=== PATIENT | female | born 1990 | race Caucasian/White ===

== ENCOUNTER → 2016-05-17 | Outpatient (CLI) | payer BC ==
[~2016-05-17] MED LIST: BCPILLS PO; HYDR-5688 PO; LINA1CAP PO; MULT-513 PO; ONDA4TAB9 PO; PRLSR20 PO; SERT50TA PO; TRAZ1TAB9 PO; ZONI100C39 PO
--- NOTE | 2016-05-17 14:03 | DIAGNOSTIC IMAGING REPORT ---
CT SCAN OF THE ABDOMEN AND PELVIS WITHOUT IV CONTRAST CLINICAL HISTORY: Nausea and vomiting. COMPARISON STUDY: Abdominal CT dated 02/14/2016. TECHNIQUE: CT scan of the abdomen and pelvis is performed from the lung bases to the proximal femora. Images are reviewed in the axial, sagittal, and coronal planes. IV contrast was not administered for this examination as per the referring clinician. Note that the examination was performed in significantly suboptimal fashion without oral and IV contrast. Automated dose control exposure was utilized. CT DOSE: 1033.69 mGycm FINDINGS: Lung bases: The heart is normal in size and without pericardial effusion. There are trace pleural effusions. The lung bases are otherwise clear. Liver: The unenhanced liver is normal in size, contour, and attenuation. There is no intrahepatic biliary ductal dilatation. Gallbladder: Surgically absent noting clips in the gallbladder fossa. Spleen: Normal in size and attenuation. Pancreas: Unremarkable. Adrenal glands: Unremarkable. Kidneys: The unenhanced kidneys are normal in size and without hydronephrosis. There are no renal calculi identified. There is no evidence of contour deforming renal mass lesion. Abdominal vasculature: The abdominal aorta is normal in course and caliber. Bowel: The small bowel and colon are normal in course and caliber. The appendix is not identified and reported surgically absent. Peritoneum: There is no intraperitoneal free air or abdominal ascites. There is a small fat-containing umbilical hernia. Lymphadenopathy: None. Pelvic viscera: The bladder, uterus, and adnexa are normal as visualized. There are bilateral ovarian follicles. Trace free fluid is noted in the cul-de-sac. Skeletal structures: No lytic or blastic lesions are seen. IMPRESSION: 1. Significantly suboptimal examination without oral and IV contrast 2. There are no acute infectious or inflammatory findings in the abdomen or pelvis. 3. Trace free fluid in the cul-de-sac is likely within physiologic limits. 4. Trace pleural effusions. Electronically signed by: Cesar Perez M.D. 05/17/2016 2:02 PM Dictated Date/Time: 05/17/2016 1:59 PM
== END | disposition home or self-care (01) ==
LOC: C.CTS 12:57
PROVIDERS: ATTEND Nurse Practitioner Family
DX: R10.9 Unspecified abdominal pain (principal); R31.9 Hematuria, unspecified; R11.2 Nausea with vomiting, unspecified; Z87.442 Personal history of urinary calculi

== ENCOUNTER → 2016-05-29 | Outpatient (CLI) | payer BC ==
[2016-05-29 19:44] LABS: BASO % 0.2 %; BASO ABS # 0.03 K/uL (0-0.2); COMPLETE YES; EOS % 1.2 %; HEMATOCRIT 42.6 % (37-47); IG% 0.2 %; LYMPH % 34.2 %; LYMPH ABS # 4.41 K/uL (1.2-3.4); MEAN CELL VOLUME 83.2 fL (80-100); MEAN CORPUSCULAR HEMOGLOBIN 30.9 pg (25-34); MEAN CORPUSCULAR HGB CONC 37.1 g/dl (32-36); MEAN PLATELET VOLUME 10.7 fL (7.4-10.4); MONO % 5.8 %; NEUT % 58.4 %; PLATELET COUNT 284 K/uL (130-400); RED BLOOD COUNT 5.12 M/uL (4.2-5.4)
[2016-05-29 20:28] LABS: ALB/GLOB RATIO 1.1 (0.9-2); ALKALINE PHOSPHATASE 60 U/L (45-117); ALT/SGPT 33 U/L (12-78); AMYLASE 88 U/L (25-115); AST/SGOT 21 U/L (15-37); BLOOD UREA NITROGEN 12 mg/dl (7-18); BUN/CREATININE RATIO 14.8 (10-20); CALCIUM 8.7 mg/dl (8.5-10.1); CARBON DIOXIDE 22 mmol/L (21-32); CHLORIDE 110 mmol/L (98-107); CREATININE 0.79 mg/dl (0.60-1.20); GLUCOSE 83 mg/dl (70-99); POTASSIUM 3.7 mmol/L (3.5-5.1); SODIUM 142 mmol/L (136-145)
== END | disposition home or self-care (01) ==
LOC: C.LAB 19:12
PROVIDERS: ATTEND Nurse Practitioner
DX: R11.2 Nausea with vomiting, unspecified (principal); R10.84 Generalized abdominal pain

== ENCOUNTER 2017-02-15 12:04 | Emergency (ER) | payer BC ==
[~2017-02-15] VITALS: Ht 162.6 cm; Wt 100.4 kg
[~2017-02-15 12:04] MED LIST changes: -HYDR-5688 PO; +TRAZ-162 PO; -TRAZ1TAB9 PO
[2017-02-15 12:06] VITALS: TEMP 36.6
--- NOTE | 2017-02-15 12:29 | EMERGENCY ROOM VISIT NOTE ---
History Report prepared by Nancy: Avis Esqueda Under the Supervision of: Milton McgovernO. First contact with patient: 12:18 Chief Complaint: SHORTNESS OF BREATH Stated Complaint: SOB Nursing Triage Summary: pt to the ED with severe SOB and chest pain pt is 32 wks preg and is here with her sick daughter. History of Present Illness The patient is a 26 year old female who presents to the Emergency Room with complaints of persistent shortness of breath that began 3 days ago. She notes she took her daughter to see her PCP, noting the PCP told her to come to the Emergency Department for further evaluation. The patient states that she has been coughing, vomiting, and has diarrhea. The patient notes that she has some chest pain when she coughs. She notes that she is . She states she was recently diagnosed with a UTI, noting she is taking microbid. The patient denies any fever or swelling of the legs. She notes a history of seizures, noting she has not had an episode in years. The patient denies being a smoker or having a history of blood clots. Source of History: patient Onset: 3 days Position: other (global) Quality: other (SOB) Timing: other (persistent) Associated Symptoms: + cough, + chest pain, + vomiting, + diarrhea Review of Systems See HPI for pertinent positives & negatives. A total of 10 systems reviewed and were otherwise negative. 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: employed, student Current/Historical Medications Scheduled Albuterol Hfa (Ventolin Hfa), 1 PUFF INH Q4 Aspirin (Aspirin 81), 81 MG PO HS Cefdinir (Omnicef), 300 MG PO Q12H Folic Acid (Folvite), Unknown Dose PO DAILY Multivit/Min/Iron/Fol Ac/Pren ( Vitamin), 1 TAB PO HS Nitrofurantoin (Nitrofurantoin Monohydrat), Unknown Dose PO BID Trazodone Hcl (Desyrel), 150 MG PO HS Allergies Coded Allergies: Amoxicillin (Verified Allergy, Unknown, "anxiety", 02/15/17) Clavulanic Acid (Verified Allergy, Unknown, "anxiety", 02/15/17) Iodinated Contrast Media (Verified Allergy, Unknown, RASH,SWELLING, ) Iodine (Verified Allergy, Unknown, SWELLING, 02/15/17) Mushroom (Verified Allergy, Unknown, hives, 02/15/17) Shellfish (Verified Allergy, Unknown, hives, 02/15/17) Physical Exam Vital Signs Date Time Temp Pulse Resp B/P (MAP) Pulse Ox O2 Delivery O2 Flow Rate FiO2 02/15/17 16:25 79 20 125/73 96 Room Air 02/15/17 14:31 92 16 134/80 99 Room Air 02/15/17 13:17 85 02/15/17 13:12 87 20 114/74 99 Nasal Cannula 2.0 02/15/17 13:10 99 Nasal Cannula 2.0 02/15/17 13:10 99 Nasal Cannula 2.0 02/15/17 12:20 168/104 02/15/17 12:06 36.6 104 36 98 Room Air Physical Exam GENERAL: Patient is awake, alert, and in no acute distress. Patient is resting comfortably and somewhat no signs of anxiety EYES: The conjunctivae are clear. The pupils are round and reactive. EARS, NOSE, MOUTH AND THROAT: The nose is without any evidence of any deformity. Mucous membranes are moist tongue is midline NECK: The neck is nontender and supple. RESPIRATORY: Tachypnea noted on observations. Lung sounds clear throughout. Normal respiratory effort is noted there is no evidence of wheezing rhonchi or rales CARDIOVASCULAR: Regular rate and rhythm noted there no murmurs rubs or gallops normal S1 normal S2 GASTROINTESTINAL: Grabbed in appearance, fundal height well above umbilicus. The abdomen is soft. Bowel sounds are present in all quadrants. No tenderness noted. MUSCULOSKELETAL/EXTREMITIES: There is no evidence of gross deformity full range of motion is noted in the hips and shoulders SKIN: There is no obvious evidence of any rash. There are no petechiae, pallor or cyanosis noted. NEUROLOGIC: Patient is awake alert and oriented x3 strength is symmetric patellar reflexes are 2+ bilaterally Medical Decision & Procedures ER Provider Diagnostic Interpretation: Radiology results as stated below per my review and radiologist interpretation: SINGLE VIEW CHEST CLINICAL HISTORY: Dyspnea. FINDINGS: An AP, portable, upright chest radiograph is compared to study dated 02/14/2016. The examination is degraded by portable technique and patient rotation. The cardiomediastinal silhouette is unremarkable. The lungs and pleural spaces are clear. No pneumothorax is seen. The bony thorax is grossly intact. IMPRESSION: No active disease in the chest. Electronically signed by: Cesar Perez M.D. 02/15/2017 12:46 PM Dictated Date/Time: 02/15/2017 12:45 PM Laboratory Results 02/15/17 12:40 Red Blood Count 4.70, Mean Corpuscular Volume 85.3, Mean Corpuscular Hemoglobin 30.6, Mean Corpuscular Hemoglobin Concent 35.9, Mean Platelet Volume 12.0, Neutrophils (%) (Auto) 67.1, Lymphocytes (%) (Auto) 21.3, Monocytes (%) (Auto) 8.7, Eosinophils (%) (Auto) 2.2, Basophils (%) (Auto) 0.2, Neutrophils # (Auto) 7.21, Lymphocytes # (Auto) 2.29, Monocytes # (Auto) 0.94, Eosinophils # (Auto) 0.24, Basophils # (Auto) 0.02 02/15/17 12:40 Test 02/15/17 12:40 02/15/17 12:55 02/15/17 13:49 02/15/17 14:40 White Blood Count 10.75 K/uL (4.8-10.8) Red Blood Count 4.70 M/uL (4.2-5.4) Hemoglobin 14.4 g/dL (12.0-16.0) Hematocrit 40.1 % (37-47) Mean Corpuscular Volume 85.3 fL (80-100) Mean Corpuscular Hemoglobin 30.6 pg (25-34) Mean Corpuscular Hemoglobin Concent 35.9 g/dl (32-36) Platelet Count 182 K/uL (130-400) Mean Platelet Volume 12.0 fL (7.4-10.4) Neutrophils (%) (Auto) 67.1 % Lymphocytes (%) (Auto) 21.3 % Monocytes (%) (Auto) 8.7 % Eosinophils (%) (Auto) 2.2 % Basophils (%) (Auto) 0.2 % Neutrophils # (Auto) 7.21 K/uL (1.4-6.5) Lymphocytes # (Auto) 2.29 K/uL (1.2-3.4) Monocytes # (Auto) 0.94 K/uL (0.11-0.59) Eosinophils # (Auto) 0.24 K/uL (0-0.5) Basophils # (Auto) 0.02 K/uL (0-0.2) RDW Standard Deviation 40.1 fL (36.4-46.3) RDW Coefficient of Variation 12.7 % (11.5-14.5) Immature Granulocyte % (Auto) 0.5 % Immature Granulocyte # (Auto) 0.05 K/uL (0.00-0.02) Prothrombin Time 9.9 SECONDS (9.0-12.0) Prothromb Time International Ratio 0.9 (0.9-1.1) Activated Partial Thromboplast Time 26.4 SECONDS (21.0-31.0) Partial Thromboplastin Ratio 1.0 D-Dimer 540 ug/L FEU (0-500) Anion Gap 12.0 mmol/L (3-11) Est Creatinine Clear Calc Drug Dose 167.9 ml/min Estimated GFR () 146.4 Estimated GFR (Non- 126.3 BUN/Creatinine Ratio 9.2 (10-20) Calcium Level 8.3 mg/dl (8.5-10.1) Magnesium Level 1.7 mg/dl (1.8-2.4) Total Bilirubin 0.4 mg/dl (0.2-1) Aspartate Amino Transf (AST/SGOT) 27 U/L (15-37) Alanine Aminotransferase (ALT/SGPT) 27 U/L (12-78) Alkaline Phosphatase 83 U/L (45-117) Total Creatine Kinase 69 U/L (26-192) Creatine Kinase MB 0.9 ng/ml (0.5-3.6) Creatine Kinase MB Ratio 1.3 (0-3.0) Troponin I < 0.015 ng/ml (0-0.045) Pro-B-Type Natriuretic Peptide 67 pg/ml (0-450) Total Protein 6.2 gm/dl (6.4-8.2) Albumin 2.7 gm/dl (3.4-5.0) Globulin 3.5 gm/dl (2.5-4.0) Albumin/Globulin Ratio 0.8 (0.9-2) Chemistry Specimen Hemolysis Influenza Type A (RT-PCR) Neg for Influ A (NEG) Influenza Type A Antigen Neg for Influ A (NEG) Influenza Type B Antigen Neg for Influ B (NEG) Influenza Type B (RT-PCR) Neg for Influ B (NEG) Venous Blood pH 7.44 (7.36-7.41) Venous Blood Partial Pressure CO2 31 mmHg (38.0-50.0) Venous Blood Partial Pressure O2 48 mmHg Venous Blood HCO3 21 mmol/L Venous Blood Oxygen Saturation 83.0 % Venous Blood Base Excess -2.1 mEq/L Urine Color DK YELLOW Urine Appearance CLOUDY (CLEAR) Urine pH 6.0 (4.5-7.5) Urine Specific [place] 1.033 (1.000-1.030) Urine Protein 1+ (NEG) Urine Glucose (UA) NEG (NEG) Urine Ketones TRACE (NEG) Urine Occult Blood TRACE (NEG) Urine Nitrite POS (NEG) Urine Bilirubin NEG (NEG) Urine Urobilinogen NEG (NEG) Urine Leukocyte Esterase TRACE (NEG) Urine WBC (Auto) 1-5 /hpf (0-5) Urine RBC (Auto) 10-30 /hpf (0-4) Urine Hyaline Casts (Auto) 5-10 /lpf (0-5) Urine Epithelial Cells (Auto) >30 /lpf (0-5) Urine Bacteria (Auto) NEG (NEG) Laboratory results per my review. Medications Administered Medications (Trade) Dose Ordered Sig/Jose Route Start Time Stop Time Status Last Admin Dose Admin Albuterol/ Ipratropium (Duoneb) 3 ml NOW STAT INH 02/15/17 13:19 02/15/17 13:20 DC 02/15/17 13:53 3 ML Sodium Chloride 1,000 ml @ 999 mls/hr Q1H1M STAT IV 02/15/17 13:50 02/15/17 14:50 DC 02/15/17 13:45 999 MLS/HR Magnesium Sulfate (Magnesium Sulfate) 1 gm NOW STAT IV 02/15/17 14:22 02/15/17 14:23 DC 02/15/17 15:04 1 GM Procedure Bedside ultrasound was done. Using the curved probe good movement was noted. There was good cardiac activity with a heart rate in the 150-160 beats per minute range noted. ECG Indication: SOB/dyspnea Rate (beats per minute): 83 Rhythm: normal sinus Findings: no ectopy, other (Diffused ST and T wave abnormalities noted) Comparison ECG Date: findings are new compared to 10/20/15 ED Course 1221: The patient was evaluated in room A9B. A complete history and physical examination were performed. 1319: Ordered Duoneb 3ml INH. 1350: Ordered Sodium Chloride 1000ml @999mls/hr IV. 1422: Ordered Magnesium Sulfate 1gm IV. 1443: I reevaluated the patient, who was resting comfortably. I discussed the test findings and she verbalized complete understanding. 1500: I discussed the patient's case with SURENDRA Downey. Dr. Pagan recommends a medical examination, with consultation. 1514: Discussed the patient's case with SURENDRA Finley. He recommended I order an echocardiogram. 1519: I discussed the patient's case with SURENDRA Hernández. The patient will be evaluated for further management. Medical Decision Prior records/ancillary studies reviewed. Triage Nursing notes reviewed. The patient's history was concerning for respiratory difficulties. Differential diagnosis: Etiologies such as infections, reactive airway disease, pneumonia, pneumothorax , COPD, CHF, cardiac ischemia, pulmonary embolism, musculoskeletal, gastrointestinal, as well as others were entertained. The patient is a 26-year-old female who presented to the emergency apartment for an evaluation of cough. The patient is currently 32 weeks . The patient also presented with her infant daughter with similar symptoms. The patient did not report a fever however her daughter did have a fever with upper respirator symptoms of runny nose and cough. The patient however being had further workup which included EKG as well as further studies to evaluate for venous thromboembolic disease. The patient's Dopplers were negative. Her d- dimer was mildly elevated but with correction for I feel this is in a normal range. The patient's chest x-ray did not show any acute disease. She was treated with bronchodilator therapy as well as IV fluids and IV magnesium in the emergency department. On subsequent reevaluation she was feeling much better. I was very concerned because the patient initially had an EKG which showed some abnormalities which I thought could be consistent with a strain pattern. The patient had an echocardiogram in the emergency department after I [facility] This was felt to represent a normal echocardiogram. I do not feel at this time her findings represent peripartum cardiac myopathy or venous thromboembolic disease or pulmonary embolism. I also discussed his case with the on-call [facility] [place] hospitalist as well as the on-call [facility] ASSISTANT THERAPY AIDE physician. After reviewing all the patient's laboratory and radiographic studies I feel she may be safely followed up by her primary care physician as well as her primary OB/ [employer] physician. She was instructed to discuss further follow-up with cardiology after she's delivered and is no longer . She was also encouraged to rest and avoid any straining Saturday. At this time I'll treat her for bronchitis. She was also encouraged to return to the emergency department immediately if symptoms change worsen or the need arises. Medication Reconcilliation Current Medication List: was personally reviewed by me Consults Time Called: 1500 Consulting Physician: SURENDRA Downey Returned Call: 1500 I discussed the patient's case with SURENDRA Downey. Dr. Pagan recommends a medical examination, with consultation. Additional Consults: Time Called: 151 Consulted Physician: SURENDRA Finley Returned Call: 151 Additional Comments: Discussed the patient's case with SURENDRA Finley. He recommended I order an echocardiogram. Time Called: 151 Consulted Physician: SURENDRA Hernández. Returned Call: 151 Additional Comments: I discussed the patient's case with SURENDRA Hernández. The patient will be evaluated for further management. Impression Primary Impression: Bronchitis Additional Impressions: Chest pain Abnormal EKG Scribe Attestation The scribe's documentation has been prepared under my direction and personally reviewed by me in its entirety. I confirm that the note above accurately reflects all work, treatment, procedures, and medical decision making performed by me. Departure Information Dispostion Being Evaluated By Hospitalist Prescriptions Albuterol Hfa (VENTOLIN HFA) 200 Puffs/[id number] Mcg Aers 1 PUFF INH Q4, #1 INHALER Prov: Brent Birmingham, DO 02/15/17 Cefdinir (Omnicef) 300 Mg Cap 300 MG PO Q12H, #14 CAP Prov: Brent Birmingham, DO 02/15/17 Referrals Tyrone, Malia C.R.N.P. (PCP) Forms HOME CARE DOCUMENTATION FORM, IMPORTANT VISIT INFORMATION Patient Instructions [facility] Problem Qualifiers Additional Impressions: Chest pain Chest pain type: unspecified Qualified Codes: R07.9 - Chest pain, unspecified
[2017-02-15] MEDS ORDERED: ASPI-435 PO (12:31)
[2017-02-15] MEDS ORDERED: PRENTAB26 PO (12:31)
[2017-02-15] MEDS ORDERED: FOLI1TAB8 PO (12:31)
[2017-02-15] MEDS ORDERED: MCRB100HP PO (12:35)
--- NOTE | 2017-02-15 12:47 | DIAGNOSTIC IMAGING REPORT ---
SINGLE VIEW CHEST CLINICAL HISTORY: Dyspnea. FINDINGS: An AP, portable, upright chest radiograph is compared to study dated 02/14/2016. The examination is degraded by portable technique and patient rotation. The cardiomediastinal silhouette is unremarkable. The lungs and pleural spaces are clear. No pneumothorax is seen. The bony thorax is grossly intact. IMPRESSION: No active disease in the chest. Electronically signed by: Cesar Perez M.D. 02/15/2017 12:46 PM Dictated Date/Time: 02/15/2017 12:45 PM
[2017-02-15 13:10] VITALS: O2SAT 99
[2017-02-15 13:12] VITALS: Ht 162.6 cm; Wt 100.4 kg
[2017-02-15 13:15] LABS: BASO % 0.2 %; BASO ABS # 0.02 K/uL (0-0.2); EOS % 2.2 %; EOS ABS # 0.24 K/uL (0-0.5); HEMATOCRIT 40.1 % (37-47); HEMOGLOBIN 14.4 g/dL (12.0-16.0); IG# 0.05 K/uL (0.00-0.02); LYMPH % 21.3 %; LYMPH ABS # 2.29 K/uL (1.2-3.4); MEAN CELL VOLUME 85.3 fL (80-100); MEAN CORPUSCULAR HEMOGLOBIN 30.6 pg (25-34); MEAN CORPUSCULAR HGB CONC 35.9 g/dl (32-36); MONO % 8.7 %; MONO ABS # 0.94 K/uL (0.11-0.59); NEUT % 67.1 %; NEUT ABS # 7.21 K/uL (1.4-6.5); PLATELET COUNT 182 K/uL (130-400); RED CELL DISTRIBUTION WIDTH CV 12.7 % (11.5-14.5); RED CELL DISTRIBUTION WIDTH SD 40.1 fL (36.4-46.3); WHITE BLOOD COUNT 10.75 K/uL (4.8-10.8)
[2017-02-15] MEDS ORDERED: ALBUT/IPRATROP 3MG/0.5MG NEB 3 ML VIAL INH STA (13:19)
[2017-02-15 13:29] LABS: INR 0.9 (0.9-1.1); PTT PATIENT 26.4 SECONDS (21.0-31.0)
[2017-02-15 13:44] LABS: ALBUMIN 2.7 gm/dl (3.4-5.0); ALKALINE PHOSPHATASE 83 U/L (45-117); ALT/SGPT 27 U/L (12-78); AST/SGOT 27 U/L (15-37); BLOOD UREA NITROGEN 5 mg/dl (7-18); CALCIUM 8.3 mg/dl (8.5-10.1); CARBON DIOXIDE 17 mmol/L (21-32); CKMB 0.9 ng/ml (0.5-3.6); CREATININE 0.58 mg/dl (0.60-1.20); GLUCOSE 107 mg/dl (70-99); POTASSIUM 3.3 mmol/L (3.5-5.1); SODIUM 138 mmol/L (136-145); TOTAL PROTEIN 6.2 gm/dl (6.4-8.2)
[2017-02-15] MEDS ORDERED: SODIUM CHLORIDE 0.9% 1000ML 1,000 ML IV STA (13:50)
[2017-02-15 14:14] LABS: INFLUENZA A PCR Neg for Influ A (NEG); INFLUENZA B ANTIGEN Neg for Influ B (NEG); INFLUENZA B PCR Neg for Influ B (NEG)
[2017-02-15] MEDS ORDERED: MAGNESIUM SULFATE 1GM / D5W 1 GM BAG IV STA (14:22)
--- NOTE | 2017-02-15 14:31 | DIAGNOSTIC IMAGING REPORT ---
BILATERAL LOWER EXTREMITY VENOUS DOPPLER HISTORY: , short of breath. COMPARISON STUDY: None. FINDINGS: There is normal compressibility and augmentation within the bilateral lower extremity deep venous systems. Slow venous flow seen throughout the lower extremities. IMPRESSION: No DVT within the right or left lower extremity. Electronically signed by: Teo Holman M.D. 02/15/2017 2:30 PM Dictated Date/Time: 02/15/2017 2:29 PM
[2017-02-15] MEDS ORDERED: DEXAMETHASONE INJ 10 MG in SYRINGE 0 ML IV STA (16:22)
[2017-02-15] MEDS ORDERED: CEFD1CAP14 PO (16:27)
[2017-02-15] MEDS ORDERED: VNTHFA/IN INH (16:28)
[2017-02-15] MEDS ORDERED: DEXAMETHASONE **PF** INJ 10 MG/ML VIAL ONE (16:50)
[2017-02-15 17:02] VITALS: BP 117/68; PULSE 73; O2SAT 96
--- NOTE | 2017-02-15 17:05 | ECHOCARDIOGRAM REPORT ---
*NOTICE TO RECEIVING [employer] This information is strictly Confidential and protected under [place] law. [place] law prohibits you from making any further disclosure of this information unless further disclosure is expressly permitted by the written consent of the person to whom it pertains or is authorized by law. A general authorization for the release of medical or other information is not sufficient for this purpose. Hospital accepts no responsibility if the information is made available to any other person, INCLUDING THE PATIENT. Interpretation Summary * : MADELYN HOPE Study Date: 02/15/2017 03:29 PM BP: 134/80 mmHg * Patient Location: [facility] HR: 81 * : 1990 (M/d/yyyy) Gender: Female Height: 64 in * Age: 26 yrs Ethnicity: CA Weight: 221 lb * Ordering Physician: Brent Birmingham * Referring Physician: Self, Referred * Performed By: Radha Villanueva RCS * * Reason For Study: SOB / / ABNORMAL EKG * BSA: 2.0 m2 * -- Conclusions -- * 1. Normal left ventricular size and systolic function. EF 60-65%. No regional wall motion abnormalities. No left ventricular hypertrophy. No significant diastolic dysfunction. * 2. No significant valvular abnormalities. * 3. Normal estimated right ventricular systolic pressure. * 4. No prior study available for comparison. Procedure Details * A complete two-dimensional transthoracic echocardiogram was performed (2D, M-mode, Doppler and color flow Doppler). Left Ventricle * Normal left ventricular size and systolic function. EF 60-65%. No regional wall motion abnormalities. No left ventricular hypertrophy. No significant diastolic dysfunction. Right Ventricle * The right ventricle is normal in size and function. * The right ventricular systolic function is normal as assessed by tricuspid annular plane systolic excursion (TAPSE) (normal >1.5 cm). Atria * The left atrial size is normal. * Right atrial size is normal. * There is no evidence of atrial septal defect, but resolution does not allow assessment for a patent foramen ovale. Mitral Valve * The mitral valve leaflets appear normal. There is no evidence of stenosis, fluttering, or prolapse. * There is trace mitral regurgitation. Tricuspid Valve * The tricuspid valve is not well visualized, but is grossly normal. * There is no tricuspid stenosis. * There is trace tricuspid regurgitation. Aortic Valve * The aortic valve is trileaflet. * No hemodynamically significant valvular aortic stenosis. * No aortic regurgitation is present. Pulmonic Valve * The pulmonic valve is not well seen, but is grossly normal. * There is no pulmonic valvular stenosis. * Trace pulmonic valvular regurgitation. Great Vessels * The aortic root is normal size. Pericardium/Pleural * There is no pericardial effusion. Great Vessels * Normal inferior vena cava size and collapsability with sniff indicates a normal right atrial pressure of 3 mmHg MMode 2D Measurements and Calculations IVSd 0.96 cm IVSs 1.3 cm LVIDd 4.4 cm LVIDs 2.9 cm LVPWd 0.88 cm LVPWs 1.3 cm IVS/LVPW 1.1 FS 34.2 % EDV(Teich) 89.9 ml ESV(Teich) 32.9 ml EF(Teich) 63.3 % EDV(cubed) 87.9 ml ESV(cubed) 25.1 ml EF(cubed) 71.5 % % IVS thick 30.3 % % LVPW thick 49.9 % LV mass(C)d 133.9 grams LV mass(C)dI 65.6 grams/m\S\2 LV mass(C)s 117.6 grams LV mass(C)sI 57.6 grams/m\S\2 SV(Teich) 56.9 ml SI(Teich) 27.9 ml/m\S\2 SV(cubed) 62.8 ml SI(cubed) 30.8 ml/m\S\2 Ao root diam 3.1 cm Ao root area 7.5 cm\S\2 ACS 2.3 cm LA dimension 2.3 cm LA/Ao 0.73 LVOT diam 2.0 cm LVOT area 3.2 cm\S\2 LVAd ap4 30.4 cm\S\2 LVLd ap4 8.3 cm EDV(MOD-sp4) 94.8 ml EDV(sp4-el) 94.5 ml LVAs ap4 16.1 cm\S\2 LVLs ap4 6.8 cm ESV(MOD-sp4) 33.8 ml ESV(sp4-el) 32.6 ml EF(MOD-sp4) 64.3 % EF(sp4-el) 65.5 % SV(MOD-sp4) 61.0 ml SI(MOD-sp4) 29.9 ml/m\S\2 SV(sp4-el) 61.9 ml SI(sp4-el) 30.3 ml/m\S\2 Doppler Measurements and Calculations MV E max fanny 94.9 cm/sec MV A max fanny 71.7 cm/sec MV E/A 1.3 MV P1/2t max fanny 110.2 cm/sec MV P1/2t 42.4 msec MVA(P1/2t) 5.2 cm\S\2 MV dec slope 760.5 cm/sec\S\2 MV dec time 0.17 sec Ao V2 max 127.3 cm/sec Ao max PG 6.5 mmHg Ao max PG (full) 1.5 mmHg TACO(V,A) 2.8 cm\S\2 TACO(V,D) 2.8 cm\S\2 LV V1 max PG 5.0 mmHg LV V1 max 112.1 cm/sec PA V2 max 108.1 cm/sec PA max PG 4.7 mmHg TR max fanny 220.4 cm/sec RVSP(TR) 22.4 mmHg RAP systole 3.0 mmHg
== END 2017-02-15 17:10 | disposition home or self-care (01) ==
LOC: C.ED 12:05 → C.EDA 17:10
DX: O99.513 Diseases of the respiratory system complicating pregnancy, third trimester (principal); J40 Bronchitis, not specified as acute or chronic; Z3A.32 32 weeks gestation of pregnancy; R07.9 Chest pain, unspecified; R94.31 Abnormal electrocardiogram [ECG] [EKG]; Z83.3 Family history of diabetes mellitus; Z80.9 Family history of malignant neoplasm, unspecified; Z83.79 Family history of other diseases of the digestive system; Z82.49 Family history of ischemic heart disease and other diseases of the circulatory system; Z79.82 Long term (current) use of aspirin; Z79.899 Other long term (current) drug therapy

== ENCOUNTER 2018-11-03 10:36 | Inpatient (IN) ==
[2018-11-03] MEDS ORDERED: LORazepam 0.5 MG TAB PO PRN (13:55)
[2018-11-03] MEDS ORDERED: ACETAMINOPHEN 325 MG TAB PO PRN (13:55)
[2018-11-03] MEDS ORDERED: ONDANSETRON 8MG OD TAB SL PRN (13:55)
[2018-11-03] MEDS ORDERED: methylPREDNISolone 125 MG in SYRINGE 0 ML IV ONE (14:15)
[2018-11-03 14:33] LABS: Basophils # (auto) 0.05 K/uL (0-0.2); Basophils % (auto) 0.5 %; Eosinophils # (auto) 0.27 K/uL (0-0.5); Hematocrit (blood only) 43.2 % (37-47); Hemoglobin 15.7 g/dL (12.0-16.0); Immature Granulocytes # (auto) 0.02 K/uL (0.00-0.02); Immature Granulocytes % (auto) 0.2 %; Lymphocytes # (auto) 3.56 K/uL (1.2-3.4); Mean Corpuscular Hemoglobin 30.8 pg (25-34); Mean Corpuscular Hgb Conc 36.3 g/dL (32-36); Mean Corpuscular Volume 84.9 fL (80-100); Mean Platelet Volume 10.5 fL (7.4-10.4); Monocytes # (auto) 0.67 K/uL (0.11-0.59); Monocytes % (auto) 7.3 %; Neutrophils # (auto) 4.56 K/uL (1.4-6.5); Platelet Count 322 K/uL (130-400); RDW Coefficient of Variation 12.2 % (11.5-14.5); RDW Standard Deviation 37.6 fL (36.4-46.3); Red Blood Count 5.09 M/uL (4.2-5.4); White Blood Count 9.13 K/uL (4.8-10.8)
--- NOTE | 2018-11-03 14:55 | History & Physical Report ---
Date of Service November 03, 2018 Assessment & Plan (1) Abdominal pain: 27 yo F with PMH PCOS, Endometriosis, hysterectomy, cholecystectomy, appendectomy who has had intractable abdominal pain at rest since the end of last year acutely worsening in the past 5 days. 1) Abdominal Pain - Patient's description of pain doesn't follow any obvious etiology. Has had an extensive outpatient workup since February. Continuing to develop differential and workup - possible functional constipation secondary to adhesions - possible anatomic abnormality - CT Abd with oral and IV contrast ordered, along with CMP and CBC - will consider Lipase, CRP and ESR if CT Scan comes back unequivocal - GI consult, appreciate recommendations regarding utility of EGD/C-scope to rule out severe IBS/IBD picture 2) Depression/Anxiety - continue home Trazodone and Sertraline at nighttime - patient has good insight into condition and is knowledgeable about condition; continue home 0.5 lorazepam Q12 PRN 3) Pain Management - Acetaminophen for mild pain - Home 10 mg percocet Q4 PO and Toradol Q6 for moderate pain - 4 mg morphine IV for intractable/Severe breakthrough pain DVT Prophylaxis: lovenox FEN/GI: ice chips/sips with meds, 20 mg PO omeprazole as per home meds Dispo: Med/Surg Present on Admission?: Yes History of Present Illness 27 yo F with PMH endometriosis and PCOS here for intractable abdominal pain that has been going on since February 2018/the end of 2017. Has had multiple outpatient workups for the pain that have not found anything yet. Pain is a dull 6/10 ache on the left side of abdomen at rest with sporadic increases to 10/10 sharp pain that doesn't follow a pattern. Pain does not improve or change with Primary Care Provider: KEENA Robert Allergies Allergy/AdvReac Type Severity Reaction Status Date / Time amoxicillin Allergy Unknown "anxiety" Verified 02/15/17 12:36 clavulanic acid Allergy Unknown "anxiety" Verified 02/15/17 12:36 Iodinated Contrast Media Allergy Unknown RASH,SWELLI Verified 02/15/17 12:36 NG iodine Allergy Unknown SWELLING Verified 02/15/17 12:36 mushroom Allergy Unknown hives Verified 02/15/17 12:36 shellfish derived Allergy Unknown hives Verified 02/15/17 12:36 Home Medications Home Medications Medication Instructions Recorded Confirmed Type sertraline 25 mg tablet 100 mg PO DAILY tab 10/07/18 11/03/18 History trazodone 100 mg tablet 150 mg PO HS tab 10/14/18 11/03/18 History lorazepam [Ativan] 0.5 mg PO BID PRN 11/03/18 11/03/18 History ondansetron 8 mg TRANSLINGUAL Q8H PRN 11/03/18 11/03/18 History oxycodone-acetaminophen [Percocet] 10 - 325 tab PO Q4H PRN 11/03/18 11/03/18 History Past Med/Surg History Medical History Anxiety Depression Endometriosis 2 para 2 PCOS (polycystic ovarian syndrome) Surgical History H/O hysterectomy with unilateral oophorectomy History of appendectomy History of cholecystectomy Social History Preferred Language: Ethiopian Communication Ability: Effective Beliefs That Will Affect Care: None Current Living Situation: Spouse Current Living Situation Comment: 2 children at home, ages 3 and 18 months Other Information That Helps Us Care for You: No Feels Safe at Home: Yes Safety Concerns: Feels Safe At This Time Smoking Status: Never smoker Do You Dip or Chew Tobacco: No ; Second Hand Exposure: No ; Hx Alcohol Use: Yes (occassionally) Alcohol type: beer and wine Hx Substance Use: No Review of Systems Constitutional: + body aches; no fever, no chills and no increased appetite Respiratory: no cough and no pain on inspiration Cardiovascular: no chest pain and no calf pain Gastrointestinal: + abdominal pain, + nausea and + vomiting; no heartburn, no cramping, no change in bowel habits, no constipation, no diarrhea/loose stools, no fecal incontinence and no blood in stools Genitourinary: + absent periods (s/p hysterectomy); no dysuria, no urinary frequency and no hematuria Neurologic: no gait abnormality, no unsteadiness, no localized weakness, no tingling, no paresthesia and no radiating pain Physical Exam Constitutional: + obese, cooperative and + in distress; + uncomfortable Lying in pain in bed, limiting bodily motion so as to not aggravate abdominal pain Eyes: PERRL and EOM intact bilaterally; no conjunctival abnormality Respiratory: normal respiratory effort; no respiratory distress Auscultation: lungs clear to auscultation bilaterally (transmitted bowel sounds); no crackles, no rales, no rhonchi and no wheezes Cardiovascular: Rate/Rhythm: regular rate and regular rhythm Heart Sounds: no click, no gallop and no murmur Vessels: posterior tibial pulses present Extremities: normal capillary refill; no edema Gastrointestinal (Abdomen): Inspection/Auscultation: + abdomen distended; no abdominal edema Percussion/Palpation: + abdomen tender (tender to palpation mostly in LLQ near L inguinal canal) and abdomen soft; no guarding and abdomen not rigid Results & Data Vital Signs (Past 12 Hours) Vital Signs Temp Resp BP Pulse Ox 11/03/18 11:25 36.7 C 20 127/85 98 Laboratory Results WBC 9.13 K/uL (4.8-10.8) 11/03/18 14:07 RBC 5.09 M/uL (4.2-5.4) 11/03/18 14:07 Hgb 15.7 g/dL (12.0-16.0) 11/03/18 14:07 Hct 43.2 % (37-47) 11/03/18 14:07 MCV 84.9 fL (80-100) 11/03/18 14:07 MCH 30.8 pg (25-34) 11/03/18 14:07 MCHC 36.3 g/dL (32-36) H 11/03/18 14:07 RDW Std Deviation 37.6 fL (36.4-46.3) 11/03/18 14:07 RDW Coeff of Bowen 12.2 % (11.5-14.5) 11/03/18 14:07 Plt Count 322 K/uL (130-400) 11/03/18 14:07 MPV 10.5 fL (7.4-10.4) H 11/03/18 14:07 Immature Gran % (Auto) 0.2 % 11/03/18 14:07 Neut % (Auto) 50.0 % 11/03/18 14:07 Lymph % (Auto) 39.0 % 11/03/18 14:07 [place] % (Auto) 7.3 % 11/03/18 14:07 Eos % (Auto) 3.0 % 11/03/18 14:07 Baso % (Auto) 0.5 % 11/03/18 14:07 Immature Gran # (Auto) 0.02 K/uL (0.00-0.02) 11/03/18 14:07 Neut # (Auto) 4.56 K/uL (1.4-6.5) 11/03/18 14:07 Lymph # (Auto) 3.56 K/uL (1.2-3.4) H 11/03/18 14:07 [place] # (Auto) 0.67 K/uL (0.11-0.59) H 11/03/18 14:07 Eos # (Auto) 0.27 K/uL (0-0.5) 11/03/18 14:07 Baso # (Auto) 0.05 K/uL (0-0.2) 11/03/18 14:07 Code Status & VTE Plan VTE Prophylaxis Plan VTE Prophylaxis will be ordered: Yes Supervising Physician Co-Signing Physician Notes I personally examined the patient and verified all grubbs points of history and exam, discussed case, and agree with decision making with Dr Asencio. Abdominal pain, ongoing fairly severely for the last 3 months. Notes that she has struggled with it some off and on for the last year. Extensive prior work- up, negative CTs, and colonoscopy. It seems though that the pain has worsened recently, last CT was about 6 weeks ago. She notes that at one point during a [employer] surgery her surgeon informed her of the part of her colon did not appear to be moving appropriately. She notes that she has probably 3 bowel movements of small caliber of stools daily, and if there is anything that makes the pain get extremely intense it is while she is having a bowel movement. Vitals noted, in general she is awake and alert pleasant but actually at times shaking some with pain. HEENT normocephalic atraumatic mucous membranes moist. Breathing unlabored no accessory muscle use good effort. Abdomen mildly distended exquisite left lower quadrant tenderness with voluntary guarding and a mild degree of rebound. No other rigidity. No notable abdominal wall trigger points. Left lower quadrant abdominal paingiven her pain being worse with bowel movements, her stool symptoms, and the location of the pain, as well as her absence of most other organs in that location, her descending colon seems to be the culprit. Given that her symptoms seems to be worse, and she almost examines surgical, will obtain CT abdomen pelvis now both for information in the current, as well as for comparison to previous. Serial exams, supportive care. Labs as above noted, ask GI for evaluation. Patient did request a second opinion from a different GI service, so while she has seen Dr. Louie in the past, we will ask for an opinion from Dr. Jones. Consider repeat colonoscopy. Obviously this will be contingent on CT findings as well as other findings, as well as serial exams, as well as progression of her symptoms. Otherwise as above PG Care Time/CCT Total # of Minutes Spent Total Time Spent with Patient: Total time spent is greater than 50% in coordination of care (as documented) at patient's floor/unit and/or counseling patient: Resident Activity Tracking Resident Involvement: Resident Care Provided Care Provided: Adult Hospital Medicine (1) Abdominal pain Abdominal location: left lower quadrant Qualified Code(s): R10.32 - Left lower quadrant pain
[2018-11-03 15:16] LABS: Albumin Level 4.1 gm/dl (3.4-5.0); BUN Creatinine Ratio 8.1 (10-20); Calcium 9.2 mg/dl (8.5-10.1); Creatinine Clr Calc Pharmacy 128.6 ml/min; Est GFR (African American) 123.7; Est GFR (Non-African American) 106.8; Potassium 3.8 mmol/L (3.5-5.1)
[2018-11-03 15:18] LABS: Albumin Globulin Ratio 1.1 (0.9-2); Bilirubin,Total 0.7 mg/dl (0.2-1); Globulin 3.6 gm/dl (2.5-4.0); Total Protein 7.7 gm/dl (6.4-8.2)
[2018-11-03] MEDS: MoRPHine SULFATE 4 MG/ML 1 ML CARP\\VIAL IV PRN ×2 (15:21→20:35)
[2018-11-03] MEDS: SODIUM CHLOR 0.45% + 20MEQ KCL 20 MEQ/1,000 ML BAG IV SCH ×2 (15:45→22:39)
[2018-11-03] MEDS: KETOROLAC 30 MG/ML VIAL IV PRN ×2 (15:46→22:01)
[2018-11-03] MEDS ORDERED: Nursing to Pharmacy Communication ONE (16:51)
[2018-11-03] MEDS: ENOXAPARIN INJ 40 MG/0.4 ML SYR SQ SCH (20:36)
[2018-11-03] MEDS: TRAZODONE HCL 100 MG TAB PO SCH (20:36)
[2018-11-03] MEDS ORDERED: SERTRALINE HCL 100 MG TABLET PO SCH (21:00)
[2018-11-04] MEDS: ONDANSETRON INJ 2 MG/ML 2 ML VIAL IV PRN (03:17)
[2018-11-04] MEDS: MoRPHine SULFATE 4 MG/ML 1 ML CARP\\VIAL IV PRN ×3 (04:21→16:46)
[2018-11-04] MEDS ORDERED: IOVERSOL 100ml IV PRN (04:38)
[2018-11-04] MEDS: KETOROLAC 30 MG/ML VIAL IV PRN ×2 (04:52→11:58)
[2018-11-04] MEDS: SODIUM CHLOR 0.45% + 20MEQ KCL 20 MEQ/1,000 ML BAG IV SCH ×3 (05:47→18:47)
--- NOTE | 2018-11-04 07:30 | CT Scan Report ---
CT OF THE ABDOMEN AND PELVIS WITH CONTRAST CLINICAL HISTORY: Abdominal pain. COMPARISON STUDY: CT of the abdomen and pelvis September 19, 2018. TECHNIQUE: Patient was premedicated for IV dye allergy. Following IV administration of 92 mL of Optir [id number], axial images of the abdomen and pelvis were obtained from the lung bases to the proximal femu rs. Images were reviewed in the axial, sagittal, and coronal planes. IV contrast was administered wit hout complication. Automated exposure control was utilized for the study. A dose lowering technique was utilized adhering to the principles of ALARA. Oral contrast was administered. CT DOSE: 1146.05 mGy.cm FINDINGS: There are trace bilateral pleural effusions. Fatty infiltration of the liver is noted. Ther e is no biliary ductal dilatation status post cholecystectomy. The spleen, adrenal glands, kidneys an d pancreas are normal. There is no pancreatic ductal dilatation. No hydronephrosis is present. There is no evidence for a bowel obstruction. The appendix is surgically absent. Slight asymmetric enlargem ent of the left ovary has decreased when compared to prior CT of September 19, 2018. No pneumatosis, free air or portal venous gas is present. There are no suspicious osseous lesions. Minimal pelvic infiltr ation is unchanged from earlier exams. Uterus is surgically absent. IMPRESSION: 1. No acute process within the abdomen or pelvis. 2. Suspected fatty infiltration of the liver. 3. Trace bilateral pleural effusions. Electronically signed by: Adalberto Angulo M.D. 11/04/2018 7:29 AM
[2018-11-04] MEDS ORDERED: Nursing to Pharmacy Communication ONE (07:32)
--- NOTE | 2018-11-04 10:09 | Family Medicine Progress Note ---
Date of Service November 04, 2018 Assessment & Plan (1) Abdominal pain: 27 yo F with PMH PCOS, Endometriosis, hysterectomy, cholecystectomy, appendectomy who has had intractable abdominal pain for the past 9 months without resolution, acutely worse in the past 5 days. 1) Abdominal Pain a) Most likely mixed picture of adhesions + constipation CT Abd: There are trace bilateral pleural effusions. Fatty infiltration of the liver is noted. There is no biliary ductal dilatation status post cholecystectomy. The spleen, adrenal glands, kidneys and pancreas are normal. There is no pancreatic ductal dilatation. No hydronephrosis is present. There is no evidence for a bowel obstruction. The appendix is surgically absent. Slight asymmetric enlargement of the left ovary has decreased when compared to prior CT of September 19, 2018. No pneumatosis, free air or portal venous gas is present. There are no suspicious osseous lesions. Minimal pelvic infiltration is unchanged from earlier exams. Uterus is surgically absent. - at this time considering exploratory laparoscopy given likelihood of mix of anatomic/functional constipation 2/2 adhesions and/or extrauterine endometriosis causing pain - enlargement of ovary + cysts possible cause of pain but would be abnormal to cause this extent of pain for 9 months b) Severe IBS less likely - Will re-consult or curbside GI for any recs or re-colonoscopy if it seems to be a valuable endeavour. - started a bowel regimen to elucidate if clearance of bowels aids in reducing pain c) Autoimmune/Vasculitis less likely - least likely given lack of joint pain, rash, body wide symptomology, restriction of pain to LLQ of abdomen (particularly inguinal area) - CRP returned positive at 0.60, however not impressive for body-wide vasculitis or inflammatory state. ESR WNL. 2) Depression/Anxiety - continue home Trazodone and Sertraline at nighttime - patient has good insight into condition and is knowledgeable about condition; continue home 0.5 lorazepam Q12 PRN 3) Pain Management - Acetaminophen for mild pain - Home 10 mg percocet Q4 PO and Toradol Q6 for moderate pain - 4 mg morphine IV for intractable/Severe breakthrough pain 4) Sleep control - benadryl 25 mg PRN for sleep DVT Prophylaxis: lovenox FEN/GI: ice chips/sips with meds, 20 mg PO omeprazole as per home meds Dispo: Med/Surg Supervising Physician Co-Signing Physician Notes I personally examined the patient and verified all grubbs points of history and exam, discussed case, and agree with decision making with Dr Asencio. Pain essentially unchanged. Nothing is really helped other than the pain medicines take the edge off for a while. CT reviewed with patient. Discussed differential diagnoses remaining, and further plans. She expresses good understanding and appreciation of approach. and daughters present during discussion as well. Vitals noted, in general she is awake and alert pleasant but actually at times shaking some with pain. HEENT normocephalic atraumatic mucous membranes moist. Breathing unlabored no accessory muscle use good effort. Abdomen mildly distended exquisite left lower quadrant tenderness with voluntary guarding and a mild degree of rebound. No other rigidity. No notable abdominal wall trigger points. Exam unfortunately is essentially identical to yesterday. Left lower quadrant abdominal paingiven her pain being worse with bowel movements, her stool symptoms, and the location of the pain, as well as her absence of most other organs in that location, her descending colon seems to be the culprit. The main remaining differential would be something adhesional/anatomic not showing up on CT more likely than something severe functional such as this constipation predominant IBS, more likely than something autoimmune/inflammatory. Because getting to the bottom of something adhesional or anatomic would require exploratory surgery, which of course is no small undertaking, we will do our due diligence to rule out the other possible culprits first. We will give fairly aggressive dosing of MiraLAX to try to clear stool, and while she would not necessarily feel good after this, if her symptoms change for the positive then it could bleed towards a therapeutic trial for severe IBS. We will add on CRP and ESR if they are markedly elevated, then may need to give consideration to repeat colonoscopy to look for signs of an intra-abdominal vasculitis, versus therapeutic trial of corticosteroids. Of note her steroid dosing prophylactically for the CT scan did not change her symptoms at all. Patient has been expressed good understanding of this. Otherwise as above Subjective Feeling okay this morning. Pain controlled with morphine and toradol (9 pm and 4am) overnight. Describes pain as basal cramping with spastic cramping similar to giving . Has been able to keep ice chips down without issue. Received abdominal CT last night. Review of Systems Constitutional: no fever, no chills, no body aches, no weakness and no increased appetite Respiratory: no cough, no dyspnea and no pain on inspiration Cardiovascular: no chest pain Gastrointestinal: + abdominal pain and + cramping; no nausea, no vomiting, no change in stools, no constipation and no diarrhea/loose stools Genitourinary: no dysuria Physical Exam Constitutional: + obese, cooperative and + in distress; + uncomfortable Eyes: PERRL and EOM intact bilaterally; no conjunctival abnormality Respiratory: normal respiratory effort; no respiratory distress Auscultation: lungs clear to auscultation bilaterally; no crackles, no rales, no rhonchi and no wheezes Cardiovascular: Rate/Rhythm: regular rate and regular rhythm Heart Sounds: normal S1 and normal S2; no click, no gallop, no murmur and no cardiac rub Vessels: posterior tibial pulses present Extremities: normal capillary refil l; no edema Gastrointestinal (Abdomen): Inspection/Auscultation: + abdomen distended; no abdominal edema Percussion/Palpation: + abdomen tender and abdomen soft; no guarding and abdomen not rigid Results & Data Vital Signs (Past 12 Hours) Vital Signs Laboratory Results WBC 9.13 K/uL (4.8-10.8) 11/03/18 14:07 RBC 5.09 M/uL (4.2-5.4) 11/03/18 14:07 Hgb 15.7 g/dL (12.0-16.0) 11/03/18 14:07 Hct 43.2 % (37-47) 11/03/18 14:07 MCV 84.9 fL (80-100) 11/03/18 14:07 MCH 30.8 pg (25-34) 11/03/18 14:07 MCHC 36.3 g/dL (32-36) H 11/03/18 14:07 RDW Std Deviation 37.6 fL (36.4-46.3) 11/03/18 14:07 RDW Coeff of Bowen 12.2 % (11.5-14.5) 11/03/18 14:07 Plt Count 322 K/uL (130-400) 11/03/18 14:07 MPV 10.5 fL (7.4-10.4) H 11/03/18 14:07 Immature Gran % (Auto) 0.2 % 11/03/18 14:07 Neut % (Auto) 50.0 % 11/03/18 14:07 Lymph % (Auto) 39.0 % 11/03/18 14:07 [place] % (Auto) 7.3 % 11/03/18 14:07 Eos % (Auto) 3.0 % 11/03/18 14:07 Baso % (Auto) 0.5 % 11/03/18 14:07 Immature Gran # (Auto) 0.02 K/uL (0.00-0.02) 11/03/18 14:07 Neut # (Auto) 4.56 K/uL (1.4-6.5) 11/03/18 14:07 Lymph # (Auto) 3.56 K/uL (1.2-3.4) H 11/03/18 14:07 [place] # (Auto) 0.67 K/uL (0.11-0.59) H 11/03/18 14:07 Eos # (Auto) 0.27 K/uL (0-0.5) 11/03/18 14:07 Baso # (Auto) 0.05 K/uL (0-0.2) 11/03/18 14:07 Sodium 141 mmol/L (136-145) 11/03/18 14:07 Potassium 3.8 mmol/L (3.5-5.1) 11/03/18 14:07 Chloride 107 mmol/L (98-107) 11/03/18 14:07 Carbon Dioxide 23 mmol/L (21-32) 11/03/18 14:07 Anion Gap 11.0 (3-11) 11/03/18 14:07 BUN 6 mg/dl (7-18) L 11/03/18 14:07 Creatinine 0.76 mg/dl (0.6-1.2) 11/03/18 14:07 Est Cr Clr Drug Dosing 128.6 ml/min 11/03/18 14:07 Est GFR ( Amer) 123.7 11/03/18 14:07 Est GFR (Non-Af Amer) 106.8 11/03/18 14:07 BUN/Creatinine Ratio 8.1 (10-20) L 11/03/18 14:07 Glucose 80 mg/dl (70-99) 11/03/18 14:07 Calcium 9.2 mg/dl (8.5-10.1) 11/03/18 14:07 Total Bilirubin 0.7 mg/dl (0.2-1) 11/03/18 14:07 AST 28 U/L (15-37) 11/03/18 14:07 ALT 42 U/L (12-78) 11/03/18 14:07 Alkaline Phosphatase 63 U/L (45-117) 11/03/18 14:07 Total Protein 7.7 gm/dl (6.4-8.2) 11/03/18 14:07 Albumin 4.1 gm/dl (3.4-5.0) 11/03/18 14:07 Globulin 3.6 gm/dl (2.5-4.0) 11/03/18 14:07 Albumin/Globulin Ratio 1.1 (0.9-2) 11/03/18 14:07 Temp Pulse Resp BP Pulse Ox 11/04/18 07:14 36.4 C L 61 16 100/67 95 11/03/18 22:25 37 C 65 16 93/62 L 95 PG Care Time/CCT Total # of Minutes Spent Total Time Spent with Patient: Total time spent is greater than 50% in coordination of care (as documented) at patient's floor/unit and/or counseling patient: Resident Activity Tracking Resident Involvement: Resident Care Provided Care Provided: Adult Hospital Medicine (1) Abdominal pain Abdominal location: left lower quadrant Qualified Code(s): R10.32 - Left lower quadrant pain
[2018-11-04] MEDS ORDERED: POLYETHYLENE (MIRALAX) 17 GM PACK PO ONE (14:05)
[2018-11-04] MEDS: OXYCODONE/ACETAMINOPHEN 5mg/325mg TAB PO PRN (18:46)
[2018-11-04] MEDS: SERTRALINE HCL 100 MG TABLET PO SCH (20:05)
[2018-11-04] MEDS: TRAZODONE HCL 100 MG TAB PO SCH (20:07)
[2018-11-04] MEDS: ENOXAPARIN INJ 40 MG/0.4 ML SYR SQ SCH (20:09)
[2018-11-04] MEDS: MoRPHine SULFATE 10 MG/ML CARP/VIAL IV PRN (21:25)
[2018-11-05] MEDS: SODIUM CHLOR 0.45% + 20MEQ KCL 20 MEQ/1,000 ML BAG IV SCH ×4 (01:22→22:39)
[2018-11-05] MEDS: KETOROLAC 30 MG/ML VIAL IV PRN (07:40)
[2018-11-05] MEDS: MoRPHine SULFATE 10 MG/ML CARP/VIAL IV PRN (09:11)
--- NOTE | 2018-11-05 14:19 | Surgery Consultation ---
Date of Consultation November 05, 2018 Assessment & Plan (1) LLQ abdominal pain: This is a 27y F with a PSH significant for hysterectomy and R oophorectomy, diagnostic laparoscopy, ovarian cystectomyx2, appendectomy, and cholecystectomy who was directly admitted to [facility] on 11/03/18 for ongoing workup and management of left lower quadrant abdominal pain over the past 9 months, acutely worsened since Saturday10/29/18. Per the patient she has been worked up extensively as an outpatient without a definitive diagnosis of her pain. She states she's been ruled out for cdiff, diverticulitis, autoimmune disorders, inflammatory bowel dz, in addition to some ovarian and urological causes. Gene ral surgery was consulted as there is generalized concern that her pain may be caused by an adhesion, although her past 3 CT scans have been negative for any abdominal source. I will discuss this case with Dr. Connolly and we will decide if this patient would benefit from a diagnostic laparoscopy for further evaluation of her symptoms as it seems like most conservative measures have been taken without many answers. If this is the case we will plan to make patient NPO at midnight and potentially book for OR tomorrow. as above. pt seen. very specific point tenderness in LLQ. no g/r/r. has been persistent since August. pt very frustrated. has hx of endometriosis requiring hysterectomy with right salpingoophorectomy. still has left ovary. Has had extensive workup. will obtain pelvic US...if negative we discussed dx laparoscopy. we discussed risks of bleeding/infection/dvt/pe/mi/injury to another organ such as ureter/bowel /bladder etc... we also discussed that there is noway to guarantee this will fix her issue. questions answered. will proceed tomorrow with dx laparoscopy with [facility]. pt agreeable. History of Present Illness Attending Physician: Zeeshan Stanton DO History of Present Illness This is a 27y F with a PMH of PCOS with ovarian cystectomy x2, endometriosis with diagnostic laparoscopy and eventual abdominal hysterectomy & right oophorectomy, cholecystectomy, appendectomy, and anxiety/depression who presents to [facility] on 11/03/18 as a direct admit by her PCP for severe left lower quadrant abdominal pain. The patient states that she has been dealing with this abdominal pain since January, saying that it was at first intermittent, but over the past 3 months has become constant/daily. She states that she undergone extensive workup as an outpatient with her PCP, cryptographic machine operator, developer architect, and urologist without an answer to why she is having this pain. She has been taking Percocet prn since August. Over the past 5 days or so her pain has progressively gotten worse. She describes it as intense and sharp, mostly located in the LLQ, and is worse when she has a bowel movement. In addition to her increased pain she endorsed having bouts of emesis from last Saturday to Saturday, associated nausea, and bloating. She called her PCP on Saturday who recommended she be directly admitted to the hospital for pain management in addition to ongoing workup. She states that she typically has loose stools 1+/day, and denies any constipation, fevers/chills, chest pain, or shortness of breath. Her last abdominal surgery was her hysterectomy in July 2017. She had a colonoscopy this past January she states has been normal and per patient has been ruled out for diverticulitis and multiple autoimmune diseases. Patient has had multiple CT scans this year for evaluation of this pain and on this admission CT scan showed no obvious acute process in the abdomen or pelvis. Surgery was consulted for further evaluation and consideration of a diagnostic laparoscopy to rule out adhesions as the source of her pain since most conservative workup at this point thus far has been negative. Allergies Allergy/AdvReac Type Severity Reaction Status Date / Time amoxicillin Allergy Unknown "anxiety" Verified 02/15/17 12:36 clavulanic acid Allergy Unknown "anxiety" Verified 02/15/17 12:36 Iodinated Contrast Media Allergy Unknown RASH,SWELLI Verified 02/15/17 12:36 NG iodine Allergy Unknown SWELLING Verified 02/15/17 12:36 mushroom Allergy Unknown hives Verified 02/15/17 12:36 shellfish derived Allergy Unknown hives Verified 02/15/17 12:36 Home Medications Home Medications Medication Instructions Recorded Confirmed Type sertraline 25 mg tablet 100 mg PO DAILY tab 10/07/18 11/03/18 History trazodone 100 mg tablet 150 mg PO HS tab 10/14/18 11/03/18 History lorazepam [Ativan] 0.5 mg PO BID PRN 11/03/18 11/03/18 History ondansetron 8 mg TRANSLINGUAL Q8H PRN 11/03/18 11/03/18 History oxycodone-acetaminophen [Percocet] 10 - 325 tab PO Q4H PRN 11/03/18 11/03/18 History Patient History Medical History Anxiety Depression Endometriosis 2 para 2 PCOS (polycystic ovarian syndrome) Surgical History H/O hysterectomy with unilateral oophorectomy History of appendectomy History of cholecystectomy Social History Preferred Language: Belarusian Communication Ability: Effective Beliefs That Will Affect Care: None Current Living Situation: Spouse Current Living Situation Comment: 2 children at home, ages 3 and 18 months Other Information That Helps Us Care for You: No Feels Safe at Home: Yes Safety Concerns: Feels Safe At This Time Smoking Status: Never smoker Do You Dip or Chew Tobacco: No ; Second Hand Exposure: No ; Hx Alcohol Use: Yes (occassionally) Alcohol type: beer and wine Hx Substance Use: No Review of Systems Constitutional: no fever and no chills Respiratory: no shortness of breath Cardiovascular: no chest pain Gastrointestinal: + abdominal pain (predominantly of left lower abdomen), + bloating, + nausea and + vomiting (last bout of emesis was saturday); no change in bowel habits and no constipation Physical Exam Physical Exam: awake/alert Constitutional: well developed and well nourished; no acute distress Respiratory: normal respiratory effort; no respiratory distress Cardiovascular: Rate/Rhythm: regular rate Gastrointestinal (Abdomen): Inspection/Auscultation: + abdominal surgical scar (from prior abdominal hysterectomy and multiple laparoscopy's); abdomen not distended Percussion/Palpation: + abdomen tender (to deep palpation in the LLQ) and abdomen soft Results & Data Vital Signs (Past 12 Hours) Vital Signs Temp Pulse Resp BP Pulse Ox 11/05/18 07:27 36.9 C 64 16 115/[address] OF THE ABDOMEN AND PELVIS WITH CONTRAST CLINICAL HISTORY: Abdominal pain. COMPARISON STUDY: CT of the abdomen and pelvis September 19, 2018. TECHNIQUE: Patient was premedicated for IV dye allergy. Following IV administration of 92 mL of Optir[id number], axial images of the abdomen and pelvis were obtained from the lung bases to the proximal femurs. Images were reviewed in the axial, sagittal, and coronal planes. IV contrast was administered without complication. Automated exposure control was utilized for the study. A dose lowering technique was utilized adhering to the principles of ALARA. Oral contrast was administered. CT DOSE: 1146.05 mGy.cm FINDINGS: There are trace bilateral pleural effusions. Fatty infiltration of the liver is noted. There is no biliary ductal dilatation status post cholecystectomy. The spleen, adrenal glands, kidneys and pancreas are normal. There is no pancreatic ductal dilatation. No hydronephrosis is present. There is no evidence for a bowel obstruction. The appendix is surgically absent. Slight asymmetric enlargement of the left ovary has decreased when compared to prior CT of September 19, 2018. No pneumatosis, free air or portal venous gas is present. There are no suspicious osseous lesions. Minimal pelvic infiltration is unchanged from earlier exams. Uterus is surgically absent. IMPRESSION: 1. No acute process within the abdomen or pelvis. 2. Suspected fatty infiltration of the liver. 3. Trace bilateral pleural effusions. Electronically signed by: Adalberto Angulo M.D. 11/04/2018 7:29 AM PG Care Time/CCT Total # of Minutes Spent Total Time Spent with Patient: Total time spent is greater than 50% in coordination of care (as documented) at patient's floor/unit and/or counseling patient:
[2018-11-05] MEDS: OXYCODONE/ACETAMINOPHEN 5mg/325mg TAB PO PRN ×2 (14:33→22:38)
--- NOTE | 2018-11-05 17:47 | Family Medicine Progress Note ---
Date of Service November 05, 2018 Assessment & Plan (1) Abdominal pain: 27 yo F with PMH PCOS, Endometriosis, hysterectomy, cholecystectomy, appendectomy who has had intractable abdominal pain for the past 9 months without resolution, acutely worse in the past 5 days. 1) Abdominal Pain a) Most likely mixed picture of adhesions + constipation CT Abd: There are trace bilateral pleural effusions. Fatty infiltration of the liver is noted. There is no biliary ductal dilatation status post cholecystectomy. The spleen, adrenal glands, kidneys and pancreas are normal. There is no pancreatic ductal dilatation. No hydronephrosis is present. There is no evidence for a bowel obstruction. The appendix is surgically absent. Slight asymmetric enlargement of the left ovary has decreased when compared to prior CT of September 19, 2018. No pneumatosis, free air or portal venous gas is present. There are no suspicious osseous lesions. Minimal pelvic infiltration is unchanged from earlier exams. Uterus is surgically absent. - at this time considering exploratory laparoscopy given likelihood of mix of anatomic/functional constipation 2/2 adhesions and/or extrauterine endometriosis causing pain. Dr. Connolly amenable to taking a look at patient and considering doing the procedure. - enlargement of ovary + cysts possible cause of pain but would be abnormal to cause this extent of pain for 9 months b) Severe IBS less likely - Will re-consult or curbside GI for any recs or re-colonoscopy if it seems to be a valuable endeavour. - started a bowel regimen to elucidate if clearance of bowels aids in reducing pain c) Autoimmune/Vasculitis less likely - least likely given lack of joint pain, rash, body wide symptomology, restriction of pain to LLQ of abdomen (particularly inguinal area) - CRP returned positive at 0.60, however not impressive for body-wide vasculitis or inflammatory state. ESR WNL. 2) Depression/Anxiety - continue home Trazodone and Sertraline at nighttime - patient has good insight into condition and is knowledgeable about condition; continue home 0.5 lorazepam Q12 PRN 3) Pain Management - Acetaminophen for mild pain - Home 10 mg percocet Q4 PO and Toradol Q6 for moderate pain - 6 mg morphine IV for intractable/Severe breakthrough pain 4) Sleep control - benadryl 25 mg PRN for sleep DVT Prophylaxis: lovenox FEN/GI: ice chips/sips with meds, 20 mg PO omeprazole as per home meds Dispo: Med/Surg Supervising Physician Co-Signing Physician Notes I personally examined the patient and verified all grubbs points of history and exam, discussed case, and agree with decision making with Dr Asencio. No significant change after aggressive bowel regimen. May be bloating a little better, but pain essentially the same. Pain with bowel movements still very intense. Vitals noted, in general she is awake and alert pleasant but actually at times shaking some with pain. HEENT normocephalic atraumatic mucous membranes moist. Breathing unlabored no accessory muscle use good effort. No focal neuro deficits, no pallor or icterus. Left lower quadrant abdominal painby her history, as well as by eliminating almost all of the differentials, the concern is that she has something adhered to the wall of her colon. Discussed with Dr. Connolly of surgery who will evaluate further. Input appreciated. Otherwise as above Subjective Patient feeling okay this AM. States that bowel regimen has helped decrease general feeling of distension and being bloated, but has not changed her level of overall pain. Still had excruciating pain with bowel movement this morning despite not having to strain. Talked extensively about differential for cause of pain and plan for moving forward with exploratory laparoscopy. Review of Systems Constitutional: no fever, no chills and no increased appetite Respiratory: no cough, no dyspnea and no pain on inspiration Cardiovascular: no chest pain, no edema and no calf pain Gastrointestinal: + abdominal pain, + nausea and + cramping; no vomiting, no constipation, no diarrhea/loose stools and no blood in stools Physical Exam Constitutional: + obese, cooperative and + in distress; + uncomfortable Eyes: PERRL and EOM intact bilaterally; no conjunctival abnormality Respiratory: normal respiratory effort; no respiratory distress Auscultation: lungs clear to auscultation bilaterally; no crackles, no rales, no rhonchi and no wheezes Cardiovascular: Rate/Rhythm: regular rate and regular rhythm Heart Sounds: normal S1 and normal S2; no click, no gallop, no murmur and no cardiac rub Vessels: posterior tibial pulses present Extremities: normal capillary refill; no edema Gastrointestinal (Abdomen): Inspection/Auscultation: + abdomen distended; no abdominal edema Percussion/Palpation: + abdomen tender, abdomen soft and normal to percussion; no guarding, abdomen not rigid, no ascites and no fluid wave Results & Data Vital Signs (Past 12 Hours) Vital Signs Temp Pulse Resp BP Pulse Ox 11/05/18 15:03 37.2 C 67 18 119/78 96 11/05/18 07:27 36.9 C 64 16 115/72 99 Laboratory Results WBC 9.13 K/uL (4.8-10.8) 11/03/18 14:07 RBC 5.09 M/uL (4.2-5.4) 11/03/18 14:07 Hgb 15.7 g/dL (12.0-16.0) 11/03/18 14:07 Hct 43.2 % (37-47) 11/03/18 14:07 MCV 84.9 fL (80-100) 11/03/18 14:07 MCH 30.8 pg (25-34) 11/03/18 14:07 MCHC 36.3 g/dL (32-36) H 11/03/18 14:07 RDW Std Deviation 37.6 fL (36.4-46.3) 11/03/18 14:07 RDW Coeff of Bowen 12.2 % (11.5-14.5) 11/03/18 14:07 Plt Count 322 K/uL (130-400) 11/03/18 14:07 MPV 10.5 fL (7.4-10.4) H 11/03/18 14:07 Immature Gran % (Auto) 0.2 % 11/03/18 14:07 Neut % (Auto) 50.0 % 11/03/18 14:07 Lymph % (Auto) 39.0 % 11/03/18 14:07 [place] % (Auto) 7.3 % 11/03/18 14:07 Eos % (Auto) 3.0 % 11/03/18 14:07 Baso % (Auto) 0.5 % 11/03/18 14:07 Immature Gran # (Auto) 0.02 K/uL (0.00-0.02) 11/03/18 14:07 Neut # (Auto) 4.56 K/uL (1.4-6.5) 11/03/18 14:07 Lymph # (Auto) 3.56 K/uL (1.2-3.4) H 11/03/18 14:07 [place] # (Auto) 0.67 K/uL (0.11-0.59) H 11/03/18 14:07 Eos # (Auto) 0.27 K/uL (0-0.5) 11/03/18 14:07 Baso # (Auto) 0.05 K/uL (0-0.2) 11/03/18 14:07 ESR 3 mm/hr (0-21) 11/04/18 15:25 Sodium 141 mmol/L (136-145) 11/03/18 14:07 Potassium 3.8 mmol/L (3.5-5.1) 11/03/18 14:07 Chloride 107 mmol/L (98-107) 11/03/18 14:07 Carbon Dioxide 23 mmol/L (21-32) 11/03/18 14:07 Anion Gap 11.0 (3-11) 11/03/18 14:07 BUN 6 mg/dl (7-18) L 11/03/18 14:07 Creatinine 0.76 mg/dl (0.6-1.2) 11/03/18 14:07 Est Cr Clr Drug Dosing 128.6 ml/min 11/03/18 14:07 Est GFR ( Amer) 123.7 11/03/18 14:07 Est GFR (Non-Af Amer) 106.8 11/03/18 14:07 BUN/Creatinine Ratio 8.1 (10-20) L 11/03/18 14:07 Glucose 80 mg/dl (70-99) 11/03/18 14:07 Calcium 9.2 mg/dl (8.5-10.1) 11/03/18 14:07 Total Bilirubin 0.7 mg/dl (0.2-1) 11/03/18 14:07 AST 28 U/L (15-37) 11/03/18 14:07 ALT 42 U/L (12-78) 11/03/18 14:07 Alkaline Phosphatase 63 U/L (45-117) 11/03/18 14:07 C-Reactive Protein 0.60 mg/dl (0-0.29) H 11/04/18 15:25 Total Protein 7.7 gm/dl (6.4-8.2) 11/03/18 14:07 Albumin 4.1 gm/dl (3.4-5.0) 11/03/18 14:07 Globulin 3.6 gm/dl (2.5-4.0) 11/03/18 14:07 Albumin/Globulin Ratio 1.1 (0.9-2) 11/03/18 14:07 PG Care Time/CCT Total # of Minutes Spent Total Time Spent with Patient: Total time spent is greater than 50% in coordination of care (as documented) at patient's floor/unit and/or counseling patient: Resident Activity Tracking Resident Involvement: Resident Care Provided Care Provided: Adult Hospital Medicine (1) Abdominal pain Abdominal location: left lower quadrant Qualified Code(s): R10.32 - Left lower quadrant pain
--- NOTE | 2018-11-05 20:43 | Ultrasound Report ---
PELVIC ULTRASOUND CLINICAL HISTORY: Left lower quadrant pain. COMPARISON STUDY: CT of the abdomen and pelvis December 04, 2018. Pelvic ultrasound March 14, 2014. TECHNIQUE: Transabdominal sonography of the pelvis was performed. Patient deferred transvaginal exam . FINDINGS: By report, the uterus and right ovary are surgically absent. The left ovary measures 4 x 2 x 3.2 cm. This is suboptimally assessed on this transabdominal exam. There are a few follicles within the left ovary. Color flow is identified within the left ovary. IMPRESSION: 1. Status post hysterectomy and right oophorectomy. No fluid within the pelvis. 2. A few follicles within the left ovary. Electronically signed by: Adalberto Angulo M.D. 11/05/2018 8:42 PM
[2018-11-05] MEDS: ENOXAPARIN INJ 40 MG/0.4 ML SYR SQ SCH (21:01)
[2018-11-05] MEDS: SERTRALINE HCL 100 MG TABLET PO SCH (21:01)
[2018-11-05] MEDS: TRAZODONE HCL 100 MG TAB PO SCH (21:01)
[2018-11-05] MEDS: ONDANSETRON INJ 2 MG/ML 2 ML VIAL IV PRN (22:38)
[2018-11-06] MEDS: MoRPHine SULFATE 10 MG/ML CARP/VIAL IV PRN ×2 (00:42→09:22)
[2018-11-06] MEDS: SODIUM CHLOR 0.45% + 20MEQ KCL 20 MEQ/1,000 ML BAG IV SCH ×2 (05:21→13:43)
[2018-11-06] MEDS: ONDANSETRON INJ 2 MG/ML 2 ML VIAL IV PRN (09:25)
[2018-11-06] MEDS ORDERED: BUPIVACAINE/EPINEPHRINE 0.5% MPF 1:200,000 30 ML VIAL ONE ×2 (10:44→11:04)
[2018-11-06] MEDS ORDERED: MIDAZOLAM HCL 1 MG/ML 2ML VIAL ONE (10:45)
[2018-11-06] MEDS ORDERED: fentaNYL citrate 100 MCG/2 ML VIAL ONE (10:45)
[2018-11-06] MEDS ORDERED: CEFAZOLIN 2000MG 2,000 MG/15 ML SYR IV SCH (10:49)
[2018-11-06] MEDS ORDERED: ROCURONIUM BROMIDE 10 MG/ML 5 ML VIAL ONE (10:49)
[2018-11-06] MEDS ORDERED: LIDOCAINE HCL 2% 2 ML VIAL/AMP(20MG/ML) INFIL ONE (10:49)
[2018-11-06] MEDS ORDERED: PROPOFOL IV EMULSION 10 MG/ML 20 ML VIAL IV ONE (10:49)
--- NOTE | 2018-11-06 10:55 | History & Physical Bridge Note ---
Date of Service November 06, 2018 History & Physical Bridge Note I have examined the patient, reviewed the History & Physical and in the interval since the performance of the History & Physical I have noted the following changes of clinical significance: no changes noted
--- NOTE | 2018-11-06 11:01 | Anesthesiology Consultation ---
Date of Service November 06, 2018 Assessment & Plan (1) Encounter for pre-operative examination: Chart Review Chart Review: Acceptable Risk for Surgery History Surgery Operation Date: 11/06/18 07:00 Proposed Procedures p Diagnostic Laparoscopy - Mike Connolly DO Height/Weight Height: 5 ft 4 in Weight: 102.8 kg Allergies Allergy/AdvReac Type Severity Reaction Status Date / Time amoxicillin Allergy Unknown "anxiety" Verified 02/15/17 12:36 clavulanic acid Allergy Unknown "anxiety" Verified 02/15/17 12:36 Iodinated Contrast Media Allergy Unknown RASH,SWELLI Verified 02/15/17 12:36 NG iodine Allergy Unknown SWELLING Verified 02/15/17 12:36 mushroom Allergy Unknown hives Verified 02/15/17 12:36 shellfish derived Allergy Unknown hives Verified 02/15/17 12:36 Medications Home Medications Medication Instructions Recorded Confirmed Last Taken sertraline 25 mg tablet 100 mg PO DAILY tab 10/07/18 11/03/18 1 Day Ago ~11/02/18 trazodone 100 mg tablet 150 mg PO HS tab 10/14/18 11/03/18 1 Day Ago ~11/02/18 lorazepam [Ativan] 0.5 mg PO BID PRN 11/03/18 11/03/18 Unknown ondansetron 8 mg TRANSLINGUAL Q8H PRN 11/03/18 11/03/18 1 Day Ago ~11/02/18 oxycodone-acetaminophen [Percocet] 10 - 325 tab PO Q4H PRN 11/03/18 11/03/18 11/01/18 Active Medications Generic Name Dose Route Start Last Admin Trade Name Max PRN Reason Stop Dose Admin Diphenhydramine HCl 25 mg 11/04/18 17:27 11/05/18 00:04 Benadryl Capsule PO 12/04/18 17:26 25 mg PM PRN Administration Sleep Enoxaparin Sodium 40 mg 11/03/18 21:00 11/05/18 21:01 Lovenox SQ 12/03/18 20:59 Not Given Q24H CYNDI Potassium Chloride/Sodium Chloride 20 meq in 1,000 mls @ 150 mls/hr 11/03/18 15:00 11/06/18 05:21 1/2 Nss + 20meq Kcl 1000ml IV 12/03/18 14:59 150 mls/hr .Q6H40M CYNDI Administration Ioversol 100 ml 11/04/18 04:38 11/04/18 04:39 Optiray 320 100ml IV 11/08/18 04:37 92 ml ONCE PRN Administration Interaction Checking Ketorolac Tromethamine 30 mg 11/03/18 13:55 11/05/18 07:40 Toradol IV 11/08/18 13:54 30 mg Q6H PRN Administration Moderate Pain Morphine Sulfate 6 mg 11/04/18 18:03 11/06/18 09:22 Morphine Sulfate IV 11/17/18 13:54 6 mg Q4 PRN Administration Severe Pain Ondansetron HCl 4 mg 11/03/18 13:55 11/06/18 09:25 Zofran IV 12/03/18 13:54 4 mg Q6H PRN Administration Nausea Oxycodone/Acetaminophen 1 - 2 tab 11/03/18 13:55 11/05/18 22:38 Percocet 5mg/325mg PO 11/17/18 13:54 1 tab Q4H PRN Administration Pain, Moderate Sertraline HCl 100 mg 11/04/18 21:00 11/05/18 21:01 Zoloft PO 12/04/18 20:59 100 mg HS CYNDI Administration Trazodone HCl 150 mg 11/03/18 21:00 11/05/18 21:01 Desyrel PO 12/03/18 20:59 150 mg HS CYNDI Administration NPO Date Last Intake of Fluids: 11/05/18 Time Last Intake of Fluids: 21:30 Date Last Intake of Solids: 11/05/18 Time Last Intake of Solids: 18:00 Past Medical History Medical History Anxiety Depression Endometriosis 2 para 2 PCOS (polycystic ovarian syndrome) Past Surgical History Surgical History H/O hysterectomy with unilateral oophorectomy History of appendectomy History of cholecystectomy Social History Smoking Status: Never smoker Do You Dip or Chew Tobacco: No Hx Alcohol Use: Yes (occassionally) Alcohol type: beer and wine alcohol intake frequency: a few times a month Hx Substance Use: No Physical Exam Vital Signs Last Vital Signs Temp 36.9 C 11/06/18 10:53 Pulse 70 11/06/18 10:53 Resp 18 11/06/18 10:53 BP 139/91 11/06/18 10:53 Pulse Ox 98 11/06/18 10:53 Testing Laboratory Results 11/03/18 14:07 11/03/18 14:07
[2018-11-06] MEDS ORDERED: SCOPOLAMINE 1.5 MG TDSY ONE (11:05)
[2018-11-06] MEDS ORDERED: ONDANSETRON INJ 2 MG/ML 2 ML VIAL IV PRN (11:06)
[2018-11-06] MEDS ORDERED: KETOROLAC 30 MG/ML VIAL IV PRN (11:06)
[2018-11-06] MEDS ORDERED: ATROPINE SULFATE 0.1 MG/ML 10ML SYR IV PRN (11:06)
[2018-11-06] MEDS ORDERED: PROMETHAZINE HCL 12.5 MG in SODIUM CHLORIDE 0.9% 50 ML IV PRN (11:06)
[2018-11-06] MEDS ORDERED: SCOPOLAMINE 1.5 MG TDSY TD SCH (11:15)
--- NOTE | 2018-11-06 12:19 | Post Operative Brief Note ---
PG Immediate Post Op with CF Date of Surgery November 06, 2018 Pre & Post Diagnosis Operation Date: 11/06/18 07:00 Pre-Op Diagnosis: Left Lower Quadrant Abdominal Pain Post-Op Diagnosis: Left Lower Quadrant Abdominal Pain; lower abdominal adhesions Procedure Operation Date: 11/06/18 07:00 Actual Procedures p Diagnostic Laparoscopy with Enterolysis (Not Applicable) - Mike Connolly DO Surgeon Mike Connolly DO Herbarium Worker carmen [place] Estimated Blood Loss 5 Findings Consistent with Post-Op Diagnosis Drains Goldsmith Catheter (16 Turkmen Goldsmith catheter inserted by Betty Case RN without difficulty. Clear yellow urine obtained, Anesthesia to monitor)
[2018-11-06] MEDS ORDERED: KETOROLAC 30 MG/ML VIAL ONE (12:36)
[2018-11-06] MEDS ORDERED: NEOSTIGMINE METHYLSULFATE 5 MG/5 ML SYR ONE (12:36)
[2018-11-06] MEDS ORDERED: ONDANSETRON INJ 2 MG/ML 2 ML VIAL ONE (12:36)
[2018-11-06] MEDS ORDERED: DEXAMETHASONE SOD INJ 4 MG/ML VIAL ONE (12:36)
[2018-11-06] MEDS ORDERED: GLYCOPYRROLATE 0.2 MG/ML VIAL ONE (12:36)
[2018-11-06] MEDS: HYDROmorphone INJ 1 MG/ML SYRINGE IV PRN ×4 (12:46→13:03)
--- NOTE | 2018-11-06 13:10 | Anesthesiology Progress Note ---
Date of Service November 06, 2018 Anesthesia Post Procedure Vital Signs Vital Signs: Temp Pulse Resp BP Pulse Ox 11/06/18 13:00 67 15 113/81 97 11/06/18 12:50 67 12 122/68 96 11/06/18 12:40 66 12 133/80 97 11/06/18 12:31 36.7 C 69 18 130/97 98 11/06/18 10:53 36.9 C 70 18 139/91 98 11/06/18 07:17 36.8 C 65 16 110/74 97 11/05/18 23:48 36.6 C 57 L 14 100/67 97 11/05/18 15:03 37.2 C 67 18 119/78 96 Pain Intensity Left Abdomen: Pain Intensity: 5 Transfer of Care Handoff Completed per policy Notes Mental Status: alert / awake / arousable Patient Amnestic to Procedure: Yes Nausea / Vomiting: adequately controlled Pain: adequately controlled Airway Patency, RR, SpO2: stable & adequate BP & HR: stable & adequate Hydration State: stable & adequate Anesthetic Complications: no major complications apparent
--- NOTE | 2018-11-06 13:13 | Family Medicine Progress Note ---
Date of Service November 06, 2018 Assessment & Plan (1) Abdominal pain: 27 yo F with PMH PCOS, Endometriosis, hysterectomy, cholecystectomy, appendectomy who has had intractable abdominal pain for the past 9 months without resolution, acutely worse in the past 5 days. 1) Abdominal Pain a) Most likely mix of anatomic/functional constipation 2/2 adhesions and/or extrauterine endometriosis - Pelvic ultrasound yesterday limited but WNL. Pt denied transvaginal ultrasound. Went for diagnostic laparoscopy earlier today with Dr. Connolly. CT Abd: There are trace bilateral pleural effusions. Fatty infiltration of the liver is noted. There is no biliary ductal dilatation status post cholecystectomy. The spleen, adrenal glands, kidneys and pancreas are normal. There is no pancreatic ductal dilatation. No hydronephrosis is present. There is no evidence for a bowel obstruction. The appendix is surgically absent. Slight asymmetric enlargement of the left ovary has decreased when compared to prior CT of September 19, 2018. No pneumatosis, free air or portal venous gas is present. There are no suspicious osseous lesions. Minimal pelvic infiltration is unchanged from earlier exams. Uterus is surgically absent. b) Severe IBS less likely - Will re-consult or curbside GI for any recs or re-colonoscopy if it seems to be a valuable endeavour. - started a bowel regimen to elucidate if clearance of bowels aids in reducing pain c) Autoimmune/Vasculitis less likely - least likely given lack of joint pain, rash, body wide symptomology, restriction of pain to LLQ of abdomen (particularly inguinal area) - CRP returned positive at 0.60, however not impressive for body-wide vasculitis or inflammatory state. ESR WNL. 2) Depression/Anxiety - continue home Trazodone and Sertraline at nighttime - patient has good insight into condition and is knowledgeable about condition; continue home 0.5 lorazepam Q12 PRN 3) Pain Management - Acetaminophen for mild pain - Home 10 mg percocet Q4 PO and Toradol Q6 for moderate pain - 6 mg morphine IV for intractable/Severe breakthrough pain 4) Sleep control - benadryl 25 mg PRN for sleep DVT Prophylaxis: lovenox FEN/GI: ice chips/sips with meds, 20 mg PO omeprazole as per home meds Dispo: Med/Surg Supervising Physician Co-Signing Physician Notes I personally examined the patient and verified all grubbs points of history and exam, discussed case, and agree with decision making with Dr Asencio. Still feeling about the same. For surgery this afternoon. All questions answered to the best my ability. Vitals noted, in general she is awake and alert pleasant but actually at times shaking some with pain. HEENT normocephalic atraumatic mucous membranes moist. Breathing unlabored no accessory muscle use good effort. No focal neuro deficits, no pallor or icterus. Left lower quadrant abdominal painby her history, as well as by eliminating almost all of the differentials, the concern is that she has something adhered to the wall of her colon for surgery this afternoon. Discussed that this will most likely provide the answer of what is causing her pain, but that if somehow surgically there is nothing of note, then we would work towards asking pain management to try to block the nerves to that region to at least alleviate the pain. Hopefully this will not be necessary. Otherwise as above Subjective Pt is tearful this morning. Says pain continues to be a problem and is still having painful bowel movements. Agrees that feeling of bloating got mildly better with bowel regimen but it returned after eating food last night. 6 mg of morphine per day has been keeping pain at bay but as soon as it wears off pt is in great deal of pain. Review of Systems Constitutional: no fever, no chills, no body aches, no weakness and no increased appetite Respiratory: no cough and no dyspnea Cardiovascular: no chest pain, no palpitations and no edema Gastrointestinal: + abdominal pain, + bloating and + cramping; no nausea, no vomiting, no constipation and no diarrhea/loose stools Physical Exam Constitutional: well developed, + in distress and + overweight; + uncomfortable Respiratory: normal respiratory effort; no respiratory distress Auscultation: lungs clear to auscultation bilaterally; no crackles and no wheezes Cardiovascular: Rate/Rhythm: regular rate and regular rhythm Heart Sounds: no click, no gallop and no murmur Gastrointestinal (Abdomen): Inspection/Auscultation: + abdomen distended Percussion/Palpation: + abdomen tender, abdomen soft and + tympanic to percussion; abdomen not rigid, no ascites and no fluid wave Results & Data Vital Signs (Past 12 Hours) Vital Signs Temp Pulse Resp BP Pulse Ox 11/06/18 13:10 36.8 C 66 14 113/66 96 11/06/18 13:00 67 15 113/81 97 11/06/18 12:50 67 12 122/68 96 11/06/18 12:40 66 12 133/80 97 11/06/18 12:31 36.7 C 69 18 130/97 98 11/06/18 10:53 36.9 C 70 18 139/91 98 11/06/18 07:17 36.8 C 65 16 110/74 97 Laboratory Results WBC 9.13 K/uL (4.8-10.8) 11/03/18 14:07 RBC 5.09 M/uL (4.2-5.4) 11/03/18 14:07 Hgb 15.7 g/dL (12.0-16.0) 11/03/18 14:07 Hct 43.2 % (37-47) 11/03/18 14:07 MCV 84.9 fL (80-100) 11/03/18 14:07 MCH 30.8 pg (25-34) 11/03/18 14:07 MCHC 36.3 g/dL (32-36) H 11/03/18 14:07 RDW Std Deviation 37.6 fL (36.4-46.3) 11/03/18 14:07 RDW Coeff of Bowen 12.2 % (11.5-14.5) 11/03/18 14:07 Plt Count 322 K/uL (130-400) 11/03/18 14:07 MPV 10.5 fL (7.4-10.4) H 11/03/18 14:07 Immature Gran % (Auto) 0.2 % 11/03/18 14:07 Neut % (Auto) 50.0 % 11/03/18 14:07 Lymph % (Auto) 39.0 % 11/03/18 14:07 [place] % (Auto) 7.3 % 11/03/18 14:07 Eos % (Auto) 3.0 % 11/03/18 14:07 Baso % (Auto) 0.5 % 11/03/18 14:07 Immature Gran # (Auto) 0.02 K/uL (0.00-0.02) 11/03/18 14:07 Neut # (Auto) 4.56 K/uL (1.4-6.5) 11/03/18 14:07 Lymph # (Auto) 3.56 K/uL (1.2-3.4) H 11/03/18 14:07 [place] # (Auto) 0.67 K/uL (0.11-0.59) H 11/03/18 14:07 Eos # (Auto) 0.27 K/uL (0-0.5) 11/03/18 14:07 Baso # (Auto) 0.05 K/uL (0-0.2) 11/03/18 14:07 ESR 3 mm/hr (0-21) 11/04/18 15:25 Sodium 141 mmol/L (136-145) 11/03/18 14:07 Potassium 3.8 mmol/L (3.5-5.1) 11/03/18 14:07 Chloride 107 mmol/L (98-107) 11/03/18 14:07 Carbon Dioxide 23 mmol/L (21-32) 11/03/18 14:07 Anion Gap 11.0 (3-11) 11/03/18 14:07 BUN 6 mg/dl (7-18) L 11/03/18 14:07 Creatinine 0.76 mg/dl (0.6-1.2) 11/03/18 14:07 Est Cr Clr Drug Dosing 128.6 ml/min 11/03/18 14:07 Est GFR ( Amer) 123.7 11/03/18 14:07 Est GFR (Non-Af Amer) 106.8 11/03/18 14:07 BUN/Creatinine Ratio 8.1 (10-20) L 11/03/18 14:07 Glucose 80 mg/dl (70-99) 11/03/18 14:07 Calcium 9.2 mg/dl (8.5-10.1) 11/03/18 14:07 Total Bilirubin 0.7 mg/dl (0.2-1) 11/03/18 14:07 AST 28 U/L (15-37) 11/03/18 14:07 ALT 42 U/L (12-78) 11/03/18 14:07 Alkaline Phosphatase 63 U/L (45-117) 11/03/18 14:07 C-Reactive Protein 0.60 mg/dl (0-0.29) H 11/04/18 15:25 Total Protein 7.7 gm/dl (6.4-8.2) 11/03/18 14:07 Albumin 4.1 gm/dl (3.4-5.0) 11/03/18 14:07 Globulin 3.6 gm/dl (2.5-4.0) 11/03/18 14:07 Albumin/Globulin Ratio 1.1 (0.9-2) 11/03/18 14:07 PG Care Time/CCT Total # of Minutes Spent Total Time Spent with Patient: Total time spent is greater than 50% in coordination of care (as documented) at patient's floor/unit and/or counseling patient: Resident Activity Tracking Resident Involvement: Resident Care Provided Care Provided: Adult Hospital Medicine (1) Abdominal pain Abdominal location: left lower quadrant Qualified Code(s): R10.32 - Left lower quadrant pain
[2018-11-06] MEDS ORDERED: MoRPHine SULFATE 2 MG/ML CARP IV PRN (13:40)
[2018-11-06] MEDS: CHECK SCOPOLAMINE PATCH PLACEMENT SCH ×2 (15:55→23:45)
--- NOTE | 2018-11-06 18:04 | Operative Report ---
Post Operative Report Pre & Post Diagnosis Operation Date: 11/06/18 07:00 Pre-Op Diagnosis: Left Lower Quadrant Abdominal Pain Post-Op Diagnosis: Left Lower Quadrant Abdominal Pain;adhesions Procedure Operation Date: 11/06/18 07:00 Actual Procedures p Diagnostic Laparoscopy with Enterolysis (Not Applicable) - Mike Connolly DO Surgeon Mike Connolly DO Granite Cutter Apprentice carmen [place] Estimated Blood Loss 5 Findings Consistent with Post-Op Diagnosis Specimens none Description of Procedure After informed consent was obtained the patient was taken to the operating room and placed in supine position. After successful intubation a Goldsmith catheter was placed and the abdomen was sterilely prepped and draped in usual fashion. I began with a supraumbilical incision with an 11 blade scalpel and carried this down through the soft tissue using cautery. The anterior rectus fascia was opened using cautery and two #0 Vicryl stay sutures were placed. Peritoneum was elevated and incised under direct vision using a Metzenbaum scissor. A finger sweep was performed. A 12 mm Pollard trocar was placed and the abdomen was insufflated to 20 mmHg. Laparoscope was inserted and the abdomen examined in 360 degrees. A right lower quadrant and a right mid abdominal 5 mm trocar was placed. We placed the patient in a Trendelenburg position and looked in the lower abdomen. There was no evidence of any endometriosis. There was a small cyst on the left ovary but the ovary otherwise appeared healthy. However as we examined the area of her discomfort there was obvious adhesions involving the sigmoid colon to the bladder. I was able to use traction countertraction and small amounts of sharp scissor lysis to tediously take down these adhesions. T he sigmoid colon was laying in a twisted abnormal fashion attached to the bladder flap from her prior hysterectomy. The vaginal cuff and leo on the round ligaments on both sides appeared intact and normal. Small bowel was normal. There was no evidence of any hernias. The upper abdomen looked normal as well. After quite some time again using traction countertraction sharp scissor lysis and some blunt dissection I was eventually able to remove all of the adhesions and return the colon to its normal anatomic position. We irrigated the entire lower abdomen. There was adequate hemostasis and no other abnormality seen. The trochars were all removed and the abdomen desufflated. The fascia of the camera port was closed using 0 Vicryl in a [id number] fashion. The wounds were all irrigated and closed using 4-0 Monocryl. Marcaine was injected around them for postoperative analgesia and skin glue used as a dressing. Patient was awakened extubated and transferred recovery in stable condition. My physician assistant project manager was present to the entire case. She helped with exposure for trocar placement. She helped run the camera as well as helped with wound closure and dressing placement at the end of the case. I attest to the content of the Intraoperative Record and any orders documented therein. Any exceptions are noted below.
[2018-11-06] MEDS: MoRPHine SULFATE 4 MG/ML 1 ML CARP\\VIAL IV PRN ×2 (19:00→22:25)
[2018-11-06] MEDS: SERTRALINE HCL 100 MG TABLET PO SCH (20:53)
[2018-11-06] MEDS: TRAZODONE HCL 100 MG TAB PO SCH (20:53)
[2018-11-06] MEDS: ENOXAPARIN INJ 40 MG/0.4 ML SYR SQ SCH (20:53)
[2018-11-07] MEDS: ONDANSETRON INJ 2 MG/ML 2 ML VIAL IV PRN (00:31)
[2018-11-07] MEDS: OXYCODONE/ACETAMINOPHEN 5mg/325mg TAB PO PRN ×2 (00:32→10:13)
[2018-11-07] MEDS: MoRPHine SULFATE 4 MG/ML 1 ML CARP\\VIAL IV PRN (05:35)
--- NOTE | 2018-11-07 07:51 | Surgery Progress Note ---
Date of Service November 07, 2018 Assessment & Plan (1) LLQ abdominal pain: POD#1 diagnostic laparoscopy with lysis of adhesions Patient progressing very well, her LLQ pain she came in with is essentially gone. Has some expected incisional pain that is well managed. Tolerating regular diet Surgical incisions c/d/i Will discuss with Dr. Connolly- patient seems stable for discharge from a surgical standpoint Will follow up in clinic within 1-2 weeks for a post op check Subjective Patient with no acute events overnight. Has some mild henry-incisional pain, otherwise she states her LLQ pain that she came in with is gone. She tolerated a regular diet post surgery yesterday without nausea/vomiting. She is ambulating and voiding on her own. Physical Exam Physical Exam: awake/alert Respiratory: normal respiratory effort; no respiratory distress Gastrointestinal (Abdomen): Inspection/Auscultation: + abdominal surgical incision (c/d/i with dermabond overtop); abdomen not distended Percussion/Palpation: + abdomen tender (mildly henry-incisionally) and abdomen soft Results & Data Vital Signs (Past 12 Hours) Vital Signs Temp Pulse Resp BP BP Pulse Ox 11/07/18 07:11 36.4 C L 52 L 16 106/65 95 11/07/18 03:12 36.8 C 57 L 14 99/62 L 93 11/07/18 00:13 37.1 C 52 L 14 109/70 93 PG Care Time/CCT Total # of Minutes Spent Total Time Spent with Patient: Total time spent is greater than 50% in coordination of care (as documented) at patient's floor/unit and/or counseling patient:
[2018-11-07] MEDS: CHECK SCOPOLAMINE PATCH PLACEMENT SCH (08:48)
--- NOTE | 2018-11-07 13:53 | Discharge Summary ---
Date of Service November 07, 2018 Admission HPI Per Admitting Provider 27 yo F with PMH endometriosis and PCOS here for intractable abdominal pain that has been going on since February 2018/the end of 2017. Has had multiple outpatient workups for the pain that have not found anything yet. Pain is a dull 6/10 ache on the left side of abdomen at rest with sporadic increases to 10/10 sharp pain that doesn't follow a pattern. Pain does not improve or change with position. Admission Exam Per Admitting Provider Constitutional: + obese, cooperative and + in distress; + uncomfortable Lying in pain in bed, limiting bodily motion so as to not aggravate abdominal pain Eyes: PERRL and EOM intact bilaterally; no conjunctival abnormality Respiratory: normal respiratory effort; no respiratory distress Auscu ltation: lungs clear to auscultation bilaterally (transmitted bowel sounds); no crackles, no rales, no rhonchi and no wheezes Cardiovascular: Rate/Rhythm: regular rate and regular rhythm Heart Sounds: no click, no gallop and no murmur Vessels: posterior tibial pulses present Extremities: normal capillary refill; no edema Gastrointestinal (Abdomen): Inspection/Auscultation: + abdomen distended; no abdominal edema Percussion/Palpation: + abdomen tender (tender to palpation mostly in LLQ near L inguinal canal) and abdomen soft; no guarding and abdomen not rigid Principal Diagnosis abdominal pain due to colonic adhesions Discharge Exam Constitutional well developed, well nourished, + obese, cooperative and comfortable; no acute distress and not ill appearing Respiratory normal respiratory effort; no respiratory distress and no labored breathing Auscultation: lungs clear to auscultation bilaterally; no crackles, no rales and no wheezes Cardiovascular Rate/Rhythm: regular rate and regular rhythm Heart Sounds: no abnormal opening sounds, no click, no gallop and no murmur Extremities: no calf tenderness, no pedal edema and no edema Gastrointestinal (Abdomen) Inspection/Auscultation: abdomen normal to inspection, + abdomen distended, + abdominal wall ecchymosis (bruising on RLQ from lovenox shots), + abdominal surgical incision (3 port incisions; healing well, mildly tender to palpation) and + hypoactive bowel sounds Percussion/Palpation: + abdomen tender (only tender to palpation near incision sites. LLQ tenderness 1/10) and abdomen soft; no guarding and abdomen not rigid Discharge Data Allergies Allergy/AdvReac Type Severity Reaction Status Date / Time amoxicillin Allergy Unknown "anxiety" Verified 02/15/17 12:36 clavulanic acid Allergy Unknown "anxiety" Verified 02/15/17 12:36 Iodinated Contrast Media Allergy Unknown RASH,SWELLI Verified 02/15/17 12:36 NG iodine Allergy Unknown SWELLING Verified 02/15/17 12:36 mushroom Allergy Unknown hives Verified 02/15/17 12:36 shellfish derived Allergy Unknown hives Verified 02/15/17 12:36 Consultations 11/03/18 13:55 Consult Case Management - Discharge Planning Routine 11/05/18 19:48 Consult General Surgery Routine Procedures Performed Operation Date: 11/06/18 07:00 Actual Procedures p Diagnostic Laparoscopy with Enterolysis (Not Applicable) - Mike Connolly, Ordered Studies 11/03/18 13:55 CT abd pelvis oral and IV con Urgent 11/05/18 17:48 US pelvic complete Routine Hospital Course (1) Abdominal pain: Mrs. Collins is a wonderful 27 yo F with PMH PCOS, Endometriosis, hysterectomy, cholecystectomy, appendectomy who has had intractable abdominal pain for the past 9 months without resolution, which was acutely worse in the past week and was direct admitted for the intractable pain and nausea. Given that the patient had undergone an extensive outpatient workup, we were hesitant to duplicate prior studies. Initial CT abdomen done on admission showed trace bilateral pleural effusions, however no evidence of bowel obstruction, pelvic infiltration or infection, no pancreatic abnormalities, no remnant biliary stones. Initial CBC and CMP also returned normal. GI was initially consulted for opinions on re- performing upper and lower endoscopies, however the GI group did not get consulted in the end. Given the patient's description of the pain and extensive surgical history, we were unsure as to whether adhesions were present attached to either her colon, ovary or bladder, or if there was an aspect of ectopic endometriosis that was also contributing to her pain. CRP and ESR was ordered to rule out autoimmune causes; CRP was mildly elevated at 0.6 and ESR was normal, effectively removing those from the differential. We also started a bowel regimen to reduce any aspect of constipation. This decreased the amount of bloated-ness the patient complained of, but did not affect the pain. Ultimately Dr. Connolly was amenable to seeing the patient and agreed that diagnostic laparoscopy was an option and agreed to proceed forward after the pelvic ultrasound was negative. The diagnostic lap found severe adhesions connecting the sigmoid colon to the bladder and contorting its anatomy. Takedown of the adhesions and hoahaoism of the sigmoid to its proper location proved to be therapeutic and the patient had complaints of 1/10 pain the next morning for what had previously been 6/10 and frequently 10/10 pain. Throughout her stay her pain medication was managed with a mix of PRN percocet as per her home regimen, Toradol, and IV morphine as needed for the severe breakthrough pain. She also required some PRN benadryl for sleep aid. Patient was sent home with 7 days of percocet for Q6H use, no other new medications were started. All other chronic medical conditions were managed with her home regimen of medications. Total Time Total Time Spent Total Time Spent (In Minutes): Less than 30 Discharge Plan Discharge Items Patient Disposition: Home - Self-Care Reason For Visit: NAUSEA,VOMITING,ABD PAIN Discharge Diagnosis: Abdominal adhesions Activity: Per Instructions section Lifting: No more than 10 pounds Bathing Comment: you may shower Exercise/Sports: Wait until after follow-up appointment Driving/Machine Use: do not resume driving if you are taking narcotics for pain Non-emergency contact: Primary Care Provider Call non-emergency contact if: you have any medication questions, your symptoms worsen, your pain is not controlled, you have a fever, your temperature is above 101.5, your wound has increased redness, your wound has increased drainage and your wound pain has increased Follow-up/Referrals: Mike Connolly DO [Surgeon] - (Call to make an appt in approx 2 weeks) Malia Hansen CRNP [Primary Care Provider] - Diet: Regular Addtl Attending Provider Instructions: You were admitted to the hospital for severe abdominal pain and nausea that had been getting acutely worse prior to your admission. In the hospital we ran some initial lab work to see if an autoimmune condition could be the cause, and found those labs to either be low (C-reactive protein) or normal (ESR). The CT of the abdomen with oral and IV contrast didn't show any blockage, abnormal growth or structures that would lead to the compressive pain you were feeling either. Given that you had relatively recently had both upper and lower endoscopies done we didn't feel it was in your best care to repeat those while in the hospital. Ultimately we opted to get a surgical consult to do a diagnostic laparoscopy which allows a surgeon to visualize all of the structures in your abdomen directly with a few small cameras. Doing this allowed them to see that you had adhesions compressing your colon, which is what we suspected was going on. He was able to cut the adhesions apart, separate the sigmoid colon from the portion of the bladder it was "sticking" to, and place everything back where it is "supposed" to be. You might continue to have some mild pain at the sites of incisions from the diagnostic surgery, but this should pass within a few days and heal quickly. Follow up with the surgeon in the next week to ensure proper healing of the sites and to get recommendations on when you can return to lifting heavy things and exercising. Continue the bowel regimen with the miralax at home as it will help give your colon time to adjust after the procedure and reduce the stress of it "stretching" with constipation. Follow up with your Primary Care Physician within the next week to ensure proper continuation of care outside of the hospital and let them know if you have any questions regarding your care. Pending Studies at Discharge: No Stand-Alone Forms: My [facility], Opioid Pain Management Medications and DC Order Prescriptions: New oxycodone-acetaminophen 5-325 mg tablet 1 tab PO Q6H PRN (Reason: pain) 7 Days Qty: 30 RF: 0 Continued sertraline 25 mg tablet 100 mg PO DAILY RF: 0 trazodone 100 mg tablet 150 mg PO HS RF: 0 ondansetron 8 mg tablet,disintegrating 8 mg translingual Q8H PRN (Reason: Nausea) RF: 0 lorazepam [Ativan] 0.5 mg tablet 0.5 mg PO BID PRN (Reason: Anxiety) RF: 0 Discontinued oxycodone-acetaminophen [Percocet] 5-325 mg tablet 10 - 325 tab PO Q4H PRN (Reason: Pain, Moderate) RF: 0 Discharge Orders: Discharge Order (Routine); Ordered 11/07/18 Ordered By: Angella Asencio Admission Data Admit Date/Time: 11/04/18 18:44 Attending Provider: Zeeshan Stanton Admit Provider: Zeeshan Stantno Primary Care Provider: Malia Hansen Other Providers: Cezar Peña Smriti ; Mike Connolly Other Interventions: Discharge Summary Assessment (RN) Last Done: 11/07/18 10:48 DC Date/Time DO NOT enter until pt leaves facility: 11/07/18 11:55 Supervising Physician Co-Signing Physician Notes I personally examined the patient and verified all grubbs points of history and exam, discussed case, and agree with decision making with Dr Asencio. Feeling much better. Mild postop pain but no other new complaints. Feels up to going home. Vitals noted, in general she is awake and alert pleasant but actually at times shaking some with pain. HEENT normocephalic atraumatic mucous membranes moist. Breathing unlabored no accessory muscle use good effort. No focal neuro deficits, no pallor or icterus. Abdominal pain due to colonic adhesionsnow improved postop with lysis of adhesions. Stable for discharge to home, surgical follow-up as outpatient. Primary care physician updated. Otherwise as above Resident Activity Tracking Resident Involvement: Resident Care Provided Care Provided: Adult Hospital Medicine
--- NOTE | 2018-11-13 09:49 | Coding Query ---
CODING QUERY To promote full compliance with coding requirements relating to patient care, provider participation is requested in all cases of mutual fund analyst uncertainty. Please assist us with the question(s) below: Coding Question(s): 1. Please clarify below, in your clinical opinion, regarding the Colonic Adhesions. ( ) Adhesions are likely postprocedural pelvic adhesion of colon ( ) Adhesions are likely postprocedural peritoneal adhesion of colon one or the other of the above. dr vaughan would be able to answer more specifically, likely it is elements of both ( ) Adhesions are likely pelvic adhesions of colon that are not postprocedural ( ) Adhesions are other: Please Specify 2. The Operative Report documents the Sigmoid Colon was laying in a twisted abnormal fashion and also documents returning the colon to it normal anatomic position and the Discharge Summary documents that the diagnostic lap found severe adhesions connecting the sigmoid colon to the bladder and contorting its anatomy. Takedown of the adhesions and nondenominational of the sigmoid to its proper location proved to be therapeutic. Please specify below, regarding the twisting of the colon. ( ) twisting of colon was Volvulus ( ) there was no Volvulus ( ) Other: Please Specify given a volvulus usually implying a bowel obstruction type of surgical emergency, i would be hard pressed to call her situation a true volvulus, as much as an anatomic distortion contributing to her symptoms. again if further clarification is needed, dr vaughan would be able to provide more insightful answers as he was the surgeon on her case. Physician's Response(s): Thank you Rosalee López Principal Diagnosis: "that condition established after study, to be chiefly responsible for occasioning the admission of the patient to the hospital for care." Co-Existing Principal Diagnosis: "when two or more diagnoses equally meet the criteria for principal diagnosis as determined by the circumstances of admission, diagnostic work up, and/or therapy provided, and the Alphabetic Index, Tabular List, or another coding guideline does not provide sequencing direction, any one of the diagnoses may be sequenced first." "When the physician has documented what appears to be a current diagnosis in the body of the record, but has not included the diagnosis in the final diagnostic statement, the physician should be asked whether the diagnosis should be added." ([facility] 2 QTR90. p3-4) EMMY
--- NOTE | 2018-11-14 06:41 | Coding Query ---
CODING QUERY To promote full compliance with coding requirements relating to patient care, provider participation is requested in all cases of incinerator attendant uncertainty. Please assist us with the question(s) below: Coding Question(s): These query questions were posed to Dr. Stanton (please see his query responses for his comments) and he felt that you would be able to answer more specifically and to further clarify the answers. I have also added one additional choice to both questions. 1. Please clarify below, in your clinical opinion, regarding the Colonic Adhesions. ( x) Adhesions are likely postprocedural pelvic adhesion of colon ( ) Adhesions are likely postprocedural peritoneal adhesion of colon ( ) Adhesions are likely pelvic adhesions of colon that are not postprocedural ( ) Adhesions are other: Please Specify ( ) Adhesions are with intestinal obstruction ( ) complete obstruction ( ) incomplete or partial obstruction ( ) unspecified obstruction 2. The Operative Report documents the Sigmoid Colon was laying in a twisted abnormal fashion and also documents returning the colon to it normal anatomic position and the Discharge Summary documents that the diagnostic lap found severe adhesions connecting the sigmoid colon to the bladder and contorting its anatomy. Takedown of the adhesions and roman catholic of the sigmoid to its proper location proved to be therapeutic. Please specify below, regarding the twisting of the colon. ( ) twisting of colon was Volvulus ( ) there was no Volvulus ( ) Other: Please Specify (x ) anatomical distortion Physician's Response(s): Thank you Rosalee López Principal Diagnosis: "that condition established after study, to be chiefly responsible for occasioning the admission of the patient to the hospital for care." Co-Existing Principal Diagnosis: "when two or more diagnoses equally meet the criteria for principal diagnosis as determined by the circumstances of admission, diagnostic work up, and/or therapy provided, and the Alphabetic Index, Tabular List, or another coding guideline does not provide sequencing direction, any one of the diagnoses may be sequenced first." "When the physician has documented what appears to be a current diagnosis in the body of the record, but has not included the diagnosis in the final diagnostic statement, the physician should be asked whether the diagnosis should be added." ([facility] 2 QTR90. p3-4) ZACARIASD
== END 2018-11-07 11:55 | disposition home or self-care (01) | DRG 336 ==
LOC: INTOOBSV 11:18 → 3N 11:18

== ENCOUNTER 2019-04-27 11:47 | Observation (INO) ==
[2019-04-27] MEDS ORDERED: KETOROLAC TROMETHAMINE 15 MG/ML VIAL IV STA (12:14)
[2019-04-27] MEDS ORDERED: ONDANSETRON INJ 2 MG/ML 2 ML VIAL IV STA (12:14)
[2019-04-27] MEDS ORDERED: DiphenhydrAMINE HCL 50 MG/ML VIAL IV STA (12:14)
[2019-04-27] MEDS ORDERED: SODIUM CHLORIDE 0.9% 1000ML 1,000 ML IV ONE (12:14)
[2019-04-27] MEDS ORDERED: MoRPHine SULFATE 10 MG/ML CARP/VIAL IV STA (12:14)
[2019-04-27] MEDS ORDERED: methylPREDNISolone 125 MG/2 ML VIAL IV STA (12:14)
[2019-04-27 12:39] LABS: Basophils # (auto) 0.05 K/uL (0-0.2); Basophils % (auto) 0.5 %; Eosinophils # (auto) 0.32 K/uL (0-0.5); Eosinophils % (auto) 3.1 %; Hematocrit (blood only) 40.7 % (37-47); Hemoglobin 14.6 g/dL (12.0-16.0); Immature Granulocytes # (auto) 0.02 K/uL (0.00-0.02); Immature Granulocytes % (auto) 0.2 %; Lymphocytes # (auto) 4.19 K/uL (1.2-3.4); Mean Corpuscular Hemoglobin 30.2 pg (25-34); Mean Corpuscular Hgb Conc 35.9 g/dL (32-36); Mean Corpuscular Volume 84.1 fL (80-100); Mean Platelet Volume 10.5 fL (7.4-10.4); Monocytes # (auto) 0.62 K/uL (0.11-0.59); Monocytes % (auto) 6.1 %; Neutrophils # (auto) 5.02 K/uL (1.4-6.5); Neutrophils % (auto) 49.1 %; Platelet Count 295 K/uL (130-400); RDW Coefficient of Variation 12.1 % (11.5-14.5); RDW Standard Deviation 37.1 fL (36.4-46.3); Red Blood Count 4.84 M/uL (4.2-5.4); White Blood Count 10.22 K/uL (4.8-10.8)
[2019-04-27 13:02] LABS: Albumin Level 3.6 gm/dl (3.4-5.0); BUN Creatinine Ratio 7.7 (10-20); Bilirubin,Total 0.3 mg/dl (0.2-1); Creatinine Clr Calc Pharmacy 118.2 ml/min; Est GFR (African American) 112.1; Est GFR (Non-African American) 96.7; Globulin 3.5 gm/dl (2.5-4.0); Total Protein 7.1 gm/dl (6.4-8.2)
--- NOTE | 2019-04-27 13:14 | XRay Report ---
XR chest 1V portable CLINICAL HISTORY: Possible free air ABDOMINAL PAIN AND NAUSEA COMPARISON STUDY: 02/15/2017 FINDINGS: The cardiac and mediastinal contours are normal. There is no evidence of focal pulmonary co nsolidation. There is no evidence of failure. No pleural effusions are visualized.[No free intraperit lemus air is visualized. IMPRESSION: No active disease in the chest. ACT 112: Negative or not required by law. Electronically signed by: Tom Galvan M.D. 04/27/2019 1:13 PM
[2019-04-27 13:37] LABS: Potassium 3.3 mmol/L (3.5-5.1)
[2019-04-27 13:41] LABS: Magnesium 1.7 mg/dl (1.8-2.4)
[2019-04-27] MEDS ORDERED: MAGNESIUM SULFATE / D5W 1 GM/100 ML BAG IV ONE (14:01)
[2019-04-27] MEDS: MoRPHine SULFATE 4 MG/ML 1 ML CARP\\VIAL IV PRN (14:42)
[2019-04-27] MEDS ORDERED: DiphenhydrAMINE HCL 50 MG/ML VIAL ONE (14:44)
[2019-04-27] MEDS ORDERED: methylPREDNISolone 125 MG/2 ML VIAL ONE (14:44)
[2019-04-27] MEDS ORDERED: IOVERSOL 100ml IV PRN (15:03)
--- NOTE | 2019-04-27 15:20 | CT Scan Report ---
CT abd pelvis oral and IV con CLINICAL HISTORY: 28 years-old Female presenting with llq abdominal pain. TECHNIQUE: Multidetector CT of the abdomen and pelvis was performed after the administration of oral and intravenous contrast. IV contrast: 94 mL of Optiray 320. One or more dose lowering techniques wer e used consistent with the principles of ALARA (as low as reasonably achievable), including automatic exposure control, mA or kV adjustment to individual patient size, and/or use of iterative reconstruc tion. COMPARISON: 04/20/2019. CT DOSE (mGy.cm): The estimated cumulative dose is 1055.52 mGy.cm. FINDINGS: Talent Sourcer topogram: Cholecystectomy clips. Lung bases: Normal heart size. Trace bilateral pleural effusions. Minimal dependent changes likely at electasis. Liver: Normal morphology. Density suggestive of hepatic steatosis. Vague hypodensity centrally in the liver. Patent hepatic vasculature. Biliary: No intrahepatic or extrahepatic biliary ductal dilatation. Gallbladder surgically absent. Pancreas: Normal. Spleen: Normal. Adrenal glands: Normal. Kidneys and ureters: Normal. No hydronephrosis. Bladder: Normal. Pelvic organs: Uterus surgically absent. Multiple follicles in the left ovary. Right ovary not visual ized. Bowel: The appendix is not visualized. Surgical clips in the right lower quadrant indicate a history of appendectomy. No bowel obstruction. Peritoneal cavity: No free fluid or intraperitoneal gas. Lymph nodes: No enlarged lymph nodes in the abdomen or pelvis. Vasculature: Aorta and IVC patent and normal in caliber. Abdominal wall: Small fat-containing umbilical hernia. Larger fat-containing supraumbilical hernia. T hese do not appear strangulated. Musculoskeletal: Normal. IMPRESSION: 1. No acute intra-abdominal pathology. 2. Status post cholecystectomy, appendectomy, and hysterectomy. 3. Multiple follicles within the left ovary. 4. Umbilical and supraumbilical fat-containing hernias. 5. Trace bilateral pleural effusions and bibasilar atelectasis. ACT 112: Negative or not required by law. Electronically signed by: Joon Garibay M.D. 04/27/2019 3:19 PM
--- NOTE | 2019-04-27 16:18 | History & Physical Report ---
Date of Service April 27, 2019 Assessment & Plan (1) Abdominal pain, LLQ: (2) Endometriosis: - Admit to med surg for observation - Checking US LLQ to assess left ovary for endometriosis involvement - CT abd with po contrast completed (pt was premedicated due to contrast allergy) and demonstrates multiple follicles within the left ovary which is possible cause for her intractable pain. Ovary likely secondary to forming, possibly ovulation phase at this time which would make her pain worse. It is possible that she would have monthly pain if this will the case so we will have to continue to monitor. Possible endometrial seeding within the retroperitoneal area or the cul de sac? Will defer checking FSH and progesterone to MEDIA DEVELOPER. Order TSH with next set of labs. - Air Intercept Controller consulted - Pain management consulted - Continue toradol, tylenol and morphine IV prn for pain - Bowels loose per pt report - will add on dulcolax bowel regimen prn - Start on bentyl 10 mg TID - Start famotidine 20 mg daily now - Encourage incentive spirometry with bibasilar atelectasis and trace pleural effusions bilaterally as seen on CT and ambulation - Allow diet this evening, if plans for surgical intervention then can make NPO after midnight- Zofran prn (3) Hypomagnesemia: - Mag = 1.5 on admission, replaced in the ER - Follow am labs (4) Hypokalemia: - K += 3.3 on admission, will replace in the ER (5) Anxiety: (6) Depression: - Continue trazadone 150 mg HS, lorazepam 0.5 mg BID prn, seroquel 25 HS, sertraline 100 mg HS (7) DVT prophylaxis: DVT ppx: teds, ambulatory CODE: FULL Dispo: From home, likely to remain in the hospital x 1 night for pain control History of Present Illness Primary Care Provider: Cezar Peña MD This is a 28 yo F with PMHx of endometriosis, PCOS, and ovarian cysts s/p Right ovary removal, hysterectomy, appendectomy and cholecystectomy who presents with worsening LLQ pain, x1 week. Today is her third visit to the ER in the past week. She went to see Dr. Connolly with general surgery, this morning for her worsening abdominal pain as scheduled by the ER after her most recent visit. He has recommended further work-up by pain management and INSIDE SALES ACCOUNT REPRESENTATIVE as there was no clear surgical diagnosis that would have caused her pain to be this out of proportion compared with exam and findings. A CT abd with oral contrast was obtained in the ER but was negative for any acute findings. An ultrasound of the left lower quadrant has been ordered but not completed yet. Patient denies any fevers, chills or sweats. She reports having 2 normal vaginal pregnancies prior to her hysterectomy without epidural, her children are approximately 2 and almost 4 years old at this time. Patient underwent hysterectomy in July 2017 for endometriosis. She reports that at that time the left ovary had no signs of endometriosis surrounding the area. She has not experienced any pain quite like this since prior to that surgical procedure. She has been using Percocet, alternating with Tylenol and ibuprofen at home for pain relief. She currently rates her pain as a 3/10 after receiving Toradol in the ER. Allergies Allergy/AdvReac Type Severity Reaction Status Date / Time amoxicillin Allergy Unknown "anxiety" Verified 04/27/19 12:49 clavulanic acid Allergy Unknown "anxiety" Verified 04/27/19 12:49 Iodinated Contrast Media Allergy Unknown RASH,SWELLI Verified 04/27/19 12:49 NG iodine Allergy Unknown SWELLING Verified 04/27/19 12:49 mushroom Allergy Unknown hives Verified 04/27/19 12:49 shellfish derived Allergy Unknown hives Verified 04/27/19 12:49 Home Medications Home Medications Medication Instructions Recorded Confirmed Type lorazepam [Ativan] 0.5 mg PO BID PRN 11/03/18 04/27/19 History sertraline 100 mg tablet 100 mg PO HS 03/03/19 04/27/19 History trazodone 150 mg tablet 150 mg PO HS 03/03/19 04/27/19 History clonazepam 0.5 mg PO HS 04/20/19 04/27/19 History ondansetron 4 mg PO Q6H PRN #15 tab 04/20/19 04/27/19 Rx quetiapine 25 - 50 mg PO HS 04/20/19 04/27/19 History oxycodone [Roxicodone] 5 mg PO Q8H PRN #15 tab 04/22/19 04/27/19 Rx Past Med/Surg History Social History Preferred Language: [place]an Communication Ability: Effective Beliefs That Will Affect Care: None Current Living Situation: Spouse Current Living Situation Comment: 2 children at home, ages 3 and 18 months Other Information That Helps Us Care for You: No Feels Safe at Home: Yes Safety Concerns: Feels Safe At This Time Smoking Status: Never smoker Second Hand Exposure: No ; Hx Alcohol Use: Yes (occassionally) Alcohol type: beer and wine Hx Substance Use: No Review of Systems Review of Systems: Constitutional: No fever, sweats or chills Eyes: No diplopia, no worsening or blurred vision ENT: normal hearing, no trouble swallowing Respiratory: No cough, sputum, dyspnea at rest or on exertion Cardiovascular: No chest pain, tightness or palpitations Abdomen: + LLQ pain, + dull constant nausea with pain, +tolerating fluids, poor appetite, no vomiting, diarrhea or constipation, last BM yesterday, soft/loose. Musculoskeletal: No joint pain, calf pain, swelling Neurologic: No weakness, numbness/tingling, or balance problems Psychiatric: No anxiety or depression Skin: No rash or itch Physical Exam Physical Exam: General: awake, alert, no apparent distress, + obese with BMI of 38.9 Head: Normocephalic, atraumatic ENT: PERRL, EOMI, no pharyngeal exudate, mucous membranes moist Chest: Clear to auscultation, on room air, no adventitious breath sounds Cardiac: Regular rate and rhythm, no murmur, no JVD, normal peripheral pulses, good capillary refill Abdominal: NABS x 4 quadrants, soft, nondistended, + tenderness to palpation in LLQ, no rebound, guarding Extremities: Normal inspection, no peripheral edema or erythema, calfs nontender to palpation Psych: Normal mood and affect Neuro: AAO x 3, strength intact bilaterally and rated 5/5, no motor deficits, speech is clear, no peripheral sensory deficits Results & Data Vital Signs (Past 12 Hours) Vital Signs Temp Pulse Pulse Resp BP BP Pulse Ox 04/27/19 15:20 85 18 130/73 98 04/27/19 14:45 85 18 130/73 98 04/27/19 14:15 59 L 18 122/73 98 04/27/19 13:45 65 18 121/75 98 04/27/19 13:06 82 64 18 122/80 97 04/27/19 12:30 78 20 127/78 98 04/27/19 11:50 36.8 C 82 20 129/[address] abd pelvis oral and IV con CLINICAL HISTORY: 28 years-old Female presenting with llq abdominal pain. TECHNIQUE: Multidetector CT of the abdomen and pelvis was performed after the administration of oral and intravenous contrast. IV contrast: 94 mL of Optiray 320. One or more dose lowering techniques were used consistent with the principles of ALARA (as low as reasonably achievable), including automatic exposure control, mA or kV adjustment to individual patient size, and/or use of iterative reconstruction. COMPARISON: 04/20/2019. CT DOSE (mGy.cm): The estimated cumulative dose is 1055.52 mGy.cm. 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 Lung bases: Normal heart size. Trace bilateral pleural effusions. Minimal dependent changes likely atelectasis. Liver: Normal morphology. Density suggestive of hepatic steatosis. Vague hypodensity centrally in the liver. Patent hepatic vasculature. Biliary: No intrahepatic or extrahepatic biliary ductal dilatation. Gallbladder surgically absent. Pancreas: Normal. Spleen: Normal. Adrenal glands: Normal. Kidneys and ureters: Normal. No hydronephrosis. Bladder: Normal. Pelvic organs: Uterus surgically absent. Multiple follicles in the left ovary. Right ovary not visualized. Bowel: The appendix is not visualized. Surgical clips in the right lower quadrant indicate a history of appendectomy. No bowel obstruction. Peritoneal cavity: No free fluid or intraperitoneal gas. Lymph nodes: No enlarged lymph nodes in the abdomen or pelvis. Vasculature: Aorta and IVC patent and normal in caliber. Abdominal wall: Small fat-containing umbilical hernia. Larger fat-containing supraumbilical hernia. These do not appear strangulated. Musculoskeletal: Normal. IMPRESSION: 1. No acute intra-abdominal pathology. 2. Status post cholecystectomy, appendectomy, and hysterectomy. 3. Multiple follicles within the left ovary. 4. Umbilical and supraumbilical fat-containing hernias. 5. Trace bilateral pleural effusions and bibasilar atelectasis. ACT 112: Negative or not required by law. Electronically signed by: Joon Garibay M.D. 04/27/2019 3:19 PM XR chest 1V portable CLINICAL HISTORY: Possible free air ABDOMINAL PAIN AND NAUSEA COMPARISON STUDY: 02/15/2017 FINDINGS: The cardiac and mediastinal contours are normal. There is no evidence of focal pulmonary consolidation. There is no evidence of failure. No pleural effusions are visualized.[No free intraperitoneal air is visualized. IMPRESSION: No active disease in the chest. ACT 112: Negative or not required by law. Electronically signed by: Tom Galvan M.D. 04/27/2019 1:13 PM Dictated: 04/27/19 1312 Transcribed: 04/27/19 1312 Code Status & VTE Plan Code Status Full Code - discussed with the pt at bedside Supervising Physician Co-Signing Physician Notes I have seen and examined patient with Maricruz Alvarez PA-C and agree with the assessment and plan. My Exam: General: awake, alert, no apparent distress, morbidly obese with BMI of 38.9 Head: Normocephalic, atraumatic ENT: PERRL, EOMI, no pharyngeal exudate, mucous membranes moist Chest: CTAB Cardiac:RRR, good capillary refill Abdominal: NABS x 4 quadrants, soft, nondistended, + tenderness to palpation in LLQ, no rebound, guarding Extremities: Normal inspection, no peripheral edema or erythema, calfs nontender to palpation Psych: Normal mood and affect Neuro: AAO x 3, strength intact bilaterally and rated 5/5, no motor deficits, speech is clear, no peripheral sensory deficits PG Care Time/CCT Total # of Minutes Spent Total Time Spent with Patient: Total time spent is greater than 50% in coordination of care (as documented) at patient's floor/unit and/or counseling patient: Coding Level of Care Code 22461 OBS Care - Level 3 Diagnoses Abdominal pain, LLQ R10.32 Endometriosis N80.9 Hypomagnesemia E83.42 Hypokalemia E87.6 Anxiety F41.9 Depression F32.9 DVT prophylaxis Z29.9
[2019-04-27] MEDS ORDERED: KETOROLAC 30 MG/ML VIAL IV PRN (17:31)
[2019-04-27] MEDS: MoRPHine SULFATE 2 MG/ML CARP IV PRN ×2 (17:38→21:43)
--- NOTE | 2019-04-27 17:58 | Emergency Department Note ---
Entered by Howard Khalil acting as a scribe for History of Present Illness General Chief complaint: Abdominal Pain Stated complaint: ABD PAIN Time Seen by Provider: 04/27/19 12:04 Source: patient History of Present Illness Onset (ago): week(s) 1 Location: abdomen (left-sided) Pain Consistency: + constant Maximum Pain Intensity: 6 Current Pain Intensity: 6 Relieved By: not by medication Exacerbated By: + movement Associated symptoms: + denies other symptoms (urinary symptoms, diarrhea, and f lank pain) The patient is a 28 year old F who presents to the Emergency Room with compla ints of constant abdominal pain that started 1 week ago. The patient notes that her abdominal pain is located in the left-side of her abdomen. She states that her abdominal pain worsens with movement and bowel movements. She rates her current pain as 6 out of 10. She states that she is taking Percocet, Tylenol, and Ibuprofen for her pain to no relief. She notes that she took Percocet, last, 3 hours ago. She denies that she is currently experiencing urinary symptoms, diarrhea, and flank pain. She states that she regularly follows-up with Dr. Connolly, General Surgery. She notes that she has had this pain before with adhesions. She adds that she had this pain last, in October 2018, due to adhesions. She notes that Dr. Connolly performed surgery on her which she states relived her pain. She states that she had a CT scan and US, performed on Saturday, which were normal. She adds that she saw Dr. Connolly, today, who reffered her to the ED. She states that she has had conflicting reports from her doctors as to whether or not she has diverticulitis. She notes that she has a history of polycystic ovaries. Her pain does not feel ovarian in nature. She adds that she has had a hysterectomy and right ovary resection due to a prior history of endometriosis. She notes that she has not seen her DITTO MACHINE OPERATOR recently. She denies a history of diabetes, recent falls, and recent trauma. Home Medications Home Medications Medication Instructions Recorded Confirmed Type lorazepam [Ativan] 0.5 mg PO BID PRN 11/03/18 04/27/19 History sertraline 100 mg tablet 100 mg PO HS 03/03/19 04/27/19 History trazodone 150 mg tablet 150 mg PO HS 03/03/19 04/27/19 History clonazepam 0.5 mg PO HS 04/20/19 04/27/19 History ondansetron 4 mg PO Q6H PRN #15 tab 04/20/19 04/27/19 Rx quetiapine 25 - 50 mg PO HS 04/20/19 04/27/19 History oxycodone [Roxicodone] 5 mg PO Q8H PRN #15 tab 04/22/19 04/27/19 Rx Allergies Allergy/AdvReac Type Severity Reaction Status Date / Time amoxicillin Allergy Unknown "anxiety" Verified 04/27/19 12:49 clavulanic acid Allergy Unknown "anxiety" Verified 04/27/19 12:49 Iodinated Contrast Media Allergy Unknown RASH,SWELLI Verified 04/27/19 12:49 NG iodine Allergy Unknown SWELLING Verified 04/27/19 12:49 mushroom Allergy Unknown hives Verified 04/27/19 12:49 shellfish derived Allergy Unknown hives Verified 04/27/19 12:49 Past Med/Surg History Social History Preferred Language: [place] Communication Ability: Effective Beliefs That Will Affect Care: None Current Living Situation: Spouse Current Living Situation Comment: 2 children at home, ages 3 and 18 months Other Information That Helps Us Care for You: No Feels Safe at Home: Yes Safety Concerns: Feels Safe At This Time Smoking Status: Never smoker Second Hand Exposure: No ; Hx Alcohol Use: Yes (occassionally) Alcohol type: beer and wine Hx Substance Use: No Review of Systems See HPI for pertinent positives & negatives. and A total of 10 systems reviewed and were otherwise negative Physical Exam Vital Signs Vital Signs - 24 hr 04/27/19 11:50 04/27/19 12:30 04/27/19 13:06 Temperature 36.8 C Temperature Source Oral Pulse Rate 82 82 Pulse Rate [Apical] 78 64 Pulse Rate from SpO2 Sensor Respiratory Rate 20 20 18 Respiratory Effort / Characteristics Non-Labored Spontaneous Non-Labored Spontaneous Respiratory Depth Normal Normal Respiratory Pattern Regular Regular Blood Pressure 129/82 Blood Pressure [Left Arm] 127/78 122/80 Blood Pressure Mean 97 Blood Pressure Mean [Left Arm] 94 94 Blood Pressure Position [Left Arm] Pulse Oximetry 98 98 97 Oxygen Delivery Method Room Air Room Air Room Air Sepsis Recent Fever Within 48 Hours No Sepsis New/Unexplained Change in Mental Status No Sepsis Action Taken by Nursing No Action Required 04/27/19 13:45 04/27/19 14:15 04/27/19 14:45 Temperature Temperature Source Pulse Rate Pulse Rate [Apical] 65 59 L 85 Pulse Rate from SpO2 Sensor Respiratory Rate 18 18 18 Respiratory Effort / Characteristics Non-Labored Spontaneous Non-Labored Spontaneous Non-Labored Spontaneous Respiratory Depth Normal Normal Normal Respiratory Pattern Regular Regular Regular Blood Pressure Blood Pressure [Left Arm] 121/75 122/73 130/73 Blood Pressure Mean Blood Pressure Mean [Left Arm] 90 89 92 Blood Pressure Position [Left Arm] Sitting Sitting Sitting Pulse Oximetry 98 98 98 Oxygen Delivery Method Room Air Room Air Room Air Sepsis Recent Fever Within 48 Hours Sepsis New/Unexplained Change in Mental Status Sepsis Action Taken by Nursing 04/27/19 15:20 04/27/19 16:19 Temperature Temperature Source Pulse Rate 78 Pulse Rate [Apical] 85 Pulse Rate from SpO2 Sensor 79 Respiratory Rate 18 14 Respiratory Effort / Characteristics Non-Labored Spontaneous Respiratory Depth Normal Respiratory Pattern Regular Blood Pressure 132/77 Blood Pressure [Left Arm] 130/73 Blood Pressure Mean 98 Blood Pressure Mean [Left Arm] 92 Blood Pressure Position [Left Arm] Sitting Pulse Oximetry 98 96 Oxygen Delivery Method Room Air Sepsis Recent Fever Within 48 Hours Sepsis New/Unexplained Change in Mental Status Sepsis Action Taken by Nursing GENERAL: Patient is in significant distress from pain. HEENT: No acute trauma, normocephalic atraumatic, mucous membranes moist, no nasal congestion, no scleral icterus. NECK: No stridor, no adenopathy, no meningismus, trachea is midline. LUNGS: Clear to auscultation bilaterally, no wheeze, no rhonchi, breath sounds equal. HEART: Without murmurs gallops or rubs, regular rate and rhythm. ABDOMEN: Soft, moderately tender in the LLQ, bowel sounds positive, no hernias, no peritonitis. EXTREMITIES: No cyanosis or edema, full range of motion of all the joints without pain or difficulty, no signs for acute trauma. NEUROLOGIC: Oriented x 3, no acute motor or sensory deficits, no focal weakness. SKIN: No rash, no jaundice, no diaphoresis. Course Course 1211: The patient was evaluated in room C4. A complete history and physical exam was performed. 1555: I updated the patient on her US results. I am going to discuss the patient with Dr. Connolly. 1603: I reviewed the patient's case with Dr. Connolly, General Surgery [place]. He thinks that the patient should be admitted for pain management and consults with D[employer] MACHINE OPERATOR and surgery. 1612: I reviewed the patient's case with Dr. Ga, [facility] Hospitalist. He will evaluate the patient for further management. Administered Medications Morphine Sulfate (Morphine Sulfate) 4 mg IV Q30M PRN PRN Reason: Pain Stop: 05/11/19 12:13 Last Admin: 04/27/19 14:42 Dose: 4 mg Documented by: [id number] Morphine Sulfate (Morphine Sulfate) 2 mg IV Q3H PRN PRN Reason: Pain Stop: 05/11/19 17:30 Last Admin: 04/27/19 17:38 Dose: 2 mg Documented by: [id number] Discontinued Medications Diphenhydramine HCl (Benadryl) 25 mg IV NOW STA Stop: 04/27/19 12:15 Last Admin: 04/27/19 14:46 Dose: 25 mg Documented by: [id number] Diphenhydramine HCl (Benadryl) Confirm Administered Dose 50 mg .ROUTE .STK-MED ONE Stop: 04/27/19 14:45 Last Admin: 04/27/19 14:46 Dose: Not Given Documented by: [id number] Sodium Chloride (Nss 1000ml) 1,000 mls @ 999 mls/hr IV .Q1H1M ONE Stop: 04/27/19 13:14 Last Infusion: 04/27/19 13:41 Dose: 0 mls/hr Documented by: [id number] Admin: 04/27/19 12:40 Dose: 999 mls/hr Documented by: [id number] Magnesium Sulfate/Dextrose (Magnesium Sulfate / D5w) 1 gm in 100 mls @ 100 mls/hr IV ONE ONE Stop: 04/27/19 15:00 Last Infusion: 04/27/19 15:36 Dose: 0 mls/hr Documented by: [id number] Admin: 04/27/19 14:42 Dose: 100 mls/hr Documented by: [id number] Ioversol (Optiray 320 100ml) 94 ml IV ONCE PRN PRN Reason: Interaction Checking Stop: 05/01/19 15:02 Last Admin: 04/27/19 15:04 Dose: 94 ml Documented by: [id number] Ketorolac Tromethamine (Toradol) 15 mg IV NOW STA Stop: 04/27/19 12:15 Last Admin: 04/27/19 12:41 Dose: 15 mg Documented by: [id number] Methylprednisolone (Solumedrol) 125 mg IV NOW STA Stop: 04/27/19 12:15 Last Admin: 04/27/19 14:45 Dose: 125 mg Documented by: [id number] Methylprednisolone (Solumedrol) Confirm Administered Dose 125 mg .ROUTE .STK-MED ONE Stop: 04/27/19 14:45 Last Admin: 04/27/19 14:46 Dose: Not Given Documented by: [id number] Morphine Sulfate (Morphine Sulfate) 6 mg IV NOW STA Stop: 04/27/19 12:15 Last Admin: 04/27/19 12:41 Dose: 6 mg Documented by: [id number] Ondansetron HCl (Zofran) 4 mg IV NOW STA Stop: 04/27/19 12:15 Last Admin: 04/27/19 12:41 Dose: 4 mg Documented by: [id number] Medical Decision Making Differential Diagnosis Differential diagnosis includes: diverticulitis, adhesions, bowel ischemia, bowel perforation, pancreatitis, UTI, renal colic, hernia, ovarian cyst, ovarian torsion Medical Records Attestation: I reviewed the patient's medical records. Home Medications Current Medication List: was personally reviewed by me Laboratory Data Attestation: I reviewed the patient's lab results. Result diagrams: 04/27/19 12:30 04/27/19 13:12 Lab Results 04/27/19 04/27/19 04/27/19 Range/Units 12:30 12:30 12:30 WBC 10.22 (4.8-10.8) K/uL RBC 4.84 (4.2-5.4) M/uL Hgb 14.6 (12.0-16.0) g/dL Hct 40.7 (37-47) % MCV 84.1 (80-100) fL MCH 30.2 (25-34) pg MCHC 35.9 (32-36) g/dL RDW Std Deviation 37.1 (36.4-46.3) fL RDW Coeff of Bowen 12.1 (11.5-14.5) % Plt Count 295 (130-400) K/uL MPV 10.5 H (7.4-10.4) fL Immature Gran % (Auto) 0.2 % Neut % (Auto) 49.1 % Lymph % (Auto) 41.0 % Ray % (Auto) 6.1 % Eos % (Auto) 3.1 % Baso % (Auto) 0.5 % Immature Gran # (Auto) 0.02 (0.00-0.02) K/uL Neut # (Auto) 5.02 (1.4-6.5) K/uL Lymph # (Auto) 4.19 H (1.2-3.4) K/uL Ray # (Auto) 0.62 H (0.11-0.59) K/uL Eos # (Auto) 0.32 (0-0.5) K/uL Baso # (Auto) 0.05 (0-0.2) K/uL Sodium 140 (136-145) mmol/L Potassium (3.5-5.1) mmol/L Chloride 110 H (98-107) mmol/L Carbon Dioxide 24 (21-32) mmol/L Anion Gap 7.0 (3-11) BUN 6 L (7-18) mg/dl Creatinine 0.82 (0.6-1.2) mg/dl Est Cr Clr Drug Dosing 118.2 ml/min Est GFR ( Amer) 112.1 Est GFR (Non-Af Amer) 96.7 BUN/Creatinine Ratio 7.7 L (10-20) Glucose 83 (70-99) mg/dl Lactate 1.8 (0.4-2.0) mmol/L Calcium 9.0 (8.5-10.1) mg/dl Magnesium (1.8-2.4) mg/dl Total Bilirubin 0.3 (0.2-1) mg/dl AST (15-37) U/L ALT 27 (12-78) U/L Alkaline Phosphatase 66 (45-117) U/L Total Protein 7.1 (6.4-8.2) gm/dl Albumin 3.6 (3.4-5.0) gm/dl Globulin 3.5 (2.5-4.0) gm/dl Albumin/Globulin Ratio 1.0 (0.9-2) Lipase 82 (73-393) U/L 04/27/19 Range/Units 13:12 WBC (4.8-10.8) K/uL RBC (4.2-5.4) M/uL Hgb (12.0-16.0) g/dL Hct (37-47) % MCV (80-100) fL MCH (25-34) pg MCHC (32-36) g/dL RDW Std Deviation (36.4-46.3) fL RDW Coeff of Bowen (11.5-14.5) % Plt Count (130-400) K/uL MPV (7.4-10.4) fL Immature Gran % (Auto) % Neut % (Auto) % Lymph % (Auto) % Ray % (Auto) % Eos % (Auto) % Baso % (Auto) % Immature Gran # (Auto) (0.00-0.02) K/uL Neut # (Auto) (1.4-6.5) K/uL Lymph # (Auto) (1.2-3.4) K/uL Ray # (Auto) (0.11-0.59) K/uL Eos # (Auto) (0-0.5) K/uL Baso # (Auto) (0-0.2) K/uL Sodium (136-145) mmol/L Potassium 3.3 L (3.5-5.1) mmol/L Chloride (98-107) mmol/L Carbon Dioxide (21-32) mmol/L Anion Gap (3-11) BUN (7-18) mg/dl Creatinine (0.6-1.2) mg/dl Est Cr Clr Drug Dosing ml/min Est GFR ( Amer) Est GFR (Non-Af Amer) BUN/Creatinine Ratio (10-20) Glucose (70-99) mg/dl Lactate (0.4-2.0) mmol/L Calcium (8.5-10.1) mg/dl Magnesium 1.7 L (1.8-2.4) mg/dl Total Bilirubin (0.2-1) mg/dl AST 18 (15-37) U/L ALT (12-78) U/L Alkaline Phosphatase (45-117) U/L Total Protein (6.4-8.2) gm/dl Albumin (3.4-5.0) gm/dl Globulin (2.5-4.0) gm/dl Albumin/Globulin Ratio (0.9-2) Lipase (73-393) U/L Imaging Data Radiologist's Impression: Radiology results as stated below per my review and the radiologist's interpretation: CT abd pelvis oral and IV con CLINICAL HISTORY: 28 years-old Female presenting with llq abdominal pain. TECHNIQUE: Multidetector CT of the abdomen and pelvis was performed after the administration of oral and intravenous contrast. IV contrast: 94 mL of Optiray 320. One or more dose lowering techniques were used consistent with the principles of ALARA (as low as reasonably achievable), including automatic exposure control, mA or kV adjustment to individual patient size, and/or use of iterative reconstruction. COMPARISON: 04/20/2019. CT DOSE (mGy.cm): The estimated cumulative dose is 1055.52 mGy.cm. FINDINGS: Sequins Stringer topogram: Cholecystectomy clips. Lung bases: Normal heart size. Trace bilateral pleural effusions. Minimal dependent changes likely atelectasis. Liver: Normal morphology. Density suggestive of hepatic steatosis. Vague hypodensity centrally in the liver. Patent hepatic vasculature. Biliary: No intrahepatic or extrahepatic biliary ductal dilatation. Gallbladder surgically absent. Pancreas: Normal. Spleen: Normal. Adrenal glands: Normal. Kidneys and ureters: Normal. No hydronephrosis. Bladder: Normal. Pelvic organs: Uterus surgically absent. Multiple follicles in the left ovary. Right ovary not visualized. Bowel: The appendix is not visualized. Surgical clips in the right lower quadrant indicate a history of appendectomy. No bowel obstruction. Peritoneal cavity: No free fluid or intraperitoneal gas. Lymph nodes: No enlarged lymph nodes in the abdomen or pelvis. Vasculature: Aorta and IVC patent and normal in caliber. Abdominal wall: Small fat-containing umbilical hernia. Larger fat-containing supraumbilical hernia. These do not appear strangulated. Musculoskeletal: Normal. IMPRESSION: 1. No acute intra-abdominal pathology. 2. Status post cholecystectomy, appendectomy, and hysterectomy. 3. Multiple follicles within the left ovary. 4. Umbilical and supraumbilical fat-containing hernias. 5. Trace bilateral pleural effusions and bibasilar atelectasis. ACT 112: Negative or not required by law. Electronically signed by: Joon Garibay M.D. 04/27/2019 3:19 PM XR chest 1V portable CLINICAL HISTORY: Possible free air ABDOMINAL PAIN AND NAUSEA COMPARISON STUDY: 02/15/2017 FINDINGS: The cardiac and mediastinal contours are normal. There is no evidence of focal pulmonary consolidation. There is no evidence of failure. No pleural effusions are visualized.[No free intraperitoneal air is visualized. IMPRESSION: No active disease in the chest. ACT 112: Negative or not required by law. Electronically signed by: Tom Galvan M.D. 04/27/2019 1:13 PM Blood Pressure Blood Pressure Findings: Elevated blood pressure Blood Pressure Disposition: further management by hospitalist [facility] Narrative There is no leukocytosis or concerning anemia. No kidney failure. Magnesium was somewhat low at 1.7. No worrisome liver enzyme elevation. No evidence for pancreatitis. Chest did not show free air. On exam, the patient was quite t shauna in the left lower quadrant. I was able to review the work-up done previously. No surgical or concerning findings found by laboratory testing, ultrasound or CT imaging. I did do a repeat CT of the abdomen and pelvis with oral and IV contrast. No acute surgical findings were noted. No findings in the left lower quadrant that would explain her pain. An ultrasound of the pelvis was ordered but this result is still pending. Patient was given IV morphine for pain control, she received IV Zofran for nausea. She received IV saline. The patient was given IV Solu-Medrol and IV Benadryl as a premedication for her CT scan. She was given IV Toradol for pain, she received IV magnesium. I did speak to the patient's surgical service, they recommended a hospital stay, a pain management and OB consult. At this point, the cause of the pain is unclear. Adhesions, endometriosis are possibilities. Certainly an ovarian cyst or ovarian torsion must be considered however, the patient has already had a negative pelvic ultrasound. Again, a repeat pelvic ultrasound has been ordered and is currently pending. I talked to the patient about her findings, I discussed things with case management. As the patient is failing outpatient treatment, as this is her third ED visit in just 3 days, as the cause of the pain is unclear, hospitalization was felt warranted. The on-call hospitalist was consulted. Impression & Plan Abdominal pain, LLQ, Endometriosis, Failure of outpatient treatment Discharge Plan Visit Data Chief Complaint: Abdominal Pain Stated Complaint: ABD PAIN ED Provider: Cesar Castillo Discharge Problem: Abdominal pain, LLQ, Endometriosis, Failure of outpatient treatment Patient Disposition: Admitted As Inpatient The scribe's documentation has been prepared under my direction and personally reviewed by me in its entirety. I confirm that the note above accurately reflects all work, treatment, procedures, and medical decision making performed by me.
--- NOTE | 2019-04-27 18:30 | Ultrasound Report ---
ULTRASOUND OF THE PELVIS CLINICAL HISTORY: Pelvic pain. COMPARISON STUDY: Pelvic CT performed the same day 04/27/2019. Pelvic ultrasound dated 04/20/2019. TECHNIQUE: Real-time, grayscale, and color flow sonography of the pelvis is performed transabdominall y. Images are reviewed in the transverse and longitudinal planes. The patient declined the endovagina l examination. FINDINGS: Uterus: The uterus is surgically absent Ovaries: The right ovary is surgically absent. The left ovary is normal in appearance, measuring 3.5 x 2.4 x 3.4 cm. Small left ovarian follicles are noted and measure up to 2.1 cm. Normal Doppler wavef orms are shown within the left ovary. Pelvis: There is no free fluid in the cul-de-sac. No concerning adnexal lesion is seen. IMPRESSION: 1. No acute sonographic abnormality is identified in the pelvis. 2. Status post hysterectomy and right oophorectomy. ACT 112: Negative or not required by law. Electronically signed by: Cesar Perez M.D. 04/27/2019 6:28 PM
[2019-04-27] MEDS ORDERED: OXYCODONE HCL IR 5 MG TAB (IMMEDIATE RELEASE) PO PRN (18:33)
[2019-04-27] MEDS ORDERED: LORazepam 0.5 MG TAB PO PRN (18:33)
[2019-04-27] MEDS ORDERED: bisacodyL 5 MG TABEC PO PRN (18:33)
[2019-04-27] MEDS ORDERED: POTASSIUM CHLORIDE 20 MEQ TABCR PO STA (18:33)
[2019-04-27] MEDS ORDERED: ACETAMINOPHEN 325 MG TAB PO PRN (18:33)
[2019-04-27] MEDS ORDERED: ONDANSETRON 4 MG OD TAB PO PRN (18:33)
[2019-04-27 18:50] LABS: Appearance Urine Clear (Clear); Bilirubin Urine Negative (Negative); Blood Urine Negative (Negative); Color Urine Yellow; Glucose Urine UA Negative (Negative); Ketones Urine Negative (Negative); Leukocyte Esterase Urine Negative (Negative); Nitrite Urine Negative (Negative); Protein Urine Negative (Negative); Specific Gravity Urine 1.018 (1.000-1.030); Urobilinogen Urine Negative (Negative)
[2019-04-27 19:33] LABS: Follicle Stimulating Hormone 5.87 IU/L; Progesterone (Pt NOT on DHEAS) 1.11 ng/ml
[2019-04-27] MEDS: QUETIAPINE FUMARATE 25 MG TABLET PO SCH (20:23)
[2019-04-27] MEDS: TRAZODONE HCL 50 MG TAB PO SCH (20:25)
[2019-04-27] MEDS: SERTRALINE HCL 100 MG TABLET PO SCH (20:25)
[2019-04-27] MEDS: DICYCLOMINE HCL 10 MG CAP PO SCH (20:26)
[2019-04-27] MEDS: FAMOTIDINE 20 MG TAB PO SCH (20:26)
[2019-04-27] MEDS: clonazePAM 0.5 MG TAB PO SCH (20:46)
[2019-04-27] MEDS: KETOROLAC TROMETHAMINE 15 MG/ML VIAL IV PRN (20:46)
[2019-04-27] MEDS: ONDANSETRON INJ 2 MG/ML 2 ML VIAL IV PRN (20:47)
--- NOTE | 2019-04-27 21:23 | OB/GYN Consultation ---
Date of Consultation April 27, 2019 Assessment & Plan (1) Abdominal pain, left lower quadrant: With the recent laparoscopy by Dr. Connolly documenting a normal ovary , I do not believe her pain is coming from endometriosis involving the left adnexa. The ovary is in the area in question but I do not believe the ovary is the source of her pain especially when the pain is worse with bowel movements. She does not want her left ovary removed if possible which would mean she would need to be on hormone replacement as a result. Without evidence of torsion or endometriosis I agree with her. There may be new adhesions involving the LLQ but Dr. Connolly may be able to address this issue. If Dr. Connolly thinks she needs another laparoscopy, then we would be happy to be present at the surgery. History of Present Illness Attending Physician: Bharti Ga MD The patient is a 28 yo white female with a history of both PCOS & endometriosis in the past. She presents with ongoing LLQ pain which has been getting progressively worse over the last week. She was diagnosed with a ureteral stone on the left with flank pain which has now resolved. She had no flank pain now, no fever or chills or urinary symptoms presently. The pain is worse with standing , twisting motions or with BM's whether she is straining or not.When she is lying still, her pain is minimal. She has had no changes in bowel habits recently although she has a history of IBS. No nausea or vomiting. the pain does not radiate. She underwent a vaginal hysterectomy & right salpingo-oophorectomy in [address] Steven in [place] for endometriosis with preservation of her left ovary that was not involved with endometriosis. She underwent n operative laparoscopy by Dr. Connolly on 11/06/18 with lysis of adhesions for similar pain symptoms.I saw his operative report & images of her pelvis. Her ovary showed no evidence of endometriosis nor did it appear to be involved in the adhesions Dr. 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 Her care did not involve heavy lifting or transfers without assistance.She did not notice any episodes of pain during this time period although she admits to not eating well or staying well hydrated either. Her grandfather 3 weeks ago. She feels safe at home. Since the gradual return of her pain, Serial ultrasounds over the past week have shown a normal size left ovary with a resolving follicle. The ovary is now slightly smaller than on 04/20/19 with no evidence of torsion. CT scan does not show any ureteral stones nor hydronephrosis. 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 She states that her ovary has always been high in her pelvis and difficult to see transvaginally. Looking back through her chart, the LLQ pain has been an ongoing issue off & on. She did have a colonos copy in 01/2018 which was normal.She states she has had an extensive workup for her GI issues in the past and everything has been normal. She has had her appendix & gall bladder removed as well. Allergies Allergy/AdvReac Type Severity Reaction Status Date / Time amoxicillin Allergy Unknown "anxiety" Verified 04/27/19 12:49 clavulanic acid Allergy Unknown "anxiety" Verified 04/27/19 12:49 Iodinated Contrast Media Allergy Unknown RASH,SWELLI Verified 04/27/19 12:49 NG iodine Allergy Unknown SWELLING Verified 04/27/19 12:49 mushroom Allergy Unknown hives Verified 04/27/19 12:49 shellfish derived Allergy Unknown hives Verified 04/27/19 12:49 Home Medications Home Medications Medication Instructions Recorded Confirmed Type lorazepam [Ativan] 0.5 mg PO BID PRN 11/03/18 04/27/19 History sertraline 100 mg tablet 100 mg PO HS 03/03/19 04/27/19 History trazodone 150 mg tablet 150 mg PO HS 03/03/19 04/27/19 History clonazepam 0.5 mg PO HS 04/20/19 04/27/19 History ondansetron 4 mg PO Q6H PRN #15 tab 04/20/19 04/27/19 Rx quetiapine 25 - 50 mg PO HS 04/20/19 04/27/19 History oxycodone [Roxicodone] 5 mg PO Q8H PRN #15 tab 04/22/19 04/27/19 Rx Patient History Social History Preferred Language: Latvian Communication Ability: Effective Beliefs That Will Affect Care: None Current Living Situation: Spouse Current Living Situation Comment: 2 children at home, ages 3 and 18 months Other Information That Helps Us Care for You: No Feels Safe at Home: Yes Safety Concerns: Feels Safe At This Time Smoking Status: Never smoker Second Hand Exposure: No ; Hx Alcohol Use: Yes (occassionally) Alcohol type: beer and wine Hx Substance Use: No Review of Systems Review of Systems: All systems reviewed & are unremarkable except as noted in HPI & below Physical Exam Constitutional: WD/WN, vitals as above Gastrointestinal (Abdomen): Inspection/Auscultation: abdomen normal to inspection Percussion/Palpation: + abdomen tender, + guarding and abdomen soft her tenderness is from the level of her umbilicus to the top of her groin then to the midline. She does have increased tenderness with elevation of her abdominal wall in the LLQ. Palpation of the RLQ illicits tenderness in the LLQ. There is no tenderness with palpation of the upper quadrants. Psychiatric: A+Ox3, euthymic affect Results & Data Vital Signs (Past 12 Hours) Vital Signs Temp Pulse Pulse Pulse Resp BP BP 04/27/19 18:34 98.4 F 73 16 124/81 04/27/19 17:30 77 14 119/89 04/27/19 17:01 79 13 116/78 04/27/19 16:30 82 19 119/83 04/27/19 16:19 78 14 132/77 04/27/19 15:20 85 18 130/73 04/27/19 14:45 85 18 130/73 04/27/19 14:15 59 L 18 122/73 04/27/19 13:45 65 18 121/75 04/27/19 13:06 82 64 18 122/80 04/27/19 12:30 78 20 127/78 04/27/19 11:50 98.2 F 82 20 129/82 Pulse Ox 04/27/19 18:34 96 04/27/19 17:30 97 04/27/19 17:01 96 04/27/19 16:30 97 04/27/19 16:19 96 04/27/19 15:20 98 04/27/19 14:45 98 04/27/19 14:15 98 04/27/19 13:45 98 04/27/19 13:06 97 04/27/19 12:30 98 04/27/19 11:50 98 PG Care Time/CCT Total # of Minutes Spent Total Time Spent with Patient: Total time spent is greater than 50% in coordination of care (as documented) at patient's floor/unit and/or counseling patient: Coding Level of Care Code 01867 Inpt Consult Level 3 Diagnoses Abdominal pain, left lower quadrant R10.32
[2019-04-28] MEDS: MoRPHine SULFATE 2 MG/ML CARP IV PRN (04:59)
[2019-04-28] MEDS: ONDANSETRON INJ 2 MG/ML 2 ML VIAL IV PRN ×3 (04:59→20:29)
[2019-04-28 05:36] LABS: Hematocrit (blood only) 45.1 % (37-47); Hemoglobin 15.9 g/dL (12.0-16.0); Mean Corpuscular Hemoglobin 30.3 pg (25-34); Mean Corpuscular Hgb Conc 35.3 g/dL (32-36); Mean Corpuscular Volume 85.9 fL (80-100); Mean Platelet Volume 10.8 fL (7.4-10.4); Platelet Count 344 K/uL (130-400); RDW Coefficient of Variation 12.2 % (11.5-14.5); RDW Standard Deviation 38.5 fL (36.4-46.3); Red Blood Count 5.25 M/uL (4.2-5.4); White Blood Count 16.93 K/uL (4.8-10.8)
[2019-04-28 06:20] LABS: Albumin Level 3.8 gm/dl (3.4-5.0); BUN Creatinine Ratio 11.1 (10-20); Bilirubin,Total 0.5 mg/dl (0.2-1); Calcium 9.2 mg/dl (8.5-10.1); Creatinine Clr Calc Pharmacy 118.2 ml/min; Est GFR (African American) 112.1; Est GFR (Non-African American) 96.7; Globulin 3.8 gm/dl (2.5-4.0); Potassium 4.3 mmol/L (3.5-5.1); Total Protein 7.6 gm/dl (6.4-8.2)
[2019-04-28] MEDS ORDERED: KETOROLAC 30 MG/ML VIAL ONE (07:50)
[2019-04-28] MEDS ORDERED: TRIAMCINOLONE ACET 40 MG/ML VIAL ONE (07:50)
[2019-04-28] MEDS: FAMOTIDINE 20 MG TAB PO SCH (08:50)
[2019-04-28] MEDS: DICYCLOMINE HCL 10 MG CAP PO SCH ×3 (08:50→20:31)
[2019-04-28] MEDS ORDERED: methylPREDNISolone 4 MG TAB, 6 DAY TAPER PO SCH (09:15)
[2019-04-28] MEDS ORDERED: ROPIVACAINE 0.5% 5 MG/ML 30 ML VIAL INFIL ONE (09:21)
[2019-04-28] MEDS: MoRPHine SULFATE 4 MG/ML 1 ML CARP\\VIAL IV PRN ×2 (09:23→13:55)
--- NOTE | 2019-04-28 09:37 | Pain Management Consultation ---
Date of Consultation April 28, 2019 Assessment & Plan (1) Abdominal pain, LLQ: 1. Potential etiologies were reviewed as well as treatment options. We discussed the possibility of myofascial etiology with oblique strain versus adhesive disease. We discussed pursuing a trial of abdominal wall trigger point injections initially blinded to be completed at today's visit visit and she was agreeable. Inherent risks versus potential benefits were discussed. Refer to procedure note below. Would consider ultrasound-guided trigger point injection with persisting complaints should she fail to respond to above. 2. Will initiate a Medrol Dosepak 3. We discussed a trial of muscle relaxer therapy but she deferred due to prior history of use of baclofen and cyclobenzaprine without relief 4. Consideration of further laparoscopy per Dr. Connolly regarding her history of adhesive disease. TRIGGER POINT INJECTION Diagnosis: Myofascial pain Side/Level injected: Left lower quadrant oblique musculature x3 Surgeon: Rafael GRACE Prior to starting, the Patients diagnosis and the procedure were reviewed with the patient in detail. Possible risks and complications including infection, bleeding, damage to surrounding structures and increased pain were discussed. Alternative therapies were also reviewed. Patients questions were answered and they agreed to proceed. Informed consent was obtained. Allergies and medication list was reviewed. The patient was placed in supine position. Immediately prior to starting the procedure, a ``time out was conducted with the staff and the patient where the patient was identified, proposed procedure was verified, consent was reviewed and the proper site for the planned procedure was identified. Patient was not given any intravenous sedation and constant verbal contact was maintained throughout the procedure. On examination, no signs of skin breakdown or infection were noted at the injection site. The site was cleansed with alcohol x4. Palpation over the site produced patients typical pain. Using an 2.5 inch 22-gauge needle, the above muscles were injected in fanlike fashion after negative aspiration for blood with 1.5-2 mL of a combination of 6 mL of 0.5% ropivacaine containing 40 mg of Kenalog and 60 mg of ketorolac without complication. Needle was withdrawn and hemostasis noted. Band-Aid was applied where needed. Patient tolerated the procedure uneventfully without complications. Patient was discharged home with standard discharge instructions after 15-20 minutes. Present on Admission?: Yes (2) Myofascial pain: History of Present Illness Reason for Consultation: Intractable left lower quadrant abdominal pain Requesting Physician: SANJAY Cornelius Attending Physician: Sonja Summers MD History of Present Illness Mrs. Collins is a 28-year-old white female admitted due to intractable left lower quadrant abdominal pain. Patient reported onset of her symptoms approximate 1 week ago without known injury. She reports prior similar complaints greater than 1 year ago which led to a laparoscopy performed by Dr. Connolly with lysis of adhesions. She has past medical history of endometriosis, PCOS and ovarian cyst with a right oophorectomy and hysterectomy as well as appendectomy and cholecystectomy. Patient reports that her pain is episodic, localized and described as sharp in characteristic. She reports that the pain does not radiate or travel to the inguinal region or flank. She denies right lower quadrant abdominal pain. She reports movement and coughing will typically exacerbate her symptoms as well as bowel movements. Ultrasound and CT scanning of the abdomen have failed to reveal any etiology of her presenting complaints at this time. 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 Patient reports multiple medications have been without benefit including without limited to baclofen, cyclobenzaprine, NSAIDs, Tylenol, and Percocet. She is finding IV morphine to be of some benefit as well as minimal relief from IV Toradol. Patient denies change in bowel habits. She denies fevers, chills or night sweats. She denies dysuria, hematuria or polyuria. Patient has no further constitutional complaints. Plan of care discussed with Dr. Khan. Pain Assessment Full Body Front + Back: 1. Left lower quadrant abdomen Pain scale - at its best (0-10): 2 Pain scale - at its worst (0-10): 9 Allergies Allergy/AdvReac Type Severity Reaction Status Date / Time amoxicillin Allergy Unknown "anxiety" Verified 04/27/19 12:49 clavulanic acid Allergy Unknown "anxiety" Verified 04/27/19 12:49 Iodinated Contrast Media Allergy Unknown RASH,SWELLI Verified 04/27/19 12:49 NG iodine Allergy Unknown SWELLING Verified 04/27/19 12:49 mushroom Allergy Unknown hives Verified 04/27/19 12:49 shellfish derived Allergy Unknown hives Verified 04/27/19 12:49 Home Medications Home Medications Medication Instructions Recorded Confirmed Type lorazepam [Ativan] 0.5 mg PO BID PRN 11/03/18 04/27/19 History sertraline 100 mg tablet 100 mg PO HS 03/03/19 04/27/19 History trazodone 150 mg tablet 150 mg PO HS 03/03/19 04/27/19 History clonazepam 0.5 mg PO HS 04/20/19 04/27/19 History ondansetron 4 mg PO Q6H PRN #15 tab 04/20/19 04/27/19 Rx quetiapine 25 - 50 mg PO HS 04/20/19 04/27/19 History oxycodone [Roxicodone] 5 mg PO Q8H PRN #15 tab 04/22/19 04/27/19 Rx Pain History Pain Intensity Pain scale - at its best (0-10): 2 Pain scale - at its worst (0-10): 9 Patient History Social History Preferred Language: Upper Sorbian Communication Ability: Effective Beliefs That Will Affect Care: None Current Living Situation: Spouse Current Living Situation Comment: 2 children at home, ages 3 and 18 months Other Information That Helps Us Care for You: No Feels Safe at Home: Yes Safety Concerns: Feels Safe At This Time Smoking Status: Never smoker Second Hand Exposure: No ; Hx Alcohol Use: Yes (occassionally) Alcohol type: beer and wine Hx Substance Use: No Physical Exam Physical Exam: General: Patient lying quietly in exam room in no acute distress. Speech and thought process appropriate. Mood and affect appropriate. Cognition intact. Patient overweight and physically deconditioned state. Head: Normocephalic and atraumatic. ENT: No evidence of nasal or oral mucosal lesions. Mucous membranes are moist. Eyes: Pupils equal round reactive to light. Neck: Supple without adenopathy and full range of motion. Chest: Nontender to palpation of the costosternal junction. Abdomen: Soft and nondistended. No organomegaly. Bowel sounds active. Patient is tender to direct palpation in the left lower quadrant without rebound or guarding. No allodynia, hyperpathia or hyperalgesic response. No evidence of rash. No palpable mass/abnormality. Patient is moderately tender over the ilioinguinal nerve to direct palpation. She is nontender over the genitofemoral nerve to direct palpation. Increased left lower quadrant pain with resisted sit up maneuvering. Back/spine: Nontender over the midline, paravertebral, quadratus lumborum or gluteal musculature. Lower extremities: Increased left lower quadrant discomfort with resisted hip flexion. Hip extension increases left lower quadrant abdominal pain. SLR negative bilaterally. Strength testing 5/5 and equal. Sensation intact without deficit. Neurologic: Cranial nerves grossly intact. Ambulatory function not witnessed. Results Diagnostic Review CT: enhanced, non enhanced and reports reviewed CT Findings: [place], [place] [phone] CT Scan Report Patient: MADELYN COLLINS Date: 04/27/19 MR#: [id number]: [address] [place] [address] Acct ID:[id number]: Date: 1990[facility] Zip: [place] [address] Age: 28Location: ED Sex: F Room/Bed: Att Phy:Diagnosis: ABD PAIN Estee Phy: Tavares Peña MDService Date: 04/27/19 Fam Phy:Interpreting Phy: Joon Garibay MD Admit Phy: Ordering Phy: Cesar Castillo M.D. cc: ~ CT abd pelvis oral and IV con CLINICAL HISTORY: 28 years-old Female presenting with llq abdominal pain. TECHNIQUE: Multidetector CT of the abdomen and pelvis was performed after the administration of oral and intravenous contrast. IV contrast: 94 mL of Optiray 320. One or more dose lowering techniques were used consistent with the principles of ALARA (as low as reasonably achievable), including automatic exposure control, mA or kV adjustment to individual patient size, and/or use of iterative reconstruction. COMPARISON: 04/20/2019. CT DOSE (mGy.cm): The estimated cumulative dose is 1055.52 mGy.cm. 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 Lung bases: Normal heart size. Trace bilateral pleural effusions. Minimal dependent changes likely atelectasis. Liver: Normal morphology. Density suggestive of hepatic steatosis. Vague hypodensity centrally in the liver. Patent hepatic vasculature. Biliary: No intrahepatic or extrahepatic biliary ductal dilatation. Gallbladder surgically absent. Pancreas: Normal. Spleen: Normal. Adrenal glands: Normal. Kidneys and ureters: Normal. No hydronephrosis. Bladder: Normal. Pelvic organs: Uterus surgically absent. Multiple follicles in the left ovary. Right ovary not visualized. Bowel: The appendix is not visualized. Surgical clips in the right lower q uadrant indicate a history of appendectomy. No bowel obstruction. Peritoneal cavity: No free fluid or intraperitoneal gas. Lymph nodes: No enlarged lymph nodes in the abdomen or pelvis. Vasculature: Aorta and IVC patent and normal in caliber. Abdominal wall: Small fat-containing umbilical hernia. Larger fat-containing supraumbilical hernia. These do not appear strangulated. Musculoskeletal: Normal. IMPRESSION: 1. No acute intra-abdominal pathology. 2. Status post cholecystectomy, appendectomy, and hysterectomy. 3. Multiple follicles within the left ovary. 4. Umbilical and supraumbilical fat-containing hernias. 5. Trace bilateral pleural effusions and bibasilar atelectasis. ACT 112: Negative or not required by law. Electronically signed by: Joon Garibay M.D. 04/27/2019 3:19 PM Dictated: 04/27/19 1510 Transcribed: 04/27/19 1510 Other Findings: [place], [place] [phone] Ultrasound Report Patient: MADELYN COLLINS Date: 04/27/19 MR#: [id number]: [address] [place] [address] Acct ID:[id number]: Date: 1990[facility] Zip: [place] [address] Age: 28Location: ED Sex: F Room/Bed: Att Phy:Diagnosis: ABD PAIN Estee Phy: Tavares Peña MDService Date: 04/27/19 Fam Phy:Interpreting Phy: Cesar Perez MD Admit Phy: Ordering Phy: Cesar Castillo M.D. cc: ~ ULTRASOUND OF THE PELVIS CLINICAL HISTORY: Pelvic pain. COMPARISON STUDY: Pelvic CT performed the same day 04/27/2019. Pelvic ultrasound dated 04/20/2019. TECHNIQUE: Real-time, grayscale, and color flow sonography of the pelvis is performed transabdominally. Images are reviewed in the transverse and longitudinal planes. The patient declined the endovaginal examination. FINDINGS: Uterus: The uterus is surgically absent Ovaries: The right ovary is surgically absent. The left ovary is normal in appearance, measuring 3.5 x 2.4 x 3.4 cm. Small left ovarian follicles are noted and measure up to 2.1 cm. Normal Doppler waveforms are shown within the left ovary. Pelvis: There is no free fluid in the cul-de-sac. No concerning adnexal lesion is seen. IMPRESSION: 1. No acute sonographic abnormality is identified in the pelvis. 2. Status post hysterectomy and right oophorectomy. ACT 112: Negative or not required by law. Electronically signed by: Cesar Perez M.D. 04/27/2019 6:28 PM Dictated: 04/27/191825 Transcribed: 04/27/191825 Previous Records Review Previous Records: personally reviewed by me
[2019-04-28] MEDS: methylPREDNISolone 4 MG TAB PO SCH ×4 (10:53→20:32)
--- NOTE | 2019-04-28 11:16 | Surgery Consultation ---
Date of Consultation April 28, 2019 Assessment & Plan (1) Abdominal pain, left lower quadrant: This is a 28y F with a past medical/surgical history of anxiety/depression, hysterectomy, R oophorectomy, appendectomy, cholecystectomy, and a diagnostic laparoscopy with lysis of adhesion on 11/06 for left lower quadrant pain, who was asked to be evaluated in the ED after being seen in general surgery clinic with complaints of left lower quadrant pain over the past wk. Workup included a CT a/p & pelvic which shows no acute abnormalities and some left ovarian follicles. Data Warehouse Manager performed an examination and not convinced her left ovary is causing this pain, and is likely not related to endometriosis. Pain team performed trigger point injections and started patient on steroids. At this point it is unclear what is causing patient's severe left lower quadrant pain. From our standpoint we are not considering another diagnostic laparoscopy. Although patient has been worked up extensively in the past, we are not convinced that adhesive disease would be causing this severe pain. Patient does have a history of diverticulitis in the past. Although she does not have clear evidence on CT scan for this, her WBC did trend upwards today to 16. Would favor empirically treating for diverticulitis at this point and will start IV cipro/flagyl. Ordered a CBC for tomorrow to follow up upon. History of Present Illness Attending Physician: Sonja Summers MD History of Present Illness This is a 28y F with a past medical/surgical history of anxiety/depression, hysterectomy, R oophorectomy, appendectomy, cholecystectomy, and a diagnostic laparoscopy with lysis of adhesion on 11/06 for left lower quadrant pain, who was asked to be evaluated in the ED after being seen in general surgery clinic with complaints of left lower quadrant pain over the past wk. Of note the patient was seen in the ED 3 times for similar symptoms, workup included CT a/p and pelvic US that showed no acute abnormalities, with some left ovarian follicles. The patient states the she was doing well after her diagnostic laparoscopy last year, but the pain has now returned. She reports the pain was at first intermittent, but has been more constant over the past three days. It is localized to the left lower quadrant and is worse with coughing and bowel movements. She has tried taking pain medication at home without any relief. She endorses nausea and had some episodes of vomiting today (2-3x mostly clear liquid). She denies any changes in bowel habits or urinary symptoms. She was seen by PRINT COLOR OPERATOR who performed an exam and on imaging was not concerned for endometriosis of her L ovary causing this pain. Pain management was consulted and performed trigger point injections this AM. Patient said she does not feel any relief from the injections, currently rating pain 7/10. Allergies Allergy/AdvReac Type Severity Reaction Status Date / Time amoxicillin Allergy Unknown "anxiety" Verified 04/27/19 12:49 clavulanic acid Allergy Unknown "anxiety" Verified 04/27/19 12:49 Iodinated Contrast Media Allergy Unknown RASH,SWELLI Verified 04/27/19 12:49 NG iodine Allergy Unknown SWELLING Verified 04/27/19 12:49 mushroom Allergy Unknown hives Verified 04/27/19 12:49 shellfish derived Allergy Unknown hives Verified 04/27/19 12:49 Home Medications Home Medications Medication Instructions Recorded Confirmed Type lorazepam [Ativan] 0.5 mg PO BID PRN 11/03/18 04/27/19 History sertraline 100 mg tablet 100 mg PO HS 03/03/19 04/27/19 History trazodone 150 mg tablet 150 mg PO HS 03/03/19 04/27/19 History clonazepam 0.5 mg PO HS 04/20/19 04/27/19 History ondansetron 4 mg PO Q6H PRN #15 tab 04/20/19 04/27/19 Rx quetiapine 25 - 50 mg PO HS 04/20/19 04/27/19 History oxycodone [Roxicodone] 5 mg PO Q8H PRN #15 tab 04/22/19 04/27/19 Rx Patient History Medical History Anxiety Depression Endometriosis 2 para 2 H/O partial seizures Myofascial pain PCOS (polycystic ovarian syndrome) Surgical History H/O exploratory laparotomy (11/06/18) Diagnostic Laparoscopy with Enterolysis Dr. Connolly 11/06/18 H/O hysterectomy with unilateral oophorectomy History of appendectomy History of cholecystectomy Family History Grandfather Parkinson's disease Lung cancer Social History Preferred Language: Danish Communication Ability: Effective Beliefs That Will Affect Care: None marital status: Current Living Situation: Spouse Current Living Situation Comment: 2 children at home, ages 3 and 18 months Other Information That Helps Us Care for You: No Feels Safe at Home: Yes Safety Concerns: Feels Safe At This Time Smoking Status: Never smoker Second Hand Exposure: No ; Hx Alcohol Use: Yes (occassionally) Alcohol type: beer and wine Hx Substance Use: No Review of Systems Constitutional: no fever and no chills Respiratory: no shortness of breath Cardiovascular: no chest pain Gastrointestinal: + abdominal pain (left lower abdomen), + nausea and + vomiting; no change in bowel habits Genitourinary: no urinary issues reported Physical Exam Physical Exam: awake/alert Respiratory: normal respiratory effort Gastrointestinal (Abdomen): Inspection/Auscultation: + abdominal surgical scar (from prior diagnostic lap, healing well); abdomen not distended Percussion/Palpation: + abdomen tender (ttp in the left lower quadrant) and abdomen soft Results & Data Vital Signs (Past 12 Hours) Vital Signs Temp Pulse Resp BP BP Pulse Ox 04/28/19 07:30 36.7 C 73 16 103/64 94 04/27/19 23:25 36.8 C 67 18 111/[address] abd pelvis oral and IV con CLINICAL HISTORY: 28 years-old Female presenting with llq abdominal pain. TECHNIQUE: Multidetector CT of the abdomen and pelvis was performed after the administration of oral and intravenous contrast. IV contrast: 94 mL of Optiray 320. One or more dose lowering techniques were used consistent with the principles of ALARA (as low as reasonably achievable), including automatic exposure control, mA or kV adjustment to individual patient size, and/or use of iterative reconstruction. COMPARISON: 04/20/2019. CT DOSE (mGy.cm): The estimated cumulative dose is 1055.52 mGy.cm. FINDINGS: Survey Associate topogram: Cholecystectomy clips. Lung bases: Normal heart size. Trace bilateral pleural effusions. Minimal dependent changes likely atelectasis. Liver: Normal morphology. Density suggestive of hepatic steatosis. Vague hypodensity centrally in the liver. Patent hepatic vasculature. Biliary: No intrahepatic or extrahepatic biliary ductal dilatation. Gallbladder surgically absent. Pancreas: Normal. Spleen: Normal. Adrenal glands: Normal. Kidneys and ureters: Normal. No hydronephrosis. Bladder: Normal. Pelvic organs: Uterus surgically absent. Multiple follicles in the left ovary. Right ovary not visualized. Bowel: The appendix is not visualized. Surgical clips in the right lower quadrant indicate a history of appendectomy. No bowel obstruction. Peritoneal cavity: No free fluid or intraperitoneal gas. Lymph nodes: No enlarged lymph nodes in the abdomen or pelvis. Vasculature: Aorta and IVC patent and normal in caliber. Abdominal wall: Small fat-containing umbilical hernia. Larger fat-containing supraumbilical hernia. These do not appear strangulated. Musculoskeletal: Normal. IMPRESSION: 1. No acute intra-abdominal pathology. 2. Status post cholecystectomy, appendectomy, and hysterectomy. 3. Multiple follicles within the left ovary. 4. Umbilical and supraumbilical fat-containing hernias. 5. Trace bilateral pleural effusions and bibasilar atelectasis. ACT 112: Negative or not required by law. Electronically signed by: Joon Garibay M.D. 04/27/2019 3:19 PM ULTRASOUND OF THE PELVIS CLINICAL HISTORY: Pelvic pain. COMPARISON STUDY: Pelvic CT performed the same day 04/27/2019. Pelvic ultrasound dated 04/20/2019. TECHNIQUE: Real-time, grayscale, and color flow sonography of the pelvis is performed transabdominally. Images are reviewed in the transverse and longitudinal planes. The patient declined the endovaginal examination. FINDINGS: Uterus: The uterus is surgically absent Ovaries: The right ovary is surgically absent. The left ovary is normal in appearance, measuring 3.5 x 2.4 x 3.4 cm. Small left ovarian follicles are noted and measure up to 2.1 cm. Normal Doppler waveforms are shown within the left ovary. Pelvis: There is no free fluid in the cul-de-sac. No concerning adnexal lesion is seen. IMPRESSION: 1. No acute sonographic abnormality is identified in the pelvis. 2. Status post hysterectomy and right oophorectomy. ACT 112: Negative or not required by law. Electronically signed by: Cesar Perez M.D. 04/27/2019 6:28 PM PG Care Time/CCT Total # of Minutes Spent Total Time Spent with Patient: Total time spent is greater than 50% in coordination of care (as documented) at patient's floor/unit and/or counseling patient: Coding Level of Care Code 46599 Inpt Consult Level 3 Diagnoses Abdominal pain, left lower quadrant R10.32
[2019-04-28] MEDS: CIPROFLOXACIN / D5W 400 MG/200 ML BAG IV SCH ×2 (12:08→20:30)
[2019-04-28 12:37] LABS: Eosinophils # (auto) 0.01 K/uL (0-0.5); Eosinophils % (auto) 0.1 %; Immature Granulocytes # (auto) 0.05 K/uL (0.00-0.02); Immature Granulocytes % (auto) 0.3 %; Lymphocytes # (auto) 1.74 K/uL (1.2-3.4); Lymphocytes % (auto) 10.3 %; Monocytes # (auto) 0.37 K/uL (0.11-0.59); Monocytes % (auto) 2.2 %; Neutrophils # (auto) 14.65 K/uL (1.4-6.5); Neutrophils % (auto) 87.1 %
--- NOTE | 2019-04-28 13:50 | Hospitalist Progress Note ---
Date of Service April 28, 2019 Assessment & Plan (1) Abdominal pain, LLQ: * US LLQ -- no acute abnormality, normal doppler without evidence of torsion. s/p hysterectomy and R oophorectomy * CT A/P demonstrates multiple follicles within the left ovary, possibly cause of pain, however per SOLDERER TORCH this is unlikely * SOLDERER TORCH consulted -- appreciate input. FSH 5.87, Progesterone 1.11 -- pt likely in follicular phase of cycle * Pain Management consulted -- appreciate input -- steroid taper and * General surgery consulted -- appreciate input -- will avoid surgery at this time. If required, SOLDERER TORCH available to be present for procedure/assistance * Bentyl 10mg TID * Famotidine 20mg daily * Toradol, morphine IV prn * Added percocet for longer effect * Made NPO for now, given persistent abdominal pain * WBC elevated today at 16.9k, although patient did receive dose of methylpred on 04/26 -- started empirically on cipro/flagyl for diverticulitis given LLQ pain * TSH wnl 0.488 * Miralax for constipation * Of note, when seen in ER on 04/19, patient told provider she was seen in [place] at the end of March for back pain and was told that she likely passed a kidney stone. Also, she had diarrhea x 3 days at that point and all of her family members were also ill at that time (2) Endometriosis: * Hx adhesions and twisted sigmoid colon * s/p lap with Dr. Connolly on 11/06 for multiple abdominal adhesions --> in the area of discomfort, obvious adhesions present involving sigmoid colon to the bladder. Sigmoid colon also laying in twisted abnormal fashion attached to the bladder flap from prior hysterectomy. (3) Hypomagnesemia: * Mag 1.5 on admission, repleated * Mag 2.0 on repeat (4) Hypokalemia: * K 3.3 on admission, repleated * K 4.3 on repeat (5) Anxiety: * Continue home sertaline 100mg, klonpin 0.5mg, seroquel 25mg Qhs, trazadone 150mg Qhs (6) Depression: * Chronic. See above. With insomnia * Continue trazadone 150 mg HS, lorazepam 0.5 mg BID prn, seroquel 25 HS, sertraline 100 mg HS (7) DVT prophylaxis: * SIGRID ocasio * Ambulation encouraged Dispo: likely to remain inpatient 1-2 days Admission and Anticipated Discharge Date Admission Date: April 27, 2019 Supervising Physician Co-Signing Physician Notes PA Supervision Note: I did not personally see or examine the patient today, but I verified all grubbs points of OWEN Dubon's assessment and plan with the following exceptions/additions: Pt with persistent LLQ pain and a h/o sigmoid/bladder adhesions. Appreciate Surgery following along. Continue pain control and observation, no evidence of obstruction at this time Subjective Patient evaluated at bedside with present. Patient rates left lower abdominal pain 6-7/10 and states she has never used 10/10, even with childbirth. She describes it as an ache, and it is made worse with bowel movements. She states she has had multiple negative colonoscopies in the past and has followed with Dr. Louie and Dr. Peña as an outpatient. She states she has been unsuccessful with multiple medications in the past. Denies any relief with injections by pain management this morning. She states the morphine has been minimally effective at treating her pain, but that it wears off quickly. She states she has had longer success in the past with percocet, which is what she was discharged with on Saturday. Patient states she felt better for approximately one week following surgery with Dr. Connolly for adhesions with her history of endometriosis but the pain has returned. She states the pain is different than her typical ovarian cyst pain and she was told by SOLDERER TORCH that it is unlikely related to endometriosis. Patient denies recent fevers or chills, but states she did have an episode of vomit this morning following nausea with what appeared to look like coffee grounds x 1. Decreased bowel movements. Patient states she has had success with miralax in the past. She states has been taking sertraline, Klonopin and trazodone for anxiety and insomnia and that she has Seroquel 50mg to take, but has not been taking this recently because she is not to take it with the trazodone. Patient also states she frequently has blood in her urine, and has had kidney stones in the past. She denies any flank pain currently. Review of Systems Review of Systems: All systems reviewed & are unremarkable except as noted in HPI & below Physical Exam Constitutional: WD/WN, vitals as above no acute distress and + uncomfortable Eyes: PERRL, conjunctivae normal, anicteric sclerae Neck: trachea midline, no thyromegaly Respiratory: normal respiratory effort, lungs clear to auscultation Cardiovascular: RRR, no murmur, no edema Gastrointestinal (Abdomen): Inspection/Auscultation: abdomen normal to inspe ction and normal bowel sounds; abdomen not distended Percussion/Palpation: + abdomen tender (LLQ tender to deep palpation) and abdomen soft; no hepatosplenomegaly Musculoskeletal: no cyanosis or clubbing, extremities motor strength 5/5 Skin: no rashes, warm and dry Neurologic: PERRL, EOMI, accommodation nl, no face palsy, no dysarthria Psychiatric: Orientation: alert and oriented x 3 Lymphatic: no cervical or axillary lymphadenopathy Results & Data ([facility]) Vital Signs (Past 12 Hours) Vital Signs Temp Pulse Resp BP Pulse Ox 04/28/19 07:30 36.7 C 73 16 103/64 94 Laboratory Results 04/28/19 04/28/19 04/27/19 Range/Units 05:08 05:08 18:48 WBC 16.93 H (4.8-10.8) K/uL RBC 5.25 (4.2-5.4) M/uL Hgb 15.9 (12.0-16.0) g/dL Hct 45.1 (37-47) % MCV 85.9 (80-100) fL MCH 30.3 (25-34) pg MCHC 35.3 (32-36) g/dL RDW Std Deviation 38.5 (36.4-46.3) fL RDW Coeff of Bowen 12.2 (11.5-14.5) % Plt Count 344 (130-400) K/uL MPV 10.8 H (7.4-10.4) fL Immature Gran % (Auto) 0.3 % Neut % (Auto) 87.1 % Lymph % (Auto) 10.3 % [place] % (Auto) 2.2 % Eos % (Auto) 0.1 % Baso % (Auto) 0.0 % Immature Gran # (Auto) 0.05 H (0.00-0.02) K/uL Neut # (Auto) 14.65 H (1.4-6.5) K/uL Lymph # (Auto) 1.74 (1.2-3.4) K/uL [place] # (Auto) 0.37 (0.11-0.59) K/uL Eos # (Auto) 0.01 (0-0.5) K/uL Baso # (Auto) 0.00 (0-0.2) K/uL Absolute Nucleated RBC 0.00 (0-0) K/uL Nucleated RBC % (auto) 0.0 % Sodium 140 (136-145) mmol/L Potassium 4.3 D (3.5-5.1) mmol/L Chloride 110 H (98-107) mmol/L Carbon Dioxide 22 (21-32) mmol/L Anion Gap 7.0 (3-11) BUN 9 (7-18) mg/dl Creatinine 0.82 (0.6-1.2) mg/dl Est Cr Clr Drug Dosing 118.2 ml/min Est GFR ( Amer) 112.1 Est GFR (Non-Af Amer) 96.7 BUN/Creatinine Ratio 11.1 (10-20) Glucose 114 H (70-99) mg/dl Calcium 9.2 (8.5-10.1) mg/dl Magnesium 2.0 (1.8-2.4) mg/dl Total Bilirubin 0.5 (0.2-1) mg/dl AST 22 (15-37) U/L ALT 29 (12-78) U/L Alkaline Phosphatase 69 (45-117) U/L Lactate Dehydrogenase (84-246) U/L Total Protein 7.6 (6.4-8.2) gm/dl Albumin 3.8 (3.4-5.0) gm/dl Globulin 3.8 (2.5-4.0) gm/dl Albumin/Globulin Ratio 1.0 (0.9-2) TSH (0.300-4.500) uIu/ml Estradiol (E2) Level Pending Free Estradiol Pending FSH IU/L Progesterone ng/ml Urine Color Urine Appearance (Clear) Urine pH (4.5-7.5) Ur Specific Blevins (1.000-1.030) Urine Protein (Negative) Urine Glucose (UA) (Negative) Urine Ketones (Negative) Urine Blood (Negative) Urine Nitrite (Negative) Urine Bilirubin (Negative) Urine Urobilinogen (Negative) Ur Leukocyte Esterase (Negative) 03/11/0704/27/19 04/27/19 Range/Units 18:48 18:48 18:48 WBC (4.8-10.8) K/uL RBC (4.2-5.4) M/uL Hgb (12.0-16.0) g/dL Hct (37-47) % MCV (80-100) fL MCH (25-34) pg MCHC (32-36) g/dL RDW Std Deviation (36.4-46.3) fL RDW Coeff of Bowen (11.5-14.5) % Plt Count (130-400) K/uL MPV (7.4-10.4) fL Immature Gran % (Auto) % Neut % (Auto) % Lymph % (Auto) % [place] % (Auto) % Eos % (Auto) % Baso % (Auto) % Immature Gran # (Auto) (0.00-0.02) K/uL Neut # (Auto) (1.4-6.5) K/uL Lymph # (Auto) (1.2-3.4) K/uL [place] # (Auto) (0.11-0.59) K/uL Eos # (Auto) (0-0.5) K/uL Baso # (Auto) (0-0.2) K/uL Absolute Nucleated RBC (0-0) K/uL Nucleated RBC % (auto) % Sodium (136-145) mmol/L Potassium (3.5-5.1) mmol/L Chloride (98-107) mmol/L Carbon Dioxide (21-32) mmol/L Anion Gap (3-11) BUN (7-18) mg/dl Creatinine (0.6-1.2) mg/dl Est Cr Clr Drug Dosing ml/min Est GFR ( Amer) Est GFR (Non-Af Amer) BUN/Creatinine Ratio (10-20) Glucose (70-99) mg/dl Calcium (8.5-10.1) mg/dl Magnesium (1.8-2.4) mg/dl Total Bilirubin (0.2-1) mg/dl AST (15-37) U/L ALT (12-78) U/L Alkaline Phosphatase (45-117) U/L Lactate Dehydrogenase 182 (84-246) U/L Total Protein (6.4-8.2) gm/dl Albumin (3.4-5.0) gm/dl Globulin (2.5-4.0) gm/dl Albumin/Globulin Ratio (0.9-2) TSH 0.488 (0.300-4.500) uIu/ml Estradiol (E2) Level Free Estradiol FSH 5.87 IU/L Progesterone 1.11 ng/ml Urine Color Urine Appearance (Clear) Urine pH (4.5-7.5) Ur Specific [place] (1.000-1.030) Urine Protein (Negative) Urine Glucose (UA) (Negative) Urine Ketones (Negative) Urine Blood (Negative) Urine Nitrite (Negative) Urine Bilirubin (Negative) Urine Urobilinogen (Negative) Ur Leukocyte Esterase (Negative) 04/27/19 Range/Units 17:00 WBC (4.8-10.8) K/uL RBC (4.2-5.4) M/uL Hgb (12.0-16.0) g/dL Hct (37-47) % MCV (80-100) fL MCH (25-34) pg MCHC (32-36) g/dL RDW Std Deviation (36.4-46.3) fL RDW Coeff of Bowen (11.5-14.5) % Plt Count (130-400) K/uL MPV (7.4-10.4) fL Immature Gran % (Auto) % Neut % (Auto) % Lymph % (Auto) % [place] % (Auto) % Eos % (Auto) % Baso % (Auto) % Immature Gran # (Auto) (0.00-0.02) K/uL Neut # (Auto) (1.4-6.5) K/uL Lymph # (Auto) (1.2-3.4) K/uL [place] # (Auto) (0.11-0.59) K/uL Eos # (Auto) (0-0.5) K/uL Baso # (Auto) (0-0.2) K/uL Absolute Nucleated RBC (0-0) K/uL Nucleated RBC % (auto) % Sodium (136-145) mmol/L Potassium (3.5-5.1) mmol/L Chloride (98-107) mmol/L Carbon Dioxide (21-32) mmol/L Anion Gap (3-11) BUN (7-18) mg/dl Creatinine (0.6-1.2) mg/dl Est Cr Clr Drug Dosing ml/min Est GFR ( Amer) Est GFR (Non-Af Amer) BUN/Creatinine Ratio (10-20) Glucose (70-99) mg/dl Calcium (8.5-10.1) mg/dl Magnesium (1.8-2.4) mg/dl Total Bilirubin (0.2-1) mg/dl AST (15-37) U/L ALT (12-78) U/L Alkaline Phosphatase (45-117) U/L Lactate Dehydrogenase (84-246) U/L Total Protein (6.4-8.2) gm/dl Albumin (3.4-5.0) gm/dl Globulin (2.5-4.0) gm/dl Albumin/Globulin Ratio (0.9-2) TSH (0.300-4.500) uIu/ml Estradiol (E2) Level Free Estradiol FSH IU/L Progesterone ng/ml Urine Color Yellow Urine Appearance Clear (Clear) Urine pH 6.0 (4.5-7.5) Ur Specific [place] 1.018 (1.000-1.030) Urine Protein Negative (Negative) Urine Glucose (UA) Negative (Negative) Urine Ketones Negative (Negative) Urine Blood Negative (Negative) Urine Nitrite Negative (Negative) Urine Bilirubin Negative (Negative) Urine Urobilinogen Negative (Negative) Ur Leukocyte Esterase Negative (Negative) PG Care Time/CCT Total # of Minutes Spent Total Time Spent with Patient: Total time spent is greater than 50% in co ordination of care (as documented) at patient's floor/unit and/or counseling patient: Coding Level of Care Code 20572 Subseq Obs Care Lvl 3 Diagnoses Abdominal pain, LLQ R10.32 Endometriosis N80.9 Hypomagnesemia E83.42 Hypokalemia E87.6 Anxiety F41.9 Depression F32.9 DVT prophylaxis Z29.9
[2019-04-28] MEDS: POLYETHYLENE (MIRALAX) 17 GM PACK PO SCH (13:53)
[2019-04-28] MEDS: metroNIDAZOLE 500 MG/100 ML BAG IV SCH ×2 (14:02→22:49)
[2019-04-28] MEDS: OXYCODONE/ACETAMINOPHEN 5mg/325mg TAB PO PRN ×2 (16:25→21:52)
[2019-04-28] MEDS: KETOROLAC TROMETHAMINE 15 MG/ML VIAL IV PRN (20:29)
[2019-04-28] MEDS: clonazePAM 0.5 MG TAB PO SCH (20:30)
[2019-04-28] MEDS: QUETIAPINE FUMARATE 25 MG TABLET PO SCH (20:30)
[2019-04-28] MEDS: TRAZODONE HCL 50 MG TAB PO SCH (20:31)
[2019-04-28] MEDS: SERTRALINE HCL 100 MG TABLET PO SCH (20:32)
[2019-04-29] MEDS: OXYCODONE/ACETAMINOPHEN 5mg/325mg TAB PO PRN ×3 (05:03→15:17)
[2019-04-29] MEDS: metroNIDAZOLE 500 MG/100 ML BAG IV SCH (05:04)
[2019-04-29 05:31] LABS: Basophils # (auto) 0.01 K/uL (0-0.2); Basophils % (auto) 0.1 %; Hematocrit (blood only) 42.2 % (37-47); Hemoglobin 14.4 g/dL (12.0-16.0); Immature Granulocytes # (auto) 0.03 K/uL (0.00-0.02); Immature Granulocytes % (auto) 0.2 %; Lymphocytes # (auto) 2.11 K/uL (1.2-3.4); Lymphocytes % (auto) 14.5 %; Mean Corpuscular Hemoglobin 29.9 pg (25-34); Mean Corpuscular Hgb Conc 34.1 g/dL (32-36); Mean Corpuscular Volume 87.7 fL (80-100); Mean Platelet Volume 10.5 fL (7.4-10.4); Monocytes # (auto) 0.61 K/uL (0.11-0.59); Monocytes % (auto) 4.2 %; Neutrophils # (auto) 11.78 K/uL (1.4-6.5); Platelet Count 314 K/uL (130-400); RDW Coefficient of Variation 12.4 % (11.5-14.5); RDW Standard Deviation 39.9 fL (36.4-46.3); Red Blood Count 4.81 M/uL (4.2-5.4); White Blood Count 14.54 K/uL (4.8-10.8)
[2019-04-29] MEDS: methylPREDNISolone 4 MG TAB PO SCH ×3 (06:06→18:24)
[2019-04-29] MEDS: MoRPHine SULFATE 2 MG/ML CARP IV PRN ×2 (06:11→18:26)
[2019-04-29 06:18] LABS: Albumin Globulin Ratio 1.1 (0.9-2); Albumin Level 3.6 gm/dl (3.4-5.0); BUN Creatinine Ratio 22.1 (10-20); Bilirubin,Total 0.5 mg/dl (0.2-1); Calcium 8.4 mg/dl (8.5-10.1); Creatinine Clr Calc Pharmacy 116.8 ml/min; Est GFR (African American) 110.4; Est GFR (Non-African American) 95.3; Globulin 3.4 gm/dl (2.5-4.0); Potassium 4.1 mmol/L (3.5-5.1)
--- NOTE | 2019-04-29 08:07 | Pain Management Progress Note ---
Date of Service April 29, 2019 Assessment & Plan (1) Abdominal pain, LLQ: Present on Admission?: Yes (2) Myofascial pain: 1. Patient reported no short-term or sustained benefit from left lower quadrant trigger point injections. We discussed expectations regarding benefit from steroid component of injection. 2. Patient will continue with Medrol Dosepak 3. Patient was encouraged utilize IV Toradol and p.o. Percocet and refrain from utilizing IV morphine moving forward for discharge planning 4. Would consider ultrasound-guided left lower quadrant trigger point injections to be completed in the outpatient setting with persisting complaints pending further evaluation with surgical team 5. Will sign off on patient at this time Thank you for allowing us to participate in the care of Mrs. Collins. Please contact pain service for reevaluation as needed. Present on Admission?: Yes Subjective Mrs. Collins has persisting complaints of left lower quadrant abdominal pain. She reported no improvement after left lower quadrant abdominal wall trigger point injections were completed at yesterday's visit. She continues report intermittent sharp stabbing pain in the left lower quadrant without a radiating pattern. She denies change in location or characteristic compared to yesterday. She reports that Percocet is effective at diminishing the severity of her pain for a longer period of time then IV morphine. She reported minimal dietary intake yesterday around lunchtime without exacerbation of pain. She is reporting loose bowel movements over the past 12 hours as a likely byproduct of IV antibiotic usage. She denies left lower quadrant abdominal pain with bowel movements. She has not noticed any blood in her stool. Patient has been n.p.o. overnight due to the possibility of undergoing laparoscopic procedure today with general surgery. Patient is rating her current pain at a 4-5/10. Her pain continues to be exacerbated with movement. Plan of care discussed with Dr. Khan. Pain Assessment Pain Assessment Full Body Front + Back: 1. Left lower quadrant abdomen Pain scale - at its best (0-10): 4 Pain scale - at its worst (0-10): 8 Physical Exam Physical Exam: General: Patient lying quietly upon in the room in no acute distress. Speech and thought process appropriate. Mood and affect appropriate. Cognition intact. Abdomen: Soft and nondistended. No evidence of edema, erythema or skin breakdown at site of trigger point injections in the left lower quadrant. Patient remains tender upon deep palpation of the left lower quadrant without rebound or guarding. No palpable mass or organomegaly appreciated. Neurologic: Cranial nerves grossly intact. Ambulatory function not witnessed.
[2019-04-29] MEDS ORDERED: LACTATED RINGER'S 1,000 ML IV SCH (08:45)
[2019-04-29] MEDS: POLYETHYLENE (MIRALAX) 17 GM PACK PO SCH (09:16)
[2019-04-29] MEDS: DICYCLOMINE HCL 10 MG CAP PO SCH ×2 (09:16→12:47)
[2019-04-29] MEDS: FAMOTIDINE 20 MG TAB PO SCH (09:17)
[2019-04-29] MEDS: CIPROFLOXACIN / D5W 400 MG/200 ML BAG IV SCH (09:17)
--- NOTE | 2019-04-29 13:01 | Hospitalist Progress Note ---
Date of Service April 29, 2019 Assessment & Plan Admission and Anticipated Discharge Date Admission Date: April 27, 2019 Results & Data ([facility]) Vital Signs (Past 12 Hours) Vital Signs Temp Pulse Resp BP Pulse Ox 04/29/19 07:40 36.7 C 59 L 16 117/75 94 PG Care Time/CCT Total # of Minutes Spent Total Time Spent with Patient: Total time spent is greater than 50% in coordination of care (as documented) at patient's floor/unit and/or counseling patient: Coding
--- NOTE | 2019-04-29 13:26 | Surgery Progress Note ---
Date of Service April 29, 2019 Assessment & Plan (1) Abdominal pain, LLQ: no surgical indications. became tearful when I told her I don't recommend surgery discussed with Dr. Summers. I would have no problem with obtaining a second opinion or transfer to tertiary center for a a second opinion HR 59 BP 117/[address] x 2, negative US, normal labs at admission ( wbc up after steroids given)... her subjective pain does not correlate to her work up. adhesions would not be the cause of the type of pain she is describing ( severe, sudden, unrelenting). I do not believe exploratory surgery is indicated. I have concerns some sort of secondary gain may be the etiology. will be available if her status changes. Subjective pt seen. continues to complain of pain on left side. non-specific. Physical Exam Physical Exam: alert. tearful. no change in exam. abd: soft. obese. no guarding. +Voluntary guarding. no evidence of henry tonitis. Results & Data Vital Signs (Past 12 Hours) Vital Signs Temp Pulse Resp BP Pulse Ox 04/29/19 07:40 36.7 C 59 L 16 117/75 94 PG Care Time/CCT Total # of Minutes Spent Total Time Spent with Patient: Total time spent is greater than 50% in coordination of care (as documented) at patient's floor/unit and/or counseling patient: Coding Level of Care Code 86120 Subseq Hosp Care Lvl 3 Diagnoses Abdominal pain, LLQ R10.32
--- NOTE | 2019-04-29 14:08 | Discharge Summary ---
Date of Service April 29, 2019 Admission HPI Per Admitting Provider This is a 28 yo F with PMHx of endometriosis, PCOS, and ovarian cysts s/p Right ovary removal, hysterectomy, appendectomy and cholecystectomy who presents with worsening LLQ pain, x1 week. Today is her third visit to the ER in the past week. She went to see Dr. Connolly with general surgery, this morning for her worsening abdominal pain as scheduled by the ER after her most recent visit. He has recommended further work-up by pain management and WANT AD RECEIVER as there was no clear surgical diagnosis that would have caused her pain to be this out of proportion compared with exam and findings. A CT abd with oral contrast was obtained in the ER but was negative for any acute findings. An ultrasound of the left lower quadrant has been ordered but not completed yet. Patient denies any fevers, chills or sweats. She reports having 2 normal vaginal pregnancies prior to her hysterectomy without epidural, her children are approximately 2 and almost 4 years old at this time. Patient underwent hysterectomy in July 2017 for endometriosis. She reports that at that time the left ovary had no signs of endometriosis surrounding the area. She has not experienced any pain quite like this since prior to that surgical procedure. She has been using Percocet, alternating with Tylenol and ibuprofen at home for pain relief. She currently rates her pain as a 3/10 after receiving Toradol in the ER. Admission Exam Per Admitting Provider General: awake, alert, no apparent distress, + obese with BMI of 38.9 Head: Normocephalic, atraumatic ENT: PERRL, EOMI, no pharyngeal exudate, mucous membranes moist Chest: Clear to auscultation, on room air, no adventitious breath sounds Cardiac: Regular rate and rhythm, no murmur, no JVD, normal peripheral pulses, good capillary refill Abdominal: NABS x 4 quadrants, soft, nondistended, + tenderness to palpation in LLQ, no rebound, guarding Extremities: Normal inspection, no peripheral edema or erythema, calfs nontender to palpation Psych: Normal mood and affect Neuro: AAO x 3, strength intact bilaterally and rated 5/5, no motor deficits, speech is clear, no peripheral sensory deficits Principal Diagnosis Abdominal Pain Discharge Exam Constitutional WD/WN, vitals as above no acute distress Eyes PERRL, conjunctivae normal, anicteric sclerae Neck trachea midline, no thyromegaly Respiratory normal respiratory effort, lungs clear to auscultation Cardiovascular RRR, no murmur, no edema Gastrointestinal (Abdomen) Inspection/Auscultation: abdomen normal to inspection and normal bowel sounds; abdomen not distended Percussion/Palpation: + abdomen tender (LLQ tender to deep palpation) and abdomen soft; no guarding, abdomen not rigid and no hepatosplenomegaly Musculoskeletal no cyanosis or clubbing, extremities motor strength 5/5 Skin no rashes, warm and dry Neurologic PERRL, EOMI, accommodation nl, no face palsy, no dysarthria Psychiatric Orientation: alert and oriented x 3 Lymphatic no cervical or axillary lymphadenopathy Discharge Data Allergies Allergy/AdvReac Type Severity Reaction Status Date / Time amoxicillin Allergy Unknown "anxiety" Verified 04/27/19 12:49 clavulanic acid Allergy Unknown "anxiety" Verified 04/27/19 12:49 Iodinated Contrast Media Allergy Unknown RASH,SWELLI Verified 04/27/19 12:49 NG iodine Allergy Unknown SWELLING Verified 04/27/19 12:49 mushroom Allergy Unknown hives Verified 04/27/19 12:49 shellfish derived Allergy Unknown hives Verified 04/27/19 12:49 Consultations 04/27/19 16:05 ED Decision to Admit Stat 04/27/19 18:33 Consult Case Management - Discharge Planning Routine Consult Gynecology Routine Consult Pain Management Routine 04/28/19 12:28 Consult General Surgery Routine Ordered Studies 04/27/19 12:14 CT abd pelvis oral and IV con Stat CXR 04/27/19 15:20 US pelvic complete Stat Hospital Course (1) Abdominal pain, LLQ: * US LLQ -- no acute abnormality, normal doppler without evidence of torsion. s/p hysterectomy and R oophorectomy * CT A/P demonstrates multiple follicles within the left ovary, possibly cause of pain, however per BLANKBOOK STITCHING MACHINE OPERATOR this is unlikely * BLANKBOOK STITCHING MACHINE OPERATOR consulted -- not likely due to multiple follicles within L ovary. FSH 5.87, Progesterone 1.11 -- pt likely in follicular phase of cycle. Pain with elevated hormone levels? * Pain Management consulted -- steroid taper and injections performed, but patient would not like to continue this as she did not note any improvement of symptoms with them * General surgery consulted -- appreciate input -- will avoid surgery at this time. Per discussion with patient, will defer to PCP (Dr. Peña) regarding second opinion at outside facility if pain persists * WBC elevated at 16.9k which was likely related to methylprednisolone on 04/26 -- was started on CIpro/Flagyl by Surgery empirically for diverticulitis for LLQ pain -- however discontinued as not needed * TSH wnl 0.488 * Of note, when seen in ER on 04/19, patient told provider she was seen in [place] at the end of March for back pain and was told that she likely passed a kidney stone. Also, she had diarrhea x 3 days at that point and all of her family members were also ill at that time * Concerns for secondary gain noted by SUrgery, as did not think adhesive disease would cause such dramatic/severe symptoms. * pt much improved by day of discharge, tolerating po, and pain controlled with po percocet only * has f/u planned with her BLANKBOOK STITCHING MACHINE OPERATOR the day after discharge and can discuss if needs ex-lap for endomatriosis (2) Endometriosis: * Hx adhesions and twisted sigmoid colon * s/p lap with Dr. Connolly on 11/06 for multiple abdominal adhesions --> in the area of discomfort, obvious adhesions present involving sigmoid colon to the bladder. Sigmoid colon also laying in twisted abnormal fashion attached to the bladder flap from prior hysterectomy. Per discussion with general surgery -- unrelated to pain. (3) Hypomagnesemia: * Mag 1.5 on admission, repleated * Mag 2.0 on repeat (4) Hypokalemia: * K 3.3 on admission, repleated * K remains stable -- 4.1 on repeat (5) Anxiety: * Continued home sertaline 100mg, klonpin 0.5mg, seroquel 25mg Qhs, trazadone 150mg Qhs (6) Depression: * Chronic. See above. With insomnia * Continued trazadone 150 mg HS, lorazepam 0.5 mg BID prn, seroquel 25 HS, sertraline 100 mg HS (7) DVT prophylaxis: * SIGRID ocasio * Ambulation encouraged Discharged home with short course of pain medication. To follow up with PCP in the next week to see about obtaining second opinion. Total Time Total Time Spent Total Time Spent (In Minutes): 60 Discharge Plan Discharge Items Patient Disposition: Home - Self-Care Reason For Visit: ABDOMINAL PAIN Discharge Diagnosis: Abdominal Pain Condition on Discharge: Fair Goals: You have been hospitalized for an acute medical problem. During your stay at [facility], we have made an effort to correct the problem that brought you to the hospital while keeping you as comfortable as possible. Medications were used to bring your condition under control and your discharge instructions will include directions for any medications you should take after leaving the hospital. Please make sure you see your Primary Care Provider as part of your follow up plan. Activity: Resume your previous activity Non-emergency contact: Primary Care Provider Call non-emergency contact if: you have any medication questions, your symptoms worsen and you have a fever Follow-up/Referrals: Cezar Peña MD [Primary Care Provider] - 05/06/19 11:10 am Diet: Regular and Low Fiber Addtl Attending Provider Instructions: You have been hospitalized for abdominal pain. General Surgery and BLANKBOOK STITCHING MACHINE OPERATOR were consulted. It is felt that your pain is unlikely related to endometriosis and general surgery does not feel that surgical exploration is warranted currently, given increased risk for further adhesions and resulting bowel obstructions following surgery. As discussed, there is an option for a second opinion. We discussed consulting a tertiary facility currently versus controlled pain with oral pain medications to see if your pain improves. --As agreed upon, you should follow up with your primary care provider, Dr. Peña, in the next week. At that time, if you continue to experience pain, you may want to persue a second opinion at that time. You have been provided a short course of pain medications, Percocet, which you have been using with the most success for pain control. You may also use Tylenol, but please make sure not to take more than 3,000mg in a twenty four hour period of time. Note, Percocet contains 325mg of Tylenol (acetaminophen) so you will need to be cautious not to exceed the maximum dose. You may want to increase your diet as tolerated and consume a low fiber diet over the next two weeks to give your bowels rest. If you run into constipation with the continued pain medication, you may want to add a daily Migralam and Colace which can be purchased over the counter to assist for this pain. Note that constipation may worsen abdominal pain, so it is important to prevent this from occurring. Please follow up with your primary care provider in the next 3-5 days. Please return to the emergency room with any worsening of your symptoms or for any symptoms that are concerning for you. It has been a pleasure being a part of the medical team providing for you during your hospitalization. Take care! Pending Studies at Discharge: No Stand-Alone Forms: My [facility], Opioid Pain Management Medications and DC Order Prescriptions: New oxycodone-acetaminophen 5-325 mg tablet 1 tab PO Q6H PRN (Reason: pain) Qty: 12 RF: 0 Continued sertraline 100 mg tablet 100 mg PO HS RF: 0 trazodone 150 mg tablet 150 mg PO HS RF: 0 lorazepam [Ativan] 0.5 mg tablet 0.5 mg PO BID PRN (Reason: Anxiety) RF: 0 clonazepam 1 mg tablet 0.5 mg PO HS RF: 0 quetiapine 25 mg tablet 25 - 50 mg PO HS RF: 0 ondansetron 4 mg tablet,disintegrating 4 mg PO Q6H PRN (Reason: nausea and vomiting) Qty: 15 RF: 0 Discontinued oxycodone [Roxicodone] 5 mg tablet 5 mg PO Q8H PRN (Reason: pain) Qty: 15 RF: 0 Discharge Orders: Discharge Order (Routine); Ordered 04/29/19 Ordered By: Sonja Grimes/Other Patient Handouts: Abdominal Pain, Anxiety Disorder Admission Data Admit Date/Time: 04/27/19 16:22 Attending Provider: Sonja Summers Admit Provider: Bharti Ga Primary Care Provider: Cezar Peña Other Providers: Rashida Wolfe ; Mike Connolly Other Interventions: Discharge Summary Assessment (RN) Last Done: 04/29/19 18:33 DC Date/Time DO NOT enter until pt leaves facility: 04/29/19 19:34 Supervising Physician Co-Signing Physician Notes PA Supervision Note: I personally saw and examined the patient. I verified all grubbs points and agree with OWEN Dubon with the following exceptions and/or additions: Pt with improved but persistent LLQ pain. Tolerating diet, labs and vitals normal, imaging normal. Seen by Gen Surgery and BLANKBOOK STITCHING MACHINE OPERATOR, no surgery indicated at this time Stable for dc to home NAD, AAOx3 Anicteric sclerae RRR no mgr CTAB no wcr Abd +BS soft minimal TTP LLQ without guarding or rebound Ext no edema Skin no rashes but with thick black hair on arms and hirsutism on face Stable for dc to home Coding Level of Care Code 61007 OBS Care - Discharge Diagnoses Abdominal pain, LLQ R10.32 Endometriosis N80.9 Hypomagnesemia E83.42 Hypokalemia E87.6 Anxiety F41.9 Depression F32.9 DVT prophylaxis Z29.9
[2019-04-29] MEDS ORDERED: methylPREDNISolone 4 MG TAB PO SCH (21:00)
[2019-04-30] MEDS ORDERED: methylPREDNISolone 4 MG TAB PO SCH (07:00)
[2019-05-01] MEDS ORDERED: methylPREDNISolone 4 MG TAB PO SCH (07:00)
[2019-05-02] MEDS ORDERED: methylPREDNISolone 4 MG TAB PO SCH (07:00)
[2019-05-03] MEDS ORDERED: methylPREDNISolone 4 MG TAB PO SCH (07:00)
[2019-05-06 22:10] LABS: Estradiol, Free 0.66 pg/mL
== END 2019-04-29 19:34 | disposition home or self-care (01) ==
LOC: ED 11:47 → 3W 11:47 → SUATTDRO 16:22 → 3W 20:03

== ENCOUNTER 2021-10-17 17:26 | Inpatient (IN) ==
[2021-10-17] MEDS ORDERED: haloperidoL 0.5 MG TAB PO PRN (18:57)
[2021-10-17] MEDS ORDERED: ALUMINUM/MAGNESIUM SUSP 30 ML UDC PO PRN (18:57)
[2021-10-17] MEDS ORDERED: ESTRADIOL 0.025 MG/24 HR TD SCH (18:57)
[2021-10-17] MEDS ORDERED: ACETAMINOPHEN 325 MG TAB PO PRN ×2 (18:57→19:42)
[2021-10-17] MEDS ORDERED: MoRPHine SULFATE 4 MG/ML 1 ML CARP\\VIAL IV PRN (18:57)
[2021-10-17] MEDS ORDERED: MAGNESIUM HYDROXIDE SUSP 30 ML UDC PO PRN (18:57)
[2021-10-17] MEDS ORDERED: hydrOXYzine HCl 10 MG TAB PO PRN (18:57)
[2021-10-17] MEDS ORDERED: POLYETHYLENE (MIRALAX) 17 GM PACK PO PRN (18:57)
[2021-10-17] MEDS ORDERED: ONDANSETRON 8MG OD TAB PO PRN (18:57)
[2021-10-17] MEDS: Patient's HEIGHT &/or WEIGHT Needed SCH ×3 (19:31→21:39)
[2021-10-17] MEDS ORDERED: HYDROmorphone INJ 0.5 MG/0.5 ML SYR IV STA (19:41)
--- NOTE | 2021-10-17 19:50 | History & Physical Report ---
Date of Service October 17, 2021 Assessment & Plan (1) Intractable vomiting with nausea: Plan: The working diagnosis is cannabis hyperemesis. This certainly seems plausible given her symptoms. Continue to follow serial exams and serial historiesfurther work-up if needed. But at this time certainly it appears that symptomatic and expectant management is reasonable. -Twice daily Pepcid, twice daily Protonix, scheduled Zofran for now -For the abdominal painserial exams, Tylenol/oxycodone/Dilaudid for mild/moderate/severe painif her creatinine allows, will also add Toradol ----> Hopefully acutely reporting out pain, creatinine dehydration, and controlling the nausea may settle her symptoms enough that a new chronic plan is not necessary, if there is, will start to build 1 from there. (2) Cannabinoid hyperemesis syndrome: Plan: See above, discussed with patient that unfortunately it can sometimes take a month for cannabis hyperemesis syndrome to resolve (3) Hypokalemia: Plan: Was low on prior ER visitelectrolyte recheck pending (4) Abdominal pain, LLQ: Plan: Chronicsee above for now for acute, if a new chronic plan needs to be constructed, will do so. (5) Dehydration: Plan: IV fluids (6) Anxiety: Plan: Home medications, reassurance, detailed explanations, supportive care (7) Depression: Plan: Home medications (8) DVT prophylaxis: Plan: Ambulation for now, if her hospital stay becomes prolonged or she is fairly immobile, then can consider pharmacologic DVT prophylaxis (9) Discharge planning issues: Plan: Medical level of care [facility] service, goal for hospitalization is largely improving symptoms and then if need be beginning the buildings of chronic plan. Admission and Anticipated Discharge Date Admission Date: October 17, 2021 History of Present Illness Chief Complaint: Intractable nausea and vomiting Primary Care Provider: Cezar Peña MD Patient is a very pleasant 30-year-old female known to me from prior hospital admissions, and I discussed the case personally with her PCP. She had actually had a degree of chronic abdominal pain really since her last hospital dischargebut notes that she was able to keep it under very good control largely with marijuana. Unfortunately over the last week or 2 she started to develop intractable nausea vomiting and epigastric paincame to the ER, was deemed likely to have cannabis hyperemesis, was instructed to stop cannabis, and was discharged home. While she has stopped cannabis entirely as of about 4 days ago, she has still had ongoing intractable nausea and vomiting, not really able to keep food or fluids down, and a lot of abdominal pain. She notes that she has 2 discrete areas abdominal painepigastric which is really what is the major problem, she relates it largely to the nausea and vomiting, as well as a lower sort of suprapubic/deep pelvic painwhich seems at least at this point to be much less noticeable (whether or not it is from distracting pain is not clear), but this is much more of her chronic pain. She has not had a bowel movement in several days. She was assessed by her PCP who felt that she needed better pain and nausea control, IV fluids, and then possibly a new/revamped plan for chronic pain if still neededgiven that cannabis is no longer an optionand felt that the acuity of her failure to thrive/dehydration, as well as the severity of her symptoms warranted inpatient managementwhich I agreed. To that end she was direct admitted to our service. Allergies Allergy/AdvReac Type Severity Reaction Status Date / Time clavulanic acid Allergy Unknown "anxiety" Verified 10/14/21 18:26 Iodinated Contrast Media Allergy Unknown RASH,SWELLI Verified 10/14/21 18:26 NG iodine Allergy Unknown SWELLING Verified 10/14/21 18:26 mushroom Allergy Unknown hives Verified 10/14/21 18:26 Home Medications Medication Instructions Recorded Confirmed Type omeprazole 40 mg capsule,delayed 40 mg PO HS 02/22/20 10/14/21 History release hydroxyzine HCl 50 mg tablet 50 - 100 mg PO HS PRN Anxiety 04/11/21 10/14/21 History topiramate 50 mg tablet 50 mg PO HS 04/11/21 10/14/21 History estradiol 0.025 mg/24 hr weekly 1 patch transdermal WK 04/25/21 10/14/21 History transdermal patch ondansetron 4 mg disintegrating 4 mg PO Q6H PRN nausea and 04/25/21 10/14/21 Rx tablet vomiting #12 tabs duloxetine 20 mg capsule,delayed 40 mg PO QAM 10/14/21 10/14/21 History release haloperidol 0.5 mg tablet 0.5 mg PO DAILY PRN Anxiety 10/14/21 10/14/21 History hydroxyzine HCl 10 mg tablet 5 - 10 mg PO BID PRN Anxiety 10/14/21 10/14/21 History ondansetron 4 mg disintegrating 4 mg PO Q6H PRN nausea and 10/14/21 Rx tablet vomiting #12 tabs ondansetron 8 mg disintegrating 8 mg PO Q8 PRN Nausea And Vomiting 10/14/21 10/14/21 History tablet oxycodone 5 mg tablet 5 mg PO Q6 PRN Pain 10/14/21 10/14/21 History quetiapine 100 mg tablet 100 mg PO HS 10/14/21 10/14/21 History sulfamethoxazole 800 1 tab PO BID 10/14/21 10/14/21 History mg-trimethoprim 160 mg tablet Past Med/Surg History Medical History (Updated 10/17/21 @ 19:47 by Zeeshan Stanton DO) Anxiety Depression Endometriosis 2 para 2 H/O partial seizures Myofascial pain PCOS (polycystic ovarian syndrome) Surgical History H/O exploratory laparotomy (11/06/18) Diagnostic Laparoscopy with Enterolysis Dr. Connolly 11/06/18 H/O hysterectomy with unilateral oophorectomy right tube/ovary removed History of appendectomy History of cholecystectomy History of ovarian cystectomy 2013 History of umbilical hernia repair 07/09/19 History of wisdom tooth extraction Family History Grandfather Parkinson's disease Lung cancer Grandfather (Maternal) Diabetes Father Heart disease Grandfather (Paternal) Heart disease Hypertension Dyslipidemia Grandmother (Paternal) Heart disease Hypertension Dyslipidemia Aunt Breast cancer 3 out of 4 paternal great aunts Uncle Colorectal cancer paternal Social History Smoking Status: Never smoker Second Hand Exposure: No; Hx Alcohol Use: Yes (occassionally) Alcohol type: beer and wine Hx Substance Use: Yes Prescribed Medications: Marijuana Preferred Language: Danish Communication Ability: Effective Visual Impairment: No Limitations Beliefs That Will Affect Care: None marital status: Current Living Situation: Spouse Current Living Situation Comment: 2 children at home, ages 3 and 18 months Feels Safe at Home: Yes Assistive Devices: None Review of Systems Review of Systems: All systems reviewed & are unremarkable except as noted in HPI & below Physical Exam Physical Exam: In general she is awake and alert oriented pleasant but does appear quite uncomfortable. HEENT normocephalic atraumatic mucous membranes slightly dry. Cardio regular without rubs murmurs or gallops. Lungs are clear to auscultation bilaterally no rales rhonchi or wheezes with good effort. No accessory muscle use. Abdomen is soft mildly distended. Mild suprapubic tenderness without guarding rebound or rigidity. Fairly severe epigastric tende rness that also appears to cause nausea to palpationI do not believe I feel any discrete trigger points in the area, fortunately she has no guarding rebound or rigidity, and outside of mild distention the rest of her abdomen is benign. Extremities without sinus clubbing or edema no calf tenderness. Skin shows no rashes no pallor or icterus. Neuro shows cranial nerves II through XII be grossly intact gross motor and sensory are intact. She has an appropriate mood and affect of the situationpleasant but somewhat anxious and upset. Good recent and remote recall. Musculoskeletal shows no gross abnormalities. Code Status & VTE Plan VTE Prophylaxis Plan VTE Prophylaxis will be ordered: Yes PG Care Time/CCT Total # of Minutes Spent Total Time Spent with Patient: Total time spent is greater than 50% in coordination of care (as documented) at patient's floor/unit and/or counseling patient: Coding Level of Care Code INT OBSERVATION CARE 70M LVL 3 Diagnoses Intractable vomiting with nausea R11.2 Cannabinoid hyperemesis syndrome R11.2; F12.90 Hypokalemia E87.6 Abdominal pain, LLQ R10.32 Dehydration E86.0 Anxiety F41.9 Depression F32.9 DVT prophylaxis Z29.9 Discharge planning issues Z02.9
[2021-10-17] MEDS: ONDANSETRON INJ 2 MG/ML 2 ML VIAL IV SCH (20:57)
[2021-10-17] MEDS ORDERED: NON-FORMULARY MEDICATION (Omeprazole 40 mg capsule,delayed release(DR/EC)) PO SCH (21:00)
[2021-10-17] MEDS: LACTATED RINGER'S 1,000 ML IV SCH (21:22)
[2021-10-17] MEDS: SULFAMETHOXAZOLE/TRIMETHOPRIM DS 800/160MG TAB PO SCH (21:23)
[2021-10-17] MEDS: PANTOprazole 40 MG in SYRINGE 0 ML IV SCH (21:24)
[2021-10-17] MEDS: FAMOTIDINE 20 MG in SYRINGE 3 ML IV SCH (21:24)
[2021-10-17] MEDS: TOPIRAMATE 50 MG TAB PO SCH (21:25)
[2021-10-17] MEDS: QUEtiapine FUMARATE 100 MG TABLET PO SCH (21:25)
[2021-10-18] MEDS: HYDROmorphone INJ 0.5 MG/0.5 ML SYR IV PRN ×4 (00:02→20:08)
[2021-10-18] MEDS: ONDANSETRON INJ 2 MG/ML 2 ML VIAL IV SCH ×3 (01:48→14:03)
[2021-10-18] MEDS: LACTATED RINGER'S 1,000 ML IV SCH ×3 (05:26→17:51)
[2021-10-18] MEDS ORDERED: CAPSAICIN CR 0.075% 60 GM TUBE EXT PRN (07:48)
[2021-10-18] MEDS: FAMOTIDINE 20 MG in SYRINGE 3 ML IV SCH ×2 (07:54→20:08)
[2021-10-18] MEDS: SULFAMETHOXAZOLE/TRIMETHOPRIM DS 800/160MG TAB PO SCH ×2 (07:55→20:08)
[2021-10-18] MEDS: PANTOprazole 40 MG in SYRINGE 0 ML IV SCH ×2 (07:55→20:08)
[2021-10-18] MEDS: DULoxetine HCL 20 MG CAP PO SCH (07:55)
[2021-10-18 08:29] LABS: Basophils # (auto) 0.08 K/uL (0-0.2); Basophils % (auto) 0.8 %; Eosinophils # (auto) 0.17 K/uL (0-0.50); Eosinophils % (auto) 1.7 %; Hematocrit (blood only) 39.4 % (34.1-44.9); Hemoglobin 14.5 g/dl (12.0-16.0); Immature Granulocytes # (auto) 0.03 K/uL (0.00-0.02); Immature Granulocytes % (auto) 0.3 %; Lymphocytes # (auto) 3.47 K/uL (1.2-3.4); Lymphocytes % (auto) 35.4 %; Mean Corpuscular Hemoglobin 28.4 pg (25.0-34.0); Mean Corpuscular Hgb Conc 36.8 g/dL (32.0-36.0); Mean Corpuscular Volume 77.1 fL (80.0-100.0); Mean Platelet Volume 11.3 fL (9.4-12.3); Monocytes # (auto) 0.87 K/uL (0.24-0.82); Monocytes % (auto) 8.9 %; Neutrophils # (auto) 5.18 K/uL (1.4-6.5); Neutrophils % (auto) 52.9 %; Platelet Count 256 K/uL (130-400); RDW Coefficient of Variation 12.6 % (11.5-14.5); RDW Standard Deviation 34.5 fL (36.4-46.3); Red Blood Count 5.11 M/uL (3.93-5.22)
[2021-10-18 08:57] LABS: Alanine Aminotransferase 59 U/L (7-52); Albumin Globulin Ratio 1.8 (0.9-2); Albumin Level 4.2 gm/dl (3.4-5.0); Alkaline Phosphatase 52 U/L (34-104); BUN Creatinine Ratio 11.2 (10-20); Bilirubin,Total 1.5 mg/dl (0.2-1.0); Blood Urea Nitrogen 11 mg/dl (6-23); Calcium 8.9 mg/dl (8.5-10.1); Carbon Dioxide 23 mmol/L (21-32); Chloride 102 mmol/L (98-107); Creatinine Clr Calc Pharmacy 95.9 ml/min; Est GFR (African American) 89.1 ml/min; Est GFR (Non-African American) 76.9 ml/min; Globulin 2.4 gm/dl (2.5-4.0); Glucose 89 mg/dl (70-99(Fasting)); Total Protein 6.6 gm/dl (6.0-8.3)
[2021-10-18 10:19] LABS: Magnesium 1.9 mg/dl (1.7-2.4); Potassium 2.4 mmol/L (3.5-5.1)
--- NOTE | 2021-10-18 10:48 | Hospitalist Progress Note ---
Date of Service October 18, 2021 Assessment & Plan (1) Intractable vomiting with nausea: Plan: Intractable vomiting with nausea - cannabis induced hyperemesis vs. ? - currently on pepcid 20 mg BID, protonix 40 mg BID, zofran 4 mg q6hr - for abdominal pain: - mild- tylenol (650 mg q4hr) - moderate- oxycodone (5 mg q4hr) - severe- dilaudid (0.5 mg q2hr) - given 5 mg dose of compazine 1x and spot 0.5 mg dilaudid dose (10/18) - ordered capsaicin cream but pt says this was given to her in the ER and did not help much - encouraged pt to take warm showers to help with symptoms - low threshold to add metoclopramide for help with nausea - once acute phase is under control, will need to develop an outpatient plan that can sustain her until the hyperemesis/nausea completely resolves Chronic abdominal pain - pt previously using marijuana to help with the symptoms - will need to consider what a new regimen may look like Hypokalemia - K 2.4 this AM - replete 80 meq IV Depression - continue home duloxetine 40 mg PO - continue home seroquel 100 mg qHS Anxiety - continue home hydroxyzine PRN - continue haloperidol 0.5 mg PRN (2) Cannabinoid hyperemesis syndrome: (3) Acute hypokalemia: (4) Abdominal pain: (5) Anxiety: (6) Failure of outpatient treatment: Plan DVT ppx: ambulation, consider pharmacologic if immobile Diet: regular as tolerated Fluids/electrolytes: LR 125 mL/hr, K 80 meq IV Dispo: med Admission and Anticipated Discharge Date Admission Date: October 17, 2021 Supervising Physician Co-Signing Physician Notes I personally examined the patient and verified all grubbs points of history and exam, discussed case, and agree with decision making with Dr Randall Very restless nauseated and in pain. Vitals noted, in general she is awake and alert pleasant but also at the same time restless pacing in the room holding a half-full emesis bag and appearing uncomfortable. Breathing unlabored no accessory muscle use good effort. No guarding rebound or rigidity. Cannabis hyperemesis, abdominal pain, nausea, restlessnesscontinue aggressive symptom management. Fortunately, while she appears terribly symptomatic, she also does appear quite stable. Continue aggressive supportive care and symptom management, and hopefully symptoms will start to chao soon, although we did discuss that unfortunately cannabis hyperemesis often does take quite a while. otherwise as above Subjective Pt is a 30 yo female with PMH of anxiety, depression, endometriosis, partial seizures, and PCOS presenting with 1-2 weeks of persistent emesis. 10/18/2021: Pt was recently in the ER (10/14) for similar symptoms and the thought that she had a kidney infection. An infection was ruled out at that time and the pt was discharged. Today, pt was directed admitted from PCP d/t poor oral intake and concern for failure to thrive d/t persistent hyperemesis. When I saw her first thing this morning, she was resting comfortably in bed. She said she did fine over night but felt slightly nausea this AM with a small amount of emesis. She felt maybe she waited too long to take the zofran. She had me remove the food tray from her room d/t nausea associated with the smell of food. When I checked on her with the rest of the team a few hours later she was pacing in her room and appeared extremely uncomfortable. She had recently vomited and felt extremely nauseous with a sharply painful abdomen. Pt has not smoked marijuana in the past few days but we did discuss how hyperemesis d/t marijuana use can take weeks to a month to resolve. Physical Exam Constitutional: Moderate distress. Vitals WNL. Eyes: no conjunctival abnormality Respiratory: CTA bilaterally. No rhonchi, wheezing, or crackles. Non labored breathing. Cardiovascular: RRR. No murmur noted. No LL edema. Gastrointestinal (Abdomen): Diffuse tenderness but soft with sharp epigastric and LLQ pain. +BS. No masses noted. Skin: no rashes, warm and dry Psychiatric: Alert. Mood and affect congruent. Results & Data Results & Data ([facility]) Vital Signs (Past 12 Hours) Vital Signs Temp Pulse Resp BP Pulse Ox O2 Del Method 10/18/21 07:32 36.7 C 49 L 16 129/86 99 Room Air Resident Activity Tracking Resident Involvement: Resident Care Provided Care Provided: Adult [facility]
[2021-10-18] MEDS ORDERED: HYDROmorphone INJ 0.5 MG/0.5 ML SYR IV STA (11:31)
[2021-10-18] MEDS: POTASSIUM CHLORIDE / WTR 10 MEQ/100 ML PLCT IV SCH ×8 (11:45→18:40)
[2021-10-18] MEDS ORDERED: PROCHLORPERAZINE 5 MG in SYRINGE 4 ML IV ONE (11:45)
[2021-10-18] MEDS: oxyCODONE HCL IR 5 MG TAB (IMMEDIATE RELEASE) PO PRN (14:07)
[2021-10-18] MEDS ORDERED: LORazepam 0.5 MG in SYRINGE 0.25 ML IV STA (15:24)
[2021-10-18] MEDS: ONDANSETRON INJ 2 MG/ML 2 ML VIAL IV PRN (17:58)
[2021-10-18] MEDS: QUEtiapine FUMARATE 100 MG TABLET PO SCH (20:08)
[2021-10-18] MEDS: TOPIRAMATE 50 MG TAB PO SCH (20:08)
[2021-10-19] MEDS: hydrOXYzine HCl 25 MG TAB PO PRN (00:06)
[2021-10-19] MEDS: ONDANSETRON INJ 2 MG/ML 2 ML VIAL IV PRN ×5 (00:08→20:39)
[2021-10-19] MEDS: LACTATED RINGER'S 1,000 ML IV SCH ×3 (01:28→15:41)
[2021-10-19] MEDS: HYDROmorphone INJ 0.5 MG/0.5 ML SYR IV PRN ×5 (03:48→20:39)
[2021-10-19] MEDS: oxyCODONE HCL IR 5 MG TAB (IMMEDIATE RELEASE) PO PRN ×2 (06:10→17:48)
--- NOTE | 2021-10-19 07:26 | Hospitalist Progress Note ---
Date of Service October 19, 2021 Assessment & Plan (1) Intractable vomiting with nausea: Plan: Pt is a 30 yo female with PMH of anxiety, depression, endometriosis, partial seizures, and PCOS presenting with 1-2 weeks of persistent emesis. Intractable vomiting with nausea - cannabis induced hyperemesis vs. ? - currently on pepcid 20 mg BID, protonix 40 mg BID, zofran 4 mg q4hr PRN - for abdominal pain: - mild- tylenol (650 mg q4hr)- no doses - moderate- oxycodone (5 mg q4hr)- 1 dose today - severe- dilaudid (0.5 mg q2hr)- 4 doses today - given 5 mg dose of compazine 1x and spot 0.5 mg dilaudid dose (10/18) - pt reports that compazine makes her feel "jittery" - switched compazine to phenergan 25 mg q6hr PRN - ordered capsaicin cream but pt says this was given to her in the ER and did not help much - pt finds that the heating pad helps with her pain/nausea - pt plans to increase oral intake of broth and clear fluids as tolerated - once acute phase is under control, will need to develop an outpatient plan that can sustain her until the hyperemesis/nausea completely resolves Chronic abdominal pain - pt previously using marijuana to help with the symptoms - will need to consider what a new regimen may look like Hypokalemia - K 2.9 this AM - replete 80 meq IV Depression - continue home duloxetine 40 mg PO - continue home seroquel 100 mg qHS Anxiety - continue home hydroxyzine PRN - continue haloperidol 0.5 mg PRN (2) Cannabinoid hyperemesis syndrome: (3) Acute hypokalemia: (4) Abdominal pain: (5) Anxiety: (6) Failure of outpatient treatment: Plan DVT ppx: ambulation, consider pharmacologic if immobile Diet: regular as tolerated Fluids/electrolytes: LR 125 mL/hr, replete 80 meq Dispo: med Admission and Anticipated Discharge Date Admission Date: October 17, 2021 Supervising Physician Co-Signing Physician Notes Patient seen and examined, chart reviewed, case discussed with Blanca Yang and I agree with the assessment and plan as above except as otherwise noted Labs and images reviewed Patient seen at bedside. She reports that she feels she is clinically improving. Does continue to have some discomfort, but is gradually improving. Remains nauseous, but no emesis today. Would like to switch from Compazine back to her home Phenergan to avoid jitteriness. We will switch, continue to follow. She denies fever, chills, sweats, chest pain today. Breathing is unlabored, lungs are clear to auscultation bilaterally, heart is with regular rate and rhythm and no murmurs, abdomen is mildly tender to deep palpation in the epigastrium but without rebound/guarding/rigidity. Intractable nausea/vomiting, suspected cannabis hyperemesis. Intake is now gradually improving, and hopefully will tolerate clears advanced today. Once diet is advanced and nausea is improved, can progress to outpatient follow-up. Continue Pepcid, PPI, Zofran. Subjective Pt is a 30 yo female with PMH of anxiety, depression, endometriosis, partial seizures, and PCOS presenting with 1-2 weeks of persistent emesis. 10/18/2021: Pt was recently in the ER (10/14) for similar symptoms and the thought that she had a kidney infection. An infection was ruled out at that time and the pt was discharged. Today, pt was directed admitted from PCP d/t poor oral intake and concern for failure to thrive d/t persistent hyperemesis. When I saw her first thing this morning, she was resting comfortably in bed. She said she did fine over night but felt slightly nausea this AM with a small amount of emesis. She felt maybe she waited too long to take the zofran. She had me remove the food tray from her room d/t nausea associated with the smell of food. When I checked on her with the rest of the team a few hours later she was pacing in her room and appeared extremely uncomfortable. She had recently vomited and felt extremely nauseous with a sharply painful abdomen. Pt has not smoked marijuana in the past few days but we did discuss how hyperemesis d/t marijuana use can take weeks to a month to resolve. 10/19/2021: Pt overall feels better today. She is still nausea but hasn't thrown up yet this morning. She is no longer in pain but more of an abdominal discomfort. She explains that the compazine makes her "jittery." She tells me that she uses phenergan at home. Physical Exam Constitutional: NAD. Vitals WNL. Eyes: no conjunctival abnormality Respiratory: CTA bilaterally. No rhonchi, wheezing, or crackles. Non labored breathing. Cardiovascular: RRR. No murmur noted. No LL edema. Gastrointestinal (Abdomen): Epigastric discomfort upon palpation otherwise nontender, +BS. No masses noted. Skin: no rashes, warm and dry Psychiatric: Alert. Mood and affect congruent. Results & Data Results & Data ([facility]) Vital Signs (Past 12 Hours) Vital Signs Temp Pulse Resp BP Pulse Ox O2 Del Method 10/19/21 06:43 36.7 C 57 L 16 130/83 97 Room Air 10/18/21 20:00 36.9 C 52 L 16 134/82 96 Room Air Resident Activity Tracking Resident Involvement: Resident Care Provided Care Provided: Adult Hospital Medicine
[2021-10-19 08:20] LABS: Hematocrit (blood only) 37.9 % (34.1-44.9); Mean Corpuscular Hemoglobin 28.8 pg (25.0-34.0); Mean Corpuscular Hgb Conc 36.9 g/dL (32.0-36.0); Platelet Count 244 K/uL (130-400); RDW Coefficient of Variation 12.8 % (11.5-14.5); RDW Standard Deviation 35.3 fL (36.4-46.3); Red Blood Count 4.86 M/uL (3.93-5.22); White Blood Count 7.74 K/ul (4.8-10.8)
[2021-10-19 08:53] LABS: Anion Gap 8 (3-11); BUN Creatinine Ratio 7.1 (10-20); Blood Urea Nitrogen 7 mg/dl (6-23); Calcium 8.5 mg/dl (8.5-10.1); Carbon Dioxide 24 mmol/L (21-32); Chloride 106 mmol/L (98-107); Creatinine Clr Calc Pharmacy 95.9 ml/min; Est GFR (African American) 89.1 ml/min; Est GFR (Non-African American) 76.9 ml/min; Glucose 84 mg/dl (70-99(Fasting)); Sodium 138 mmol/L (136-145)
[2021-10-19] MEDS: DULoxetine HCL 20 MG CAP PO SCH (09:22)
[2021-10-19] MEDS: PANTOprazole 40 MG in SYRINGE 0 ML IV SCH ×2 (09:23→20:40)
[2021-10-19] MEDS: FAMOTIDINE 20 MG in SYRINGE 3 ML IV SCH ×2 (09:24→20:40)
[2021-10-19] MEDS: POTASSIUM CHLORIDE / WTR 10 MEQ/100 ML PLCT IV SCH ×8 (10:42→17:46)
[2021-10-19] MEDS: PROMETHAZINE HCL 25 MG TAB PO PRN ×2 (11:45→17:46)
--- NOTE | 2021-10-19 18:21 | Billing Data ---
Date of Service October 19, 2021 Coding Level of Care Code 65882 Subseq Hosp Care Lvl 2
[2021-10-19] MEDS: QUEtiapine FUMARATE 100 MG TABLET PO SCH (20:40)
[2021-10-19] MEDS: TOPIRAMATE 50 MG TAB PO SCH (20:40)
[2021-10-20] MEDS: HYDROmorphone INJ 0.5 MG/0.5 ML SYR IV PRN ×3 (03:31→19:51)
[2021-10-20] MEDS: ONDANSETRON INJ 2 MG/ML 2 ML VIAL IV PRN ×4 (03:32→18:06)
[2021-10-20] MEDS: LACTATED RINGER'S 1,000 ML IV SCH ×3 (03:36→19:52)
[2021-10-20] MEDS: PROMETHAZINE HCL 25 MG TAB PO PRN (07:36)
--- NOTE | 2021-10-20 07:53 | Hospitalist Progress Note ---
Date of Service October 20, 2021 Assessment & Plan (1) Intractable vomiting with nausea: Plan: Pt is a 30 yo female with PMH of anxiety, depression, endometriosis, partial seizures, and PCOS presenting with 1-2 weeks of persistent emesis. Intractable vomiting with nausea - cannabis induced hyperemesis vs. ? - currently on pepcid 20 mg BID, protonix 40 mg BID, zofran 4 mg q4hr PRN - for abdominal pain: - mild- tylenol (650 mg q4hr)- no doses - moderate- oxycodone (5 mg q4hr)- 1 dose today - severe- dilaudid (0.5 mg q2hr)- 4 doses today - given 5 mg dose of compazine 1x and spot 0.5 mg dilaudid dose (10/18) - pt reports that compazine makes her feel "jittery" - switched compazine to phenergan 25 mg q6hr PRN (10/19), working well for her - ordered capsaicin cream but pt says this was given to her in the ER and did not help much - pt finds that the heating pad helps with her pain/nausea - pt's oral intake slightly improved, encouraged her to continue with intake - once acute phase is under control, will need to develop an outpatient plan that can sustain her until the hyperemesis/nausea completely resolves Chronic abdominal pain - pt previously using marijuana to help with the symptoms - will need to consider what a new regimen may look like - discussed her hx with this at length, as in HPI Hypokalemia - K 3.6 this AM - continue to monitor Depression - continue home duloxetine 40 mg PO - continue home seroquel 100 mg qHS Anxiety - continue home hydroxyzine PRN - continue haloperidol 0.5 mg PRN (2) Cannabinoid hyperemesis syndrome: (3) Acute hypokalemia: (4) Abdominal pain: (5) Anxiety: (6) Failure of outpatient treatment: Plan DVT ppx: ambulation, consider pharmacologic if immobile Diet: regular as tolerated Fluids/electrolytes: LR 125 mL/hr Dispo: med Admission and Anticipated Discharge Date Admission Date: October 17, 2021 Supervising Physician Co-Signing Physician Notes Patient seen and examined, chart reviewed, case discussed with Blanca Randall, and I agree with the assessment and plan as above except as otherwise noted Labs and images reviewed Seen at bedside, patient is slowly improving. Nausea is decreasing, had 1 episode of vomiting overnight. Patient is frustrated by failure of multiple modalities of pain, and now her hyperemesis with the 1 thing that is worked for her. Abdomen nontender, heart rate regular, pulse normal, breathing unlabored. Gradually improving, continue current antiemetics and diet advancement. She is able to tolerate most meals can progress towards discharge, and will start weaning pain control. Did receive 4 doses of Dilaudid for severe pain control today, would try to decrease this for its contribution to constipation. Would benefit from outpatient pain management follow-up Subjective Pt is a 30 yo female with PMH of anxiety, depression, endometriosis, partial seizures, and PCOS presenting with 1-2 weeks of persistent emesis. 10/18/2021: Pt was recently in the ER (10/14) for similar symptoms and the thought that she had a kidney infection. An infection was ruled out at that time and the pt was discharged. Today, pt was directed admitted from PCP d/t poor oral intake and concern for failure to thrive d/t persistent hyperemesis. When I saw her first thing this morning, she was resting comfortably in bed. She said she did fine over night but felt slightly nausea this AM with a small amount of emesis. She felt maybe she waited too long to take the zofran. She had me remove the food tray from her room d/t nausea associated with the smell of food. When I checked on her with the rest of the team a few hours later she was pacing in her room and appeared extremely uncomfortable. She had recently vomited and felt extremely nauseous with a sharply painful abdomen. Pt has not smoked marijuana in the past few days but we did discuss how hyperemesis d/t marijuana use can take weeks to a month to resolve. 10/19/2021: Pt overall feels better today. She is still nausea but hasn't thrown up yet this morning. She is no longer in pain but more of an abdominal discomfort. She explains that the compazine makes her "jittery." She tells me that she uses phenergan at home. 10/20/2021: Pt doing better than previous today. She still experiences episodes of nausea but they do not seem to be as frequent. Last night she was able to eat some watermelon and She vomited once overnight. The zofran and phenergan seemed to keep the nausea mostly at bay. We spent time discussing her chronic abdominal pain which began after surgical intervention for her endometriosis. She had a hysterectomy in 2018 and another surgery to resolve abdominal/pelvic adhesions in 2019. She received some relief after this procedure but the abdominal pain had returned. She has tried a multitude of different pain management options in the past. She has tried opioid therapy, bentyl for intestinal spasms, and lidocaine injections for possible trigger points. She has seen an senior support analyst for a possible food allergy but this did not reveal anything. She has had upper and lower scopes that did not show any GI reason for her abdominal pain. Up until this point, marijuana use (oils and smoking) has helped her immensely. She tells me she has only been using marijuana for less than 1 year. She does get her marijuana from a dispensary. At this point, the pt is frustrated about how to treat her pain especially if she can't use marijuana moving forward. Physical Exam Constitutional: NAD. Vitals WNL. Eyes: no conjunctival abnormality Respiratory: CTA bilaterally. No rhonchi, wheezing, or crackles. Non labored breathing. Cardiovascular: RRR. No murmur noted. No LL edema. Gastrointestinal (Abdomen): Epigastric tenderness, +BS. No masses noted. Skin: no rashes, warm and dry Psychiatric: Alert. Mood and affect congruent. Results & Data Results & Data ([facility]) Vital Signs (Past 12 Hours) Vital Signs Temp Pulse Resp BP Pulse Ox O2 Del Method 10/19/21 21:10 37 C 62 14 105/72 97 Room Air Resident Activity Tracking Resident Involvement: Resident Care Provided Care Provided: Adult Hospital Medicine
[2021-10-20] MEDS: oxyCODONE HCL IR 5 MG TAB (IMMEDIATE RELEASE) PO PRN ×3 (08:04→18:06)
[2021-10-20 08:26] LABS: BUN Creatinine Ratio 5.2 (10-20); Calcium 8.8 mg/dl (8.5-10.1); Creatinine Clr Calc Pharmacy 97.9 ml/min; Est GFR (African American) 91.3 ml/min; Est GFR (Non-African American) 78.8 ml/min; Potassium 3.6 mmol/L (3.5-5.1)
[2021-10-20 08:44] LABS: Hematocrit (blood only) 39.2 % (34.1-44.9); Hemoglobin 14.4 g/dl (12.0-16.0); Mean Corpuscular Hgb Conc 36.7 g/dL (32.0-36.0); Mean Corpuscular Volume 78.9 fL (80.0-100.0); Mean Platelet Volume 11.5 fL (9.4-12.3); Platelet Count 240 K/uL (130-400); Red Blood Count 4.97 M/uL (3.93-5.22); White Blood Count 7.99 K/ul (4.8-10.8)
[2021-10-20] MEDS: DULoxetine HCL 20 MG CAP PO SCH (09:11)
[2021-10-20] MEDS: FAMOTIDINE 20 MG in SYRINGE 3 ML IV SCH ×2 (09:11→19:51)
[2021-10-20] MEDS: PANTOprazole 40 MG in SYRINGE 0 ML IV SCH ×2 (09:12→21:00)
--- NOTE | 2021-10-20 18:33 | Billing Data ---
Date of Service October 20, 2021 Coding Level of Care Code 25073 Subseq Hosp Care Lvl 1
--- NOTE | 2021-10-20 18:39 | Billing Data ---
Date of Service 2021 Coding Level of Care Code 94612 Subseq Hosp Care Lvl 3
[2021-10-20] MEDS: TOPIRAMATE 50 MG TAB PO SCH (19:52)
[2021-10-20] MEDS: QUEtiapine FUMARATE 100 MG TABLET PO SCH (19:52)
[2021-10-21] MEDS: HYDROmorphone INJ 0.5 MG/0.5 ML SYR IV PRN ×5 (02:54→23:54)
[2021-10-21] MEDS: LACTATED RINGER'S 1,000 ML IV SCH ×3 (02:54→19:23)
[2021-10-21] MEDS: ONDANSETRON INJ 2 MG/ML 2 ML VIAL IV PRN ×4 (02:55→20:25)
[2021-10-21 07:18] LABS: Hematocrit (blood only) 36.7 % (34.1-44.9); Hemoglobin 13.1 g/dl (12.0-16.0); Mean Corpuscular Hemoglobin 29.2 pg (25.0-34.0); Mean Corpuscular Hgb Conc 35.7 g/dL (32.0-36.0); Mean Corpuscular Volume 81.7 fL (80.0-100.0); Mean Platelet Volume 10.6 fL (9.4-12.3); Platelet Count 247 K/uL (130-400); RDW Coefficient of Variation 13.2 % (11.5-14.5); RDW Standard Deviation 38.2 fL (36.4-46.3); Red Blood Count 4.49 M/uL (3.93-5.22); White Blood Count 6.61 K/ul (4.8-10.8)
[2021-10-21 07:38] LABS: Calcium 8.5 mg/dl (8.5-10.1); Creatinine Clr Calc Pharmacy 93.1 ml/min; Est GFR (African American) 85.9 ml/min; Est GFR (Non-African American) 74.1 ml/min; Potassium 3.4 mmol/L (3.5-5.1)
[2021-10-21 08:12] LABS: Basophils # (auto) 0.05 K/uL (0-0.2); Basophils % (auto) 0.8 %; Eosinophils # (auto) 0.23 K/uL (0-0.50); Eosinophils % (auto) 3.5 %; Immature Granulocytes # (auto) 0.01 K/uL (0.00-0.02); Immature Granulocytes % (auto) 0.2 %; Lymphocytes # (auto) 3.46 K/uL (1.2-3.4); Lymphocytes % (auto) 52.3 %; Monocytes # (auto) 0.55 K/uL (0.24-0.82); Monocytes % (auto) 8.3 %; Neutrophils # (auto) 2.31 K/uL (1.4-6.5); Neutrophils % (auto) 34.9 %; Polychromasia 1+
[2021-10-21] MEDS: DULoxetine HCL 20 MG CAP PO SCH (09:36)
[2021-10-21] MEDS: oxyCODONE HCL IR 5 MG TAB (IMMEDIATE RELEASE) PO PRN ×2 (09:42→18:04)
[2021-10-21] MEDS: PROMETHAZINE HCL 25 MG TAB PO PRN ×2 (09:42→18:04)
[2021-10-21] MEDS: FAMOTIDINE 20 MG in SYRINGE 3 ML IV SCH ×2 (09:44→20:25)
[2021-10-21] MEDS: PANTOprazole 40 MG in SYRINGE 0 ML IV SCH ×2 (09:44→20:25)
--- NOTE | 2021-10-21 09:45 | Hospitalist Progress Note ---
Date of Service October 21, 2021 Assessment & Plan (1) Intractable vomiting with nausea: Plan: Kelsey is a 30 yo female with history of anxiety, depression, endometriosis, partial seizures, and PCOS who presented with 1-2 weeks of severe emesis. She notes that she has a history of severe abdominal pain causing emesis, but this episode was different, her primary concern was the emesis. Prior to admission patient had been treating her chronic pain with dabs and tinctures of marijuana. She was admitted for suspected Cannabinoid Hyperemesis. Intractable Nausea and Emesis (suspected 2/2 Canabinoid Hyperemesis) - Currently on pepcid 20 mg BID, protonix 40 mg BID, zofran 4 mg q4hr PRN - For abdominal pain: - mild- tylenol (650 mg q4hr)- No doses 10/21 - moderate- oxycodone (5 mg q4hr)- 1 dose 10/21 - severe- dilaudid (0.5 mg q2hr)- 3 doses 10/21 - Continues to receive Phenergan 25 mg and Zofran 4 mg for nausea, avoid Compazine - Pt finds that the heating pad helps with her pain/nausea - Pt's PO intake diminished 10/21, encouraged continued PO intake as tolerated (foods and liquids) Abdominal Pain (chronic, acute exacerbation) - Worsening LLQ abdominal pain and rebound tenderness in AM, obtained CTAP - CTAP 10/21 indicated bladder wall thickening, no obstruction or bowel wall thickening, fluid-filled nondilated loops of large and small bowel seen throughout the abdomen which may represent a diarrheal illness/gastroenteritis - Received empiric dose of Rocephin, discontinued following UA results - UA obtained, no evidence of acute infection - Stool cultures pending - Pain management as above, previously controlled on PO marijuana Hypokalemia - K 3.4 today - Repleted w/ 20 meq PO - Will monitor Depression - Continue home duloxetine 40 mg PO - Continue home seroquel 100 mg qHS Anxiety - Continue home hydroxyzine PRN - Continue haloperidol 0.5 mg PRN (2) Cannabinoid hyperemesis syndrome: (3) Acute hypokalemia: (4) Abdominal pain: (5) Anxiety: (6) Failure of outpatient treatment: Plan DVT ppx: ambulation, consider pharmacologic if immobile Diet: regular as tolerated Fluids/electrolytes: LR 125 mL/hr, replete K 20 meq KCl PO Dispo: med Admission and Anticipated Discharge Date Admission Date: October 20, 2021 Supervising Physician Co-Signing Physician Notes Patient seen and examined, chart reviewed, case discussed with Trish Armstrong, and I agree with the assessment and plan as above except as otherwise noted Labs and images reviewed Seen bedside today. Nausea and pain has increased today after improving substantially yesterday. Also has had some increased frequency. Due to pain suddenly increasing with initial concern for guarding repeat CT scan was obtained with pretreatment for contrast. Shows evidence of potential cystitis, UA is pending. Dilated loops of bowel suspicious for gastroenteritis. Stool panel pending, given urinary symptoms and cystitis and imaging will initiate empiric treatment with Rocephin and narrow as appropriate. On exam abdomen is mildly tender periumbilically without rebound, lungs are clear, heart rate is with regular rate and rhythm, skin is warm and dry. Patient does have warm red skin on abdomen, reports that she had just removed a heating pad which seems to help quite a bit. Dawson Cole is a 30 yo female with history of anxiety, depression, endometriosis, partial seizures, and PCOS who presented with 1-2 weeks of severe emesis. She notes that she has a history of severe abdominal pain causing emesis, but this episode was different, her primary concern was the emesis. Prior to admission patient had been treating her chronic pain with dabs and tinctures of marijuana. She was admitted for suspected Cannabinoid Hyperemesis. Patient is s/p cholecystectomy, appendectomy, hysterectomy, two ovarian cyst removals, oophorectomy, umbilical hernia repair, and adhesion take-down. Patient received the adhesion lysis surgery due to chronic pain and notes that she had immediate relief following that procedure. 10/21/21: - Kelsey notes that her pain and nausea are worse than yesterday - Previously she had been nauseous with associated pain, now her pain is causing nausea - Patient continues to lack appetite - She notes LLQ pain and epigastric discomfort - Patient notes that she has 'pain flares' biannually and that she can typically manage then at home with cannabis - Previous pain flares would include severe nausea and vomitting 2/2 pain, but this episode was primarily nausea itself - She notes that now that she does not have the marijuana, she feels her nausea is secondary to worsening pain - She states that she has no dysuria, hematuria, or foul smelling urine - Patient continues to move bowels regularly and denies hematochezia or black tarry stools, no hx of bowel obstruction or IBD - Endorses headache 2/2 stress, this is not uncommon for her - Patient denies chest pain, palpitations, dyspnea, or pleuritic pain Kelsey is a patient of Dr. Peña. She has attempted multiple routes to treat her pain. She previously attempted physical therapy with minimal benefit. Patient is agreeable to osteopathic manipulation while inpatient. Review of Systems Review of Systems: See HPI Physical Exam Physical Exam: Gen: NAD, tearful Resp:Non-labored, no wheezing/rhonchi/rales, CTAB CV:RRR, normal S1/S2, no M/R/G Abd: Soft, non-distended, TTP in LLQ, no epigastric TTP, hypoactive bowels, no masses, rebound tenderness in LLQ, no dullness to percussion Extr: 2+ dp bilaterally, no edema Skin: No rashes lesions or erythema Results & Data Results & Data ([facility]) Vital Signs (Past 12 Hours) Vital Signs Temp Pulse Resp BP Pulse Ox O2 Del Method 10/21/21 07:56 36.7 C 66 16 116/84 98 Room Air 10/20/21 22:59 36.8 C 62 16 90/58 L 96 Room Air Diagnostic Findings CT Abdomen/Pelvis 10/21/21: IMPRESSION: 1. No bowel wall thickening or obstruction. 2. Mild bladder wall thickening. This could be due to underdistention. Recommend correlation with urinalysis. 3. Fluid-filled nondilated loops of large and small bowel seen throughout the abdomen. This may represent a diarrheal illness/gastroenteritis. 4. Trace bilateral pleural effusions, trace pericardial effusion, and trace pelvic free fluid. 5. Postoperative changes as described above. Urinalysis 10/21/21: PH= 8, otherwise negative, no leukocyte esterase Resident Activity Tracking Resident Involvement: Resident Care Provided Care Provided: Adult [facility]
[2021-10-21] MEDS ORDERED: methylPREDNISolone 40 MG in SYRINGE 0 ML IV ONE (12:15)
[2021-10-21] MEDS ORDERED: diphenhydrAMINE 50 MG/ML VIAL IV ONE (12:15)
[2021-10-21] MEDS ORDERED: OPTIRAY 300 100mL IV ONE (14:22)
--- NOTE | 2021-10-21 14:51 | CT Scan Report ---
ABDOMEN AND PELVIS CT WITH IV CONTRAST CT DOSE: 896.97 mGy.cm HISTORY: Left lower quadrant abdominal pain. TECHNIQUE: Multiaxial CT images of the abdomen and pelvis were performed following the use of intrave nous contrast. A dose lowering technique was utilized adhering to the principles of ALARA. COMPARISON STUDY: Abdomen and pelvis CT 04/27/2019. FINDINGS: Trace bilateral pleural effusions with mild dependent changes at the lung bases. There is a lso a trace pericardial effusion. The heart is normal in size. No fractures within the visualized oss eous structures. Prior mesh repair of an umbilical/supra umbilical hernia. Mild bladder wall thickeni ng. This is likely due to underdistention. Prior hysterectomy. Trace pelvic free fluid. Fluid-filled nondilated loops of large or small bowel seen throughout the abdomen. No evidence for bowel obstructi on. Prior appendectomy. Prior cholecystectomy. Small area of focal fat within the left hepatic lobe n ear the falciform ligament. The main portal vein is patent. The pancreas, spleen, adrenal glands, and kidneys are unremarkable. No hydronephrosis. Normal caliber abdominal aorta. No retroperitoneal lymp hadenopathy. IMPRESSION: 1. No bowel wall thickening or obstruction. 2. Mild bladder wall thickening. This could be due to underdistention. Recommend correlation with uri nalysis. 3. Fluid-filled nondilated loops of large and small bowel seen throughout the abdomen. This may repre sent a diarrheal illness/gastroenteritis. 4. Trace bilateral pleural effusions, trace pericardial effusion, and trace pelvic free fluid. 5. Postoperative changes as described above. ACT 112: Negative or not required by law. Electronically signed by: Teo Holman M.D. 10/21/2021 2:48 PM
[2021-10-21] MEDS ORDERED: cefTRIAXone SODIUM 1,000 MG in DEXTROSE 5% 50 ML IV SCH (17:00)
[2021-10-21 17:09] LABS: Appearance Urine Clear (Clear); Bilirubin Urine Negative (Negative); Blood Urine Negative (Negative); Color Urine Yellow; Glucose Urine UA Negative (Negative); Ketones Urine Negative (Negative); Leukocyte Esterase Urine Negative (Negative); Nitrite Urine Negative (Negative); Protein Urine Negative (Negative); Specific Gravity Urine 1.012 (1.000-1.030); Urobilinogen Urine Negative (Negative)
[2021-10-21] MEDS ORDERED: POTASSIUM CHLORIDE CRTAB 20 MEQ TABCR PO ONE (17:24)
[2021-10-21] MEDS: TOPIRAMATE 50 MG TAB PO SCH (20:25)
[2021-10-21] MEDS: QUEtiapine FUMARATE 100 MG TABLET PO SCH (20:25)
[2021-10-21] MEDS: hydrOXYzine HCl 25 MG TAB PO PRN (20:35)
[2021-10-22] MEDS: ONDANSETRON INJ 2 MG/ML 2 ML VIAL IV PRN ×3 (00:11→15:43)
[2021-10-22] MEDS: oxyCODONE HCL IR 5 MG TAB (IMMEDIATE RELEASE) PO PRN ×4 (03:04→18:46)
[2021-10-22] MEDS: PROMETHAZINE HCL 25 MG TAB PO PRN ×2 (03:04→20:03)
[2021-10-22] MEDS: LACTATED RINGER'S 1,000 ML IV SCH ×3 (03:05→19:14)
[2021-10-22] MEDS: HYDROmorphone INJ 0.5 MG/0.5 ML SYR IV PRN ×5 (05:02→20:02)
[2021-10-22 08:40] LABS: Hematocrit (blood only) 40.8 % (34.1-44.9); Hemoglobin 14.6 g/dl (12.0-16.0); Mean Corpuscular Hemoglobin 29.2 pg (25.0-34.0); Mean Corpuscular Hgb Conc 35.8 g/dL (32.0-36.0); Mean Corpuscular Volume 81.6 fL (80.0-100.0); Mean Platelet Volume 10.9 fL (9.4-12.3); Platelet Count 284 K/uL (130-400); RDW Coefficient of Variation 13.2 % (11.5-14.5); RDW Standard Deviation 38.6 fL (36.4-46.3); White Blood Count 10.49 K/ul (4.8-10.8)
--- NOTE | 2021-10-22 08:43 | Hospitalist Progress Note ---
Date of Service October 22, 2021 Assessment & Plan (1) Intractable vomiting with nausea: Plan: Kelsey is a 30 yo female with history of anxiety, depression, endometriosis, partial seizures, and PCOS who presented with 1-2 weeks of severe emesis. She notes that she has a history of severe abdominal pain causing emesis, but this episode was different, her primary concern was the emesis. Prior to admission patient had been treating her chronic pain with dabs and tinctures of marijuana. She was admitted for suspected Cannabinoid Hyperemesis. Intractable Nausea and Emesis (suspected 2/2 Canabinoid Hyperemesis) - Currently on Pepcid 20 mg BID, Protonix 40 mg BID, Zofran 4 mg q4hr PRN --- Avoiding cannabinoid containing agents - For abdominal pain: - mild- tylenol (650 mg q4hr) - moderate- oxycodone (5 mg q4hr) - 4 doses in last 24 h - severe- dilaudid (0.5 mg q4hr PRN) - 6 doses last 24 h, changed to q4h from q2h - Continues to receive Phenergan 25 mg and Zofran 4 mg for nausea, avoid Co mpazine - Pt finds that the heating pad helps with her pain/nausea - Pt's PO intake diminished 10/21, encouraged continued PO intake as tolerated (foods and liquids) ---Dispo pending pain control and establishment of appropriate PO management plan Abdominal Pain (chronic, acute exacerbation) - CTAP 10/21 indicated bladder wall thickening, no obstruction or bowel wall thickening, fluid-filled nondilated loops of large and small bowel seen throughout the abdomen which may represent a diarrheal illness/gastroenteritis - Received empiric dose of Rocephin, discontinued following negative UA results - UA obtained, no evidence of acute infection --- Stool cultures ordered 10/21 - uncollected - Pain management as above, previously controlled on PO marijuana Hypokalemia (Resolved) - K 3.6 - Repleted w/ 20 meq PO 10/21 - Will monitor Depression - Continue home duloxetine 40 mg PO - Continue home seroquel 100 mg qHS Anxiety - Continue home hydroxyzine PRN - Continue haloperidol 0.5 mg PRN (2) Cannabinoid hyperemesis syndrome: (3) Acute hypokalemia: (4) Abdominal pain: (5) Anxiety: (6) Failure of outpatient treatment: Plan DVT ppx: ambulation, consider pharmacologic if immobile Diet: regular as tolerated Fluids/electrolytes: LR 125 mL/hr, repleted K 20 meq KCl PO Dispo: med Admission and Anticipated Discharge Date Admission Date: October 20, 2021 Supervising Physician Co-Signing Physician Notes Patient seen and examined, chart reviewed, case discussed with Trish Armstrong, DO and I agree with the assessment and plan as above except as otherwise noted Labs and images reviewed Nausea has mostly improved, however patient has had substantial increase in return of pain for which she has previously tried multiple modalities including antiemetics, nonnarcotic, and narcotic pain control. Did have takedown of adhesions several years ago which helped her pain for some time and allowed her to get by with NSAIDs. She expresses frustration, anxiety, and is tearful as she was almost completely pain-free on medical marijuana and is frustrated that she had this experience of hyperemesis following it. Did discuss that given her benefit it is not unreasonable to give another trial of cannabinoids, but that most are related and there is a very high chance that she would have a relapsing episode. Expresses an understanding of this, and that given the risk and cost this is not an option for her. We will continue to increase pain control now that her pain seems to be increasing as her nausea wanes, patient would like to discuss adhesion takedown with surgery again. On exam patient continues to have left lower quadrant tenderness to palpation, no epigastric pain, symmetrical chest rise with lungs clear and heart rate regular, skin is warm and dry patient is tearful on reevaluation. Dawson Cole is a 30 yo female with history of anxiety, depression, endometriosis, partial seizures, and PCOS who presented with 1-2 weeks of severe emesis. She notes that she has a history of severe abdominal pain causing emesis, but this episode was different, her primary concern was the emesis. Prior to admission patient had been treating her chronic pain with dabs and tinctures of marijuana. She was admitted for suspected Cannabinoid Hyperemesis. Patient is s/p cholecystectomy, appendectomy, hysterectomy, two ovarian cyst removals, oophorectomy, umbilical hernia repair, and adhesion take-down. Patient received the adhesion lysis surgery due to chronic pain and notes that she had immediate relief following that procedure. 10/22/21: - Nausea is much improved, improved ability to eat, poor appetite remains (eating small meals) - Notes that as distance from last marijuana use lengthens her abdominal pain is worsening - Abdominal pain (LLQ 9/10) now worse than nausea - Endorses urgency and frequency of urination without dysuria, UA negative - Continues to move bowels and pass gas regularly, last bowel movement 10/21 - Does not feel she is pain controlled enough to function well at home Patient notes that she had had near complete pain control for over a year using marijuana. There were no dosing changes or administration route changes prior to presentation. 10/21/21: - Kelsey notes that her pain and nausea are worse than yesterday - Previously she had been nauseous with associated pain, now her pain is causing nausea - Patient continues to lack appetite - She notes LLQ pain and epigastric discomfort - Patient notes that she has 'pain flares' biannually and that she can typically manage then at home with cannabis - Previous pain flares would include severe nausea and vomitting 2/2 pain, but this episode was primarily nausea itself - She notes that now that she does not have the marijuana, she feels her nausea is secondary to worsening pain - She states that she has no dysuria, hematuria, or foul smelling urine - Patient continues to move bowels regularly and denies hematochezia or black tarry stools, no hx of bowel obstruction or IBD - Endorses headache 2/2 stress, this is not uncommon for her - Patient denies chest pain, palpitations, dyspnea, or pleuritic pain Kelsey is a patient of Dr. Peña. She has attempted multiple routes to treat her pain. She previously attempted physical therapy with minimal benefit. Review of Systems Review of Systems: See HPI Physical Exam Physical Exam: Gen: NAD, tearful Resp:Non-labored, no wheezing/rhonchi/rales, CTAB CV:RRR, normal S1/S2, no M/R/G Abd: Soft, non-distended, TTP in LLQ, no epigastric TTP, hypoactive bowels, no masses, no rebound tenderness, no dullness to percussion Extr: 2+ dp bilaterally, no edema Skin: No rashes lesions or erythema Results & Data Results & Data ([facility]) Vital Signs (Past 12 Hours) Vital Signs Temp Pulse Resp BP Pulse Ox O2 Del Method 10/22/21 08:28 36.5 C 60 16 128/82 96 Room Air 10/21/21 23:01 36.7 C 58 L 16 101/65 95 Room Air, Nasal Cannula Resident Activity Tracking Resident Involvement: Resident Care Provided Care Provided: Adult Hospital Medicine
[2021-10-22] MEDS: DULoxetine HCL 20 MG CAP PO SCH (09:18)
[2021-10-22] MEDS: FAMOTIDINE 20 MG in SYRINGE 3 ML IV SCH ×2 (09:18→20:02)
[2021-10-22 09:19] LABS: BUN Creatinine Ratio 5.3 (10-20); Calcium 9.4 mg/dl (8.5-10.1); Est GFR (African American) 93.7 ml/min; Est GFR (Non-African American) 80.8 ml/min; Potassium 3.6 mmol/L (3.5-5.1)
[2021-10-22] MEDS: PANTOprazole 40 MG in SYRINGE 0 ML IV SCH ×2 (09:19→20:02)
--- NOTE | 2021-10-22 14:02 | Billing Data ---
Date of Service October 22, 2021 Coding Level of Care Code 01450 Initial Inpt Care Lvl 2
--- NOTE | 2021-10-22 15:26 | Billing Data ---
Date of Service October 22, 2021 Coding Level of Care Code 78003 Subseq Hosp Care Lvl 2
[2021-10-22] MEDS: hydrOXYzine HCl 25 MG TAB PO PRN (20:03)
[2021-10-22] MEDS: QUEtiapine FUMARATE 100 MG TABLET PO SCH (20:03)
[2021-10-22] MEDS: TOPIRAMATE 50 MG TAB PO SCH (20:03)
[2021-10-23] MEDS: LACTATED RINGER'S 1,000 ML IV SCH ×3 (03:08→17:39)
[2021-10-23] MEDS: PROMETHAZINE HCL 25 MG TAB PO PRN ×2 (04:19→17:54)
[2021-10-23] MEDS: HYDROmorphone INJ 0.5 MG/0.5 ML SYR IV PRN ×5 (04:19→23:14)
--- NOTE | 2021-10-23 07:04 | Hospitalist Progress Note ---
Date of Service October 23, 2021 Assessment & Plan (1) Intractable vomiting with nausea: Plan: Kelsey is a 30 yo female with history of anxiety, depression, endometriosis, partial seizures, and PCOS who presented with 1-2 weeks of severe emesis. She notes that she has a history of severe abdominal pain causing emesis, but this episode was different, her primary concern was the emesis. Prior to admission patient had been treating her chronic pain with dabs and tinctures of marijuana. She was admitted for suspected Cannabinoid Hyperemesis. Intractable Nausea and Emesis (suspected 2/2 Cannabinoid Hyperemesis) - Nausea has significantly improved; current regimen: Pepcid 20 mg BID, Protonix 40 mg BID, Zofran 4 mg q4hr PRN(last dose 10/22) , and Phenergan 25 mg q6 prn (1 dose over past 24 hours) - Avoid any cannabinoid containing agents going forward - Fluids: lactated ringers at 125mls/hr; could consider d/c tomorrow if she continues to tolerate PO intake Abdominal Pain (chronic, acute exacerbation) - CTAP 10/21 indicated bladder wall thickening, no obstruction or bowel wall thickening, fluid-filled nondilated loops of large and small bowel seen throughout the abdomen which may represent a diarrheal illness/gastroenteritis - Received empiric dose of Rocephin, discontinued following negative UA results -Stool cultures ordered 10/21 - uncollected as she has not had a bowel movement - Pain regimen : - mild- Tylenol (650 mg q4hr) - moderate- oxycodone (5 mg q4hr) - 3 doses in last 24 h - severe- Dilaudid (0.5 mg q4hr PRN) - 3 doses last 24 h - Surgery saw pt and does not believe that there is a surgical option that will help with her pain at this time - Will add cyproheptadine at 2mg QID and increase duloxetine to 60mg - Could consider referral to psychiatry and/or pain management Depression - Home duloxetine 40 mg PO-> increase to 60mg - Continue home Seroquel 100 mg qHS Anxiety - Continue home hydroxyzine PRN - Continue haloperidol 0.5 mg PRN (2) Cannabinoid hyperemesis syndrome: (3) Acute hypokalemia: (4) Abdominal pain: (5) Anxiety: (6) Failure of outpatient treatment: Plan DVT ppx: ambulation, consider pharmacologic if immobile Diet: regular as tolerated Fluids/electrolytes: LR 125 mL/hr, repleted K 20 meq KCl PO Dispo: med Admission and Anticipated Discharge Date Admission Date: October 20, 2021 Supervising Physician Co-Signing Physician Notes Attending attestation Pt seen and examined in concert with Dr. Leger. In agreement with the documented findings as noted in the resident documentation with any exceptions or additions as noted here. Ongoing abdominal pain focused in the LLQ which was previously controlled with medical marijuana until recent cyclic vomiting which is improving. On examination, S1/S2 nl RRR no MCG. CTAB. Abd ND, LLQ TTP BS+ve. Nursing notes and VS reveiwed. Chronic LLQ abdominal pain - continue dilaudid, oxycodone. Add ciproheptadine. Increase duloxetine to 60mg. Intractable nausea/vomiting - improving - continue antiemetics, encourage POI, education re: impact of medical marijuana Anxiety - poorly controlled. Increased duloxetine and consider transition to zyprexa vs. continue haldol w/ h/o failure of seroquel Else see resident documentation as noted. Dawson Cole is a 30 yo female with history of anxiety, depression, endometriosis, partial seizures, and PCOS who presented with 1-2 weeks of severe emesis. She notes that she has a history of severe abdominal pain causing emesis, but this episode was different, her primary concern was the emesis. Prior to admission patient had been treating her chronic pain with dabs and tinctures of marijuana. She was admitted for suspected Cannabinoid Hyperemesis. Patient is s/p cholecystectomy, appendectomy, hysterectomy, two ovarian cyst removals, oophorec katy, umbilical hernia repair, and adhesion take-down. Patient received the adhesion lysis surgery in 2019 due to chronic pain and notes that she had immediate relief following that procedure, but pain relief only lasted for a few months. She has chronic LLQ pain secondary to adhesions which was well controlled over the past year with marijuana. Nausea has significantly improved and she has been able to tolerate solids and is drinking fluids. Pain in LLQ is the same from yesterday. Rates 5-6/10, does not radiate. No bowel movement since 10/21. Denies any urinary symptoms; urgency, frequency, dysuria. Review of Systems Review of Systems: As per HPI Physical Exam Physical Exam: Constitutional: well-appearing, no acute distress HEENT: NCAT, no conjunctival injection CV: regular rhythm, no murmur appreciated, extremities well-perfused, no LE edema Resp: CTABL, no wheezes/rales/rhonchi appreciated, no increased work of breathing GI:normal bowel sounds, soft, nondistended, tender in LLQ without rebound or guarding MSK: no gross deformities appreciated Skin: warm, dry, no rash appreciated Neuro: alert, oriented, no focal neurologic deficit appreciated Results & Data Results & Data ([facility]) Vital Signs (Past 12 Hours) Vital Signs Temp Pulse Resp BP Pulse Ox O2 Del Method 10/22/21 22:10 36.8 C 66 16 125/78 95 Room Air Resident Activity Tracking Resident Involvement: Resident Care Provided Care Provided: Adult Hospital Medicine
[2021-10-23 07:42] LABS: Hematocrit (blood only) 40.7 % (34.1-44.9); Hemoglobin 14.3 g/dl (12.0-16.0); Mean Corpuscular Hemoglobin 28.9 pg (25.0-34.0); Mean Corpuscular Hgb Conc 35.1 g/dL (32.0-36.0); Mean Corpuscular Volume 82.2 fL (80.0-100.0); Mean Platelet Volume 10.7 fL (9.4-12.3); Platelet Count 269 K/uL (130-400); RDW Coefficient of Variation 13.4 % (11.5-14.5); RDW Standard Deviation 39.2 fL (36.4-46.3); Red Blood Count 4.95 M/uL (3.93-5.22); White Blood Count 9.35 K/ul (4.8-10.8)
[2021-10-23] MEDS: oxyCODONE HCL IR 5 MG TAB (IMMEDIATE RELEASE) PO PRN ×3 (07:42→20:13)
[2021-10-23] MEDS: DULoxetine HCL 20 MG CAP PO SCH (07:43)
[2021-10-23 08:01] LABS: BUN Creatinine Ratio 6.7 (10-20); Calcium 8.7 mg/dl (8.5-10.1); Creatinine Clr Calc Pharmacy 90.4 ml/min; Est GFR (African American) 82.9 ml/min; Est GFR (Non-African American) 71.5 ml/min; Potassium 3.6 mmol/L (3.5-5.1)
[2021-10-23] MEDS: PANTOprazole 40 MG in SYRINGE 0 ML IV SCH ×2 (08:30→20:10)
[2021-10-23] MEDS: FAMOTIDINE 20 MG in SYRINGE 3 ML IV SCH ×2 (08:30→20:10)
--- NOTE | 2021-10-23 15:11 | Surgery Consultation ---
Date of Consultation October 23, 2021 Assessment & Plan (1) Abdominal pain, LLQ: This is a 30yF with a past medical/surgical history of anxiety/depression, hysterectomy, R oophorectomy, appendectomy, cholecystectomy, and a diagnostic laparoscopy with lysis of adhesion on 10/2018 for left lower quadrant pain, who presents to the [facility] on 10/17/21 with complaints of nausea/vomiting over the last 2 weeks. Leading diagnosis at this time is cannabinoid hyperemesis syndrome. Her nausea/vomiting have since improved, however now her chronic LLQ pain has returned. On examination patient's abdomen is soft, non distended, and she endorses discomfort to light palpation in the LLQ. Vital signs are stable and labs today are unremarkable. There is no clear etiology of her pain. Recommend ongoing pain control, will need assistance in finding an outpt regimen given she will be off the cannabis. May need f/u with GI and possibly a 2nd opinion from another surgeon for LLQ pain. Dr. Connolly who initially performed her lysis of adhesions saw patient in follow up in 09/2020 and had no plans for further surgical intervention at that time given no clear indications. CT scan without evidence of any surgical issues this admission. No plans for surgery from our point of view. (2) Cannabinoid hyperemesis syndrome: Supervising Physician Co-Signing Physician Notes Dr. Kimpatient with hyperemesis which has improved and chronic abdominal pain. Her CT scan shows no significant abnormalities and is not obstructed. Seeing her in her room she her affect is completely normal. See above note. There is no indication for urgent surgical intervention-she may consider follow- up as an outpatient as she has seen surgeons From this hospital and also been operated on by surgeons at [facility]. I do feel GI may help with her management-she apparently has seen Dr. Kim, who is with [facility]. No plan for urgent surgical intervention-we will sign off History of Present Illness Attending Physician: Cezar Peña MD History of Present Illness This is a 30yF with a past medical/surgical history of anxiety/depression, hysterectomy, R oophorectomy, appendectomy, cholecystectomy, and a diagnostic laparoscopy with lysis of adhesion on 10/2018 for left lower quadrant pain, who presents to the [facility] on 10/17/21 with complaints of nausea/vomiting. Patient states her n/v was present over the last 2 weeks and she has had low oral intake since then. Leading diagnosis at this time is cannabinoid hyperemesis syndrome. Patient reports she has been on cannabis for pain control over the last year and that it has worked very well for her. Since she has been off of it from the start of this hospitalization her LLQ pain has returned over the last 2 days. This has been a chronic problem for her. She did have a dx lap with lysis of adhesions 2019 for this same pain and, she felt immediate relief s/p surgery and was doing well for about 1 year after until the pain returned. At that point she got her marijuana card and has seen PT and has used heat with some relief. She has been worked up extensively in the past to clarify etiology of her pain including GI, urological, gynecological work ups without any obvious diagnosis. She requested to be seen by surgery this admission to discuss the possibility of adhesive disease contributing to her pain and if there is any consideration to lysis of adhesions again. She did have a CT a/p this admission which made mention of possible bladder wall thickening as well as fluid filled loops of bowel concerning for gastroenteritis. Allergies Allergy/AdvReac Type Severity Reaction Status Date / Time clavulanic acid Allergy Unknown "anxiety" Verified 10/14/21 18:26 Iodinated Contrast Media Allergy Unknown RASH,SWELLI Verified 10/14/21 18:26 NG iodine Allergy Unknown SWELLING Verified 10/14/21 18:26 mushroom Allergy Unknown hives Verified 10/14/21 18:26 Home Medications Medication Instructions Recorded Confirmed Type omeprazole 40 mg capsule,delayed 40 mg PO HS 02/22/20 10/17/21 History release hydroxyzine HCl 50 mg tablet 50 - 100 mg PO HS PRN Anxiety 04/11/21 10/17/21 History topiramate 50 mg tablet 50 mg PO HS 04/11/21 10/17/21 History estradiol 0.025 mg/24 hr weekly 1 patch transdermal WK 04/25/21 10/17/21 History transdermal patch ondansetron 4 mg disintegrating 4 mg PO Q6H PRN nausea and 04/25/21 10/17/21 Rx tablet vomiting #12 tabs duloxetine 20 mg capsule,delayed 40 mg PO QAM 10/14/21 10/17/21 History release haloperidol 0.5 mg tablet 0.5 mg PO DAILY PRN Anxiety 10/14/21 10/17/21 History hydroxyzine HCl 10 mg tablet 5 - 10 mg PO BID PRN Anxiety 10/14/21 10/17/21 History ondansetron 4 mg disintegrating 4 mg PO Q6H PRN nausea and 10/14/21 10/17/21 Rx tablet vomiting #12 tabs ondansetron 8 mg disintegrating 8 mg PO Q8 PRN Nausea And Vomiting 10/14/21 10/17/21 History tablet oxycodone 5 mg tablet 5 mg PO Q6 PRN Pain 10/14/21 10/17/21 History quetiapine 100 mg tablet 100 mg PO HS 10/14/21 10/17/21 History sulfamethoxazole 800 1 tab PO BID 10/14/21 10/17/21 History mg-trimethoprim 160 mg tablet Patient History Medical History Anxiety Depression Endometriosis 2 para 2 H/O partial seizures Myofascial pain PCOS (polycystic ovarian syndrome) Surgical History H/O exploratory laparotomy (11/06/18) Diagnostic Laparoscopy with Enterolysis Dr. Connolly 11/06/18 H/O hysterectomy with unilateral oophorectomy right tube/ovary removed History of appendectomy History of cholecystectomy History of ovarian cystectomy 2013 History of umbilical hernia repair 07/09/19 History of wisdom tooth extraction Family History Grandfather Parkinson's disease Lung cancer Grandfather (Maternal) Diabetes Father Heart disease Grandfather (Paternal) Heart disease Hypertension Dyslipidemia Grandmother (Paternal) Heart disease Hypertension Dyslipidemia Aunt Breast cancer 3 out of 4 paternal great aunts Uncle Colorectal cancer paternal Social History Smoking Status: Never smoker Second Hand Exposure: No; Do You Dip or Chew Tobacco: No; Tobacco Cessation Education Requested by Patient: No Hx Alcohol Use: No Hx Substance Use: Yes Prescribed Medications: Marijuana Last Used Substance: Days (ago) Last Used Substance Other:: prescribed mairjuana last used 10/13/21 Preferred Language: Lithuanian Communication Ability: Effective Visual Impairment: No Limitations Modular Home Crew Member Required: No Beliefs That Will Affect Care: None marital status: Current Living Situation: Spouse and Family Current Living Situation Comment: 2 children at home, ages 3 and 18 months Feels Safe at Home: Yes Safety Concerns: Feels Safe At This Time Assistive Devices: None Review of Systems Constitutional: + anorexia; no fever and no chills Respiratory: no dyspnea Cardiovascular: no chest pain Gastrointestinal: + abdominal pain (LLQ), + nausea and + vomiting; no change in bowel habits Physical Exam Physical Exam: awake/alert, no distress Respiratory: normal respiratory effort Gastrointestinal (Abdomen): Inspection/Auscultation: + abdominal surgical scar; abdomen not distended Percussion/Palpation: + abdomen tender (endorses pain with palpation in llq) and abdomen soft Results & Data ([facility]) Vital Signs (Past 12 Hours) Vital Signs Temp Pulse Resp BP Pulse Ox O2 Del Method 10/23/21 07:35 36.6 C 60 18 123/82 98 Room Air Diagnostic Findings ABDOMEN AND PELVIS CT WITH IV CONTRAST CT DOSE: 896.97 mGy.cm HISTORY: Left lower quadrant abdominal pain. TECHNIQUE: Multiaxial CT images of the abdomen and pelvis were performed following the use of intravenous contrast. A dose lowering technique was utilized adhering to the principles of ALARA. COMPARISON STUDY: Abdomen and pelvis CT 04/27/2019. FINDINGS: Trace bilateral pleural effusions with mild dependent changes at the lung bases. There is also a trace pericardial effusion. The heart is normal in size. No fractures within the visualized osseous structures. Prior mesh repair of an umbilical/supra umbilical hernia. Mild bladder wall thickening. This is likely due to underdistention. Prior hysterectomy. Trace pelvic free fluid. Fluid-filled nondilated loops of large or small bowel seen throughout the abdomen. No evidence for bowel obstruction. Prior appendectomy. Prior cholecystectomy. Small area of focal fat within the left hepatic lobe near the falciform ligament. The main portal vein is patent. The pancreas, spleen, adrenal glands, and kidneys are unremarkable. No hydronephrosis. Normal caliber abdominal aorta. No retroperitoneal lymphadenopathy. IMPRESSION: 1. No bowel wall thickening or obstruction. 2. Mild bladder wall thickening. This could be due to underdistention. Recommend correlation with urinalysis. 3. Fluid-filled nondilated loops of large and small bowel seen throughout the abdomen. This may represent a diarrheal illness/gastroenteritis. 4. Trace bilateral pleural effusions, trace pericardial effusion, and trace pelvic free fluid. 5. Postoperative changes as described above. ACT 112: Negative or not required by law. Electronically signed by: Teo Holman M.D. 10/21/2021 2:48 PM PG Care Time/CCT Total # of Minutes Spent Total Time Spent with Patient: Total time spent is greater than 50% in coordination of care (as documented) at patient's floor/unit and/or counseling patient: Coding Level of Care Code 25715 Inpt Consult Level 2 Diagnoses Abdominal pain, LLQ R10.32 Cannabinoid hyperemesis syndrome R11.2; F12.90
[2021-10-23] MEDS: CYPROHEPTADINE HCL 4 MG TAB PO SCH ×2 (17:44→20:11)
[2021-10-23] MEDS: TOPIRAMATE 50 MG TAB PO SCH (20:11)
[2021-10-23] MEDS: hydrOXYzine HCl 25 MG TAB PO PRN (20:13)
[2021-10-23] MEDS: QUEtiapine FUMARATE 100 MG TABLET PO SCH (20:13)
[2021-10-23] MEDS: SUCRALFATE 1 GM/10 ML UDC PO SCH (20:20)
[2021-10-23 22:17] LABS: Adenovirus F 40/41 PCR Not Detected (NotDetected); Astrovirus PCR Not Detected (NotDetected); Campylobacter PCR Not Detected (NotDetected); Clostridium diff Toxin A/B PCR Not Detected (NotDetected); Cryptosporidium PCR Not Detected (NotDetected); Cyclospora cayetanensis PCR Not Detected (NotDetected); Entamoeba histolytica PCR Not Detected (NotDetected); Enteroaggregative E.coli(EAEC) Not Detected (NotDetected); Enteropathogenic E.coli (EPEC) Not Detected (NotDetected); Enterotoxigenic E.coli (ETEC) Not Detected (NotDetected); Giardia lamblia PCR Not Detected (NotDetected); Norovirus GI/GII PCR Not Detected (NotDetected); Plesiomonas shigelloides PCR Not Detected (NotDetected); Rotavirus A PCR Not Detected (NotDetected); Salmonella PCR Not Detected (NotDetected); Sapovirus PCR Not Detected (NotDetected); Shiga-like Toxin E.coli (STEC) Not Detected (NotDetected); Shigella/Enteroinvasive E.coli Not Detected (NotDetected); Vibrio cholerae PCR Not Detected (NotDetected); Vibrio species PCR Not Detected (NotDetected); Yersinia enterocolitica PCR Not Detected (NotDetected)
[2021-10-24] MEDS: LACTATED RINGER'S 1,000 ML IV SCH ×2 (01:54→10:11)
[2021-10-24] MEDS: HYDROmorphone INJ 0.5 MG/0.5 ML SYR IV PRN ×4 (06:09→20:24)
--- NOTE | 2021-10-24 06:48 | Hospitalist Progress Note ---
Date of Service October 24, 2021 Assessment & Plan (1) Intractable vomiting with nausea: Plan: Kelsey is a 30 yo female with history of anxiety, depression, endometriosis, partial seizures, and PCOS who presented with 1-2 weeks of severe emesis. She notes that she has a history of severe abdominal pain causing emesis, but this episode was different, her primary concern was the emesis. Prior to admission patient had been treating her chronic pain with dabs and tinctures of marijuana. She was admitted for suspected Cannabinoid Hyperemesis. Intractable Nausea and Emesis (suspected 2/2 Cannabinoid Hyperemesis) - Nausea has significantly improved; current regimen: Pepcid 20 mg BID, Protonix 40 mg BID, Zofran 4 mg q4hr PRN(last dose 10/22) , and Phenergan 25 mg q6 prn (1 dose over past 24 hours) - Avoid any cannabinoid containing agents going forward; Compazine - Tolerating good oral intake; will d/c fluids Abdominal Pain (chronic, acute exacerbation) - CTAP 10/21 indicated bladder wall thickening, no obstruction or bowel wall thickening, fluid-filled nondilated loops of large and small bowel seen througho ut the abdomen which may represent a diarrheal illness/gastroenteritis - Received empiric dose of Rocephin, discontinued following negative UA results -Stool cultures ordered negative - Pain regimen : - mild- Tylenol (650 mg q4hr) - moderate- oxycodone (5 mg q4hr) - 2 doses in last 24 h - severe- Dilaudid (0.5 mg q4hr PRN) - 5 doses last 24 h - Surgery saw pt and does not believe that there is a surgical option that will help with her pain at this time - Continue cyproheptadine at 2mg QID, duloxetine to 60mg, and sucralfate 1 gm ACHS - Could consider transitioning to zyprexa vs continuing the haldol (prior history of seroquel failure); will discuss with psychiatry Depression - Home duloxetine 40 mg PO-> increase to 60mg - Continue home Seroquel 100 mg qHS Anxiety - Continue home hydroxyzine PRN - Continue haloperidol 0.5 mg PRN (2) Cannabinoid hyperemesis syndrome: (3) Acute hypokalemia: (4) Abdominal pain: (5) Anxiety: (6) Failure of outpatient treatment: Plan DVT ppx: ambulation, consider pharmacologic if immobile Diet: regular as tolerated Fluids/electrolytes: LR 125 mL/hr, repleted K 20 meq KCl PO Dispo: med Admission and Anticipated Discharge Date Admission Date: October 20, 2021 Supervising Physician Co-Signing Physician Notes Attending attestation Pt seen and examined in concert with Dr. Leger. In agreement with the documented findings as noted in the resident documentation with any exceptions or additions as noted here. Waxing and waning chronic abdominal pain focused in the LLQ. Resolved nausea/ vomiting, tolerating pain medication. On examination, S1/S2 nl RRR no MCG. CTAB. Abd ND, LLQ TTP BS+ve. Nursing notes and VS reveiwed. Chronic LLQ abdominal pain - continue dilaudid, oxycodone, ciproheptadine, duloxetine. Consider addition of fentanyl patch for basal pain control tomorrow if no improvement. Surgical consult appreciated. Anxiety - poorly controlled. Continue duloxetine, Seroquel, haloperidol. Consider addition of clonidine patch. Intractable nausea/vomiting - improving - continue antiemetics PRN, encourage POI. Else see resident documentation as noted. Dawson Cole is a 30 yo female with history of anxiety, depression, endometriosis, partial seizures, and PCOS who presented with 1-2 weeks of severe emesis. She notes that she has a history of severe abdominal pain causing emesis, but this episode was different, her primary concern was the emesis. Prior to admission patient had been treating her chronic pain with dabs and tinctures of marijuana. She was admitted for suspected Cannabinoid Hyperemesis. Patient is s/p cholecystectomy, appendectomy, hysterectomy, two ovarian cyst removals, oophorectomy, umbilical hernia repair, and adhesion take-down. Patient received the adhesion lysis surgery in 2019 due to chronic pain and notes that she had immediate relief following that procedure, but pain relief only lasted for a few months. She has chronic LLQ pain secondary to adhesions which was well controlled over the past year with marijuana. Nausea has significantly improved and she has been able to tolerate solids and is drinking fluids. Pain in LLQ is the same from yesterday. Rates 5-6/10, does not radiate. Is having bowel movements.. Denies any urinary symptoms; urgency, frequency, dysuria. Review of Systems Review of Systems: As per HPI Physical Exam Physical Exam: Constitutional: well-appearing, no acute distress HEENT: NCAT, no conjunctival injection CV: regular rhythm, no murmur appreciated, extremities well-perfused, no LE edema Resp: CTABL, no wheezes/rales/rhonchi appreciated, no increased work of breathing GI:normal bowel sounds, soft, nondistended, tender in LLQ without rebound or guarding MSK: no gross deformities appreciated Skin: warm, dry, no rash appreciated Neuro: alert, oriented, no focal neurologic deficit appreciated Results & Data Results & Data ([facility]) Vital Signs (Past 12 Hours) Vital Signs Temp Pulse Resp BP Pulse Ox O2 Del Method 10/23/21 20:21 36.9 C 73 16 101/69 96 Room Air Resident Activity Tracking Resident Involvement: Resident Care Provided Care Provided: Adult Hospital Medicine
[2021-10-24] MEDS: SUCRALFATE 1 GM/10 ML UDC PO SCH ×4 (07:57→20:29)
[2021-10-24] MEDS: oxyCODONE HCL IR 5 MG TAB (IMMEDIATE RELEASE) PO PRN ×3 (07:57→23:21)
[2021-10-24] MEDS: PROMETHAZINE HCL 25 MG TAB PO PRN (08:00)
[2021-10-24 08:07] LABS: Hematocrit (blood only) 38.9 % (34.1-44.9); Hemoglobin 13.6 g/dl (12.0-16.0); Mean Corpuscular Hemoglobin 28.8 pg (25.0-34.0); Mean Corpuscular Volume 82.4 fL (80.0-100.0); Mean Platelet Volume 10.8 fL (9.4-12.3); Platelet Count 267 K/uL (130-400); RDW Coefficient of Variation 13.4 % (11.5-14.5); Red Blood Count 4.72 M/uL (3.93-5.22); White Blood Count 8.29 K/ul (4.8-10.8)
[2021-10-24] MEDS: PANTOprazole 40 MG in SYRINGE 0 ML IV SCH ×2 (08:39→20:28)
[2021-10-24] MEDS: DULoxetine HCL 60 MG CAP PO SCH (08:42)
[2021-10-24] MEDS: CYPROHEPTADINE HCL 4 MG TAB PO SCH ×4 (08:42→20:30)
[2021-10-24] MEDS: FAMOTIDINE 20 MG in SYRINGE 3 ML IV SCH ×2 (09:49→20:28)
[2021-10-24] MEDS: TOPIRAMATE 50 MG TAB PO SCH (20:29)
[2021-10-24] MEDS: QUEtiapine FUMARATE 100 MG TABLET PO SCH (20:29)
[2021-10-24] MEDS: hydrOXYzine HCl 25 MG TAB PO PRN (20:31)
[2021-10-25] MEDS: HYDROmorphone INJ 0.5 MG/0.5 ML SYR IV PRN ×3 (03:54→13:37)
[2021-10-25 08:01] LABS: Mean Corpuscular Hemoglobin 28.7 pg (25.0-34.0); Mean Corpuscular Volume 82.1 fL (80.0-100.0); Mean Platelet Volume 10.4 fL (9.4-12.3); Platelet Count 254 K/uL (130-400); RDW Coefficient of Variation 13.2 % (11.5-14.5); RDW Standard Deviation 39.5 fL (36.4-46.3); Red Blood Count 4.87 M/uL (3.93-5.22); White Blood Count 8.36 K/ul (4.8-10.8)
[2021-10-25] MEDS: SUCRALFATE 1 GM/10 ML UDC PO SCH ×2 (08:09→11:37)
[2021-10-25] MEDS: PROMETHAZINE HCL 25 MG TAB PO PRN ×2 (08:09→15:52)
[2021-10-25] MEDS: PANTOprazole 40 MG in SYRINGE 0 ML IV SCH (08:12)
[2021-10-25] MEDS: FAMOTIDINE 20 MG in SYRINGE 3 ML IV SCH (08:12)
[2021-10-25] MEDS: CYPROHEPTADINE HCL 4 MG TAB PO SCH ×2 (08:15→12:44)
[2021-10-25] MEDS: DULoxetine HCL 60 MG CAP PO SCH (08:15)
[2021-10-25 08:27] LABS: Albumin Globulin Ratio 1.9 (0.9-2); Albumin Level 3.8 gm/dl (3.4-5.0); BUN Creatinine Ratio 4.2 (10-20); Bilirubin,Total 0.8 mg/dl (0.2-1.0); Calcium 8.9 mg/dl (8.5-10.1); Est GFR (African American) 92.5 ml/min; Est GFR (Non-African American) 79.8 ml/min; Potassium 3.3 mmol/L (3.5-5.1); Total Protein 5.8 gm/dl (6.0-8.3)
[2021-10-25] MEDS ORDERED: POTASSIUM CHLORIDE CRTAB 20 MEQ TABCR PO STA (08:56)
[2021-10-25] MEDS: oxyCODONE HCL IR 5 MG TAB (IMMEDIATE RELEASE) PO PRN ×2 (10:27→15:52)
--- NOTE | 2021-10-25 11:25 | Discharge Summary ---
Date of Service October 25, 2021 Admission HPI Per Admitting Provider Patient is a very pleasant 30-year-old female known to me from prior hospital admissions, and I discussed the case personally with her PCP. She had actually had a degree of chronic abdominal pain really since her last hospital dischargebut notes that she was able to keep it under very good control largely with marijuana. Unfortunately over the last week or 2 she started to develop intractable nausea vomiting and epigastric paincame to the ER, was deemed likely to have cannabis hyperemesis, was instructed to stop cannabis, and was discharged home. While she has stopped cannabis entirely as of about 4 days ago, she has still had ongoing intractable nausea and vomiting, not really able to keep food or fluids down, and a lot of abdominal pain. She notes that she has 2 discrete areas abdominal painepigastric which is really what is the major problem, she relates it largely to the nausea and vomiting, as well as a lower sort of suprapubic/deep pelvic painwhich seems at least at this point to be much less noticeable (whether or not it is from distracting pain is not clear), but this is much more of her chronic pain. She has not had a bowel movement in several days. She was assessed by her PCP who felt that she needed better pain and nausea control, IV fluids, and then possibly a new/revamped plan for chronic pain if still neededgiven that cannabis is no longer an optionand felt that the acuity of her failure to thrive/dehydration, as well as the severity of her symptoms warranted inpatient managementwhich I agreed. To that end she was direct admitted to our service. Admission Exam Per Admitting Provider In general she is awake and alert oriented pleasant but does appear quite uncomfortable. HEENT normocephalic atraumatic mucous membranes slightly dry. Cardio regular without rubs murmurs or gallops. Lungs are clear to auscultation bilaterally no rales rhonchi or wheezes with good effort. No accessory muscle use. Abdomen is soft mildly distended. Mild suprapubic tenderness without guarding rebound or rigidity. Fairly severe epigastric tenderness that also appears to cause nausea to palpationI do not believe I feel any discrete trigger points in the area, fortunately she has no guarding rebound or rigidity, and outside of mild distention the rest of her abdomen is benign. Extremities without sinus clubbing or edema no calf tenderness. Skin shows no rashes no pallor or icterus. Neuro shows cranial nerves II through XII be grossly intact gross motor and sensory are intact. She has an appropriate mood and affect of the situationpleasant but somewhat anxious and upset. Good recent and remote recall. Musculoskeletal shows no gross abnormalities. Principal Diagnosis Cannabinoid Hyperemesis Syndrome Discharge Exam Constitutional: well-appearing, no acute distress HEENT: NCAT, no conjunctival injection CV: regular rhythm, no murmur appreciated, extremities well-perfused, no LE edema Resp: CTABL, no wheezes/rales/rhonchi appreciated, no increased work of breathing GI:normal bowel sounds, soft, nondistended, tender in LLQ without rebound or guarding MSK: no gross deformities appreciated Skin: warm, dry, no rash appreciated Neuro: alert, oriented, no focal neurologic deficit appreciated Discharge Data Allergies Allergy/AdvReac Type Severity Reaction Status Date / Time clavulanic acid Allergy Unknown "anxiety" Verified 10/14/21 18:26 Iodinated Contrast Media Allergy Unknown RASH,SWELLI Verified 10/14/21 18:26 NG iodine Allergy Unknown SWELLING Verified 10/14/21 18:26 mushroom Allergy Unknown hives Verified 10/14/21 18:26 Consultations 10/23/21 13:34 Consult General Surgery Routine Ordered Studies 10/21/21 11:53 CT Abd and Pelvis [CT abd pelvis IV con only] Routine ABDOMEN AND PELVIS CT WITH IV CONTRAST CT DOSE: 896.97 mGy.cm HISTORY: Left lower quadrant abdominal pain. TECHNIQUE: Multiaxial CT images of the abdomen and pelvis were performed following the use of intravenous contrast. A dose lowering technique was utilized adhering to the principles of ALARA. COMPARISON STUDY: Abdomen and pelvis CT 04/27/2019. FINDINGS: Trace bilateral pleural effusions with mild dependent changes at the lung bases. There is also a trace pericardial effusion. The heart is normal in size. No fractures within the visualized osseous structures. Prior mesh repair of an umbilical/supra umbilical hernia. Mild bladder wall thickening. This is likely due to underdistention. Prior hysterectomy. Trace pelvic free fluid. Fluid-filled nondilated loops of large or small bowel seen throughout the abdomen. No evidence for bowel obstruction. Prior appendectomy. Prior cholecystectomy. Small area of focal fat within the left hepatic lobe near the falciform ligament. The main portal vein is patent. The pancreas, spleen, adrenal glands, and kidneys are unremarkable. No hydronephrosis. Normal caliber abdominal aorta. No retroperitoneal lymphadenopathy. IMPRESSION: 1. No bowel wall thickening or obstruction. 2. Mild bladder wall thickening. This could be due to underdistention. Recommend correlation with urinalysis. 3. Fluid-filled nondilated loops of large and small bowel seen throughout the abdomen. This may represent a diarrheal illness/gastroenteritis. 4. Trace bilateral pleural effusions, trace pericardial effusion, and trace pelvic free fluid. 5. Postoperative changes as described above. Hospital Course (1) Intractable vomiting with nausea: Kelsey is a 30 yo female with history of anxiety, depression, endometriosis, partial seizures, and PCOS who presented with 1-2 weeks of severe emesis. She notes that she has a history of severe abdominal pain causing emesis, but this episode was different, her primary concern was the emesis. Prior to admission patient had been treating her chronic pain with dabs and tinctures of marijuana. She was admitted for suspected Cannabinoid Hyperemesis. Intractable Nausea and Emesis (suspected 2/2 Cannabinoid Hyperemesis) - Presented with nausea and vomiting related to medical marijuana use for her chronic abdominal pain.Was started on Zofran and Phenergan in addition to Pepcid and Protonix for her nausea and was given IV fluids. Ultimately her nausea improved to the point where she was able to tolerate a full diet. She was discharged with Phenergan. Avoid any cannabinoid containing agents going forward. Abdominal Pain (chronic, acute exacerbation) - She has chronic abdominal pain secondary to multiple abdominal surgeries which was well controlled with medical marijuana prior to this admission. CTAP 9/3 indicated bladder wall thickening, no obstruction or bowel wall thickening, fluid-filled nondilated loops of large and small bowel seen throughout the abdomen which may represent a diarrheal illness/gastroenteritis. - Received empiric dose of Rocephin, discontinued following negative UA results -Stool cultures were negative - Surgery saw pt and does not believe that there is a surgical option that will help with her pain at this time -Ultimately we were able to wean her pain regimen to 5mg oxycodone q6 prior to discharge. We also added cyproheptadine at 2mg, which could be titrated up in the outpatient setting. We increased her duloxetine to 60mg, and added sucr alfate 1 gm ACHS Depression - Home duloxetine 40 mg PO-> increase to 60mg - Continue home Seroquel 100 mg qHS Anxiety - Continue home hydroxyzine PRN - Continue haloperidol 0.5 mg PRN - Could consider addition of clonidine patch as an outpatient (2) Cannabinoid hyperemesis syndrome: (3) Acute hypokalemia: (4) Abdominal pain: (5) Anxiety: (6) Failure of outpatient treatment: Total Time Total Time Spent Total Time Spent (In Minutes): 40 Discharge Plan Discharge Items Patient Disposition: Home - Self-Care Reason For Visit: INTRACTABLE NAUSEA/VOMITING Discharge Diagnosis: Cannabinoid hyperemesis Chronic Abdominal Pain Anxiety Activity: Resume your previous activity Non-emergency contact: Primary Care Provider Call non-emergency contact if: you have any medication questions and your pain is not controlled Follow-up/Referrals: Cezar Peña MD [Primary Care Provider] - 11/01/21 7:50 am (APPT WITH DR REID) Diet: Regular Addtl Attending Provider Instructions: You were admitted to the hospital for nausea and vomiting that was caused by cannabinoid hyperemesis. We gave your fluids and medications to help with the nausea. Going forward avoid marijuana and products that may contain cannabinoids, as they could cause nausea to return again. For your abdominal pain imaging was done and surgery was consulted, but surgical procedures would be recommended at this time. Will will send you with oxycodone for pain control until your follow up appointment with Dr. Peña. We also started you on cyproheptadine and sucralfate, which will send a prescription for to your pharmacy. We increased your duloxetine from 40mg to 60mg. A discharge summary will be sent to your primary care physician to ensure continuity of care. Please bring this discharge summary with you to your next office appointment so that your provider can review it at that time. Follow-up appointments: We have requested a follow-up appointment with your primary care physician within one week of discharge. Please call their office if you do not hear from them. Medications: Your medication list has been reviewed and reconciled upon discharge to ensure accuracy and continuity of care. An updated list of all your medications is included with your hospital discharge paperwork. Please review this list closely, and make note of any changes. We sent a new medication called oxycodone to your pharmacy. Take oxycodone 5 mg as needed for pain up to every 6 hours. We sent a new medication called cyproheptadine to your pharmacy. Take cyproheptadine 2mg with meals and at bedtime. We sent a new medication called sucralfate to your pharmacy. Take sucralfate 1 g with meals and at bedtime. - We increased your duloxetine to 60mg. - We sent a number of medications for constipation. If you have any issues filling these prescriptions, please call [phone] and ask to leave a message for Dr. Leger. Take your medications as instructed; do not skip a dose of your medicines. Make sure all of your doctors know every medicine you are taking (including [id number] medicines, vitamins, and supplements). Call your primary care provider before taking any new medicines (including over- the-counter medicines, vitamins, and supplements), because some of these may interact with your current medications, or may make your symptoms worse. Tell your primary care provider if you cannot afford your medications. CONTACT YOUR PRIMARY CARE PROVIDER if you experience any of the following: Your nausea returns Your pain is not controlled Difficulty following your treatment plan, or difficulty taking medications CALL 911 OR GO TO THE EMERGENCY DEPARTMENT if you experience any of the following: chest pain or shortness of breath intractable nausea and vomiting Pending Studies at Discharge: No Stand-Alone Forms: My [facility] Medications and DC Order Prescriptions: New polyethylene glycol 3350 [Miralax] 17 gram Powder In Packet 17 g PO DAILY PRN (Reason: constipation) 30 Days Qty: 30 0RF sucralfate 100 mg/mL Suspension 1 g PO ACHS 30 Days Qty: 300 0RF cyproheptadine 4 mg Tablet 2 mg PO QID 30 Days Qty: 60 0RF magnesium hydroxide [Milk of Magnesia] 400 mg/5 mL Suspension 30 ml PO Q6H PRN (Reason: constipation) 30 Days Qty: 355 0RF promethazine 25 mg Tablet 25 mg PO Q6H PRN (Reason: nausea and vomiting) 30 Days Qty: 30 0RF MAG-AL 200-200 mg/5 mL Suspension 30 ml PO Q6H PRN (Reason: constipation) 30 Days Qty: 3000 0RF duloxetine 60 mg Capsule,Delayed Release(Dr/Ec) 60 mg PO QAM 30 Days Qty: 30 0RF oxycodone 5 mg tablet 5 mg PO Q6H MDD 25mg PRN (Reason: abdominal discomfort) Qty: 60 0RF oxycodone 5 mg tablet 5 mg PO Q6H MDD 25 mg PRN (Reason: pain) Qty: 60 0RF Continued hydroxyzine HCl 50 mg tablet 50 - 100 mg PO HS PRN (Reason: Anxiety) topiramate 50 mg tablet 50 mg PO HS omeprazole 40 mg capsule,delayed release(DR/EC) 40 mg PO HS estradiol 0.025 mg/24 hr patch weekly 1 patch transdermal WK Rx Instructions: Saturday quetiapine 100 mg tablet 100 mg PO HS ondansetron 8 mg tablet,disintegrating 8 mg PO Q8 PRN (Reason: Nausea And Vomiting) hydroxyzine HCl 10 mg tablet 5 - 10 mg PO BID PRN (Reason: Anxiety) haloperidol 0.5 mg tablet 0.5 mg PO DAILY PRN (Reason: Anxiety) ondansetron 4 mg tablet,disintegrating 4 mg PO Q6H PRN (Reason: nausea and vomiting) Qty: 12 0RF Discontinued ondansetron 4 mg tablet,disintegrating 4 mg PO Q6H PRN (Reason: nausea and vomiting) Qty: 12 0RF sulfamethoxazole-trimethoprim 800-160 mg tablet 1 tab PO BID Rx Instructions: ordered 10/12/21 take for 7 days oxycodone 5 mg tablet 5 mg PO Q6 PRN (Reason: Pain) duloxetine 20 mg capsule,delayed release(DR/EC) 40 mg PO QAM Discharge Orders: Discharge Order (Routine); Ordered 10/25/21 Ordered By: Fartun Grimes/Other Patient Handouts: ED Vomiting (Adult) Admission Data Admit Date/Time: 10/20/21 11:58 Attending Provider: Cezar Peña Admit Provider: Zeeshan Stanton Primary Care Provider: Cezar Peña Other Providers: Antolin Kim Other Interventions: Discharge Summary Assessment (RN) Last Done: 10/25/21 13:11 Supervising Physician Co-Signing Physician Notes Attending attestation Pt seen and examined in concert with Dr. Leger. In agreement with the documented findings as noted in the resident documentation with any exceptions or additions as noted here. Abdominal pain adequately controlled on oxycodone 5mg q6 hours with good BM and without further N/V. Nursing notes and VS reveiwed. On examination, S1/S2 nl RRR no MCG. CTAB. Abd ND, LLQ TTP BS+ve. Chronic LLQ abdominal pain - discharge on cyproheptadine, duloxetine 60mg and oxycodone 5mg q6h with max 25mg daily and close PCP f/u. Anxiety - poorly controlled. Continue duloxetine, Seroquel, haloperidol. Consider addition of clonidine patch as outpatient based on response. Intractable nausea/vomiting - improving - continue antiemetics PRN, encourage POI. Else see resident documentation as noted. Total attending physician time spent with this patient's care on the day of discharge: 40 minutes.
--- NOTE | 2021-10-25 17:43 | Electrocardiogram Report ---
Test Reason : Blood Pressure : / mmHG Vent. Rate : 069 BPM Atrial Rate : 069 BPM P-R Int : 144 ms QRS Dur : 070 ms QT Int : 380 ms P-R-T Axes : 039 024 096 degrees QTc Int : 407 ms Normal sinus rhythm Low voltage QRS T wave abnormality, consider lateral ischemia Abnormal ECG When compared with ECG of 14-OCT-2021 17:43, Non-specific change in ST segment in Inferior leads QT has shortened Confirmed by Tavares Perez ([id number]) on 10/25/2021 5:43:42 PM Referred By: Zeeshan Stanton Confirmed By:Antonio Perez
== END 2021-10-25 16:23 | disposition home or self-care (01) | DRG 392 ==
LOC: 3N → SUATTDRO 17:30

== ENCOUNTER 2024-01-09 08:52 | Inpatient (IN) ==
--- NOTE | 2024-01-09 09:26 | Emergency Department Note ---
Impression & Plan Cannabinoid hyperemesis syndrome, Acute dehydration, Intractable nausea and vomiting, Leukocytosis ED Provider Note NAME: MADELYN HOPE AGE: 33 SEX: F : 1990 ARRIVES VIA: Walk-In INFORMANT: Patient ED PROVIDER(S): Bruce Giles MD CHIEF COMPLAINT: Intractable nausea and vomiting. PLAN: Disposition: Admit MEDICAL DECISION MAKING: The patient is a 33-year-old woman with a past medical history of cannabis hyperemesis syndrome, endometriosis, PCOS who presents to the emergency department via walk-in accompanied by her for evaluation of intractable nausea and vomiting that began several days ago. Patient reports she has not used marijuana in the past 2 days but her symptoms have persisted. She denies fevers, cough or congestion. Denies any diarrhea. She is moving her bowels normally. The patient was last admitted to this facility in October 2021 for intractable nausea and vomiting related to her CHS. However the patient describes other hospitalizations elsewhere such as in [place] in 2022. On evaluation the patient is uncomfortable in no acute distress, afebrile heart in the 90s and blood pressure 140s/100s in the setting of discomfort. She exhibits generalized abdominal discomfort without discrete tenderness. There is a component of distractibility. EKG without overt acute ischemia or QTc prolongation. WBC 17.8 K with neutrophilia but no left shift likely reactive in the setting of intractable vomiting. Hemoglobin is 16.2 consistent with patient's clinically dry appearance as are platelets of 4 48K consistent with hemoconcentration. Chemistry with mild anion gap metabolic acidosis with gap of 16 and bicarbonate of 18 in the setting of poor oral intake for several days per her report. LFTs are unremarkable. Lipase is normal. hCG negative. Chest x-ray was negative for acute cardiopulmonary process. No evidence of pneumothorax, pneumomediastinum or pleural effusion. The patient was treated with IV fluid hydration, IV famotidine, diphenhydramine, Reglan. The patient denied any improvement in her symptoms however was noted to have resolution of her intractable retching. She was additionally given IV fluid hydration with D5 normal saline given her poor oral intake. Initially Haldol in normal saline ordered as an IV fluid bolus however the patient reported to her RN that she had experienced torsades to this in the past. Upon review of the patient's record we could not find any information regarding such an event. She reports this occurred when she was admitted in 2022 in [place]. Patient has received droperidol at our facility in the past. The patient reports what works for her is morphine and Phenergan. She was informed that we would not provide narcotics in the emergency department for her symptoms at this time as it is not in her best interest. We agreed to proceed with trial of dicyclomine and Phenergan. The patient remained symptomatic and so she agreed with referral to hospitalist service for admission and further management. Case was discussed with Dr. Regalado, [facility] hospitalist, who will evaluate the patient for admission. Further management per admitting team. Triage Nursing notes reviewed and agree them. Prior/external medical records reviewed Vital Signs: reviewed Differential diagnosis: Gastroenteritis, food borne illness, infections, appendicitis, diverticulitis, inflammatory bowel disease, obstruction, GI bleed, biliary pathology, volvulus, as well as other pathologies. ER treatment provided: See below. Diagnostics interpreted by me: ECG: Sinus rhythm with sinus arrhythmia, 69 bpm, nonspecific T wave abnormality, no overt ST elevation depression, QTc 447, QRS 70. Cardiac Monitoring: An order for continuous cardiac monitoring was placed and demonstrated inus rhythm with sinus arrhythmia, 69 bpm, Laboratory studies: See below Imaging studies: See below Consultation(s): Case was discussed with Dr. Regalado [facility] hospitalist, who will evaluate the patient for admission. HPI: The patient is a 33-year-old woman with a past medical history of cannabis hyperemesis syndrome, endometriosis, PCOS who presents to the emergency department via walk-in accompanied by her for evaluation of intractable nausea and vomiting that began several days ago. Patient reports she has not used marijuana in the past 2 days but her symptoms have persisted. She denies fevers, cough or congestion. Denies any diarrhea. She is moving her bowels normally. ROS: See above HPI for pertinent positives & negatives. A total of 10 systems reviewed and were otherwise negative. VITALS:See Below PHYSICAL EXAMINATION: GENERAL: Awake, alert, uncomfortable-appearing, in no distress HENT: Normocephalic, atraumatic. Oropharynx with dry mucous membranes and otherwise unremarkable. EYES: Normal conjunctiva. Sclera non-icteric. NECK: Supple. No nuchal rigidity. FROM. No JVD. No crepitus. RESPIRATORY: Clear to auscultation. CARDIAC: Regular rate, normal rhythm. Extremities warm and well perfused. Pulses equal. ABDOMEN: Soft, non-distended. Generalized abdominal discomfort without discrete tenderness. There is a component of distractibility. MUSCULOSKELETAL: Chest examination reveals no tenderness. No crepitus. The back is symmetrical on inspection without obvious abnormality. There is no CVA tenderness to palpation. No joint edema. LOWER EXTREMITIES: Calves are equal size bilaterally and non-tender. No edema. No discoloration. NEURO: Normal sensorium. No sensory or motor deficits noted. SKIN: No rash or jaundice noted. Bruce Giles MD Past Med/Surg History Problem List Leukocytosis (Acute) Intractable nausea and vomiting (Acute) Bipolar 2 disorder Proctocolitis Medical marijuana use Acute dehydration (Acute) Cannabinoid hyperemesis syndrome (Acute) Abdominal pain (Acute) Constipation (Acute) Gastroenteritis (Acute) Gastroenteritis (Acute) Intractable vomiting (Acute) LLQ abdominal pain (Acute) Left ovarian cyst (Acute) Nausea, vomiting, and diarrhea (Acute) Nausea, vomiting, and diarrhea (Acute) Pelvic pain (Acute) Pelvic pain (Acute) UTI (lower urinary tract infection) (Acute) Urinary tract infection (Acute) Urinary tract infection (Acute) Vaginal bleeding (Acute) Encounter for pre-operative examination Seizure (Acute 04/22/12) Ovarian cyst (Acute) Oral contraceptive pill surveillance (Acute) Encounter for routine gynecological examination (Acute) Encounter for initial prescription of contraceptives (Acute) Dyspareunia (Acute) Hx laparoscopic cholecystectomy (Acute 04/22/12) Tension-type headache, not intractable Migraine without aura, not intractable, without status migrainosus Abdominal pain, LLQ (Acute) Endometriosis (Acute) Failure of outpatient treatment (Acute) Hypomagnesemia Microscopic hematuria Abdominal pain, chronic, left lower quadrant Anxiety Depression PCOS (polycystic ovarian syndrome) H/O partial seizures last 2015--taken off meds over a year ago, no current issues--follows with Dr. Annita Pond Medical History Nausea and vomiting after administration of anesthetic agent Migraine History of COVID-19 11/2020--mild symptoms, no symptoms now Cannabinoid hyperemesis syndrome Intractable vomiting with nausea Hypokalemia 2 para 2 Endometriosis Surgical History History of left oophorectomy History of colonoscopy History of esophagogastroduodenoscopy (EGD) History of surgical procedure on eye proper using laser History of wisdom tooth extraction History of umbilical hernia repair 07/09/19 History of ovarian cystectomy 2013 H/O exploratory laparotomy (11/06/18) Diagnostic Laparoscopy with Enterolysis Dr. Connolly 11/06/18 H/O hysterectomy with unilateral oophorectomy right tube/ovary removed History of appendectomy History of cholecystectomy Family History Grandfather Lung cancer Parkinson's disease Grandfather (Maternal) Diabetes Father Heart disease Grandfather (Paternal) Dyslipidemia Heart disease Hypertension Grandmother (Paternal) Dyslipidemia Heart disease Hypertension Aunt Breast cancer 3 out of 4 paternal great aunts Uncle Colorectal cancer paternal Other No family history of adverse response to anesthesia Social History Smoking Status: Never smoker Second Hand Exposure: No; Do You Dip or Chew Tobacco: No; Hx Alcohol Use: Yes ("very rarely 1-2 drinks a year") Alcohol type: beer and wine Hx Substance Use: Yes (medical marijuana use (advised on policy)) Prescribed Medications: Marijuana Last Used Substance: Days (ago) Preferred Language: French Communication Ability: Effective Visual Impairment: No Limitations Supervisor [employer] Required: No Beliefs That Will Affect Care: None marital status: Current Living Situation: Spouse and Family Current Living Situation Comment: Lives with and 2 kids Feels Safe at Home: Yes Assistive Devices: None Allergies Allergies Allergy/AdvReac Type Severity Reaction Status Date / Time clavulanic acid Allergy Severe extreme Verified 05/30/23 14:52 vomiting Iodinated Contrast Media Allergy Intermediate RASH,SWELLING Verified 05/30/23 14:52 in hands iodine Allergy Intermediate SWELLING Verified 05/30/23 14:52 mushroom Allergy Intermediate hives Verified 05/30/23 14:52 shellfish derived Allergy Intermediate Hives Verified 05/30/23 14:52 cariprazine [From Vraylar] AdvReac Intermediate hallucinati Verified 05/30/23 14:52 ons Home Meds Home Medications Medication Instructions Recorded Confirmed estradiol 0.025 mg/24 hr weekly 1 patch transdermal UD 04/25/21 01/09/24 transdermal patch hydroxyzine HCl 10 mg tablet 5 - 10 mg PO UD PRN Anxiety 10/14/21 01/09/24 aprepitant 80 mg capsule (Emend) 80 mg PO UD 09/04/22 01/09/24 duloxetine 30 mg capsule,delayed 30 mg PO HS 09/04/22 01/09/24 release duloxetine 60 mg capsule,delayed 60 mg PO UD 09/04/22 01/09/24 release lumateperone 42 mg capsule 42 mg PO HS 09/04/22 01/09/24 (Caplyta) nadolol 20 mg tablet 20 mg PO UD 05/30/23 01/09/24 promethazine 25 mg tablet 25 mg PO Q6H PRN n/v 05/30/23 01/09/24 trazodone 50 mg tablet 50 mg PO UD 05/30/23 01/09/24 oxycodone 5 mg tablet 5 mg PO Q8H PRN Pain, Severe 01/09/24 01/09/24 tizanidine 2 mg tablet 2 mg PO UD PRN Other 01/09/24 01/09/24 Results & Data (ED) Vital Signs Vital Signs - 24 hr 01/09/24 08:57 01/09/24 09:41 01/09/24 10:30 Temperature 36.5 C Temperature Source Temporal Artery Scan Pulse Rate 97 H Pulse Rate [Left Finger] 75 75 Pulse Rhythm Regular Pulse Strength Normal Respiratory Rate 22 20 18 Respiratory Effort / Characteristics Non-Labored Spontaneous Non-Labored Spontaneous Non-Labored Spontaneous Respiratory Depth Normal Normal Normal Respiratory Pattern Regular Blood Pressure [Right Arm] 149/108 H 125/91 Blood Pressure Mean [Right Arm] 121 102 Blood Pressure Position Sitting Pulse Oximetry 94 98 95 Oxygen Delivery Method Room Air Room Air Room Air Sepsis Recent Fever Within 48 Hours No Sepsis New/Unexplained Change in Mental Status No Sepsis Action Taken by Nursing No Action Required 01/09/24 11:26 01/09/24 12:02 Temperature Temperature Source Pulse Rate Pulse Rate [Left Finger] 92 H Pulse Rhythm Pulse Strength Respiratory Rate 20 Respiratory Effort / Characteristics Non-Labored Respiratory Depth Normal Respiratory Pattern Blood Pressure [Right Arm] 122/88 Blood Pressure Mean [Right Arm] 99 Blood Pressure Position Pulse Oximetry 97 Oxygen Delivery Method Room Air Room Air Sepsis Recent Fever Within 48 Hours Sepsis New/Unexplained Change in Mental Status Sepsis Action Taken by Nursing Laboratory Data Attestation: I reviewed the patient's lab results. 01/09/24 09:35 01/09/24 09:35 Lab Results 01/09/24 Range/Units 09:35 WBC 17.88 H (4.8-10.8) K/ul RBC 5.53 H (4.20-5.40) M/uL Hgb 16.2 H (12.0-16.0) g/dl Hct 45.1 (37.0-47.0) % MCV 81.6 (80.0-100.0) fL MCH 29.3 (25.0-34.0) pg MCHC 35.9 (32.0-36.0) g/dL RDW Std Deviation 35.3 L (36.4-46.3) fL RDW Coeff of Bowen 11.9 (11.5-14.5) % Plt Count 440 H (130-400) K/uL MPV 10.6 (9.4-12.4) fL Immature Gran % (Auto) 0.3 % Neut % (Auto) 73.5 % Lymph % (Auto) 19.2 % [place] % (Auto) 5.5 % Eos % (Auto) 1.1 % Baso % (Auto) 0.4 % Neut # (Auto) 13.12 H (1.40-6.50) K/uL Lymph # (Auto) 3.44 H (1.20-3.40) K/uL [place] # (Auto) 0.98 H (0.11-0.59) K/uL Eos # (Auto) 0.20 (0.00-0.50) K/uL Baso # (Auto) 0.08 (0.00-0.20) K/uL Immature Gran # (Auto) 0.06 (0.01-0.20) K/uL PT 10.9 (9.0-12.0) Seconds INR 1.0 (0.9-1.1) Sodium 143 (136-145) mmol/L Potassium 3.8 (3.5-5.1) mmol/L Chloride 109 H (98-107) mmol/L Carbon Dioxide 18 L (21-32) mmol/L Anion Gap 16 H (3-11) BUN 9 (6-23) mg/dl Creatinine 1.02 (0.6-1.2) mg/dl Est Cr Clr Drug Dosing 83.5 ml/min eGFR 74.03 BUN/Creatinine Ratio 8.8 L (10-20) Glucose 136 H (70-99(Fasting)) mg/dl Calcium 10.6 H (8.6-10.3) mg/dl Magnesium 1.7 (1.7-2.4) mg/dl Total Bilirubin 0.9 (0.2-1.0) mg/dl Direct Bilirubin 0.1 (0-0.2) mg/dl AST 21 (13-39) U/L ALT 14 (7-52) U/L Alkaline Phosphatase 89 (34-104) U/L Total Protein 8.1 (6.0-8.3) gm/dl Albumin 4.9 (3.4-5.0) gm/dl Globulin 3.2 (2.5-4.0) gm/dl Albumin/Globulin Ratio 1.5 (0.9-2) Lipase 24 (11-82) U/L HCG, Qual Negative (Negative) Administered Medications Parenteral Electrolytes (Plasma-Lyte A Ph 7.4) 1,000 mls @ 999 mls/hr IV .Q1H1M CYNDI Stop: 01/09/24 22:45 Last Admin: 01/09/24 20:50 Dose: 999 mls/hr Documented By: MAC Morphine Sulfate (Morphine Sulfate 2 Mg/Ml Carp) 1 mg IV Q4H PRN PRN Reason: Mod/Severe Pain (6-10) on NRS Stop: 01/23/24 16:49 Last Admin: 01/09/24 20:51 Dose: 1 mg Documented By: MAC Oxycodone HCl (Oxycodone Hcl Ir 5 Mg Tab (Immediate Release)) 5 mg PO Q8H PRN PRN Reason: Pain, Severe Stop: 01/23/24 16:49 Last Admin: 01/09/24 18:57 Dose: 5 mg Documented By: MHN Discontinued Medications Dicyclomine HCl (Dicyclomine Hcl 10 Mg/Ml 2 Ml Amp/Vial) 20 mg IM NOW ONE Stop: 01/09/24 11:55 Last Admin: 01/09/24 12:04 Dose: 20 mg Documented By: MMG Diphenhydramine HCl (Diphenhydramine 50 Mg/Ml Vial) 25 mg IV NOW STA Stop: 01/09/24 09:14 Last Admin: 01/09/24 09:34 Dose: 25 mg Documented By: TOBY Diphenhydramine HCl (Diphenhydramine 50 Mg/Ml Vial) 25 mg IV ONE ONE Stop: 01/09/24 13:05 Last Admin: 01/09/24 13:19 Dose: 25 mg Documented By: TEJ Sodium Chloride (Nss) 1,000 mls @ 999 mls/hr IV .Q1H1M ONE Stop: 01/09/24 10:13 Last Infusion: 01/09/24 10:40 Dose: Infused Documented By: Admin: 01/09/24 09:34 Dose: 999 mls/hr Documented By: TOBY Famotidine (Pepcid 20mg Iv Push) 20 mg in 5 mls @ 2.5 mls/min IV NOW STA Stop: 01/09/24 09:14 Last Admin: 01/09/24 09:34 Dose: 2.5 mls/min Documented By: TOBY Haloperidol Lactate 5 mg/ (Sodium Chloride) 501 mls @ 1,002 mls/hr IV NOW STA Stop: 01/09/24 11:52 Last Admin: 01/09/24 11:55 Dose: Not Given Documented By: TEJ Dextrose/Sodium Chloride (D5w And Nss) 1,000 mls @ 999 mls/hr IV .Q1H1M CYNDI Stop: 01/10/24 11:29 Last Admin: 01/09/24 14:10 Dose: Not Given Documented By: Infusion: 01/09/24 13:14 Dose: Infused Documented By: Admin: 01/09/24 11:46 Dose: Not Given Documented By: Admin: 01/09/24 11:46 Dose: Not Given Documented By: Admin: 01/09/24 11:39 Dose: 999 mls/hr Documented By: TEJ Ioversol (Optiray 320 100ml) 94 ml IV ONCE ONE Stop: 01/09/24 13:37 Last Admin: 01/09/24 13:37 Dose: 94 ml Documented By: LEANA Lorazepam (Lorazepam 2 Mg/1 Ml Vial) 0.5 mg IV NOW STA Stop: 01/09/24 11:27 Last Admin: 01/09/24 11:39 Dose: 0.5 mg Documented By: TEJ Lorazepam (Lorazepam 2 Mg/1 Ml Vial) 0.5 mg IV NOW STA Stop: 01/09/24 15:49 Last Admin: 01/09/24 16:26 Dose: 0.5 mg Documented By: DEEPIKAG Methylprednisolone (Methylprednisolone 125 Mg/2 Ml Vial) 40 mg IV NOW ONE Stop: 01/09/24 13:05 Last Admin: 01/09/24 13:10 Dose: Not Given Documented By: MMG Methylprednisolone (Methylprednisolone 125 Mg/2 Ml Vial) 125 mg IV NOW ONE Stop: 01/09/24 13:05 Last Admin: 01/09/24 13:19 Dose: 125 mg Documented By: MMRishi Metoclopramide HCl (Metoclopramide Hcl Inj 5 Mg/Ml 2 Ml Vial) 10 mg IV NOW STA Stop: 01/09/24 09:14 Last Admin: 01/09/24 09:34 Dose: 10 mg Documented By: TOBY Morphine Sulfate (Morphine Sulfate 2 Mg/Ml Carp) 1 mg IV NOW STA Stop: 01/09/24 13:08 Last Admin: 01/09/24 13:19 Dose: 1 mg Documented By: TEJ Promethazine HCl (Promethazine Hcl Inj 25 Mg/Ml 1 Ml Vial) 25 mg IM NOW STA Stop: 01/09/24 11:51 Last Admin: 01/09/24 12:04 Dose: 25 mg Documented By: TEJ Imaging Data Radiologist's Impression: Chest X-Ray 01/09/24 09:13 XR chest 1V portable CLINICAL HISTORY: Abdominal pain, nausea and vomiting. COMPARISON STUDY: Chest radiograph April 23, 2023. FINDINGS: Lung volumes are normal. Lungs are clear. There is no pneumothorax or pleural effusion. Cardiac size is normal. Mediastinal contours are normal. There is no evidence for pulmonary edema. Left lateral chest wall battery pack with associated lead projecting anterior to the sternum is unchanged in position. IMPRESSION: No acute cardiopulmonary findings. ACT 112: Negative or not required by law. Electronically signed by: Adalberto Angulo M.D. 01/09/2024 10:43 AM Abdomen/Pelvis CT 01/09/24 13:04 CT OF THE ABDOMEN AND PELVIS WITH CONTRAST CLINICAL HISTORY: LLQ abd pain; intractable vomiting COMPARISON STUDY: CT of the abdomen and pelvis October 21, 2021. KUB July 04, 2023. TECHNIQUE: Following IV administration of 94 mL of Optiray, axial images of the abdomen and pelvis were obtained from the lung bases to the proximal femurs. Images were reviewed in the axial, sagittal, and coronal planes. IV contrast was administered without complication. Automated exposure control was utilized for the study. A dose lowering technique was utilized adhering to the principles of ALARA. CT DOSE: 1197.6 mGy.cm FINDINGS: There is mild circumferential wall thickening of the distal esophagus. No pneumatosis, free air or portal venous gas is present. There is no biliary ductal dilatation status post cholecystectomy. Spleen, adrenal glands, kidneys and pancreas are unremarkable. There is no pancreatic ductal dilatation or hydronephrosis. Umbilical hernia repair with mesh is incidentally noted. There is no evidence for a bowel obstruction. The appendix is likely surgically absent. No fluid collections are present. Major vasculature is patent. Wall thickening of the colon and rectum is probably due to underdistention. IMPRESSION: 1. Mild circumferential wall thickening distal esophagus suggestive of esophagitis. 2. No bowel obstruction. 3. Mild colorectal wall thickening. This is likely due to underdistention however a mild nonspecific proctocolitis could appear similar. ACT 112: Negative or not required by law. Electronically signed by: Adalberto Angulo M.D. 01/09/2024 2:05 PM Discharge Plan Visit Data Chief Complaint: Vomiting Stated Complaint: ABD PAIN, VOMITING, REF BY DOC ED Provider: Bruce Giles Discharge Problem: Cannabinoid hyperemesis syndrome, Acute dehydration, Intractable nausea and vomiting, Leukocytosis Patient Disposition: Admitted As Inpatient Discharge Instructions Interventions: ED Discharge Assessment Last Done: 01/09/24 16:51 Discharge Problem: Leukocytosis Qualifiers: Leukocytosis type: unspecified Qualified Code(s): D72.829 - Elevated white blood cell count, unspecified
[2024-01-09] MEDS: SODIUM CHLORIDE 0.9% 1,000 ML IV ONE (09:34)
[2024-01-09] MEDS: METOCLOPRAMIDE HCL INJ 5 MG/ML 2 ML VIAL IV STA (09:34)
[2024-01-09] MEDS: FAMOTIDINE 20MG IV PUSH 20 MG/5 ML SYR IV STA (09:34)
[2024-01-09] MEDS: diphenhydrAMINE 50 MG/ML VIAL IV STA (09:34)
[2024-01-09 09:59] LABS: Basophils # (auto) 0.08 K/uL (0.00-0.20); Basophils % (auto) 0.4 %; Eosinophils % (auto) 1.1 %; Hematocrit (blood only) 45.1 % (37.0-47.0); Hemoglobin 16.2 g/dl (12.0-16.0); Immature Granulocytes # (auto) 0.06 K/uL (0.01-0.20); Immature Granulocytes % (auto) 0.3 %; Lymphocytes # (auto) 3.44 K/uL (1.20-3.40); Lymphocytes % (auto) 19.2 %; Mean Corpuscular Hemoglobin 29.3 pg (25.0-34.0); Mean Corpuscular Hgb Conc 35.9 g/dL (32.0-36.0); Mean Corpuscular Volume 81.6 fL (80.0-100.0); Mean Platelet Volume 10.6 fL (9.4-12.4); Monocytes # (auto) 0.98 K/uL (0.11-0.59); Monocytes % (auto) 5.5 %; Neutrophils # (auto) 13.12 K/uL (1.40-6.50); Neutrophils % (auto) 73.5 %; Platelet Count 440 K/uL (130-400); RDW Coefficient of Variation 11.9 % (11.5-14.5); RDW Standard Deviation 35.3 fL (36.4-46.3); Red Blood Count 5.53 M/uL (4.20-5.40); White Blood Count 17.88 K/ul (4.8-10.8)
[2024-01-09 10:13] LABS: Pregnancy Test, Serum Negative (Negative)
[2024-01-09 10:15] LABS: Albumin Globulin Ratio 1.5 (0.9-2); Albumin Level 4.9 gm/dl (3.4-5.0); BUN Creatinine Ratio 8.8 (10-20); Bilirubin Direct 0.1 mg/dl (0-0.2); Bilirubin,Total 0.9 mg/dl (0.2-1.0); Calcium 10.6 mg/dl (8.6-10.3); Creatinine Clr Calc Pharmacy 83.5 ml/min; Globulin 3.2 gm/dl (2.5-4.0); Potassium 3.8 mmol/L (3.5-5.1); Total Protein 8.1 gm/dl (6.0-8.3)
[2024-01-09 10:26] LABS: Prothrombin Time 10.9 Seconds (9.0-12.0)
--- NOTE | 2024-01-09 10:45 | XRay Report ---
XR chest 1V portable CLINICAL HISTORY: Abdominal pain, nausea and vomiting. COMPARISON STUDY: Chest radiograph April 23, 2023. FINDINGS: Lung volumes are normal. Lungs are clear. There is no pneumothorax or pleural effusion. Car diac size is normal. Mediastinal contours are normal. There is no evidence for pulmonary edema. Left lateral chest wall battery pack with associated lead projecting anterior to the sternum is unchanged in position. IMPRESSION: No acute cardiopulmonary findings. ACT 112: Negative or not required by law. Electronically signed by: Adalberto Angulo M.D. 01/09/2024 10:43 AM
[2024-01-09] MEDS: LORazepam 2 MG/1 ML VIAL IV STA ×2 (11:39→16:26)
[2024-01-09] MEDS: D5W AND NSS 1,000 ML IV SCH (11:39)
[2024-01-09] MEDS: HALOPERIDOL LACTATE 5 MG in SODIUM CHLORIDE 0.9% 500 ML IV STA (11:55)
[2024-01-09] MEDS: PROMETHAZINE HCL INJ 25 MG/ML 1 ML VIAL IM STA (12:04)
[2024-01-09] MEDS: DICYCLOMINE HCL 10 MG/ML 2 ML AMP/VIAL IM ONE (12:04)
--- NOTE | 2024-01-09 12:39 | History & Physical Report ---
Date of Service January 09, 2024 Assessment & Plan (1) Intractable vomiting: Plan: Worsening LLQ abdominal pain and intractable nausea and vomiting that began on Wednesday 01/03, but became much worse on 01/06 H/o cyclic vomiting syndrome / cannabinoid hyperemesis syndrome (admission 10/2021) Patient does endorse marijuana use; last use 3 days prior to admission However, she reports the pain in her LLQ is significantly more than what she normally experiences with cyclic vomiting syndrome hCG negative Leukocytosis at 17.88 with a neutrophil predominance; afebrile, but patient is profusely sweating in the room ? Stress demargination v. Infectious etiology Patient does have history of chronic abdominal pain for which he uses medical marijuana and oxycodone A/P CT with IV contrast ordered, pending Discussed this with patient beforehand; she reports she does have a mild contrast allergy; premedicated with Solu-Medrol 125 mg IV and Benadryl 25 mg IV N.p.o. for now with IV fluid resuscitation Once tolerating fluids, encourage p.o. intake in the setting of national IVF shortage IM Phenergan 12.5 mg q6h as needed for vomiting Would avoid Compazine as it is made her "jittery" in the past Re: Zofran; QTc 447 on arrival; patient reports history of "torsades", but unable to find this in the chart (has had Zofran in the past, but would caution use) IV Pepcid and Protonix IV pain control with acetaminophen Morphine 1 mg IV q4h as needed for breakthrough pain; would not escalate Heat application as needed Aprepitant 80mg p.o. x 1 on the morning of 01/09 A.m. CBC, BMP, mag (2) Cannabinoid hyperemesis syndrome: Plan: Capsaicin TID PRN (3) Proctocolitis: Plan: Lactate ordered, pending (4) Bipolar 2 disorder: Plan: Will temporarily hold Lumateperone as it is non-formulary and interacts with aprepitant Note: while on aprepitant, it is recommended to reduce lumaterperone to 21mg p.o. daily Patient takes lumateperone 42mg p.o. BID capsules, which can not be split If continuing aprepitant over hospital course, hold for 24 hours prior to discharge prior to discharge (5) LLQ abdominal pain: (6) Medical marijuana use: (7) H/O partial seizures: (8) Anxiety: (9) Depression: (10) PCOS (polycystic ovarian syndrome): Plan Disposition: Admit to [facility] Full code N.p.o. for now, then advance diet as tolerated VTE PPx: SCDs History of Present Illness Chief Complaint: Intractable vomiting, LLQ abdominal pain Primary Care Provider: Tavares Peña MD Kelsey is a 33-year-old female with PMH of PCOS, partial seizures, anxiety, depression, endometriosis, migraines, and hyperemesis syndrome. She presented on 01/08 for intractable vomiting and left upper/lower quadrant abdominal pain. She reports that the pain began gradually on Saturday, and she was to able to tolerate solids and fluids. However over the past 2 days, the pain and vomiting have become unbearable. She is unable to tolerate solids and fluids. She has been dry heaving regularly and producing bowel meant with bile. No blood in her vomit to her knowledge. She does have a history of abdominal surgeries and reports that her gallbladder and appendix were both removed. No history of bowel obstruction, diverticulitis, IBS, Crohn's, or UC. Patient did not take her regular morning medicine, last took medications last night. She did take Phenergan this morning, but reports it did not help with her vomiting. While she does have a history of cyclic vomiting syndrome, she reports that this feels different and that she does not usually have this much pain, or if she does it usually subsides fairly quickly. She reports the pain is in her left upper and lower quadrants, mainly in the LLQ. She rates the pain 8/10 at worst, and 6/10 at present. She says it is constant, but there are waves of cramping. Patient reports that she has been taking oxycodone for the pain at home up until yesterday. She takes oxycodone regularly for chronic pain in her lower abdomen/pelvis. No sick contacts to her knowledge. Patient does endorse using marijuana 3 days ago. She denies any recent alcohol use over the course of her current illness. She denies tobacco use and any illicit drug use. Additionally, patient reports that she has an ICD in place due to history of cardiac arrest in November 2022 and May 2023 (note: was unable to find this information in her chart). Patient also reported to the ED she has a history of torsades (this was the reason Haldol was not given). Additionally, patient reports she does have a mild allergy to IV contrast; she reports that her finger started to swell last time she received IV contrast; she reports she is amenable to having a CT A/P if she is premedicated before hand. Patient's vitals are stable at time of admission. ED course: Dextrose/sodium chloride 1000 mL IV Famotidine 20 mg IV Benadryl 25 mg IV Metoclopramide 10 mg IV Lorazepam 0.5 mg IV Phenergan 25 mg IM Bentyl 20 mg IM ROS: Patient endorses sweating, abdominal pain, loose stool, Patient denies fever, chills, dizziness, lightheadedness, chest pain, chest palpitations, SOB, coughing, hematemesis, blood in the urine/stool, changes in urinary/bowel habits (besides loose stool). Allergies Allergy/AdvReac Type Severity Reaction Status Date / Time clavulanic acid Allergy Severe extreme Verified 05/30/23 14:52 vomiting Iodinated Contrast Media Allergy Intermediate RASH,SWELLING Verified 05/30/23 14:52 in hands iodine Allergy Intermediate SWELLING Verified 05/30/23 14:52 mushroom Allergy Intermediate hives Verified 05/30/23 14:52 shellfish derived Allergy Intermediate Hives Verified 05/30/23 14:52 cariprazine [From Vraylar] AdvReac Intermediate hallucinati Verified 05/30/23 14:52 ons Home Medications Medication Instructions Recorded Confirmed Type estradiol 0.025 mg/24 hr weekly 1 patch transdermal UD 04/25/21 01/09/24 History transdermal patch hydroxyzine HCl 10 mg tablet 5 - 10 mg PO UD PRN Anxiety 10/14/21 01/09/24 History aprepitant 80 mg capsule (Emend) 80 mg PO UD 09/04/22 01/09/24 History duloxetine 30 mg capsule,delayed 30 mg PO HS 09/04/22 01/09/24 History release duloxetine 60 mg capsule,delayed 60 mg PO UD 09/04/22 01/09/24 History release lumateperone 42 mg capsule 42 mg PO HS 09/04/22 01/09/24 History (Caplyta) nadolol 20 mg tablet 20 mg PO UD 05/30/23 01/09/24 History promethazine 25 mg tablet 25 mg PO Q6H PRN n/v 05/30/23 01/09/24 History trazodone 50 mg tablet 50 mg PO UD 05/30/23 01/09/24 History oxycodone 5 mg tablet 5 mg PO Q8H PRN Pain, Severe 01/09/24 01/09/24 History tizanidine 2 mg tablet 2 mg PO UD PRN Other 01/09/24 01/09/24 History Past Med/Surg History Problem List (Updated 01/09/24 @ 17:11 by Teo Pop PA-C) Bipolar 2 disorder Proctocolitis Medical marijuana use Acute dehydration (Acute) Cannabinoid hyperemesis syndrome (Acute) Abdominal pain (Acute) Constipation (Acute) Gastroenteritis (Acute) Gastroenteritis (Acute) Intractable vomiting (Acute) LLQ abdominal pain (Acute) Left ovarian cyst (Acute) Nausea, vomiting, and diarrhea (Acute) Nausea, vomiting, and diarrhea (Acute) Pelvic pain (Acute) Pelvic pain (Acute) UTI (lower urinary tract infection) (Acute) Urinary tract infection (Acute) Urinary tract infection (Acute) Vaginal bleeding (Acute) Encounter for pre-operative examination Seizure (Acute 04/22/12) Ovarian cyst (Acute) Oral contraceptive pill surveillance (Acute) Encounter for routine gynecological examination (Acute) Encounter for initial prescription of contraceptives (Acute) Dyspareunia (Acute) Hx laparoscopic cholecystectomy (Acute 04/22/12) Tension-type headache, not intractable Migraine without aura, not intractable, without status migrainosus Abdominal pain, LLQ (Acute) Endometriosis (Acute) Failure of outpatient treatment (Acute) Hypomagnesemia Microscopic hematuria Abdominal pain, chronic, left lower quadrant Anxiety Depression PCOS (polycystic ovarian syndrome) H/O partial seizures last 2015--taken off meds over a year ago, no current issues--follows with Dr. Annita Pond Medical History Nausea and vomiting after administration of anesthetic agent Medical marijuana use Bipolar 2 disorder Migraine History of COVID-19 11/2020--mild symptoms, no symptoms now Cannabinoid hyperemesis syndrome Intractable vomiting with nausea Hypokalemia 2 para 2 Endometriosis Surgical History History of left oophorectomy History of colonoscopy History of esophagogastroduodenoscopy (EGD) History of surgical procedure on eye proper using laser History of wisdom tooth extraction History of umbilical hernia repair 07/09/19 History of ovarian cystectomy 2013 H/O exploratory laparotomy (11/06/18) Diagnostic Laparoscopy with Enterolysis Dr. Connolly 11/06/18 H/O hysterectomy with unilateral oophorectomy right tube/ovary removed History of appendectomy History of cholecystectomy Family History Grandfather Lung cancer Parkinson's disease Grandfather (Maternal) Diabetes Father Heart disease Grandfather (Paternal) Dyslipidemia Heart disease Hypertension Grandmother (Paternal) Dyslipidemia Heart disease Hypertension Aunt Breast cancer 3 out of 4 paternal great aunts Uncle Colorectal cancer paternal Other No family history of adverse response to anesthesia Social History Smoking Status: Never smoker Second Hand Exposure: No; Do You Dip or Chew Tobacco: No; Hx Alcohol Use: Yes ("very rarely 1-2 drinks a year") Alcohol type: beer and wine Hx Substance Use: Yes (medical marijuana use (advised on policy)) Prescribed Medications: Marijuana Last Used Substance: Days (ago) Preferred Language: Telugu Communication Ability: Effective Visual Impairment: No Limitations Bmet Required: No Beliefs That Will Affect Care: None marital status: Current Living Situation: Spouse and Family Current Living Situation Comment: Lives with and 2 kids Feels Safe at Home: Yes Assistive Devices: None Review of Systems Review of Systems: See HPI above Physical Exam Physical Exam: General: Patient appears to be in acute physical distress secondary to her abdominal pain; dry heaving in the room with some bile production into emesis bag; diaphoretic; toxic-appearing HEENT: normocephalic, atraumatic; no scleral icterus; PERRLA; vision and hearing intact Neck: supple; trachea midline Skin: warm, dry without signs of tenting; no cyanosis; no rashes, bruising, lesions, or erythema noted CV: chest wall NTP; RRR; S1/S2 normal; no murmurs/rubs/gallops; pulses intact and symmetric at radial, DP, and PT Lungs: no acute respiratory distress; symmetrical chest wall expansion; clear breath sounds across all lung mckeon w/o adventitious sounds; no wheezing ABD: Soft; focal tenderness to palpation in the LLQ; mildly TTP in the LUQ; right upper and lower quadrants are NTP; no rashes or bruises noted on the abdomen or flanks bilaterally; BS present; no rebound/guarding MSK: no tics or fasciculations; no edema noted in the LEs b/l, nonerythematous Neuro: A&Ox3; normal mood and affect; fluent speech; patient reports sensation is intact and symmetric in the lower extremities bilaterally Results & Data Results & Data Vital Signs (Past 12 Hours) Vital Signs Temp Pulse Pulse Resp BP Pulse Ox O2 Del Method 01/09/24 12:02 92 H 20 122/88 97 Room Air 01/09/24 11:26 Room Air 01/09/24 10:30 75 18 125/91 95 Room Air 01/09/24 09:41 75 20 149/108 H 98 Room Air 01/09/24 08:57 36.5 C 97 H 22 94 Room Air Laboratory Results Abnormal lab results 01/09/24 Range/Units 09:35 WBC 17.88 H (4.8-10.8) K/ul RBC 5.53 H (4.20-5.40) M/uL Hgb 16.2 H (12.0-16.0) g/dl RDW Std Deviation 35.3 L (36.4-46.3) fL Plt Count 440 H (130-400) K/uL Neut # (Auto) 13.12 H (1.40-6.50) K/uL Lymph # (Auto) 3.44 H (1.20-3.40) K/uL Morton # (Auto) 0.98 H (0.11-0.59) K/uL Chloride 109 H (98-107) mmol/L Carbon Dioxide 18 L (21-32) mmol/L Anion Gap 16 H (3-11) BUN/Creatinine Ratio 8.8 L (10-20) Glucose 136 H (70-99(Fasting)) mg/dl Calcium 10.6 H (8.6-10.3) mg/dl Diagnostic Findings Chest X-Ray 01/09/24 09:13 XR chest 1V portable CLINICAL HISTORY: Abdominal pain, nausea and vomiting. COMPARISON STUDY: Chest radiograph April 23, 2023. FINDINGS: Lung volumes are normal. Lungs are clear. There is no pneumothorax or pleural effusion. Cardiac size is normal. Mediastinal contours are normal. There is no evidence for pulmonary edema. Left lateral chest wall battery pack with associated lead projecting anterior to the sternum is unchanged in position. IMPRESSION: No acute cardiopulmonary findings. ACT 112: Negative or not required by law. Electronically signed by: Adalberto Angulo M.D. 01/09/2024 10:43 AM ECG Additional Comments: ECG revealed sinus rhythm with sinus rhythm he is 69 bpm; QTc 447 Code Status & VTE Plan Code Status Full code VTE Prophylaxis Plan VTE Prophylaxis will be ordered: Yes Supervising Physician Co-Signing Physician Notes Patient seen and examined, chart reviewed, case discussed with Teo Pop PA-C and I agree with the assessment and plan as above except as otherwise noted Labs and images reviewed Kelsey is a 33-year-old female with a past medical history of cholecystectomy, appendectomy, cannabinoid hyperemesis syndrome, anxiety/depression, migraines who presents with 2 days of worsening abdominal pain and intractable nausea/vomiting. Patient takes oxycodone for chronic abdominal pain which she last took yesterday. Last used marijuana 3 days ago has not had improvement in symptoms over the last 3 days. She feels her pain is much more localized and focal in her left lower quadrant than with prior episodes of hyperemesis and feels that this pain is much different than what she is experienced before. 8/10 pain in left lower quadrant worsened with movement and palpation. She feels sweaty and has felt feverish and with chills. She is slightly tremulous with warm/diaphoretic skin at the bedside. She denies alcohol use. Denies illicit drug use. Denies history of withdrawal. On exam patient is diffusely tender with some distractible component on right- sided and epigastric abdominal palpation however does have left lower quadrant focal tenderness to palpation despite distraction. Given 3 days of pain, leukocytosis which could be infectious versus demargination, and left lower quadrant pain agree with CTA/P. Patient does have a history of contrast allergy and shellfish allergy to hives. Discussed with patient she reports when she has had contrast she had a little bit of swelling in her hands but did not have any airway involvement or hives. Risk/benefits of IV contrast and pretreatment were discussed, patient agreeable with shared decision making to CTA/P with Matiasl/methylprednisolone pretreatment. Addendum 1424 hrs.: CTA/P with mild circumferential wall thickening? Esophagitis. Mild colorectal wall thickening suspected due to under distention. Nonspecific proctocolitis could appear similar. There is no evidence of perforation or abscess. Lactate is pending. PPI, GI cocktail, supportive fluids, antiemetics continued as noted above. Lactate elevated, patient was tolerating some p.o. Subsequent repeat 1700 is uptrending. 2 L IV crystalloid ordered for repletion, suspected severe volume contraction with hyperemesis. No evidence of ischemic disease on contrasted CT. Addendum: 1700 hrs.: Patient lactate was elevated initially was dry keeping down fluids in setting of critical IV fluid shortage however subsequently due to nausea vomiting still not tolerating p.o., and repeat uptrending at 2.6. 2 L crystalloid repletion ordered. Additionally UA collected, appears infected. Suspect patient has a UTI worsening her nausea and vomiting +/- potential underlying hyperemesis. Rocephin added for UTI. Resuscitation switched to Plasma-Lyte for compatibility. Signed out to resident to follow for repeat lactic post fluids and for clinical progression. PG Care Time/CCT Total # of Minutes Spent Total Time Spent with Patient: Total time spent is greater than 50% in coordination of care (as documented) at patient's floor/unit and/or counseling patient: C[place] [address] INT INP/OBS CARE 3/75MIN Patient Type Established Medical Decision Making High Complexity Diagnoses Intractable vomiting R11.10 Cannabinoid hyperemesis syndrome R11.2; F12.90 Proctocolitis K52.9 Bipolar 2 disorder F31.81 LLQ abdominal pain R10.32 Medical marijuana use Z79.899 H/O partial seizures Z86.69 Anxiety F41.9 Depression F32.9 PCOS (polycystic ovarian syndrome) E28.2
[2024-01-09 12:46] LABS: Appearance Urine Turbid (Clear); Bilirubin Urine 2+ (Negative); Blood Urine 1+ (Negative); Color Urine Dark Yellow; Glucose Urine UA Negative (Negative); Ketones Urine Trace (Negative); Leukocyte Esterase Urine Trace (Negative); Nitrite Urine Negative (Negative); Protein Urine 1+ (Negative); Specific Gravity Urine 1.028 (1.000-1.030); Urobilinogen Urine Negative (Negative); WBC Urine Automated 0-5 /hpf (0-5)
[2024-01-09] MEDS: methylPREDNISolone 125 MG/2 ML VIAL IV ONE ×2 (13:10→13:19)
[2024-01-09 13:11] LABS: Mucus Urine Present (None Prsent)
[2024-01-09 13:12] LABS: Bacteria Urine Automated 2+ (None Seen)
[2024-01-09] MEDS: MoRPHine SULFATE 2 MG/ML CARP IV STA (13:19)
[2024-01-09] MEDS: diphenhydrAMINE 50 MG/ML VIAL IV ONE (13:19)
[2024-01-09] MEDS: OPTIRAY 320 100ml IV ONE (13:37)
--- NOTE | 2024-01-09 14:07 | CT Scan Report ---
CT OF THE ABDOMEN AND PELVIS WITH CONTRAST CLINICAL HISTORY: LLQ abd pain; intractable vomiting COMPARISON STUDY: CT of the abdomen and pelvis October 21, 2021. KUB July 04, 2023. TECHNIQUE: Following IV administration of 94 mL of Optiray, axial images of the abdomen and pelvis we re obtained from the lung bases to the proximal femurs. Images were reviewed in the axial, sagittal, and coronal planes. IV contrast was administered without complication. Automated exposure control wa s utilized for the study. A dose lowering technique was utilized adhering to the principles of ALARA . CT DOSE: 1197.6 mGy.cm FINDINGS: There is mild circumferential wall thickening of the distal esophagus. No pneumatosis, free air or portal venous gas is present. There is no biliary ductal dilatation status post cholecystecto my. Spleen, adrenal glands, kidneys and pancreas are unremarkable. There is no pancreatic ductal dila tation or hydronephrosis. Umbilical hernia repair with mesh is incidentally noted. There is no eviden ce for a bowel obstruction. The appendix is likely surgically absent. No fluid collections are presen t. Major vasculature is patent. Wall thickening of the colon and rectum is probably due to underdiste ntion. IMPRESSION: 1. Mild circumferential wall thickening distal esophagus suggestive of esophagitis. 2. No bowel obstruction. 3. Mild colorectal wall thickening. This is likely due to underdistention however a mild nonspecific proctocolitis could appear similar. ACT 112: Negative or not required by law. Electronically signed by: Adalberto Anuglo M.D. 01/09/2024 2:05 PM
[2024-01-09 14:08] LABS: Magnesium 1.7 mg/dl (1.7-2.4)
[2024-01-09] MEDS ORDERED: CAPSAICIN CR 0.075% 60 GM TUBE EXT PRN (14:24)
[2024-01-09] MEDS ORDERED: ACETAMINOPHEN 1,000 MG/100 ML VIAL IV PRN (16:50)
[2024-01-09] MEDS: oxyCODONE HCL IR 5 MG TAB (IMMEDIATE RELEASE) PO PRN (18:57)
[2024-01-09] MEDS: PLASMA-LYTE A 1,000 ML IV SCH (20:50)
[2024-01-09] MEDS: MoRPHine SULFATE 2 MG/ML CARP IV PRN (20:51)
[2024-01-09] MEDS: nadoloL 40 MG TAB PO SCH (21:02)
[2024-01-09] MEDS: cefTRIAXone SODIUM 2,000 MG/50 ML BAG IV SCH (21:04)
[2024-01-09] MEDS: traZODone HCL 50 MG TAB PO SCH (21:05)
[2024-01-09] MEDS: DULoxetine HCL 30 MG CAP PO SCH (21:07)
[2024-01-09] MEDS: FAMOTIDINE 20MG IV PUSH 20 MG/5 ML SYR IV SCH (22:12)
[2024-01-09] MEDS: PROMETHAZINE HCL INJ 25 MG/ML 1 ML VIAL IM PRN (22:53)
[2024-01-09] MEDS: LACTATED RINGER'S 2,000 ML IV ONE (23:22)
[2024-01-09] MEDS: PLASMA-LYTE A 2,000 ML IV ONE (23:22)
[2024-01-10 00:09] LABS: Amphetamines+Metham, Urine Neg (Neg); Barbiturates, Urine Neg (Neg); Benzodiazepine, Urine Neg (Neg); Cocaine, Urine Neg (Neg); Fentanyl, Urine Neg (Neg); MDMA (Ecstacy), Urine Neg (Neg); Marijuana, Urine Pos (Neg); Methadone, Urine Neg (Neg); Opiate, Urine Pos (Neg); Phencyclidine, Urine Neg (Neg)
[2024-01-10 02:11] LABS: Basophils # (auto) 0.01 K/uL (0.00-0.20); Basophils % (auto) 0.1 %; Hematocrit (blood only) 36.8 % (37.0-47.0); Hemoglobin 13.3 g/dl (12.0-16.0); Immature Granulocytes # (auto) 0.03 K/uL (0.01-0.20); Immature Granulocytes % (auto) 0.2 %; Lymphocytes % (auto) 17.2 %; Mean Corpuscular Hemoglobin 29.6 pg (25.0-34.0); Mean Corpuscular Hgb Conc 36.1 g/dL (32.0-36.0); Mean Platelet Volume 10.5 fL (9.4-12.4); Monocytes # (auto) 0.74 K/uL (0.11-0.59); Monocytes % (auto) 5.8 %; Neutrophils # (auto) 9.84 K/uL (1.40-6.50); Neutrophils % (auto) 76.7 %; Platelet Count 293 K/uL (130-400); RDW Coefficient of Variation 12.3 % (11.5-14.5); RDW Standard Deviation 36.3 fL (36.4-46.3); Red Blood Count 4.49 M/uL (4.20-5.40); White Blood Count 12.82 K/ul (4.8-10.8)
[2024-01-10 02:23] LABS: BUN Creatinine Ratio 12.2 (10-20); Calcium 9.2 mg/dl (8.6-10.3); Creatinine Clr Calc Pharmacy 94.6 ml/min; Magnesium 1.7 mg/dl (1.7-2.4); Potassium 3.4 mmol/L (3.5-5.1)
[2024-01-10] MEDS: PLASMA-LYTE A 1,000 ML IV SCH (03:50)
[2024-01-10] MEDS: PROCHLORPERAZINE 5 MG in SYRINGE 4 ML IV PRN (03:50)
--- OUTSIDE RECORDS SUMMARY | 2024-01-10 05:55 | External Medical Summary ---
Author Name Unknown Address Unknown Organization K1F:LABORATORY [facility] - [address] [place] [address] Laboratory Report Ordering Provider Test Date Status LORRAINE MONDRAGON 01/08/2024 09:06:24 Final Observation Date Value Abnormality Reference (Units ) Status WBC, Total 01/08/2024 09:06:24 8.69 4.00-10.80 (K/uL) Final RBC 01/08/2024 09:06:24 5.07 3.85-5.15 (M/uL) Final Hemoglobin 01/08/2024 09:06:24 15.2 12.0-15.3 (g/dL) Final HCT 01/08/2024 09:06:24 44.4 36.0-45.2 (%) Final MCV 01/08/2024 09:06:24 87.6 81.5-97.5 (fL) Final MCH 01/08/2024 09:06:24 30.0 27.0-34.0 (pg) Final MCHC 01/08/2024 09:06:24 34.2 32.0-36.0 (g/dL) Final RDW 01/08/2024 09:06:24 12.5 11.5-15.5 (%) Final Platelets 01/08/2024 09:06:24 283 140-400 (K/uL) Final MPV 01/08/2024 09:06:24 10.8 6.6-11.1 (fL) Final Nucleated erythrocytes/100 leukocytes [Ratio] in Blood by Automated count 01/08/2024 09:06:24 0 <=0 (/100 WBCs) Final Performing Location LABORATORY [facility] - [address] [place] [address]
--- OUTSIDE RECORDS SUMMARY | 2024-01-10 05:55 | External Medical Summary ---
Author Name Unknown Address Unknown Organization K01:LABORATORY [facility] [place] - [address] [place] [address] Laboratory Report Ordering Provider Test Date Status VISHALIMANI 12/21/2023 02:04:58 Final Observation Date Value Abnormality Reference (Units) Status Bacteria identified in Specimen by Culture 12/21/2023 02:04:58 No Aeromonas species or Plesiomonas species isolated. Final Test: Gastrointestinal Patho gen Panel Culture
Specimen Source: Stool
Specimen Type: Stool
Specimen Date: 12/21/2023 [id number]
Result Date: 12/23/2023 1152
Result Status: Final result
Resulting Lab: LAB[facility]ATORY [facility]
[address]
[place] [id number]

CULTURE

No Aeromonas species or Plesiomonas species isolated.

null Performing Location LABORATORY [facility] [place] - [address] [place] [id number]
--- OUTSIDE RECORDS SUMMARY | 2024-01-10 05:55 | External Medical Summary ---
Author Name Unknown Address Unknown Organization K1F:LABORATORY [facility] - [address] [place] [address] Laboratory Report Ordering Provider Test Date Status LORRAINE MONDRAGON 01/08/2024 08:57:19 Final Observation Date Value Abnormality Reference (Units ) Status Color of Urine by Auto 01/08/2024 08:57:19 Yellow Light Yellow, Yellow, Dark Yellow Final Clarity, Urine 01/08/2024 08:57:19 Clear Clear Final Glucose [Mass/volume] in Urine by Automated test strip 01/08/2024 08:57:19 Negative Negative (mg/dL) Final Bilirubin.total [Presence] in Urine by Automated test strip 01/08/2024 08:57:19 Negative Negative Final Ketones [Mass/volume] in Urine by Automated test strip 01/08/2024 08:57:19 Negative Negative (mg/dL) Final Specific gravity, Urine 01/08/2024 08:57:19 1.019 1.003-1.030 Final Hemoglobin [Presence] in Urine by Automated test strip 01/08/2024 08:57:19 Small Abnormal Negative Final pH, Urine 01/08/2024 08:57:19 6.0 5.0-7.5 (Units) Final Protein [Mass/volume] in Urine by Automated test strip 01/08/2024 08:57:19 Negative Negative (mg/dL) Final Urobilinogen [Mass/volume] in Urine by Automated test strip 01/08/2024 08:57:19 0.2 0.2, 1.0 (mg/dL) Final Nitrite [Presence] in Urine by Automated test strip 01/08/2024 08:57:19 Negative Negative Final Leukocyte esterase [Presence] in Urine by Automated test strip 01/08/2024 08:57:19 Negative Negative Final Performing Location [facility] [address] [place] [address]
--- OUTSIDE RECORDS SUMMARY | 2024-01-10 05:55 | External Medical Summary ---
Author Name Unknown Address Unknown Organization K1F:LABORATORY [facility] - [address] [facility] [place] [address] Laboratory Report Ordering Provider Test Date Status LORRAINE MONDRAGON 01/08/2024 09:06:24 Final Observation Date Value Abnormality Reference (Units ) Status BUN 01/08/2024 09:06:24 8 6-20 (mg/dL) Final Creatinine 01/08/2024 09:06:24 0.7 0.5-1.0 (mg/dL) Final Glomerular filtration rate/1.73 sq M.predicted [Volume Rate/Area] in Serum, Plasma or Blood by Creatinine-based formula (CKD-EPI) 01/08/2024 09:06:24 >90 >=60 (mL/min) Final eGFR is calculated based on the CKD-EPI 2020 equation. Sodium 01/08/2024 09:06:24 141 135-146 (m mol/L) Final Potassium 01/08/2024 09:06:24 4.8 3.5-5.1 (m mol/L) Final Cl 01/08/2024 09:06:24 108 Above high normal 98 -107 (mmol/L) Final CO2 01/08/2024 09:06:24 17 Below low normal 22- 32 (mmol/L) Final Anion gap 01/08/2024 09:06:24 16 Above high normal 7- 15 (mmol/L) Final Glucose 01/08/2024 09:06:24 101 70-120 (mg /dL) Final Albumin 01/08/2024 09:06:24 4.3 3.8-5.0 (g /dL) Final AST (Aspartate aminotransferase) 01/08/2024 09:06:24 27 10-35 (U/L) Fin al Results may be falsely eleva mohan due to hemolysis. Alk Phos 01/08/2024 09:06:24 88 35-130 (U/ L) Final Bilirubin, Total 01/08/2024 09:06:24 0.4 <=1 .2 (mg/dL) Final Calcium 01/08/2024 09:06:24 9.6 8.4-10.2 ( mg/dL) Final Protein 01/08/2024 09:06:24 7.3 6.0-8.3 (g /dL) Final ALT (Alanine aminotransferase) 01/08/2024 09:06:24 12 10-35 (U/L) Final Performing Location LABORATORY [facility] - [facility] [place] [address]
--- OUTSIDE RECORDS SUMMARY | 2024-01-10 05:55 | External Medical Summary | Continuity of Care Document ---
Author Name Unknown Organization [facility] [address] [facility] Address [address] [place] [id number] Care Team Providers Care Solid State Tester Name Role Phone Tavares Peña Primary Care Physician [phone] [id number] Date[facility]s): 12/19/23 - 12/19/[address], [address] [place] [address] [phone] Encounter Diagnosis Long QT syndrome(Discharge Diagnosis) - 12/19/23 Discharge Disposition: Home or Self Care Attending Physician: MD Elizabeth, Maria Del Carmen Limon Allergies, Adverse Reactions, Alerts Substance Criticality Severity Reaction Reaction Severity Status iodine topical Activ e Augmentin 1 Active IVP dye Active Vraylar hallucinations, suicidal thoughts Active shellfish Active mushrooms Active 1severe stomach pain & constant emesis Immunizations Given and Recorded Vaccine Date Status Refusal Reason SARS-CoV-2 (COVID-19) mRNA BNT-162b2 vax 1 07/16/20 Recorded SARS-CoV-2 (COVID-19) mRNA BNT-162b2 vax 2 06/25/20 Recorded tetanus/diphtheria/pertuss, acel (Tdap) 3 03/20/17 Recorded tetanus/diphtheria/pertuss, acel (Tdap) 06/27/15 G iven influenza virus vaccine, inactivated 10/25/15 Give n influenza virus vaccine, inactivated 11/04/13 Give n influenza virus vaccine, inactivated 12/12/12 Give n influenza virus vaccine, inactivated 12/04/11 Give n varicella virus vaccine 11/04/13 Given varicella virus vaccine 4 07/28/09 Recorded measles/mumps/rubella virus vaccine 11/04/13 Given measles/mumps/rubella virus vaccine 5 07/28/09 Rec orded measles/mumps/rubella virus vaccine 03/14/99 Recor ded poliovirus vaccine, inactivated 6 07/28/09 Recorde d poliovirus vaccine, inactivated 01/24/95 Recorded poliovirus vaccine, inactivated 07/01/91 Recorded meningococcal conjugate vaccine 7 07/28/09 Recorde d hepatitis B pediatric vaccine 01/24/95 Recorded hepatitis B pediatric vaccine 07/20/94 Recorded hepatitis B pediatric vaccine 06/19/94 Recorded diphtheria/tetanus/pertuss, acel (DTaP) 01/24/95 R ecorded diphtheria/tetanus/pertuss, acel (DTaP) 07/01/91 R ecorded 1Result Comment: 2020-10-07: Historical information-source unspecified 2Result Comment: 2020-10-07: Historical information-source unspecified 3Result Comment: 2020-04-04: Historical information-source unspecified 4Result Comment: 2020-10-07: Historical information-source unspecified 5Result Comment: 2020-10-07: Historical information-source unspecified 6Result Comment: 2020-10-07: Historical information-source unspecified 7Result Comment: 2020-10-07: Historical information-source unspecified Medications acetaminophen 500 mg oral tablet Start: 01/08/23 8:45:00 AM EST, 2 tab, PO, q8h Start Date: 01/08/23 Status: Ordered aprepitant 80 mg oral capsule Start: 09/10/23 3:16:00 PM EDT, 1 cap, PO, qAM, Disp# 30 cap, Refills: 3, Pharmacy: [facility]/pharmacy #[id number] Start Date: 09/10/23 Status: Ordered Caplyta 42 mg oral capsule Start: 08/23/23 3:14:00 PM EDT Start Date: 08/23/23 Status: Ordered Caplyta 42 mg oral capsule Start: 05/24/22 10:29:00 AM EDT, 1 cap, PO, Daily Start Date: 05/24/22 Status: Ordered DULoxetine 30 mg oral delayed release capsule Start: 05/24/22 10:28:00 AM EDT, 1 cap, PO, Daily Start Date: 05/24/22 Status: Ordered DULoxetine 60 mg oral delayed release capsule Start: 10/27/21 8:48:00 AM EDT, 1 cap, PO, Daily Start Date: 10/27/21 Status: Ordered Estradiol Patch 0.025 mg/24 hours weekly transdermal film, extended release Start: 07/10/22 11:10:00 AM EDT, See Instructions, Disp# 12 patch, Refills: 4, APPLY 1 PATCH TOPICALLY EVERY 7 DAYS, Pharmacy: [id number] Start Date: 07/10/22 Status: Ordered hydrOXYzine pamoate 25 mg oral capsule Start: 08/23/23 3:14:00 PM EDT, 1 cap Start Date: 08/23/23 Status: Ordered MiraLax oral powder for reconstitution Start: 08/23/22 8:14:00 AM EDT, 17 g =, PO, Daily, Disp# 30 each, packets, dissolve in water/juice, [id number] Start Date: 08/23/22 Stop Date: 09/22/22 Status: Ordered nadolol 20 mg oral tablet Start: 12/03/23 6:08:00 PM EDT, 1 tab, PO, bid, Disp# 60 tab, Refills: 11, [id number] Start Date: 12/03/23 Stop Date: 11/27/24 Status: Ordered oxyCODONE 5 mg oral tablet Start: 12/10/23 4:38:00 PM EDT, 5 mg =, PO, q8h, Disp# 20 tab, Refills: 0, Note to Pharmacy: PDMP checked., PRN: pain - severe (7-10), [facility]acy: [id number] Start Date: 12/10/23 Stop Date: 12/20/23 Status: Ordered Potassium Chloride (Eqv-K-Tab) 20 mEq oral tablet, extended release Start: 12/20/22 10:21:00 AM EDT, 1 tab, PO, Daily, Disp# 90 tab, Refills: 3, [id number] Start Date: 12/20/22 Status: Ordered promethazine 25 mg oral tablet Start: 12/10/23 3:53:00 PM EDT, 1 tab, PO, q6h, Disp# 60 tab, Refills: 0, PRN: as needed for nausea/vomiting, [id number] Start Date: 12/10/23 Status: Ordered traZODone 50 mg oral tablet TAKE 1 TABLET BY MOUTH EVERYDAY AT BEDTIME Start Date: 03/25/23 Status: Ordered Mental Status 12/19/23 Barriers to Learning one year None evide nt Mandatory Health Literacy Documentation Yes Health Literacy Communication Barriers N ever Primary Language [place] Island[place] Problem List Condition Confirmation Course Effective Dates Status H ealth Status Informant 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 Confirmed Active Bipolar 2 disorder Confirmed Active Chronic abdominal pain Confirmed Active Diarrhea Confirmed Active Endometriosis Confirmed Active History of kidney stones Confirmed Active History of cardiac arrest Confirmed Active 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 Migraine Confirmed Active Nausea & vomiting Confirmed Active Chronic insomnia Confirmed Active Seizure 1 Confirmed Active 1off medications since first without recurrent episode Diagnosis Diagnosis Type Effective Dates Health Status Cl inical Service Informant Long QT syndrome Discharge Diagnosis 12/19/23 Non-Specified Procedures Procedure Date Related Diagnosis Body Site Status Colonoscopy 1 09/14/22 Completed Colonoscopy 09/14/22 Completed EGD - Esophagogastroduodenoscopy 2 09/14/22 Completed EGD US EXAM DUODENUM/JEJUNUM 3 01/10/22 Completed Upper GI (gastrointestinal) endoscopy 4 01/10/[address] of abdomen and pelvis 5 10/21/[address] of abdomen and pelvis 6 08/18/20 Completed Diagnostic colonoscopy 7 08/03/20 Completed Upper GI endoscopy 8 08/03/20 Comp leted Upper GI endoscopy 9, 10 09/03/19 Completed Colonoscopy 11 01/30/18 Completed Hysterectomy 07/24/17 Completed Colonoscopy 10/2013 Completed Laparoscopy 10/08/13 Completed Root canal procedure 08/2013 Comp leted Colonoscopy 12 07/11/12 Completed appendectomy 09/21/11 Completed Upper GI endoscopy 13 03/18/11 Com pleted Sigmoidoscopy 06/2010 Completed BSO - Bilateral salpingo-oophorectomy Completed Cholecystectomy Completed [facility] teeth extraction C ompleted 1The rectum, sigmoid colon, descending colon, splenic flexure, transverse colon, hepatic flexure, ascending colon, cecum and recto-sigmoid colon are normal, biopsied. Pathology results: Colon, random, biopsy: -no diagnostic abnormality 2Normal esophagus and stomach. Normal examined duodenum, biopsied. Pathology results: Duodenum, biopsy: -no diagnostic abnormality 3Impression: There was no sign of significant pathology in the ampulla. There was no sign of significant pathology in the common bile duct There was abnormal echogenicity in the visualized portion of the liver. There was hyperechoic. Tissue has not been obtained. However, the endosonographic appearance is consistent with fatty infiltration. There was no sign of significant pathology in the entire pancreas. Endosonographic images of the left adrenal gland were unremarkable. No specimens collected. 4Impression: Normal esophagus Z-line regular, 38 cm from the incisors Gastritis. Biopsied Normal examined duodenum. Biopsied 5IMPRESSION: 1. No bowel wall thickening or obstruction. 2. Mild bladder wall thickening. This could be due to underdistention. Recommend correlation with urinalysis. 3. Fluid-filled nondilated loops of large and small bowel seen throughout the abdomen. This may represent a diarrheal illness/gastroenteritis. 4. Trace bilateral pleural effusions, trace pericardial effusion, and trace pelvic free fluid. 5. Postoperative changes as described above 6Impression: 1.Numerous non-emergent/ incidental findings as described without any acute abdominopelvic abnormality. 2. Subacute/ chronic postinfectiour inflammatory changes in the lung bases. 7The examined portion of the ileum was normal Internal hemorrhoids The entire examined colon is normal on direct and retroflexion views No specimens collected 8Normal esophagus Normal stomach Normal examined duodenum No specimens collected 9Zline regular, 40cm. Normal esophagus, stomach, second portion of duodenum- biopsied. 10The duodenal biopsies show preserved villous architecture and intact epithelium. Expected numbers of plasma cells are present in the lamina propria, and there is no increase in intraepithelial lymphocytes. 11impression: - The examined portion of the ileum was normal - Perianal skin tags found on perianal exam - The entire examined colon is normal - No specimens collected 12normal 13Dr. Greg Louie Vital Signs Most recent to oldest [Reference Range]: 1 Patient Weight 89.5 kg (12/19/23 8:54 AM) Heart Rate 89 bpm (12/19/23 8:54 AM) Blood Pressure 110/80mmHg (12/19/23 8:54 AM) Cuff Pulse Pressure 30 mmHg (12/19/23 8:54 AM) Social History Social History Type Response Smoking Status Never smoked cigaret issa Sex Female Sex Representation Female (finding) EKG study * Contributor_system, MUSE01: VERIFY, PERFORM Event Display: EKG Authored Date: Please click on link to see image. Patient Care team information Care Team Personnel Name: MD Carlos, Leonard Phoenix Position: Physician - Family Med Member Role: Lifetime Relationship Address: [address] [place] [address] [place] Name: MD Peña Christopher Position: Physician - Family Med Member Role: Lifetime Relationship Address: [address] [address] [place] Name: Reese Mora MD, Cayra Position: Resident Member Role: Lifetime Relationship Address: [address] [address] [place] Name: DO Thompson Sameer Position: Resident Member Role: Lifetime Relationship Address: [address] [address] [place] Care Team Related Persons Name: STEFFEN ROSAS Name: STACIE HOPE Name: STACIE HOPE Name: STACIE HOPE
--- OUTSIDE RECORDS SUMMARY | 2024-01-10 05:55 | External Medical Summary ---
Author Name Unknown Address Unknown Organization K1F:LABORATORY [facility] - [address] [place] [id number] Laboratory Report Ordering Provider Test Date Status LORRAINE MONDRAGON 01/08/2024 08:57:19 Final Observation Date Value Abnormality Reference (Units ) Status RBC, Urine 01/08/2024 08:57:19 0-2 0-2 (/HPF) Final WBC, Urine 01/08/2024 08:57:19 0-2 0-2 (/HPF) Final Bacteria [#/area] in Urine sediment by Microscopy high power field 01/08/2024 08:57:19 26-50 Abnormal 0-25 (/HPF) Final Mucus, Urine 01/08/2024 08:57:19 Many Abnormal None (/HPF) Final Performing Location LABORATORY [facility] - [address] [place] [address]
--- OUTSIDE RECORDS SUMMARY | 2024-01-10 05:55 | External Medical Summary ---
Author Name Unknown Address Unknown Organization K1F:LABORATORY [facility] - [address] [facility] [place] [address] Laboratory Report Ordering Provider Test Date Status LORRAINE MONDRAGON 01/08/2024 09:06:24 Final Observation Date Value Abnormality Reference (Units ) Status SYNC LEUKOCYTES IN BLOOD BY AUTOMATED COUNT 01/08/2024 09:06:24 8.69 4.00-10.80 (K/uL) Final Segs 01/08/2024 09:06:24 60.6 40.0-75.0 (%) Final Lymphs % 01/08/2024 09:06:24 30.1 18.0-42.0 (%) Final Monos 01/08/2024 09:06:24 6.0 1.0-11.0 (%) Final Eosinophils 01/08/2024 09:06:24 2.5 0.0-6.0 (%) Final Basos 01/08/2024 09:06:24 0.6 0.0-2.0 (%) Final Immature Granulocyte, Percent 01/08/2024 09:06:24 0.2 0.0-2.0 (%) Final Absolute Segs 01/08/2024 09:06:24 5.26 1.80-7.70 (K/uL) Final Lymphs, absolute 01/08/2024 09:06:24 2.62 1.00-4.80 (K/ul) Final Monos, Abs 01/08/2024 09:06:24 0.52 0.00-1.10 (K/uL) Final Eos, Abs 01/08/2024 09:06:24 0.22 0.00-0.70 (K/uL) Final Basos, Abs 01/08/2024 09:06:24 0.05 0.00-0.20 (K/uL) Final Immature Granulocytes, Number 01/08/2024 09:06:24 0.02 0.00-0.20 (K/uL) Final Performing Location LABORATORY [facility] - [address] [place] [address]
--- OUTSIDE RECORDS SUMMARY | 2024-01-10 05:55 | External Medical Summary ---
Author Name Unknown Address Unknown Organization K1F:LABORATORY [facility] - [address] [place] [address] Laboratory Report Ordering Provider Test Date Status YAIMA RESENDIZ 12/21/2023 04:08:16 Final Observation Date Value Abnormality Reference (Units ) Status Color of Urine by Auto 12/21/2023 04:08:16 Yellow Light Yellow, Yellow, Dark Yellow Final Clarity, Urine 12/21/2023 04:08:16 Clear Clear Final Glucose [Mass/volume] in Urine by Automated test strip 12/21/2023 04:08:16 Negative Negative (mg/dL) Final Bilirubin.total [Presence] in Urine by Automated test strip 12/21/2023 04:08:16 Negative Negative Final Ketones [Mass/volume] in Urine by Automated test strip 12/21/2023 04:08:16 Negative Negative (mg/dL) Final Specific gravity, Urine 12/21/2023 04:08:16 1.023 1.003-1.030 Final Hemoglobin [Presence] in Urine by Automated test strip 12/21/2023 04:08:16 Small Abnormal Negative Final pH, Urine 12/21/2023 04:08:16 7.0 5.0-7.5 (Units) Final Protein [Mass/volume] in Urine by Automated test strip 12/21/2023 04:08:16 Negative Negative (mg/dL) Final Urobilinogen [Mass/volume] in Urine by Automated test strip 12/21/2023 04:08:16 0.2 0.2, 1.0 (mg/dL) Final Nitrite [Presence] in Urine by Automated test strip 12/21/2023 04:08:16 Negative Negative Final Leukocyte esterase [Presence] in Urine by Automated test strip 12/21/2023 04:08:16 Negative Negative Final Performing Location LABORATORY [facility] - [address] [facility] [place] [address]
--- OUTSIDE RECORDS SUMMARY | 2024-01-10 05:55 | External Medical Summary ---
Author Name Unknown Address Unknown Organization K1F:LABORATORY [facility] - [address] [place] [address] Laboratory Report Ordering Provider Test Date Status YAIMA RESENDIZ 12/21/2023 04:08:16 Final Observation Date Value Abnormality Reference (Units ) Status RBC, Urine 12/21/2023 04:08:16 10-19 Abnormal 0-2 (/HPF) Final WBC, Urine 12/21/2023 04:08:16 0-2 0-2 (/HPF) Final Bacteria [#/area] in Urine sediment by Microscopy high power field 12/21/2023 04:08:16 101-150 Abnormal 0-25 (/HPF) Final Performing Location LABORATORY [facility] - [address] [place] [address]
--- OUTSIDE RECORDS SUMMARY | 2024-01-10 05:55 | External Medical Summary | Summary of Care ---
Author Name Unknown Organization [facility] Address [address] [place] [address] Phone [phone] Care Team Providers Care Can Sterilizer Name Role Phone Tavares Peña MD Primary Care Provid er Reason for Visit * Reason Comments Multiple Complaints * Auth/Cert Specialty Diagnoses / Procedures Referred By Contac t Referred To Contact [place] [address] [place] [address] Phone: [phone] Emergency Medicine [facility] [address] [place] [address] Referral ID Status Reason Start Date Expiration Date Visits Re quested Visits Authorized [id number] Encounter Details Date Type Department Care Team ([facility] Contact Info) Description 12/20/2023 9:13 PM EDT - 12/21/2023 5:23 AM EDT Emergency [facility] Emergency Department ([facility]) [address] [place] [address] Antolin Razo MD [address], [place] [id number] Cyclic vomiting syndrome (Primary Dx); Diarrhea, unspecified type; Dehydration; Chronic bilateral low back pain, unspecified whether sciatica present Discharge Disposition: Home - Self Care Allergies Active Allergy Reactions Criticality Noted Date Comments Amoxicillin-Pot Clavulanate Nausea/vomiting 03/01/2015 Cariprazine High 09/14/2022 Other Reaction(s): hallucinations, hallucinations, suicidal thoughts Clavulanic Acid High 05/30/2023 Other Reaction(s): extreme vomiting Iodinated Contrast Media 02/23/2019 Swelling in hands Iodine High 05/30/2023 Other Reaction(s): SWELLING Povidone Iodine 04/02/2008 Mushroom Extract Complex 06/06/2019 Shellfish-Derived Products 06/06/2019 documented as of this encounter (statuses as of 12/21/2023) Medications Medication Sig Dispensed Refills Start Date End Date Status hydrOXYzine HCl 25 MG Oral Tablet Take 1 Tablet by mouth at bedtime as needed for Other. Patient states she takes 1-2 pills at bedtime as needed for sleep Active Estradiol 0.025 MG/24HR Transdermal Patch Weekly 1 Patch. 06/03/2020 Active DULoxetine HCl 60 MG Oral Capsule Delayed Release Particles (Cymbalta) Take 1 Capsule by mouth at bedtime. 10/27/2021 Active Caplyta 42 MG Oral Capsule (Lumateperone Tosylate) Take 1 Capsule by mouth at bedtime. 05/24/2022 Active traZODone HCl 50 MG Oral Tablet (Desyrel) 1.5 Tablets at bedtime. 09/17/2022 Active Nadolol 20 MG Oral Tablet (Corgard) Take 1 Tablet by mouth in the morning and 1 Tablet before bedtime. Active Promethazine HCl 25 MG Oral Tablet (Phenergan) Take 1 Tablet by mouth every 6 hours as needed for Nausea. Active Dicyclomine HCl 10 MG Oral Capsule (Bentyl) Take 1 Capsule by mouth 4 times a day before meals and at bedtime. Active Aprepitant 80 MG Oral Capsule (Emend) Take 1 Capsule by mouth daily as needed for Nausea. 09/03/2023 Active DULoxetine HCl 30 MG Oral Capsule Delayed Release Particles (Cymbalta) Take 1 Capsule by mouth at bedtime. Restart as instructed by psychiatry. 09/03/2023 Active Nitrofurantoin Monohyd Macro 100 MG Oral Capsule (Macrobid) Take 1 Capsule by mouth in the morning and 1 Capsule before bedtime. With food.. 14 Capsule 09/06/2023 Active oxyCODONE HCl 5 MG Oral Tablet (Oxy IR) Take 1 Tablet by mouth every 6 hours as needed for Pain, Severe or Pain, Moderate. 20 Tablet 09/06/2023 Active Trimethobenzamide HCl 300 MG Oral Capsule Take 1 Capsule by mouth in the morning and 1 Capsule at noon and 1 Capsule before bedtime. As needed for nausea. 30 Each 12/21/2023 Active tiZANidine HCl 2 MG Oral Tablet (Zanaflex) Take 1 Tablet by mouth every 6 hours as needed for Muscle spasms. 30 Tablet 12/21/2023 Active Trimethobenzamide HCl 300 MG Oral Capsule Take 1 Capsule by mouth 3 times a day as needed for Nausea. 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 Overview: Last Assessment & Plan: Torsades de david on a route to ER Hypokalemia with potassium 2.9, magnesium within normal limits Highly suspect this is combination of psych meds and electrolyte derangements She was treated in outside ER with 1 g of magnesium IV and 20 mill equivalents of potassium chloride Twelve-lead EKG showed torsades, verted back to normal sinus rhythm with QT prolongation Treated with 8 g of IV magnesium and 20 mg of potassium chloride Check thyroid studies TSH free T4, morning cortisol She usually takes Adderall 30 mg daily, duloxetine 90 mg daily, Caplyta 42 mg daily and trazodone 50 mg at bedtime, as needed Haldol 0.5 mg and hydroxyzine-did not take them for past week ?? Medication withdrawal I will ask psychiatry to assist with meds Check electrolytes, mag and Phos in the morning Last potassium 3.4, UDS is positive for opioids and marijuana Continue telemetry Admit to ICU IMC bed Consult cardiology Last Assessment & Plan: Torsades de david on a route to ER Hypokalemia with potassium 2.9, magnesium within normal limits Highly suspect this is combination of psych meds and electrolyte derangements She was treated in outside ER with 1 g of magnesium IV and 20 mill equivalents of potassium chloride Twelve-lead EKG showed torsades, verted back to normal sinus rhythm with QT prolongation Treated with 8 g of IV magnesium and 20 mg of potassium chloride Check thyroid studies TSH free T4, morning cortisol She usually takes Adderall 30 mg daily, duloxetine 90 mg daily, Caplyta 42 mg daily and trazodone 50 mg at bedtime, as needed Haldol 0.5 mg and hydroxyzine-did not take them for past week ?? Medication withdrawal I will ask psychiatry to assist with meds Check electrolytes, mag and Phos in the morning Last potassium 3.4, UDS is positive for opioids and marijuana Continue telemetry Admit to ICU IMC bed Consult cardiology Chronic pain disorder 07/26/2022 Cyclic vomiting syndrome 06/25/2022 Medical marijuana use 01/07/2022 Chronic abdominal pain 01/07/2022 Hypokalemia 01/02/2022 Bipolar disorder 01/02/2022 Chronic abdominal pain 11/01/2021 Intractable nausea and vomiting 07/16/2019 Diarrhea 07/16/2019 Intractable migraine 04/26/2009 Overview: ICD-10 update of inactive term documented as of this encounter (statuses as of 12/21/2023) Resolved Problems Problem Noted Date Diagnosed Date Resolved Date Metabolic acidosis 06/19/2022 Hypophosphatemia 06/13/2022 06/15/2022 Cannabinoid hyperemesis syndrome 06/13/2022 06/22/2022 Malnutrition of moderate degree 01/10/2022 09/03/2023 RSV infection 01/02/2022 09/03/2023 Respiratory alkalosis 01/02/20222023 Tachycardia 01/02/2022 01/03/2022 Ketonuria 01/02/2022 01/03/2022 Leukocytosis 07/16/2019 09/03/2023 Lactic acidosis 07/16/2019 01/03/2022 Gastroenteritis 02/23/2019 06/15/2022 Normal delivery 06/22/2015 09/03/2023 Respiratory system disease a ffecting in second trimester, antepartum 03/02/2015 09/03/2023 documented as of this encounter (statuses as of 12/21/2023) Immunizations Name Administration Dates Next Due COVID-19 mRNA, LNP-s, No Pre serve, 2-Dose Series (Pfizer) 07/16/2020,06/25/2020 Seasonal Influenza, PF, 6 M & above, IM , (FluLaval or Fluzone) 01/05/2022(Deferred: Patient Refused - p t states she will get at pcp),12/06/2018(Deferred: Patient Refused - Pt refusing flu shot. Would prefer to receive from employer.) Seasonal Influenza, Quadriva lent, No Preserve, IM 12/01/2020 TDAP (age 10 and older)(Boostrix) 03/20/2017 documented as of this encounter Social History Tobacco Use Types Packs/Day Years Used Date Smoking Tobacco: Never Smokeless Tobacco: Never Alcohol Use Standard Drinks/Week Comments Not Currently 0 (1 standard drink = 0.6 oz pur e alcohol) maybe 3 times per year Utilities Answer Date Recorded Do you have trouble paying y our heating, water, or electric bill? (Adult - for ages 18 years and over) Not on file 08/06/2023 Is your family able to pay t he heat, water, or electric bill? (Household - for ages 0-17 years) Not on file 08/06/2023 Does your family have access to good internet? (Household - for ages 0-17 years) Not on file 08/06/2023 Social Connections Answer Date Recorded How often do you feel lonely or isolated from those around you? (Adult - for ages 18 years and over) Not on file 08/06/2023 Sex and Gender Information Value Date Recorded Sex Assigned at Not on file Gender Identity Not on file Sexual Orientation Not on file Job Start Date Occupation Industry Not on file Not on file Not on file documented as of this encounter Last Filed Vital Signs Vital Sign Reading Time Taken Comments Blood Pressure 126/72 12/21/2023 3:30 AM EDT Pulse 67 12/21/2023 3:30 AM EDT Temperature 36.8 C (98.2 F) 12/20/2023 7:56 PM ED T Respiratory Rate 18 12/21/2023 3:30 AM EDT Oxygen Saturation 100% 12/21/2023 12:00 AM EDT Inhaled Oxygen Concentration - - Weight 90.3 kg (199 lb) 12/20/2023 7:56 PM EDT Height - - Body Mass Index 34.16 11/27/2023 10:48 AM EDT documented in this encounter Functional Status Functional Status Response Date of Assess ment Are you deaf or do you have serious difficulty h earing? No 09/02/2023 Are you blind or do you have serious difficulty seeing, even when wearing glasses? No 09/02/2023 Do you have serious difficul ty walking or climbing stairs? (5 years old or older) No 09/02/2023 Do you have difficulty dress ing or bathing? (5 years old or older) No 09/02/2023 Because of a physical, menta l, or emotional condition, do you have difficulty doing errands alone such as visiting a doctor s office or shopping? (15 years old or older) No 09/02/19 Cognitive Status Response Date of Assessm ent Because of a physical, menta l, or emotional condition, do you have serious difficulty concentrating, remembering, or making decisions? (5 years old or older) No 09/02/2023 documented as of this encounter Discharge Instructions * Discharge Instructions* Antolin Razo MD - 12/21/2023 5:11 AM EDT No driving, heavy lifting, using machines or alcohol if taking Zanaflex/tizanidine Try to reduce your consumption of THC and cannabis as soon as you can but because of the intensity that you can soon you will need to make very small gradual adjustments downward to avoid problematicside effects. To your doctor this week to review recent symptoms test results new medications. Back if any warning signs or problems. documented in this encounter ED Notes * April Nichols RN - 12/20/2023 7:56 PM EDT Patient reports that she has been ill the past few days with nausea, vomiting, abdominal pain, headache. documented in this encounter Miscellaneous Notes * Pt Handout (on AVS) - Antolin Razo MD - 12/21/2023 5:18 AM EDT Images from the original note were not included. [id number] Nonspecific Vomiting and Diarrhea (Adult) Vomiting and diarrhea can have many causes, including: Helping your body get rid of harmful substances Gastroenteritis caused by viruses, parasites, bacteria, or toxins Allergy to or side effect of a food or medicine Severe stress or worry (anxiety) Other illnesses It's often hard to pinpoint an exact cause, even with testing. Vomiting and diarrhea often go away within a day or two without problems. But if these symptoms continue, it may lead to too much loss of fluid (dehydration). This can be serious if not treated. Home care Medicines You may use acetaminophen or nonsteroidal anti-inflammatory drugs (NSAID) such as ibuprofen or naproxen to control fever, unless another medicine was prescribed. If you have chronic liver or kidney disease, talk with your healthcare provider before using these medicines. Also talk with your provider if you've had a stomach ulcer or gastrointestinal bleeding. Don't give aspirin to anyone under 18 years of age who is ill with a fever because it may cause a serious illness called Jun syndromethat may result in severe disease or even . Don't use NSAID medicines if you are already taking one for another condition (like arthritis) or are on aspirin (such as for heart disease or after astroke) Ciwj-zsu-uinvnvn medicines for diarrhea, nausea, and vomiting are generally OK unless you have bleeding, fever, or severe abdominal pain. General care If symptoms are severe, rest at home for the next 24 hours, or until you are feeling better. Washing your hands with soap and clean, running water, or using alcohol-based hand glass washer is the best way to stop the spread of infection. Wash your hands after touching anyone who is sick. Wash your hands after using the toilet and before meals. Clean the toilet after each use. Dry your hands with a single-use disposable towel Caffeine, tobacco, and alcohol can make the diarrhea, cramping, and pain worse. Remember, caffeine not only is in coffee, but also is in chocolate, some energy drinks, some soft drinks, and teas. Diet Water and clear liquids are important so you don't get dehydrated. Drink a small amount at a time but frequently. Don't guzzle down the drinks. That may increase your nausea, make cramping worse, and cause the drinks to come back up. Sports drinks may also help if you are healthy and not too dehydrated. But, they have too much sugar and not enough electrolytes and can sometimes make things worse. Also, don't drink beverages that are too acidic, like orange juice and grape juice. If you are very dehydrated, products called oral rehydration solutions are available at most grocery stores and pharmacies. Food Don't force yourself to eat, especially if you have cramps, diarrhea, or vomiting. Eat just a little at a time, and then wait a few minutes before you try to eat more. Don't eat fatty, greasy, spicy, or fried foods. Don't eat dairy products if you have diarrhea. They can make it worse. During the first 24 hours (the first full day), follow the diet below: Beverages: Oral rehydration solutions, sports drinks, soft drinks without caffeine, mineral water, and decaffeinated tea and coffee Soups: Clear broth, consomm, and bouillon Desserts: Plain gelatin, ice pops, and fruit juice bars During the next 24 hours (the second day), you may add the following to the above if you are better. If not, continue what you did the first day: Hot cereal, plain toast, bread, rolls, crackers Plain noodles, rice, mashed potatoes, chicken noodle or rice soup Unsweetened canned fruit (avoid pineapple), bananas Limit fat intake to less than 15 grams per day by avoiding margarine, butter, oils, mayonnaise, sauces, gravies, fried foods, peanut butter, meat, poultry, and fish. Limit fiber. Avoid raw or cooked vegetables, fresh fruits (except bananas) and bran cereals. Limit caffeine and chocolate. No spices or seasonings except salt. During the next 24 hours: Gradually resume a normal diet, as you feel better and your symptoms improve. If at any time your symptoms start getting worse again, go back to clear liquids until you feelbetter. Food preparation If you have diarrhea, do not prepare food for others. When preparing foods, wash your hands before and after. Wash your hands or use alcohol-based glass washer after using cutting boards, counter tops, and knives that have been in contact with raw food. Dry your hands with a single-use disposable towel. Keep uncooked meats away from cooked and nvwuz-yq-wob foods. Follow-up care Follow up with your healthcare provider, or as advised. Call if you don't get better in the next 2 to 3 days. If a stool (diarrhea) sample was taken, or cultures done, you will be told if they are positive, or if your treatment needs to be changed. You may call as directed for the results. If X-rays were taken, you will be notified of any new findings that may affect your care Call 911 Call 911 if any of these occur: Trouble breathing Chest pain Confusion Severe drowsiness or trouble awakening Fainting or loss of consciousness Rapid heart rate Seizure Stiff neck Severe weakness, dizziness, or lightheadedness When to get medical advice Call your healthcare provider right away if any of these occur: Bloody or black vomit or stools Severe, steady abdominal pain or any abdominal pain that is getting worse Severe headache or stiff neck An inability to hold down even sips of liquids for more than 12 hours Vomiting that lasts more than 24 hours Diarrhea that lasts more than 24 hours Fever of 100.4F (38.0C) or higher, or as directed by your healthcare provider Yellowish color to your skin or the whites of your eyes Signs of dehydration, such as dry mouth, little urine (less than every 6 hours), or very dark urine Last Reviewed Date: 2021 00:00:00 [id number] [employer]. All rights reserved. This information is not intended as a substitute for professional medical care. Always follow your healthcare professional's instructions. * Pt Handout (on AVS) - Antolin Razo MD - 12/21/2023 5:18 AM EDT Images from the original note were not included. [id number] Dehydration The human body is comprised largely of water. If you lose more fluids than you take in, you can become dehydrated. This means there is not enough fluid in your body for it to function right. Mild dehydration can cause thirst, fatigue, weakness, confusion, and muscle cramps. In severe cases, it can lead to kidney damage, brain damage, and even . That's why getting treatment right away is crucial. Risk factors Anyone can become dehydrated. But babies, children, and older adults are at the greatest risk. Older adults who must stay in one place are at especially high risk. They are unable to get up to get something to drink. It can be a bigger problem if they can't communicate. You are most likely to lose fluids with severe vomiting, diarrhea, or a fever. Exercising or working hard?especially in hot weather?can also cause extra fluid loss. Using certain medicines such as water pills (diuretics) that make you pee more can also raise your risk. The risk can be higher in thehot summer months. What to do Drinking liquids is the best way to prevent dehydration. Water is best. But juice or frozen pops can also help. For adults, don't drink liquids that contain caffeine or alcohol to rehydrate. These drinks will cause you to pee more. This raises your risk for more fluid loss. Your healthcare providermay suggest drinking electrolyte solutions. These put back electrolytes that may be lost along withthe fluid. When to go to the emergency room (ER) Go to an ER right away for these symptoms: Adults Very dark urine and little or no urine output Dizziness, weakness, confusion, or fainting Children Sunken eyes For babies, sunken soft spot (fontanelle) on the head Little or no urine output. For babies, no wet diaper in 8 hours. Very dark urine Skin that doesn't bounce back quickly when pinched Crying without tears Lethargy, decreased activity, or increased sleepiness What to expect in the ER Your blood pressure, temperature, and heart rate will be checked. You may have blood or urine testsdone. The main treatment for dehydration is fluids. You may be given these to drink. Or you may getthem through a vein in your arm. You also may be treated for diarrhea, vomiting, or a high fever. Last Reviewed Date: 2021 00:00:00 [id number] [employer]. All rights reserved. This information is not intended as a substitute for professional medical care. Always follow your healthcare professional's instructions. * Pt Handout (on AVS) - Antolin Razo MD - 12/21/2023 5:18 AM EDT Images from the original note were not included. [id number] General Neck and Back Pain Both neck and back pain are usually caused by injury to the muscles or ligaments of the spine. Sometimes the disks that separate each bone of the spine may cause pain by pressing on a nearby nerve. Back and neck pain may appear after a sudden twisting or bending force (such as in a car accident), or sometimes after a simple awkward movement. In either case, muscle spasm is often present and adds to the pain. Acute neck and back pain usually gets better in 1 to 2 weeks. Pain related to disk disease, arthritis in the spinal joints, or narrowing of the spinal canal (spinal stenosis) can become chronic and last for months or years. Back and neck pain are common problems. Most people feel better in 1 or 2 weeks, and most of the rest in 1 to 2 months. Most people can stay active. People have and describe pain differently. Pain can be sharp, stabbing, shooting, aching, cramping, or burning. Movement, standing, bending, lifting, sitting, or walking may worsen the pain. Pain can be limited to 1 spot or area, or it can be more generalized. Pain can spread upward, downward, to the front, or go down your arms or legs. Muscle spasm may occur. Most of the time, mechanical problems with the muscles or spine cause the pain. It's usually causedby an injury, whether known or not, to the muscles or ligaments. Pain without an injury is not common. But it can sometimes be caused by a health problem such as kidney stones or an infection. Pain is usually related to physical activity such as sports, exercise, work, or normal activity. Sometimesit can occur without an identifiable cause. This can happen simply by stretching or moving wrong, without noting pain at the time. Other causes include: Overexertion, lifting, pushing, pulling incorrectly or too aggressively. Sudden twisting, bending or stretching from an accident (car or fall), or accidental movement. Poor posture Poor conditioning, lack of regular exercise Spinal disc disease or arthritis Stress , or illness like appendicitis, bladder or kidney infection, pelvic infections Home care For neck pain: Use a comfortable pillow that supports the head and keeps the spine in a neutral position. The position of the head should not be tilted forward or backward. When in bed, try to find a comfortable position. A firm mattress is best. Try lying flat on yourback with pillows under your knees. You can also try lying on your side with your knees bent up toward your chest and a pillow between your knees. At first, don't try to stretch out the sore spots. If there's a strain, it's not like the good soreness you get after exercising without an injury. In this case, stretching may make it worse. Don't sit for long periods, as in long car rides or other travel. This puts more stress on the low back than standing or walking. During the first 24 to 72 hours after an injury, apply an ice pack to the painful area for 20 minutes and then remove it for 20 minutes over a period of 60 to 90 minutes or several times a day. You can alternate ice and heat therapies. Talk with your healthcare provider about the best treatment for your back or neck pain. As a safety measure, don't use a heating pad at bedtime. Sleeping with a heating pad can lead to skin mcrae or tissue damage. Therapeutic massage can help relax the back and neck muscles without stretching them. Be aware of safe lifting methods. Don't lift anything over 15 pounds until all the pain is gone. Medicines Talk to your healthcare provider before using medicine, especially if you have other health problems or are taking other medicines. You may use hfwz-xkj-pcjkxwo medicine to control pain, unless another pain medicine was prescribed. Talk with your provider first if you have chronic conditions like diabetes, liver or kidney disease, stomach ulcers, gastrointestinal bleeding, or are taking blood thinner medicines. Be careful if you're given pain medicines, narcotics, or medicine for muscle spasm. They can cause drowsiness. It can affect your coordination, reflexes, and judgment. Don't drive or operate heavyVitruey. Follow-up care Follow up with your healthcare provider as advised. You may need physical therapy or more tests. If X-rays were taken, you'll be told of any new findings that may affect your care. Call 911 Call 911 if any of these occur: Trouble breathing Confusion Very drowsy or trouble waking up Fainting or loss of consciousness Very fast or very slow heart rate Loss of bowel or bladder control When to get medical advice Call your healthcare provider right away if any of these occur: Pain gets worse or spreads into your arms or legs Weakness, numbness, or pain in 1 or both arms or legs You have changes in bowel or bladder function Numbness in the groin area Trouble walking Fever of 100.4F (38C) or higher, or as advised by your provider Last Reviewed Date: 2021 00:00:00 [id number] [employer]. All rights reserved. This information is not intended as a substitute for professional medical care. Always follow your healthcare professional's instructions. * ED Machine Room Engineer Note - Suzanne Washburn RN - 12/21/2023 4:03 AM EDT This RN medicated pt per eMAR for primary RN. Pt ambulated to restroom to try and provide urine sample. Made aware to ring call che when finished. * ED Machine Room Engineer Note - Trang Simons RN - 12/20/2023 9:14 PM EDT 2112 Assumed care of pt. 2209 pt resting in bed. Resp unlabored. Pt restless in bed. Reports n/v and abd pain ongoing for several weeks. States she has been to the ED and to her PCP and no one can dx the problem. Taking medications at home for the n/v. Denies diarrhea but states she has frequent loose stools. Denies vaginal bleeding, cough, fever, or urinary symptoms. Pt states the pain is all over her abd but worse on the LLQ. Pain is worse with movement and bearing down. Bowel sounds present. Will monitor. Call che in reach. Aware of plan of care. Aware of need for urine sample. 2302 report given to OSEAS Hall. documented in this encounter Plan of Treatment Pending Results Name Type Priority Associated Diagnoses Date /Time GASTROINTESTINAL PATHOGEN PANEL, STOOL Lab Routine 12/21/2023 2:04 AM EDT GASTROINTESTINAL PATHOGEN PANEL PCR Lab Routine 12/21/2023 2:04 AM EDT GASTROINTESTINAL PATHOGEN PANEL CULTURE Lab Routine 12/21/2023 2:04 AM EDT Scheduled Orders Name Type Priority Associated Diagnoses Orde r Schedule GASTROINTESTINAL PATHOGEN PANEL, STOOL Lab Routine One Time for 1 Occurrences starting 12/21/2023 until 12/21/2023 GASTROINTESTINAL PATHOGEN PANEL PCR Lab Routine Once for 1 Occur rences starting 12/21/2023 until 12/21/2023 GASTROINTESTINAL PATHOGEN PANEL CULTURE Lab Routine Once for 1 Occur rences starting 12/21/2023 until 12/21/2023 Health Maintenance Due Date Last Done Comments COVID-19 Vaccine (2023-2 5 season) 2023 07/16/2020, 06/25/2020 Influenza Vaccine (FLU shot) (#1) 2023 12/01/2020, 12/04/2011 DTap/Tdap Vaccines (4 - Td o r Tdap) 03/20/2027 03/20/2017, 01/24/1995, 07/01/1991 Hepatitis B Vaccine Completed 01/24/1995, 07/20/1994, 06/19/1994 MENINGOCOCCAL (MENACTRA/MENVEO) Aged Out 07/28/2009 No longer eligible based on patient's age to complete this topic Pap Smear Discontinued 11/02/2015, 04/02/2008 HPV (Gardasil) Vaccine Aged Out No lo nger eligible based on patient's age to complete this topic Pneumococcal Vaccine: Pediatrics (0 to 5 Years) and At-Risk Patients (6 to 64 Years) Aged Out No longer eligible based on patient's age to complete this topic documented as of this encounter Medical Devices Implanted Type Area Medical Resident Device Identifier Shelf Expiration Date Model / Serial / Lot Patch Lg Vent Hernia [id number] - [id number] Implanted:Qty: 1 on 07/09/2019 by Lexi Bear DO at OR [facility] N/A: Abdomen CR BARD : DAVOL 05/15/2021 [id number] / / [id number] documented as of this encounter Procedures Procedure Name Priority Date/Time Associated Diagnosis Comments MICROSCOPIC EXAM, URINE STAT 12/21/2023 4:08 AM EDT URINALYSIS, REFLEX TO MICROSCOPIC STAT 12/21/2023 4:08 AM EDT CLOSTRIDIUM DIFFICILE, PCR Routine 12/21/2023 2:04 AM EDT EXTRA LIGHT BLUE TOP STAT 12/20/2023 8:10 PM EDT DIFFERENTIAL, AUTOMATED STAT 12/20/2023 8:10 PM EDT BETA-HCG, QUANTITATIVE STAT 8:10 PM EDT COMPREHENSIVE METABOLIC PANEL STAT 12/20/2023 8:10 PM EDT CBC STAT 12/20/2023 8:10 PM EDT PHOSPHORUS Add-on 12/20/2023 8:10 PM EDT LIPASE STAT 12/20/2023 8:10 PM EDT CBC STAT 12/20/2023 8:10 PM EDT MAGNESIUM Add-on 12/20/2023 8:10 PM EDT documented in this encounter Results * (ABNORMAL) MICROSCOPIC EXAM, URINE (12/21/2023 4:08 AM EDT) RBC, Urine 10-19(A) 0 - 2 /HPF 12/21/2023 4:27 AM EDT LABORATORY GL WBC, Urine 0-2 0 - 2 /HPF 12/21/2023 4:27 AM EDT LABORATORY GL Bacteria, Urine 101-150(A) 0 - 25 /HPF 12/21/2023 4:27 AM EDT LABORATORY [facility] Urine Urine specimen obtained by clean catch procedure / Unknown Non-blood Collection / Unknown 12/21/2023 4:08 AM EDT 12/21/2023 4:12 AM EDT Camille Croft LAB URINE NATALIE SCHROEDER Performing Organization Address [facility]/ZIP Co de Phone Number LABORATORY [address] [address] * (ABNORMAL) URINALYSIS, REFLEX TO MICROSCOPIC (12/21/2023 4:08 AM EDT) Color, Urine Yellow Light Yellow, Yellow, Dark Yellow 12/21/2023 4:20 AM EDT LABORATORY [facility] Clarity, Urine Clear Clear 12/21/2023 4:20 AM EDT LABORATORY [facility] Glucose, Urine Negative Negative mg/dL 12/21/2023 4:20 AM EDT LABORATORY GL Bilirubin, Urine Negative Negative 12/21/2023 4:20 AM EDT LABORATORY [facility] Ketone, Urine Negative Negative mg/dL 12/21/2023 4:20 AM EDT LABORATORY GL Specific D[place]ridge, Urine 1.023 1.003 - 1.030 12/21/2023 4:20 AM EDT LABORATORY GL Blood, Urine Small(A) Negative 12/21/2023 4:20 AM EDT LABORATORY [facility] pH, Urine 7.0 5.0 - 7.5 Units 12/21/2023 4:20 AM EDT LABORATORY [facility] Protein, Urine Negative Negative mg/dL 12/21/2023 4:20 AM EDT LABORATORY GL Urobilinogen, Urine 0.2 0.2, 1.0 mg/dL 12/21/2023 4:20 AM EDT LABORATORY [facility] Nitrite, Urine Negative Negative 12/21/2023 4:20 AM EDT LABORATORY [facility] Esterase, Urine Negative Negative 12/21/2023 4:20 AM EDT LABORATORY GL Urine Urine specimen obtained by clean catch procedure / Unknown Non-blood Collection / Unknown 12/21/2023 4:08 AM EDT 12/21/2023 4:12 AM EDT Camille Veronica Frostflaquita PARIKH LAB URINE NATALIE SCHROEDER Performing Organization Address City/[facility]/ZIP Co de Phone Number LABORATORY [address] [address] * CLOSTRIDIUM DIFFICILE, PCR (12/21/2023 2:04 AM EDT) Stool Consistency Liquid 12/21/2023 3:00 AM EDT LABORATORY [facility] Clostridium difficile Result Negative. No C. difficile toxin B gene DNA detected by PCR (Amplified Probe). Negative 12/21/2023 3:00 AM EDT LABORATORY [facility] Stool Stool specimen / Unknown Non-blood Collection / Unknown 12/21/2023 2:04 AM EDT 12/21/2023 2:08 AM EDT Antolin Razo MD LAB MICRO - GEN ERAL ORDERABLES Performing Organization Address City/[facility]/ZIP Co de Phone Number LABORATORY [address] [address] * PHOSPHORUS (12/20/2023 8:10 PM EDT) Phosphorus 3.9 2.5 - 4.8 mg/dL 12/21/2023 12:52 AM EDT LABORATORY [facility] Blood Venous blood specimen / Unknown Venipuncture / Unknown 12/20/2023 8:10 PM EDT 12/20/2023 8:14 PM EDT Antolin Razo MD LAB BLOOD ORDER [place] Performing Organization Address City/[facility]/ZIP Co de Phone Number LABORATORY [address] [address] * MAGNESIUM (12/20/2023 8:10 PM EDT) Magnesium 1.9 1.5 - 2.6 mg/dL 12/21/2023 12:52 AM EDT LABORATORY [facility] Blood Venous blood specimen / Unknown Venipuncture / Unknown 12/20/2023 8:10 PM EDT 12/20/2023 8:14 PM EDT Antolin Razo MD LAB BLOOD ORDER [place] LABORATORY [facility] [address] [place] [address] * (ABNORMAL) DIFFERENTIAL, AUTOMATED (12/20/2023 8:10 PM EDT) WBC 10.23 4.00 - 10.80 K/uL 12/20/2023 8:17 PM EDT LABORATORY GL Neutrophils % 41.7 40.0 - 75.0 % 12/20/2023 8:17 PM EDT LABORATORY GL Lymphocytes % 46.7(H) 18.0 - 42.0 % 12/20/2023 8:17 PM EDT LABORATORY [facility] Monocytes % 7.7 1.0 - 11.0 % 12/20/2023 8:17 PM EDT LABORATORY [facility] Eosinophils % 2.7 0.0 - 6.0 % 12/20/2023 8:17 PM EDT LABORATORY GL Basophils % 1.0 0.0 - 2.0 % 12/20/2023 8:17 PM EDT LABORATORY GL Immature Granulocytes % 0.2 0.0 - 2.0 % 12/20/2023 8:17 PM EDT LABORATORY GL Absolute Neutrophils 4.26 1.80 - 7.70 K/uL 12/20/2023 8:17 PM EDT LABORATORY GL Absolute Lymphocytes 4.78 1.00 - 4.80 K/ul 12/20/2023 8:17 PM EDT LABORATORY GL Absolute Monocytes 0.79 0.00 - 1.10 K/uL 12/20/2023 8:17 PM EDT LABORATORY GL Absolute Eosinophils 0.28 0.00 - 0.70 K/uL 12/20/2023 8:17 PM EDT LABORATORY GL Absolute Basophils 0.10 0.00 - 0.20 K/uL 12/20/2023 8:17 PM EDT LABORATORY GL Absolute Immature Granulocytes 0.02 0.00 - 0.20 K/uL 12/20/2023 8:17 PM EDT LABORATORY [facility] Blood Venous blood specimen / Unknown Venipuncture / Unknown 12/20/2023 8:10 PM EDT 12/20/2023 8:14 PM EDT Camille Veronica Sember LAB BLOOD ORDBlaze SCHROEDER Performing Organization Address City/[facility]/ZIP Co de Phone Number LABORATORY [facility] [address] [place] [address] * CBC (12/20/2023 8:10 PM EDT) [facility] WBC 10.23 4.00 - 10.80 K/uL 12/20/2023 8:17 PM EDT LABORATORY [facility] RBC 4.86 3.85 - 5.15 M/uL 12/20/2023 8:17 PM EDT LABORATORY [facility] HGB 14.5 12.0 - 15.3 g/dL 12/20/2023 8:17 PM EDT LABORATORY [facility] HCT 40.9 36.0 - 45.2 % 12/20/2023 8:17 PM EDT LABORATORY [facility] MCV 84.2 81.5 - 97.5 fL 12/20/2023 8:17 PM EDT LABORATORY [facility] MCH 29.8 27.0 - 34.0 pg 12/20/2023 8:17 PM EDT LABORATORY [facility] MCHC 35.5 32.0 - 36.0 g/dL 12/20/2023 8:17 PM EDT LABORATORY [facility] RDW 11.9 11.5 - 15.5 % 12/20/2023 8:17 PM EDT LABORATORY [facility] PLT 289 140 - 400 K/uL 12/20/2023 8:17 PM EDT LABORATORY [facility] MPV 9.9 6.6 - 11.1 fL 12/20/2023 8:17 PM EDT LABORATORY [facility] nRBCs 0 <=0 /100 WBCs 12/20/2023 8:17 PM EDT LABORATORY [facility] Blood Venous blood specimen / Unknown Venipuncture / Unknown 12/20/2023 8:10 PM EDT 12/20/2023 8:14 PM EDT Camille Croft LAB BLOOD ORDBlaze SCHROEDER LABORATORY [address] [id number] * (ABNORMAL) BETA-HCG, QUANTITATIVE (12/20/2023 8:10 PM EDT) Beta-HCG, Quantitative 1.8(H) <=1.0 mIU/mL 12/20/2023 8:51 PM EDT LABORATORY [facility] Blood Venous blood specimen / Unknown Venipuncture / Unknown 12/20/2023 8:10 PM EDT 12/20/2023 8:14 PM EDT Narrative LABORATORY [facility] - 12/20/2023 8:51 PM EDT hCG can serve as a screening assay for . However, early may not give a positive hCG test result. In addition, some non- women may have a hCG result slightly higher than the reference limit. Careful interpretation of the hCG with clinical history is required to determine whether the patient may be . Camille Croft DO LAB BLOOD ORDBlaze ELDA Performing Organization Address City/[facility]/ZIP Co de Phone Number LABORATORY [address] [address] * EXTRA LIGHT BLUE TOP (12/20/2023 8:10 PM EDT) Blood Venous blood specimen / Unknown Venipuncture / Unknown 12/20/2023 8:10 PM EDT 12/20/2023 8:14 PM EDT Camille Croft DO LAB BLOOD ORDE JHONYGEOFFREY Performing Organization Address City/[facility] Co de Phone Number LABORATORY [address] [address] * LIPASE (12/20/2023 8:10 PM EDT) Pathologist [facility] Lipase 43 13 - 60 U/L 12/20/2023 8:41 PM EDT LABORATORY [facility] Blood Venous blood specimen / Unknown Venipuncture / Unknown 12/20/2023 8:10 PM EDT 12/20/2023 8:14 PM EDT Camille Croft LAB BLOOD ORDE JHONYGEOFFREY Performing Organization Address City/[facility]/ZIP Co de Phone Number LABORATORY [address] [address] * COMPREHENSIVE METABOLIC PANEL (12/20/2023 8:10 PM EDT) [facility] BUN 14 6 - 20 mg/dL 12/20/2023 8:41 PM EDT LABORATORY GL CREATININE 0.8 0.5 - 1.0 mg/dL 12/20/2023 8:41 PM EDT LABORATORY [facility] EGFR >90 >=60 mL/min 12/20/2023 8:41 PM EDT LABORATORY [facility] Comment:eGFR is calculated b ased on the CKD-EPI 2020 equation. SODIUM 142 135 - 146 mmol/L 12/20/2023 8:41 PM EDT LABORATORY [facility] POTASSIUM 3.6 3.5 - 5.1 mmol/L 12/20/2023 8:41 PM EDT LABORATORY [facility] CHLORIDE 106 98 - 107 mmol/L 12/20/2023 8:41 PM EDT LABORATORY [facility] CO2 23 22 - 32 mmol/L 12/20/2023 8:41 PM EDT LABORATORY [facility] ANION GAP 13 7 - 15 mmol/L 12/20/2023 8:41 PM EDT LABORATORY [facility] GLUCOSE 95 70 - 120 mg/dL 12/20/2023 8:41 PM EDT LABORATORY [facility] Albumin 4.3 3.8 - 5.0 g/dL 12/20/2023 8:41 PM EDT LABORATORY [facility] AST 18 10 - 35 U/L 12/20/2023 8:41 PM EDT LABORATORY [facility] Alkaline Phosphatase 85 35 - 130 U/L 12/20/2023 8:41 PM EDT LABORATORY [facility] Bilirubin, Total 0.4 <=1.2 mg/dL 12/20/2023 8:41 PM EDT LABORATORY [facility] CALCIUM 9.3 8.4 - 10.2 mg/dL 12/20/2023 8:41 PM EDT LABORATORY [facility] Protein 7.2 6.0 - 8.3 g/dL 12/20/2023 8:41 PM EDT LABORATORY [facility] ALT 13 10 - 35 U/L 12/20/2023 8:41 PM EDT LAB[facility]ATORY [facility] Blood Venous blood specimen / Unknown Venipuncture / Unknown 12/20/2023 8:10 PM EDT 12/20/2023 8:14 PM EDT Camille Croft DO LAB BLOOD DEANNABlaze SCHROEDER [address] [address] documented in this encounter Visit Diagnoses Diagnosis Cyclic vomiting syndrome- Primary Persistent vomiting Diarrhea, unspecified type Dehydration Chronic bilateral low back pain, unspecified whether sciatica present documented in this encounter Administered Medications Inactive Administered Medications - up to 3 most recent administrations Medication Order MAR Action Action Date Dose Rate Site loperamide (Imodium) cap 2 mg 2 mg, Oral, ONCE, On 12/21/23 at 0300, For 1 dose, Maximum of 16 mg per day recommended Given 12/21/2023 3:32 AM EDT 2 mg morphine sulfate inj 2 mg 2 mg, IV Push, ONCE, On 12/21/23 at 0315, For 1 dose Given 12/21/2023 2:38 AM EDT 2 mg NSS 0.9% 1,000 mL bolus infusion Peripheral IV, at 1,000 mL/hr Administer over 60 Minutes, Administer entire volume within 60 minutes or less., ONCE, 1 dose, On 12/21/23 at 0115 Restarted 12/21/2023 3:42 AM EDT 50 0 mL/hr Restarted 12/21/2023 3:38 AM EDT 500 mL/hr Restarted 12/21/2023 3:26 AM EDT 500 mL/hr NSS 0.9% 1,000 mL bolus infusion Peripheral IV, at 1,000 mL/hr Administer over 60 Minutes, Administer entire volume within 60 minutes or less., ONCE, 1 dose, On 12/21/23 at 0400 New Bag 12/21/2023 3:58 AM EDT 1,000 mL 500 mL/hr potassium chloride ER tab 20 mEq 20 mEq, Oral, ONCE, On 12/21/23 at 0400, For 1 dose, This med should NOT be Crushed or Chewed Given 12/21/2023 3:31 AM EDT 20 mEq tiZANidine (Zanaflex) 2 mg tab 2 mg, Oral, ONCE, On 12/21/23 at 0430, For 1 dose Given 12/21/2023 3:53 AM EDT 2 mg trimethobenzamide (Tigan) inj 50 mg 50 mg, Intramuscular, ONCE, On 12/21/23 at 0130, For 1 dose Given 12/21/2023 12:59 AM EDT 50 mg Deltoid Left Upper trimethobenzamide (Tigan) inj 50 mg 50 mg, Intramuscular, ONCE, On 12/21/23 at 0430, For 1 dose Given 12/21/2023 3:53 AM EDT 50 mg Deltoid Right Upper documented in this encounter Active and Recently Administered Medications Times are shown in EDT. Scheduled Medication Order 12/19/2023 12/20/2023 12/21/2023 loperamide (Imodium) cap 2 mg (COMPLETED) 2 mg, Oral, ONCE, On 12/21/23 at 0300, For 1 dose, Maximum of 16 mg per day recommended 0234 (Not Given - Pr ovider: Rafael Stevens RN - Reason: Refused-Notify Provider)0332 (Given - Provider: Rafael Stevens RN - Comment: pt vomiting during initial attempt) morphine sulfate inj 2 mg (COMPLETED) 2 mg, IV Push, ONCE, On 12/21/23 at 0315, For 1 dose 0238 (Given - Provid er: Rafael Stevens RN) NSS 0.9% 1,000 mL bolus infusion (COMPLETED) Peripheral IV, at 1,000 mL/hr Administer over 60 Minutes, Administer entire volume within 60 minutes or less., ONCE, 1 dose, On 12/21/23 at 0115 0050 (New Bag - Prov ider: Rafael Stevens RN)0055 (Paused - Provider: Suzanne Washburn RN)0058 (Rate Change - Provider: Suzanne Washburn RN)0124 (Paused - Provider: Suzanne Washburn RN)0152 (Restarted - Provider: Suzanne Washburn RN)0204 (Paused - Provider: Suzanne Washburn RN)0209 (Restarted - Provider: Suzanne Washburn RN)0226 (Paused - Provider: Suzanne Washburn RN)0230 (Restarted - Provider: Suzanne Washburn RN)0232 (Paused - Provider: Suzanne Washburn RN)0236 (Restarted - Provider: Suzanne Washburn RN)0307 (Paused - Provider: Suzanne Washburn RN)0326 (Restarted - Provider: Suzanne Washburn RN)0334 (Paused - Provider: Suzanne Washburn RN)0338 (Restarted - Provider: Suzanne Washburn RN)0340 (Paused - Provider: Suzanne Washburn RN)0342 (Restarted - Provider: Suzanne Washburn RN)0356 (Stopped - Provider: Suzanne Washburn RN) NSS 0.9% 1,000 mL bolus infusion (COMPLETED) Peripheral IV, at 1,000 mL/hr Administer over 60 Minutes, Administer entire volume within 60 minutes or less., ONCE, 1 dose, On 12/21/23 at 0400 0358 (New Bag - Prov ider: Suzanne Washburn RN)0523 (Stopped - Provider: Rafael Stevens RN) potassium chloride ER tab 20 mEq (COMPLETED) 20 mEq, Oral, ONCE, On 12/21/23 at 0400, For 1 dose, This med should NOT be Crushed or Chewed 0331 (Given - Provid er: Rafael Stevens RN) tiZANidine (Zanaflex) 2 mg tab (COMPLETED) 2 mg, Oral, ONCE, On 12/21/23 at 0430, For 1 dose 0353 (Given - Provid er: Suzanne Washburn RN) trimethobenzamide (Tigan) inj 50 mg (COMPLETED) 50 mg, Intramuscular, ONCE, On 12/21/23 at 0130, For 1 dose 0059 (Given - Provid er: Rafael Stevens RN) trimethobenzamide (Tigan) inj 50 mg (COMPLETED) 50 mg, Intramuscular, ONCE, On 12/21/23 at 0430, For 1 dose 0353 (Given - Provid er: Suzanne Washburn RN) documented in this encounter Additional Health Concerns Infection Onset Date Last Indicated Resolved Time C. difficile Rule-Out 12/21/2023 12/21/20232023 3:00 AM EDT Gastrointestinal Rule-Out 12/21/2023 12/21/2023 documented as of this encounter Advance Directives * Full Code (Latest Code Status on File) Date Activated Date Inactivated Comments 09/02/2023 4:33 PM 09/04/2023 4:29 PM This order r eflects the patients wishes and were consensually agreed upon. Question Answer Comments Discussion of Advance Directives occurred with: Patient * Full Code Date Activated Date Inactivated Comments 06/25/2022 8:07 PM 06/28/2022 2:29 PM This order re flects the patients wishes and were consensually agreed upon. Question Answer Comments Discussion of Advance Directives occurred with: Patient * Full Code Date Activated Date Inactivated Comments 06/19/2022 10:18 AM 06/22/2022 5:30 PM This order re flects the patients wishes and were consensually agreed upon. Question Answer Comments Discussion of Advance Direct donald occurred with: Not Discussed due to patient's condition * Full Code Date Activated Date Inactivated Comments 06/13/2022 3:59 AM 06/15/2022 8:23 PM This order r eflects the patients wishes and were consensually agreed upon. Question Answer Comments Discussion of Advance Directives occurred with: Patient * Full Code Date Activated Date Inactivated Comments 01/07/2022 6:33 PM 01/11/2022 4:18 PM This order reflects the patients wishes and were consensually agreed upon. Question Answer Comments Discussion of Advance Directives occurred with: Patient Care Teams Can Sterilizer Relationship Specialty Start Date End Date Tavares Peña MD [address] [place] [address] PCP - General Family Medicine 06/11/19 documented as of this encounter
--- OUTSIDE RECORDS SUMMARY | 2024-01-10 05:55 | External Medical Summary ---
Author Name Unknown Address Unknown Organization [id number]:LABORATORY [facility] - [address] [address] Laboratory Report Ordering Provider Test Date Status IMANI RODGERS 12/21/2023 02:04:58 Final Observation Date Value Abnormality Reference (Units) Status Source 12/21/2023 02:04:58 Liquid Final Clostridioides difficile toxin and [id number] strain DNA panel - Stool by ASHLEY with probe detection 12/21/2023 02:04:58 Negative. No C. difficile toxin B gene DNA detected by PCR (Amplified Probe). Negative Final Performing Location LABORATORY [facility] - [address] [address]
--- OUTSIDE RECORDS SUMMARY | 2024-01-10 05:55 | External Medical Summary | Summary of Care ---
Author Name Unknown Organization [facility] [address] [place] [address] Phone [phone] Care Team Providers Care Identification Officer Name Role Phone Tavares Peña MD Primary Care Provid er Reason for Visit * Reason Comments Abdominal Pain * Auth/Cert Specialty Diagnoses / Procedures Referred By [place] t Referred To Contact [place] [address] [place] [address] Phone: tel:[phone] [facility] ([facility]) [address] [place] [address] Phone: tel: fax: Referral ID Status Reason Start Date Expiration Date Visits Re quested Visits Authorized [id number] Encounter Details Date Type Department Care Team (Late st Contact Info) Description 01/08/2024 8:34 AM EST - 01/08/2024 12:41 PM EST Emergency [facility] ([facility]) [address] [place] [address] Jered Colon MD [address] [place] [address] Nausea and vomiting, unspecified vomiting type (Primary Dx) Discharge Disposition: Home - Self Care Allergies [...] as of this encounter (statuses as of 01/09/2024) Medications hydrOXYzine HCl 25 MG Oral Tablet Take 1 Tablet by mouth at bedtime as needed for Other. Patient states she takes 1-2 pills at bedtime as needed for sleep Active Estradiol 0.025 MG/24HR Transdermal Patch Weekly 1 Patch. 1 Active DULoxetine HCl 60 MG Oral Capsule Delayed Release Particles (Cymbalta) Take 1 Capsule by mouth at bedtime. 2 Active Caplyta 42 MG Oral Capsule (Lumateperone Tosylate) Take 1 Capsule by mouth at bedtime. 3 Active traZODone HCl 50 MG Oral Tablet (Desyrel) 1.5 Tablets at bedtime. 3 Active Nadolol 20 MG Oral Tablet (Corgard) [...] by mouth daily as needed for Nausea. 4 Active DULoxetine HCl 30 MG Oral Capsule Delayed Release Particles (Cymbalta) Take 1 Capsule by mouth at bedtime. Restart as instructed by psychiatry. 4 Active Nitrofurantoin Monohyd Macro 100 MG Oral Capsule (Macrobid) Take 1 Capsule by mouth in the morning and 1 Capsule before bedtime. With food.. 14 Capsule 4 Active oxyCODONE HCl 5 MG Oral Tablet (Oxy IR) Take 1 Tablet by mouth every 6 hours as needed for Pain, Severe or Pain, Moderate. 20 Tablet 4 Active Trimethobenzamid e HCl 300 MG Oral Capsule Take 1 Capsule by mouth in the morning and 1 Capsule at noon and 1 Capsule before bedtime. As needed for nausea. 30 Each 4 Active tiZANidine HCl 2 MG Oral Tablet (Zanaflex) Take 1 Tablet by mouth every 6 hours as needed for Muscle spasms. 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 Overview (09/03/2023): Last Assessment & Plan: Torsades de david [...] vomiting 07/16/2019 Diarrhea 07/16/2019 Intractable migraine 04/26/2009 Overview (05/31/2015): ICD-10 update of inactive term documented as of this encounter (statuses as of 01/09/2024) Resolved Problems Problem Noted Date Diagnosed Date [...] as of this encounter (statuses as of 01/09/2024) Immunizations Name Administration Dates Next Due COVID-19 [...] e alcohol) maybe 3 times per year Comments No Sex and Gender Information Value Date Recorded Sex Assigned at Not on file Legal Sex Female 7:08 AM EST Gender Identity Not on file Sexual Orientation Not on file documented as of this encounter Last Filed Vital Signs Vital Sign Reading Time Taken Comments Blood Pressure 104/74 01/08/2024 12:13 PM EST Pulse 60 01/08/2024 12:13 PM EST Temperature 36.8 C (98.2 F) 01/08/2024 9:36 AM ES T Respiratory Rate 18 01/08/2024 12:13 PM EST Oxygen Saturation 100% 01/08/2024 11:16 AM EST Inhaled Oxygen Concentration - - Weight 90.7 kg (200 lb) 01/08/2024 8:37 AM EST Height 162.6 cm (5' 4") 01/08/2024 8:37 AM EST Body Mass Index 34.33 01/08/2024 8:37 AM EST documented in this encounter Functional Status * Are you deaf or do you have serious difficulty hearing? Answer Date of Assessment Author No 09/02/2023 5:33 PM EDT Brent Lofton RN * Are you blind or do you have serious difficulty seeing, even when wearing glasses? Answer Date of Assessment Author No 09/02/2023 5:33 PM EDT Brent Lofton RN * Do you have serious difficulty walking or climbing stairs? (5 years old or older) Answer Date of Assessment Author No 09/02/2023 5:33 PM EDT Brent Lofton RN * Do you have difficulty dressing or bathing? (5 years old or older) Answer Date of Assessment Author No 09/02/2023 5:33 PM EDT Brent Lofton RN * Because of a physical, mental, or emotional condition, do you have difficulty doing errands alone such as visiting a doctors office or shopping? (15 years old or older) Answer Date of Assessment Author No 09/02/2023 5:33 PM EDT Brent Lofton RN documented as of this encounter Mental Status * Because of a physical, mental, or emotional condition, do you have serious difficulty concentrating, remembering, or making decisions? (5 years old or older) Answer Entry Date Author No 09/02/2023 5:33 PM EDT Brent Lofton RN documented in this encounter Discharge Instructions * Discharge Instructions* Jered Colon MD - 01/08/2024 12:35 PM EST Please follow-up with your regular doctor the next available appointment for ER follow-up. Please return to the ER in the meantime for any new or worsening symptoms otherwise. documented in this encounter ED Notes * Jered Colon MD - 01/08/2024 9:04 AM EST HISTORY OF PRESENT ILLNESS Kelsey Collins is a 33 year old female who presents to the ED for evaluation of Abdominal Pain. The patient was seen at 01/08/24 0904. Here with 2 weeks of recurrent, intermittent abdominal pain and associated nausea with vomiting. States that she has been told in the past that she has cyclic vomiting. She does use marijuana on adaily basis. She was taking prescribed Phenergan as needed for nausea and vomiting. States that it does not seemto be helping. States that hot showers do not help. Capsaicin ointment does not help. States that her pain is sharp and crampy on the left side of her abdomen at the top going down to the bottom. Denied associated diarrhea, fevers, chills, dysuria, burning with urination, hematuria, flank pain. She has a history of hysterectomy, cholecystectomy, appendectomy, hernia repair. Allergies: Vraylar, Augmentin, iodine, iodine contrast, shellfish Review of Systems Gastrointestinal: Positive for abdominal pain, nausea and vomiting. The patient's allergies, past history, and medications were reviewed. PHYSICAL EXAM Initial Vitals (see all): BP 123/92 | Pulse 72 | Resp 18 | Temp 97.9 | O2 98 %, Room Air, None | Weight 90.72 kg | Height 162.6 cm | BMI 34.33 kg/m2 Initial Pain Assessment (see all): 6 (severe pain)/100/10 ([facility] Adult Scale 0-10) Physical Exam Vitals and nursing note reviewed. Constitutional: General: She is in acute distress. Appearance: Normal appearance. She is well-developed. She is not ill-appearing, toxic-appearing or diaphoretic. HENT: Head: Normocephalic and atraumatic. Nose: Nose normal. Mouth/Throat: Mouth: Mucous membranes are moist. Pharynx: Oropharynx is clear. Eyes: General: No scleral icterus. Extraocular Movements: Extraocular movements intact. Conjunctiva/sclera: Conjunctivae normal. Pupils: Pupils are equal, round, and reactive to light. Neck: Thyroid: No thyromegaly. Vascular: No JVD. Cardiovascular: Rate and Rhythm: Normal rate and regular rhythm. Heart sounds: Normal heart sounds. No murmur heard. No friction rub. No gallop. Pulmonary: Effort: Pulmonary effort is normal. No respiratory distress. Breath sounds: Normal breath sounds. No wheezing or rales. Chest: Chest wall: No tenderness. Abdominal: General: Bowel sounds are normal. There is no distension. Palpations: Abdomen is soft. There is no mass. Tenderness: There is abdominal tenderness in the left upper quadrant and left lower quadrant. Thereis no right CVA tenderness, guarding or rebound. Negative signs include Garcia's sign, Rovsing's sign and McBurney's sign. Musculoskeletal: General: Normal range of motion. Cervical back: Normal range of motion and neck supple. No muscular tenderness. Skin: General: Skin is warm and dry. Neurological: General: No focal deficit present. Mental Status: She is alert and oriented to person, place, and time. Psychiatric: Mood and Affect: Mood normal. Behavior: Behavior normal. PROCEDURES AND TREATMENTS ED Orders | ED Results MEDICAL DECISION MAKING Nursing notes and vital signs were reviewed. ED Course as of 01/08/242036Jan 08, 2024 0904 ED Triage Notes Pt comes in complaining of recurrent abdominal pain and vomiting. States she was seen for this before and was told she had cyclic vomiting. Was prescribed tigan and reports this was helping but states she no longer has this. Reports the pain and vomiting started 3 days ago again. Has been able to intermittently keep things down [MM] 0904 BP: 123/92 [MM] 0904 Pulse: 72 [MM] 0904 Resp: 18 [MM] 0904 SpO2: 98 % [MM] 0904 Temp: 36.6 C (97.9 F) [MM] 0935 UA is not consistent with UTI [MM] 1032 Lipase: 32 [MM] 1032 CREATININE: 0.7 [MM] 1032 LFTs unremarkable [MM] 1032 IMPRESSION: Nonobstructive bowel gas pattern. [MM] 1119 My interpretation of the EKG shows rate 61, normal sinus rhythm with sinus arrhythmia, normal axis, normal intervals, QTC specifically as 453 milliseconds, no ST depression or elevation noted. [MM] ED Course User Index [MM] Jered Colon MD Patient here with recurrent abdominal pain associated with nausea and vomiting. Diagnosed with cyclic vomiting in the past. She does smoke marijuana on a daily basis. Physical examination and vital signs as above. Lab work grossly unremarkable today. Abdominal x-ray showed nonobstructive bowel gas pattern. EKG does not appear to show any acute ischemic change or dysrhythmia. QTC interval 453 milliseconds. Patient was given symptomatic treatment with moderate relief. Her symptoms seem most likely related due to cannabinoid hyperemesis syndrome or cyclic vomiting. We will have her continue the Phenergan as needed at home. Recommended cessation of marijuana use. Advised PCP follow-up. Return precautions given. Amount and/or Complexity of Data Reviewed Labs: Decision-making details documented in ED Course. Radiology: ordered. ECG/medicine tests: ordered. Risk Prescription drug management. Clinical Impressions Nausea and vomiting, unspecified vomiting type Disposition Discharged. The patient's condition at disposition was: stable. Jered Colon * Krys Ventura RN - 01/08/2024 8:38 AM EST Pt comes in complaining of recurrent abdominal pain and vomiting. States she was seen for this before and was told she had cyclic vomiting. Was prescribed tigan and reports this was helping but states she no longer has this. Reports the pain and vomiting started 3 days ago again. Has been able to intermittently keep things down documented in this encounter Miscellaneous Notes * ED Carton Filler Note - Nohelia Ventura RN - 01/08/2024 12:41 PM EST Patient d/c home at this time. Advised to follow up with PCP within the next several days and return for worsening or persisting symptoms per instructions. Verbalized understanding. FLACC 0. * ED Carton Filler Note - Pollo Looney RN - 01/08/2024 9:53 AM EST Pt c/o left sided abdominal pain. Pt states she has had this type of pain before, but it has not lasted this long in the past. Pt also states that her breasts are "leaking". Pt states that she was admitted to the hospital for 3 weeks in the past and states she is having the same symptoms as she hadthen. Pt very tearful and in acute distress. IV started, blood drawn and sent to lab. Pt medicated per physician orders. Will monitor for effectiveness. Assessment as documented. Pt denies any current needs. Call che is within reach. * ED Carton Filler Note - Lamar Camarena RN - 01/08/2024 9:40 AM EST Abd for two weeks. Worsening over past few days. Reports diffuse abd pain. +n/v. Frequent bowel movement that are loose. documented in this encounter Plan of Treatment Health Maintenance Due Date Last Done Comments COVID-19 Vaccine (3 2023-2 5 season) 2023 07/16/2020, 06/25/2020 Influenza Vaccine [...] this encounter Medical Devices Implanted Type Area Race Relations Adviser Device Identifier Shelf Expiration Date Model / Serial / Lot Patch Lg Vent Hernia [id number] - [id number] Implanted:Qty: 1 on 07/09/2019 by Lexi Bear DO at OR [facility] N/A: Abdomen CR BARD : DAVOL 05/15/2021 [id number] / / [id number] documented as of this encounter Procedures Procedure Name Priority Date/Time Associated Diagnosis Comments XR ABDOMEN 2 VIEWS Routine 01/08/2024 10 :02 AM EST EXTRA LIGHT BLUE TOP STAT 01/08/2024 9:19 AM EST EXTRA GREEN TOP WITH GEL Routine 01/08/2024 9:06 AM EST EXTRA TUBES Routine 01/08/2024 9:06 AM EST DIFFERENTIAL, AUTOMATED STAT 01/08/2024 9:06 AM EST COMPREHENSIVE METABOLIC PANEL STAT 01/08/2024 9:06 AM EST CBC STAT 01/08/2024 9:06 AM EST LIPASE STAT 01/08/2024 9:06 AM EST CBC STAT 01/08/2024 9:06 AM EST MICROSCOPIC EXAM, URINE STAT 01/08/2024 8:57 AM EST URINALYSIS, REFLEX TO MICROSCOPIC STAT 01/08/2024 8:57 AM EST documented in this encounter Results * XR ABDOMEN 2 VIEWS (01/08/2024 10:02 AM EST) Anatomical Region Laterality Modality Abdomen, Pelvis Digital Radiogra phy 01/08/2024 10:0 1 AM EST Impressions 01/08/2024 10:19 AM EST IMPRESSION: Nonobstructive bowel gas pattern. THIS DOCUMENT HAS BEEN ELECTRONICALLY SIGNED BY CARLOS BRUSH DO Narrative 01/08/2024 10:19 AM EST PROCEDURE INFORMATION: Exam: XR Abdomen Exam date and time: 01/08/2024 10:01 AM Age: 33 years old Clinical indication: Other: Left sided abd pain, nv TECHNIQUE: Imaging protocol: Radiologic exam of the abdomen. Views: 2 Views. Upright and supine views. COMPARISON: CT ABD/PELVIS W IV CONTRAST - WO ORAL CONTRAST 11/21/2023 1:12 PM FINDINGS: Gastrointestinal tract: The bowel gas pattern is nonobstructive. Intraperitoneal space: No free intraperitoneal air. Bones/joints: Unremarkable for age. Procedure Note Carlos Brush DO - 01/08/2024 PROCEDURE INFORMATION: Exam: XR Abdomen Exam date and time: 01/08/2024 10:01 AM Age: 33 years old Clinical indication: Other: Left sided abd pain, nv TECHNIQUE: Imaging protocol: Radiologic exam of the abdomen. Views: 2 Views. Upright and supine views. COMPARISON: CT ABD/PELVIS W IV CONTRAST - WO ORAL CONTRAST 11/21/2023 1:12 PM FINDINGS: Gastrointestinal tract: The bowel gas pattern is nonobstructive. Intraperitoneal space: No free intraperitoneal air. Bones/joints: Unremarkable for age. IMPRESSION IMPRESSION: Nonobstructive bowel gas pattern. THIS DOCUMENT HAS BEEN ELECTRONICALLY SIGNED BY CARLOS BRUSH DO Jered Colon MD RADIOLOGY ([facility]) Final Result * EXTRA LIGHT BLUE TOP (01/08/2024 9:19 AM EST) Blood Venous blood specimen / Unknown Venipuncture / Unknown 01/08/2024 9:19 AM EST 01/08/2024 9:29 AM EST [facility] LAB BLOOD ORDERABLES Final Result LABORATORY GL [address] [place] [address] * EXTRA GREEN TOP WITH GEL (01/08/2024 9:06 AM EST) Blood Venous blood specimen / Unknown 01/08/2024 9:06 AM EST 01/08/2024 9:10 AM EST Jered Colon MD LAB BLOOD ORDERABLES Final Re sult LABORATORY GL [address] [place] [address] * DIFFERENTIAL, AUTOMATED (01/08/2024 9:06 AM EST) WBC 8.69 4.00 - 10.80 K/uL 01/08/2024 11:16 AM EST LAB[facility]ATORY [facility] Neutrophils % 60.6 40.0 - 75.0 % 01/08/2024 11:16 AM EST LAB[facility] Lymphocytes % 30.1 18.0 - 42.0 % 01/08/2024 11:16 AM EST LAB[facility] Monocytes % 6.0 1.0 - 11.0 % 01/08/2024 11:16 AM EST LAB[facility]ORY [facility] Eosinophils % 2.5 0.0 - 6.0 % 01/08/2024 11:16 AM EST LAB[facility] Basophils % 0.6 0.0 - 2.0 % 01/08/2024 11:16 AM EST LAB[facility]ATORY [facility] Immature Granulocytes % 0.2 0.0 - 2.0 % 01/08/2024 11:16 AM EST LABORATORY GL Absolute Neutrophils 5.26 1.80 - 7.70 K/uL 01/08/2024 11:16 AM EST LAB[facility]ORY [facility] Absolute Lymphocytes 2.62 1.00 - 4.80 K/ul 01/08/2024 11:16 AM EST LABORATORY GL Absolute Monocytes 0.52 0.00 - 1.10 K/uL 01/08/2024 11:16 AM EST LAB[facility]ATORY [facility] Absolute Eosinophils 0.22 0.00 - 0.70 K/uL 01/08/2024 11:16 AM EST LABORATORY GL Absolute Basophils 0.05 0.00 - 0.20 K/uL 01/08/2024 11:16 AM EST LABORATORY GL Absolute Immature Granulocytes 0.02 0.00 - 0.20 K/uL 01/08/2024 11:16 AM EST LABORATORY GL Blood Venous blood specimen / Unknown Venipuncture / Unknown 01/08/2024 9:06 AM EST 01/08/2024 9:10 AM EST [facility] B[facility] Final Result LABORATORY [address] [address] * CBC (01/08/2024 9:06 AM EST) WBC 8.69 4.00 - 10.80 K/uL 01/08/2024 11:15 AM EST LABORATORY [facility] RBC 5.07 3.85 - 5.15 M/uL 01/08/2024 11:15 AM EST LABORATORY GL HGB 15.2 12.0 - 15.3 g/dL 01/08/2024 11:15 AM EST LABORATORY GL HCT 44.4 36.0 - 45.2 % 01/08/2024 11:15 AM EST LABORATORY GL MCV 87.6 81.5 - 97.5 fL 01/08/2024 11:15 AM EST LABORATORY GL MCH 30.0 27.0 - 34.0 pg 01/08/2024 11:15 AM EST LABORATORY GL MCHC 34.2 32.0 - 36.0 g/dL 01/08/2024 11:15 AM EST LAB[facility]ATORY [facility] RDW 12.5 11.5 - 15.5 % 01/08/2024 11:15 AM EST LABORATORY [facility] PLT 283 140 - 400 K/uL 01/08/2024 11:15 AM EST LABORATORY [facility] MPV 10.8 6.6 - 11.1 fL 01/08/2024 11:15 AM EST LABORATORY [facility] nRBCs 0 <=0 /100 WBCs 01/08/2024 11:15 AM EST LABORATORY [facility] Blood Venous blood specimen / Unknown Venipuncture / Unknown 01/08/2024 9:06 AM EST 01/08/2024 9:10 AM EST [facility] LAB BLOOD ORDERABLES Final Result LABORATORY [address] [address] * LIPASE (01/08/2024 9:06 AM EST) Lipase 32 13 - 60 U/L 01/08/2024 10:07 AM EST LABORATORY [facility] Blood Venous blood specimen / Unknown Venipuncture / Unknown 01/08/2024 9:06 AM EST 01/08/2024 9:10 AM EST [facility] LAB BLOOD ORDERABLES Final Result Performing Organization Address City/[facility]/ZIP Co de Phone Number LABORATORY [address] [phone] * (ABNORMAL) COMPREHENSIVE METABOLIC PANEL (01/08/2024 9:06 AM EST) BUN 8 6 - 20 mg/dL 01/08/2024 10:14 AM EST LABORATORY [facility] CREATININE 0.7 0.5 - 1.0 mg/dL 01/08/2024 10:14 AM EST LABORATORY GL EGFR >90 >=60 mL/min 01/08/2024 10:14 AM EST LABORATORY [facility] Comment:eGFR is calculated b ased on the CKD-EPI 2020 equation. SODIUM 141 135 - 146 mmol/L 01/08/2024 10:14 AM EST LAB[facility]ATORY [facility] POTASSIUM 4.8 3.5 - 5.1 mmol/L 01/08/2024 10:14 AM EST LAB[facility] CHLORIDE 108(H) 98 - 107 mmol/L 01/08/2024 10:14 AM EST [facility] CO2 17(L) 22 - 32 mmol/L 01/08/2024 10:14 AM EST [facility] ANION GAP 16(H) 7 - 15 mmol/L 01/08/2024 10:14 AM EST [facility] GLUCOSE 101 70 - 120 mg/dL 01/08/2024 10:14 AM EST [facility] Albumin 4.3 3.8 - 5.0 g/dL 01/08/2024 10:14 AM EST [facility] AST 27 10 - 35 U/L 01/08/2024 10:14 AM EST LAB[facility] Comment:Results may be false ly elevated due to hemolysis. Alkaline Phosphatase 88 35 - 130 U/L 01/08/2024 10:14 AM EST LAB[facility]ORY [facility] Bilirubin, Total 0.4 <=1.2 mg/dL 01/08/2024 10:14 AM EST [facility] CALCIUM 9.6 8.4 - 10.2 mg/dL 01/08/2024 10:14 AM EST [facility] Protein 7.3 6.0 - 8.3 g/dL 01/08/2024 10:14 AM EST LAB[facility] ALT 12 10 - 35 U/L 01/08/2024 10:14 AM EST [facility] Blood Venous blood specimen / Unknown Venipuncture / Unknown 01/08/2024 9:06 AM EST 01/08/2024 9:10 AM EST [facility] BLOOD ORDERABLES Final Result LABORATORY [address] [address] * (ABNORMAL) MICROSCOPIC EXAM, URINE (01/08/2024 8:57 AM EST) RBC, Urine 0-2 0 - 2 /HPF 01/08/2024 9:19 AM EST LAB[facility]ORY [facility] WBC, Urine 0-2 0 - 2 /HPF 01/08/2024 9:19 AM EST LABORATORY GL Bacteria, Urine 26-50(A) 0 - 25 /HPF 01/08/2024 9:19 AM EST LAB[facility]ORY [facility] Mucus, Urine Many(A) None /HPF 01/08/2024 9:19 AM EST LABORATORY GL Urine Urine specimen obtained by clean catch procedure / Unknown Non-blood Collection / Unknown 01/08/2024 8:57 AM EST 01/08/2024 9:07 AM EST [facility] URINE ORDERABLES Final Result LABORATORY [facility] [address] [place] [address] * (ABNORMAL) URINALYSIS, REFLEX TO MICROSCOPIC (01/08/2024 8:57 AM EST) Color, Urine Yellow Light Yellow, Yellow, Dark Yellow 01/08/2024 9:13 AM EST LAB[facility]ORY [facility] Clarity, Urine Clear Clear 01/08/2024 9:13 AM EST [facility] Glucose, Urine Negative Negative mg/dL 01/08/2024 9:13 AM EST LAB[facility]ORY [facility] Bilirubin, Urine Negative Negative 01/08/2024 9:13 AM EST LAB[facility]ORY [facility] Ketone, Urine Negative Negative mg/dL 01/08/2024 9:13 AM EST LAB[facility]ATORY [facility] Specific [place], Urine 1.019 1.003 - 1.030 01/08/2024 9:13 AM EST LAB[facility]ORY [facility] Blood, Urine Small(A) Negative 01/08/2024 9:13 AM EST LAB[facility]ORY [facility] pH, Urine 6.0 5.0 - 7.5 Units 01/08/2024 9:13 AM EST LAB[facility]ORY [facility] Protein, Urine Negative Negative mg/dL 01/08/2024 9:13 AM EST LAB[facility]ORY [facility] Urobilinogen, Urine 0.2 0.2, 1.0 mg/dL 01/08/2024 9:13 AM EST LAB[facility] Nitrite, Urine Negative Negative 01/08/2024 9:13 AM EST LAB[facility]ORY [facility] Esterase, Urine Negative Negative 01/08/2024 9:13 AM EST LABORATORY GL Urine Urine specimen obtained by clean catch procedure / Unknown Non-blood Collection / Unknown 01/08/2024 8:57 AM EST 01/08/2024 9:07 AM EST Justice Toth DO LAB URINE ORDERABLES Final Result LABORATORY [address] [address] documented in this encounter Visit Diagnoses Diagnosis Nausea and vomiting, unspecified vomiting type- Primary documented in this encounter Administered Medications Inactive Administered Medications - up to 3 most recent administrations Medication Order MAR Action Action Date Dose Rate Site dicyclomine (Bentyl) cap 20 mg 20 mg, Oral, ONCE, On Sat01/08/24 at 0945, For 1 dose Given 01/08/2024 9:26 AM EST 20 mg diphenhydrAMINE (Benadryl) inj 25 mg 25 mg, Intravenous, ONCE, On Sat01/08/24 at 1115, For 1 dose Given 01/08/2024 10:57 AM EST 25 mg NSS 0.9% 1,000 mL bolus infusion Intravenous, at 1,000 mL/hr Administer over 60 Minutes, Administer entire volume within 60 minutes or less., ONCE, 1 dose, On Sat01/08/24 at 0945 Restarted 01/08/2024 9:58 AM EST 1000 mL/hr New Bag 01/08/2024 9:24 AM EST 1,000 mL 1000 mL/hr trimethobenzamide (Tigan) inj 100 mg 100 mg, Intramuscular, ONCE, On Sat01/08/24 at 0945, For 1 dose Given 01/08/2024 9:24 AM EST 100 mg Delto id Left Upper documented in this encounter Active and Recently Administered Medications Times are shown in EST. Scheduled Medication Order 01/06/2024 01/07/2024 01/08/2024 dicyclomine (Bentyl) cap 20 mg (COMPLETED) 20 mg, Oral, ONCE, On Sat01/08/24 at 0945, For 1 dose 0926 (Given - Provid er: Pollo Looney RN) diphenhydrAMINE (Benadryl) inj 25 mg (COMPLETED) 25 mg, Intravenous, ONCE, On Sat01/08/24 at 1115, For 1 dose 1057 (Given - Provid er: Lamar Camarena RN) Haloperidol Lactate (Haldol) 5 MG/ML inj 2 mg 2 mg, IV Push, ONCE, On Sat01/08/24 at 1115, For 1 dose 1115 (Not Given - Pr ovider: Levi Lizama RN - Reason: Refused-Notify Provider - Comment: long qt) NSS 0.9% 1,000 mL bolus infusion (COMPLETED) Intravenous, at 1,000 mL/hr Administer over 60 Minutes, Administer entire volume within 60 minutes or less., ONCE, 1 dose, On Sat01/08/24 at 0945 0924 (New Bag - Prov ider: Pollo Looney RN)0948 (Paused - Provider: Nohelia Ventura RN)0958 (Restarted - Provider: Nohelia Ventura RN)1033 (Stopped - Provider: Nohelia Ventura RN) trimethobenzamide (Tigan) inj 100 mg (COMPLETED) 100 mg, Intramuscular, ONCE, On Sat01/08/24 at 0945, For 1 dose 0924 (Given - Provid er: Pollo Looney RN) documented in this encounter Advance Directives * Full Code [...] Advance Directives occurred with: Patient Care Teams Identification Officer Relationship Specialty Start Date End Date Tavares Peña MD [address] [place] [address] PCP - General Family Medicine 06/11/19 documented as of this encounter
--- NOTE | 2024-01-10 05:56 | Electrocardiogram Report ---
Test Reason : Blood Pressure : */* mmHG Vent. Rate : 69 BPM Atrial Rate : 69 BPM P-R Int : 98 ms QRS Dur : 70 ms QT Int : 418 ms P-R-T Axes : 49 64 47 degrees QTcB Int : 447 ms Poor data quality, interpretation may be adversely affected Sinus rhythm with sinus arrhythmia with short TN Nonspecific T wave abnormality Abnormal ECG When compared with ECG of 24-Oct-2021 18:14, TN interval has decreased T wave inversion no longer evident in Anterior leads Confirmed by Kev Leon ([id number]) on 01/10/2024 5:56:38 AM Referred By: REFERRED SELF Confirmed By: Kev Leon
--- OUTSIDE RECORDS SUMMARY | 2024-01-10 05:56 | External Medical Summary ---
Author Name Unknown Address Unknown Organization K1F:LABORATORY [facility] - [address] [address] Laboratory Report Ordering Provider Test Date Status YAIMA RESENDIZ 12/20/2023 20:10:00 Final Observation Date Value Abnormality Reference (Units ) Status Lipase 12/20/2023 20:10:00 43 13-60 (U/L ) Final Performing Location LAB[facility]ATORY [facility] - [address] [address]
--- OUTSIDE RECORDS SUMMARY | 2024-01-10 05:56 | External Medical Summary ---
Author Name Unknown Address Unknown Organization K1F:LABORATORY [facility] - [address] [facility] [place] [address] Laboratory Report Ordering Provider Test Date Status YAIMA RESENDIZ 12/20/2023 20:10:00 Final Observation Date Value Abnormality Reference (Units ) Status SYNC LEUKOCYTES IN BLOOD BY AUTOMATED COUNT 12/20/2023 20:10:00 10.23 4.00-10.80 (K/uL) Final Segs 12/20/2023 20:10:00 41.7 40.0-75.0 (%) Final Lymphs % 12/20/2023 20:10:00 46.7 Above high normal 18.0-42.0 (%) Final Monos 12/20/2023 20:10:00 7.7 1.0-11.0 (%) Final Eosinophils 12/20/2023 20:10:00 2.7 0.0-6.0 (%) Final Basos 12/20/2023 20:10:00 1.0 0.0-2.0 (%) Final Immature Granulocyte, Percent 12/20/2023 20:10:00 0.2 0.0-2.0 (%) Final Absolute Segs 12/20/2023 20:10:00 4.26 1.80-7.70 (K/uL) Final Lymphs, absolute 12/20/2023 20:10:00 4.78 1.00-4.80 (K/ul) Final Monos, Abs 12/20/2023 20:10:00 0.79 0.00-1.10 (K/uL) Final Eos, Abs 12/20/2023 20:10:00 0.28 0.00-0.70 (K/uL) Final Basos, Abs 12/20/2023 20:10:00 0.10 0.00-0.20 (K/uL) Final Immature Granulocytes, Number 12/20/2023 20:10:00 0.02 0.00-0.20 (K/uL) Final Performing Location LABORATORY [facility] - [address] [place] [address]
--- OUTSIDE RECORDS SUMMARY | 2024-01-10 05:56 | External Medical Summary | Summary of Care ---
Author Name Unknown Organization [facility] Address [address] [place] [address] Phone [phone] Care Team Providers Care Paraeducator Name Role Phone Tavares Peña MD Primary Care Provid er Reason for Visit * Reason Comments Medical Nutrition Therapy NEW PATIENT * Evaluate & Treat - Unlimited Visits (Within 10 days (routine)) - Authorized Specialty Diagnoses / Procedures Referred By Easton de paz Referred To Contact Dietitian / Nutrition Services Diagnoses Protein calorie malnutrition (HCC) Nausea and vomiting Bipolar 2 disorder (HCC) Physical deconditioning Compression fracture of spine (HCC) Edgar Hernandez DO [address] [place] [address] Referral ID Status Reason Start Date Expiration Date Visits Requested Visits Authorized [id number] Authorized Specialty Services Required 09/03/2023 [id number] Encounter Details Date Type Department Care Team (Latest Contact Info) Description 11/27/2023 10:00 AM EDT [facility] [address] [place] [address] Krys Meyer, WILLIAM [address] [place] [address] Bipolar 2 disorder (HCC)*; Compression fracture of spine (HCC); Nausea and vomiting; Physical deconditioning; Protein calorie malnutrition (HCC); Dietary counseling and surveillance Allergies Active Allergy Reactions Criticality Noted Date Comments Amoxicillin-Pot Clavulanate Nausea/vomiting 03/01/2015 Cariprazine High 09/14/2022 Other Reaction(s): hallucinations, hallucinations, suicidal thoughts Clavulanic Acid High 05/30/2023 Other Reaction(s): extreme vomiting Iodinated Contrast Media 02/23/2019 Swelling in hands Iodine High 05/30/2023 Other Reaction(s): SWELLING Povidone Iodine 04/02/2008 Mushroom Extract Complex 06/06/2019 Shellfish-Derived Products 06/06/2019 documented as of this encounter (statuses as of 11/27/2023) Medications Medication Sig Dispensed Refills Start Date [...] day before meals and at bedtime. Active Trimethobenzamide HCl 300 MG Oral Capsule Take 1 Capsule by mouth 3 times a day as needed for Nausea. 30 Capsule 09/03/2023 Active Aprepitant 80 MG Oral Capsule (Emend) [...] or Pain, Moderate. 20 Tablet 09/06/2023 Active documented as of this encounter (statuses as of 11/27/2023) Active Problems Problem Noted Date Diagnosed Date [...] as of this encounter (statuses as of 11/27/2023) Resolved Problems Problem Noted Date Diagnosed Date [...] as of this encounter (statuses as of 11/27/2023) Immunizations Name Administration Dates Next Due COVID-19 mRNA, LNP-s, No Pre serve, 2-Dose Series ([employer]) 07/16/2020,06/25/2020 Seasonal Influenza, PF, 6 M & above, IM , (FluLaval or Fluzone) 01/05/2022(Deferred: Patient Refused - p t states she will get at pcp),12/06/2018(Deferred: Patient Refused - Pt refusing flu shot. Would prefer to receive from employer.) Seasonal Influenza, Quadriva jamil, No Preserve, IM 12/01/2020 TDAP (age 9 [...] Sign Reading Time Taken Comments Blood Pressure - - Pulse - - Temperature - - Respiratory Rate - - Oxygen Saturation - - Inhaled Oxygen Concentration - - Weight 90.3 kg (199 lb) 11/27/2023 10:48 AM EDT Height 162.6 cm (5' 4") 11/27/2023 10:48 AM EDT Body Mass Index 34.16 11/27/2023 10:48 AM [...] (15 years old or older) No 09/02/19 24 Cognitive Status Response Date of Assessm ent Because of a physical, menta l, or emotional condition, do you have serious difficulty concentrating, remembering, or making decisions? (5 years old or older) No 09/02/2023 documented as of this encounter Patient Instructions * Patient Instructions* Krys Meyer RDN - 11/27/2023 10:38 AM EDT Discussed the following goals with patient who agrees to the following: Aim to consume at least 2 meals and 1 snack most days. Try some of the high-calorie snack ideas, especially on days when you're not able to eat much. documented in this encounter Progress Notes * Krys Meyer RDN - 11/27/2023 9:56 AM EDT NUTRITION CONSULT - OUTPATIENT [facility] Name: Kelsey Collins Location: [facility] Date: 11/27/2023 Time: 9:56 AM Patient was identified by name and date. Patient was seen [id number] in the clinic. Reason for Referral: Malnutrition Diagnosis E46 (ICD-10-CM) - Protein calorie malnutrition (HCC) R11.2 (ICD-10-CM) - Nausea and vomiting F31.81 (ICD-10-CM) - Bipolar 2 disorder (HCC) R53.81 (ICD-10-CM) - Physical deconditioning M48.50XA (ICD-10-CM) - Compression fracture of spine (HCC) NUTRITION ASSESSMENT: Client History 33 year old female referred by outside provider for malnutrition and above diagnoses. Patient accompanied by at today's visit. Patient reports she has been struggling with cyclic vomiting forthe past 1 1/2 years. Previously on TPN during 21 day hospital stay at [facility] (lostweight during this time). Patient would like to learn how to optimize her meals when her po intake is limited to avoid rapid weight loss. Patient would like to lose weight, but at a healthy rate. Support System: Spouse Barriers To Learning: None Special Education Needs: None Food/Nutrition-Related History Describes typical diet history/24 hr recall Breakfast: skips Lunch: skips Snacks: sometimes crackers, popcorn, or granola bars Dinner: 5-8 pm - cheeseburger/macaroni and cheese/baked beans, casserole with meat, taco salad, or oliver's pie Snacks: sometimes leftovers or popcorn Drinks: over 100 ounces (water, sweat tea, regular soda, juice, gatorade/powerade when ill) Restaurant meals: at least once a month Alcohol: Rare Tobacco Use: No Diet Recall/Food Logs Indicate: AREAS FOR IMPROVEMENT: Poor meal distribution Inadequate calorie intake (on days she is ill) Inadequate protein intake (on days she is ill) POSITIVE: Adequate fluid intake Food and Nutrient Intake and other pertinent information: Patient usually eats 1 meal/day and not before 11 am due to nausea. Patient unable to identify trigger foods for nausea, but states vomiting sometimes happens after having pain with a bowel movement. Has tried nutritional supplements in the past ([place] Breakfast Essentials, Boost Breeze, Ensure, Liquacel) but does not care for them. Food allergies and/or food intolerances: mushrooms and shellfish Pertinent Medications (Current): Current Outpatient Medications Medication Sig Dispense Refill hydrOXYzine HCl 25 MG Oral Tablet Take 1 Tablet by mouth at bedtime as needed for Other. Patient states she takes 1-2 pills at bedtime as needed for sleep Estradiol 0.025 MG/24HR Transdermal Patch Weekly 1 Patch. DULoxetine HCl 60 MG Oral Capsule Delayed Release Particles (Cymbalta) Take 1 Capsule by mouth at bedtime. (Patient not taking: Reported on 09/02/2023) Caplyta 42 MG Oral Capsule (Lumateperone Tosylate) Take 1 Capsule by mouth at bedtime. traZODone HCl 50 MG Oral Tablet (Desyrel) 1.5 Tablets at bedtime. Nadolol 20 MG Oral Tablet (Corgard) Take 1 Tablet by mouth in the morning and 1 Tablet before bedtime. Promethazine HCl 25 MG Oral Tablet (Phenergan) Take 1 Tablet by mouth every 6 hours as needed for Nausea. Dicyclomine HCl 10 MG Oral Capsule (Bentyl) Take 1 Capsule by mouth 4 times a day before meals and at bedtime. Trimethobenzamide HCl 300 MG Oral Capsule Take 1 Capsule by mouth 3 times a day as needed for Nausea. 30 Capsule 0 Aprepitant 80 MG Oral Capsule (Emend) Take 1 Capsule by mouth daily as needed for Nausea. DULoxetine HCl 30 MG Oral Capsule Delayed Release Particles (Cymbalta) Take 1 Capsule by mouth at bedtime. Restart as instructed by psychiatry. Nitrofurantoin Monohyd Macro 100 MG Oral Capsule (Macrobid) Take 1 Capsule by mouth in the morning and 1 Capsule before bedtime. With food.. 14 Capsule 0 oxyCODONE HCl 5 MG Oral Tablet (Oxy IR) Take 1 Tablet by mouth every 6 hours as needed for Pain, Severe or Pain, Moderate. 20 Tablet 0 No current facility-administered medications for this visit. Supplements: Magnesium, potassium as needed (during episodes of vomiting) Prior Nutrition Counseling: Kike Dietitian (in hospital) Physical Activity: Light - PT twice a week Anthropometric Measurements Ht 1.626 m (5' 4") | Wt 90.3 kg (199 lb) | LMP 07/04/2017 | BMI 34.16 kg/m | BSA 2.02 m Wt Readings from Last 15 Encounters: 11/27/23 90.3 kg (199 lb) 11/21/23 86.2 kg (190 lb) 09/06/23 83 kg (183 lb) 09/04/23 83 kg (183 lb) 07/17/23 86.6 kg (191 lb) 06/14/23 86.8 kg (191 lb 6.4 oz) 06/09/23 91.9 kg (202 lb 9.6 oz) 04/21/23 89.5 kg (197 lb 6.4 oz) 04/16/23 90.4 kg (199 lb 3.2 oz) 04/08/23 92.8 kg (204 lb 9.6 oz) 03/05/23 91.8 kg (202 lb 6.4 oz) 11/15/22 84.4 kg (186 lb) 11/11/22 84.4 kg (186 lb) 09/23/22 88.5 kg (195 lb) 06/28/22 81 kg (178 lb 9.6 oz) Weight today with clothes, shoes, purse. Patient reports weight of ~190 pounds at home and that herweight has been stabilizing the past month. Usual Body Weight: ~190 pounds on home scale Highest Weight: 245 pounds Lowest Weight: 183 pounds Weight Change: overall decreased by ~12 pounds in the past 6 months per patient reported weight of 190 lbs (~6%) Interpretation of weight change: Unintentional weight loss Weight Goal: 140-150 pounds BMI: BMI Readings from Last 1 Encounters: 11/27/23 34.16 kg/m Nutrition-Focused Physical Findings Overall appearance: overweight/obese Loss of fat mass: Orbital fat pads: Mild Buccal fat: WNL Triceps: WNL Ribs: WNL Loss of muscle mass: Temples: WNL Clavicle: WNL Shoulder: WNL Scapula: WNL Interosseous: WNL Quadriceps/Thigh: WNL Calf: WNL Digestive system: Nausea daily, Vomiting at least once a week, Loose stools Nerves and cognition: Awake, alert Biochemical Data, Medical Tests, and Procedures Latest Reference Range & Units 11/21/23 11:44 SODIUM 135 - 146 mmol/L 142 POTASSIUM 3.5 - 5.1 mmol/L 3.8 CHLORIDE 98 - 107 mmol/L 106 CO2 22 - 32 mmol/L 22 BUN 6 - 20 mg/dL 9 CREATININE 0.5 - 1.0 mg/dL 0.8 EGFR >=60 mL/min >90 ANION GAP 7 - 15 mmol/L 14 GLUCOSE 70 - 120 mg/dL 89 CALCIUM 8.4 - 10.2 mg/dL 9.2 Hemoglobin AIC Results: Lab Results Component Value Date/Time HEMOGLOBIN A1C - [facility] 5.3 10/11/2021 07:56 AM HEMOGLOBIN A1C - [facility] 5.4 09/16/2020 06:31 AM HEMOGLOBIN A1C - [facility] 5.3 04/25/2015 10:14 AM There are no biochemical abnormalities requiring a change in the nutrition plan of care. NUTRITION DIAGNOSIS Suboptimal oral intake related to Poor meal distribution, Inadequate calorie intake, Inadequate protein intake as evidenced by Reported diet and/or activity recall and ~6 % unintentional weight loss in the past 6 months. Overweight/obesity related to calorie intake exceeds estimated energy expenditure as evidenced by Body mass index is 34.16 kg/m. NUTRITION INTERVENTION: NUTRITION EDUCATION Initial/brief nutrition education NUTRITION COUNSELING Strategies Other Education Material: Academy [employer] Nutrition Care Manual Handout (High-Calorie, High-Protein Nutrition Therapy, High-Calorie Food List and Snack Ideas) Nutrition Prescription: Diet: Good Nutrition High calorie/High protein (as indicated) Nicholas Arechiga: Nicholas Thibodeaux (Female): 95 (11/27/23 1048) Daily Calorie Needs: 1500 Kcals to promote gradual weight loss. Daily Protein Needs: 72 Grams protein (0.8 g/kg) Goals: Aim to consume at least 2 meals and 1 snack most days. Try some of the high-calorie snack ideas, especially on days when you're not able to eat much. Dietitian Action: Instructed patient on a high-calorie, high-protein diet using handouts above for those days patientis feeling ill and po intake is limited. Encouraged patient to eat the high-protein food first. Discussed the importance of adequate hydration and commended patient for staying well hydrated. Educated patient that small, frequent meals may be better tolerated. Answered patient's question regarding a healthy weight loss goal and advised her that 1-2 pounds per week is recommended. Recommendations to Ordering Provider: Continue current plan of nutrition care. NUTRITION MONITORING AND EVALUATION: The following will be monitored and evaluated at the next visit: Monitor weight. Monitor labs. Monitor goals and progress. Plan:Patient declined F/U visit; dietitian phone # given for future reference. 45 minutes Medical Nutrition Therapy 15 min (8-22 min) 30 min (23-37 min) 45 min (38-52 min) 60 min (53-67 min) 75 min (68-82 min) 90 min (83-97 min) 105 min (98-113 min) Time In: 1001 (11/27/23 1000) Time Out: 1039 (11/27/23 1039) [facility]rys Meyer [facility] documented in this encounter Plan of Treatment Scheduled Referrals Name Type Priority Associated Diagnoses Orde r Schedule NUTRITION-CLINICAL DIETITIAN REFERRAL OP Referral Within 10 days (routine) Protein calorie malnutrition (HCC) Nausea and vomiting Bipolar 2 disorder (HCC) Physical deconditioning Compression fracture of spine (HCC) Ordered: 09/03/2023 Health Maintenance Due Date Last Done Comments [...] this encounter Medical Devices Implanted Type Area Security Business Analyst Device Identifier Shelf Expiration Date Model / Serial / Lot Patch Lg Vent Hernia [id number] - [id number] Implanted:Qty: 1 on 07/09/2019 by Lexi Bear DO at OR [facility] N/A: Abdomen CR BARD : DAVOL 05/15/2021 [id number] / / [id number] documented as of this encounter Visit Diagnoses Diagnosis Bipolar 2 disorder (HCC)- Primary Other bipolar disorders Compression fracture of spine (HCC) Closed fracture of unspecified part of vertebral column without mention of spinal cord injury Nausea and vomiting Nausea with vomiting Physical deconditioning Debility, unspecified Protein calorie malnutrition (HCC) Unspecified protein-calorie malnutrition Dietary counseling and surveillance Dietary surveillance and counseling documented in this encounter Advance Directives * [...] Advance Directives occurred with: Patient Care Teams Paraeducator Relationship Specialty Start Date End Date Tavares Peña MD [address] [place] [address] PCP - General Family Medicine 06/11/19 documented as of this encounter
--- OUTSIDE RECORDS SUMMARY | 2024-01-10 05:56 | External Medical Summary ---
Author Name Unknown Address Unknown Organization K1F:[facility] - [address] [address] Laboratory Report Ordering Provider Test Date Status IMANI RODGERS 12/20/2023 20:10:00 Final Observation Date Value Abnormality Reference (Units ) Status Phosphate 12/20/2023 20:10:00 3.9 2.5-4.8 (m g/dL) Final Performing Location [facility] - [address] [address]
--- OUTSIDE RECORDS SUMMARY | 2024-01-10 05:56 | External Medical Summary | Summary of Care ---
Author Name Unknown Organization [facility] Address [address] [place] [address] Phone [phone] Care Team Providers Care General Machine Operator Name Role Phone Tavares Peña MD Primary Care Provid er Reason for Visit * Reason Comments Nausea * Auth/Cert Specialty Diagnoses / Procedures Referred By Contac t Referred To Contact [place] [address] [place] [address] Phone: [phone] Emergency Medicine [facility] [address] [place] [address] Referral ID Status Reason Start Date Expiration Date Visits Re quested Visits Authorized [id number] Encounter Details Date Type Department Care Team ([facility] st Contact Info) Description 11/21/2023 10:46 AM EDT - 11/21/2023 2:27 PM EDT Emergency [facility] Emergency Department ([facility]) [address] [place] [address] Efe Henderson MD [address], [place] [phone] Abdominal pain Discharge Disposition: Home - Self Care Allergies [...] as of this encounter (statuses as of 11/22/2023) Medications Medication Sig Dispensed Refills Start Date [...] as of this encounter (statuses as of 11/22/2023) Active Problems Problem Noted Date Diagnosed Date [...] as of this encounter (statuses as of 11/22/2023) Resolved Problems Problem Noted Date Diagnosed Date [...] as of this encounter (statuses as of 11/22/2023) Immunizations Name Administration Dates Next Due COVID-19 mRNA, LNP-s, No Pre serve, 2-Dose Series (Stocard) 07/16/2020,06/25/2020 Seasonal Influenza, PF, 6 M & [...] Sign Reading Time Taken Comments Blood Pressure 136/73 11/21/2023 2:04 PM EDT Pulse 76 11/21/2023 2:04 PM EDT Temperature 35.9 C (96.6 F) 11/21/2023 10:48 AM E DT Respiratory Rate 20 11/21/2023 2:04 PM EDT Oxygen Saturation 98% 11/21/2023 10:48 AM EDT Inhaled Oxygen Concentration - - Weight 86.2 kg (190 lb) 11/21/2023 10:48 AM EDT Height 162.6 cm (5' 4") 11/21/2023 10:48 AM EDT Body Mass Index 32.61 11/21/2023 10:48 AM EDT documented in this encounter [...] this encounter Discharge Instructions * Discharge Instructions* Efe Henderson MD - 11/21/2023 2:[address] scan and lab work were reassuring here. The cause of your discomfort could not be determined. Return with worsening abdominal pain, nausea, vomiting, inability eat or drink Please return to this Emergency Department or seek emergent care if your symptoms change, worsen significantly, or concern you in any way. Concerning symptoms that would require re-evaluation include, but are not necessarily limited to: - Fevers or shaking chills - Chest pain or difficulty breathing - Severe headache, numbness or tingling, or confusion - Persistent vomiting, severe abdominal pain, abdominal bloating, or bloody bowel movements - Inability to urinate or if your urine is significantly decreased Let us know if you have any questions regarding these instructions or the care you received here before leaving the Emergency Department. Please read the attached pamphlet for more information about your diagnosis and treatment. documented in this encounter Procedure Notes * Kosta Esparza DO - 11/21/2023 11:35 AM EDTAssociated Order(s): EKG REASON FOR STUDY: ABDOMINAL PAIN CONCLUSIONS: Sinus bradycardia Low voltage QRS, consider pulmonary disease, pericardial effusion, or normal variant Nonspecific T wave abnormality Abnormal ECG When compared with ECG of 06-Sep-2023 04:16, T wave inversion no longer evident in Inferior leads Ventricular Rate: 55 Atrial Rate: 55 KS Interval: 140 QRS Duration: 72 QT/QTc: 462/441 ms P-R-T Wayne: 60 : 49 : 57 degrees documented in this encounter ED Notes * Justcie Bassett RN - 11/21/2023 10:51 AM EDT Pt reports to the ED for complaints of Nausea, Abd pain and blood bowel movements since Saturday. Pt denies blood thinner, trauma or injury documented in this encounter Miscellaneous Notes * ED Vacuum Applicator Operator Note - Jaz Henderson RN - 11/21/2023 2:25 PM EDT Pt discharge instructions and follow up reviewed with pt and pt verbalized understanding. Pt iv d/david and pt discharged to home. * ED Vacuum Applicator Operator Note - Justice Bassett RN - 11/21/2023 11:00 AM EDT Pt reports to the ED with complaints of LLQ abd pain, N, and blood in her Bms. Pt reports pain started on Saturday, nausea and bloody bowel movements began Saturday. Pt reports BM on Saturday was very loose with lots of blood, has improved since Saturday with more formed stool and minimal blood. Pt denies new foods, injury, or trauma to the area prior to symptoms. Pt reports chronic pain but it is different, taking a larger area. Pt reports hx of hysterectomy, removal of appendix and gallbladder andhernia repair. Pt reports using ibuprofen for pain management, last dose was 0700. Pt reports not eating properly, has continued to drink fluids. Pt reports pain increases with slight palpation, known to radiate to LUQ and down into her hip. Pt denies CP, SOB, V/D, f/c, LH, urinary issues. PT Aox4,+peripheral pulses and sensation, Clear heart lung and abd sounds. Pt shows no obvious signs of resp distress at this time. documented in this encounter Plan of Treatment Upcoming Encounters Date Type Department Care Team (Late st Contact Info) Description 11/27/2023 10:00 AM EDT Nutrition Services Nutrition, [place] [id number] Krys Meyer, [place] [address] [place] [phone] Pending Results Name Type Priority Associated Diagnoses Date /Time CHLAMYDIA TRACHOMATIS AND NEISSERIA GONORRHOEAE, AMPLIFIED PROBE Lab STAT 11/21/2023 1:11 PM EDT Scheduled Orders Name Type Priority Associated Diagnoses Orde r Schedule CHLAMYDIA TRACHOMATIS AND NEISSERIA GONORRHOEAE, AMPLIFIED PROBE Lab STAT One Time for 1 Occurrences starting 11/21/2023 until 11/21/2023 Health Maintenance Due Date Last Done Comments [...] this encounter Medical Devices Implanted Type Area Statement Clerks Manager Device Identifier Shelf Expiration Date Model / Serial / Lot Patch Lg Vent Hernia [id number] - [id number] Implanted:Qty: 1 on 07/09/2019 by Lexi Bear DO at OR [facility] N/A: Abdomen CR BARD : DAVOL 05/15/2021 [id number] / / [id number] documented as of this encounter Procedures Procedure Name Priority Date/Time Associated Diagnosis Comments CT ABD/PELVIS W IV CONTRAST - WO ORAL CONTRAST STAT 11/21/2023 1:25 PM EDT URINALYSIS, REFLEX TO CULTURE STAT 11/21/2023 1:11 PM EDT URINALYSIS, REFLEX TO CULTURE (CUP ONLY) STAT 11/21/2023 1:11 PM EDT URINALYSIS, REFLEX TO CULTURE (NOT FOR NEUTROPENIC PATIENTS) STAT 11/21/2023 1:11 PM EDT DIFFERENTIAL, AUTOMATED STAT 11/21/2023 11:44 AM EDT COMPREHENSIVE METABOLIC PANEL STAT 11/21/2023 11:44 AM EDT TYPE AND SCREEN STAT 11/21/2023 11:44 AM EDT CBC STAT 11/21/2023 11:44 AM EDT PT INR STAT 11/21/2023 11:44 AM EDT LIPASE STAT 11/21/2023 11:44 AM EDT CBC STAT 11/21/2023 11:44 AM EDT HC ECG TRACING ONLY STAT 11/21/2023 1 1:35 AM EDT Abdominal pain documented in this encounter Results * CT ABD/PELVIS W IV CONTRAST - WO ORAL CONTRAST (11/21/2023 1:25 PM EDT) Anatomical Region Laterality Modality Body, Abdomen, Pelvis Computed T omography 11/21/2023 1:12 PM EDT Impressions 11/21/2023 2:08 PM EDT IMPRESSION: 1. Mild thickening of the urinary bladder. This could be secondary to cystitis. Clinical correlation is needed. 2. No bowel obstruction or inflammatory process. No free air or free fluid 3. No inguinal hernias identified. There has been a prior subumbilical hernia repair with a mesh. 4. Small pericardial effusion THIS DOCUMENT HAS BEEN ELECTRONICALLY SIGNED BY BENNY HARDIN MD Narrative 11/21/2023 2:08 PM EDT PROCEDURE INFORMATION: Exam: CT Abdomen And Pelvis With Contrast Exam date and time: 11/21/2023 1:12 PM Age: 33 years old Clinical indication: Abdominal pain; Additional info: Abdominal pain, llq TECHNIQUE: Imaging protocol: Computed tomography of the abdomen and pelvis with contrast. Radiation optimization: All CT scans at this facility use at least one of these dose optimization techniques: automated exposure control; mA and/or kV adjustment per patient size (includes targeted exams where dose is matched to clinical indication); or iterative reconstruction. Contrast material: ISOVUE; Contrast volume: 80 ml; Contrast route: INTRAVENOUS (IV); COMPARISON: CT ABD/PELVIS WO IV/ORAL CONTRAST 09/02/2023 11:31 AM FINDINGS: Lungs: The lung bases are clear. Heart: The heart is not enlarged. There is a small pericardial effusion along its base measuring up to 7 mm. Liver: The liver shows no focal lesion. Gallbladder and biliary ducts: There has been a prior cholecystectomy. No abnormal biliary dilatation. Pancreas: The pancreas shows no mass or inflammatory process. Spleen: The spleen is not enlarged. No focal lesion. Adrenal glands: The adrenal glands are unremarkable. Kidneys and ureters: The kidneys are unobstructed. There are no calculi. The ureters are nondilated. Stomach and bowel: The stomach is not obstructed. No inflammatory process of the sigmoid colon. There is no bowel obstruction. Appendix: There has been a prior appendectomy. Intraperitoneal space: No free air or free fluid Vasculature: The abdominal aorta is of normal caliber. No aneurysm. The origins of the celiac and superior mesenteric artery are normal. Lymph nodes: No abnormal para-aortic adenopathy Urinary bladder: The bladder is mildly thickened measuring up to 6 mm. This may be secondary to cystitis. Reproductive: The uterus is not identified. Bones/joints: No acute bony change of the lumbar spine or pelvis. There is an old superior endplate compression fracture of T11 of a proximally 20% which appears chronic Soft tissues: No abnormal abdominal soft tissue masses identified. The patient has had a prior subumbilical hernia repair with a mesh. No recurrent hernias evident. Procedure Note Benny Hardin MD - 11/21/2023 PROCEDURE INFORMATION: Exam: CT Abdomen And Pelvis With Contrast Exam date and time: 11/21/2023 1:12 PM Age: 33 years old Clinical indication: Abdominal pain; Additional info: Abdominal pain, llq TECHNIQUE: Imaging protocol: Computed tomography of the abdomen and pelvis withcontrast. Radiation optimization: All CT scans at this facility use at least one ofthese dose optimization techniques: automated exposure control; mA and/or kV adjustment per patient size (includes targeted exams where dose is matchedto clinical indication); or iterative reconstruction. Contrast material: ISOVUE; Contrast volume: 80 ml; Contrast route:INTRAVENOUS (IV); COMPARISON: CT ABD/PELVIS WO IV/ORAL CONTRAST 09/02/2023 11:31 AM FINDINGS: Lungs: The lung bases are clear. Heart: The heart is not enlarged. There is a small pericardial effusionalong its base measuring up to 7 mm. Liver: The liver shows no focal lesion. Gallbladder and biliary ducts: There has been a prior cholecystectomy.No abnormal biliary dilatation. Pancreas: The pancreas shows no mass or inflammatory process. Spleen: The spleen is not enlarged. No focal lesion. Adrenal glands: The adrenal glands are unremarkable. Kidneys and ureters: The kidneys are unobstructed. There are no calculi.The ureters are nondilated. Stomach and bowel: The stomach is not obstructed. No inflammatoryprocess of the sigmoid colon. There is no bowel obstruction. Appendix: There has been a prior appendectomy. Intraperitoneal space: No free air or free fluid Vasculature: The abdominal aorta is of normal caliber. No aneurysm. The origins of the celiac and superior mesenteric artery are normal. Lymph nodes: No abnormal para-aortic adenopathy Urinary bladder: The bladder is mildly thickened measuring up to 6 mm.This may be secondary to cystitis. Reproductive: The uterus is not identified. Bones/joints: No acute bony change of the lumbar spine or pelvis. Thereis an old superior endplate compression fracture of T11 of a proximally 20%which appears chronic Soft tissues: No abnormal abdominal soft tissue masses identified. The patient has had a prior subumbilical hernia repair with a mesh. Norecurrent hernias evident. IMPRESSION IMPRESSION: 1. Mild thickening of the urinary bladder. This could be secondary to cystitis. Clinical correlation is needed. 2. No bowel obstruction or inflammatory process. No free air or freefluid 3. No inguinal hernias identified. There has been a prior subumbilicalhernia repair with a mesh. 4. Small pericardial effusion THIS DOCUMENT HAS BEEN ELECTRONICALLY SIGNED BY BENNY HARDIN MD Efe Henderson MD RAD CT * URINALYSIS, REFLEX TO CULTURE (11/21/2023 1:11 PM EDT) Color, Urine Yellow Light Yellow, Yellow, Dark Yellow 11/21/2023 1:56 PM EDT [facility] Clarity, Urine Clear Clear 11/21/2023 1:56 PM EDT [facility] Glucose, Urine Negative Negative mg/dL 11/21/2023 1:56 PM EDT [facility] Bilirubin, Urine Negative Negative 11/21/2023 1:56 PM EDT [facility] Ketone, Urine Negative Negative mg/dL 11/21/2023 1:56 PM EDT [facility] Specific Warren, Urine 1.006 1.003 - 1.030 11/21/2023 1:56 PM EDT [facility] Blood, Urine Negative Negative 11/21/2023 1:56 PM EDT [facility] pH, Urine 6.0 5.0 - 7.5 Units 11/21/2023 1:56 PM EDT [facility] Protein, Urine Negative Negative mg/dL 11/21/2023 1:56 PM EDT [facility] Urobilinogen, Urine 0.2 0.2, 1.0 mg/dL 11/21/2023 1:56 PM EDT [facility] Nitrite, Urine Negative Negative 11/21/2023 1:56 PM EDT [facility] Esterase, Urine Negative Negative 11/21/2023 1:56 PM EDT [facility] RBC, Urine 0-2 0 - 2 /HPF 11/21/2023 1:56 PM EDT [facility] WBC, Urine 0-2 0 - 2 /HPF 11/21/2023 1:56 PM EDT [facility] Bacteria, Urine 0-25 0 - 25 /HPF 11/21/2023 1:56 PM EDT LAB[facility] Culture, Urine 11/21/2023 1:56 PM EDT LAB[facility] Comment:Culture not indicate d by urinalysis results Urine Urine specimen obtained by clean catch procedure / Unknown Non-blood Collection / Unknown 11/21/2023 1:11 PM EDT 11/21/2023 1:18 PM EDT Efe Henderson MD LAB URINE ORDERA ROBBIN Performing Organization Address [facility] Co de Phone Number LABORATORY [address] [phone] * URINALYSIS, REFLEX TO CULTURE (CUP ONLY) (11/21/2023 1:11 PM EDT) Urinalysis, Reflex to Culture Specimen Specimen collected and received 11/21/2023 3:01 PM EDT [facility] Urine Urine specimen obtained by clean catch procedure / Unknown Non-blood Collection / Unknown 11/21/2023 1:11 PM EDT 11/21/2023 1:18 PM EDT Efe Henderson MD LAB URINE ORDERA BLEAngeli Performing Organization Address [facility] de Phone Number LABORATORY [address] [phone] * DIFFERENTIAL, AUTOMATED (11/21/2023 11:44 AM EDT) WBC 9.67 4.00 - 10.80 K/uL 11/21/2023 11:53 AM EDT [facility] Neutrophils % 52.2 40.0 - 75.0 % 11/21/2023 11:53 AM EDT [facility] Lymphocytes % 38.0 18.0 - 42.0 % 11/21/2023 11:53 AM EDT [facility] Monocytes % 6.1 1.0 - 11.0 % 11/21/2023 11:53 AM EDT [facility] Eosinophils % 2.7 0.0 - 6.0 % 11/21/2023 11:53 AM EDT [facility] Basophils % 0.8 0.0 - 2.0 % 11/21/2023 11:53 AM EDT [facility] Immature Granulocytes % 0.2 0.0 - 2.0 % 11/21/2023 11:53 AM EDT LABORATORY GL Absolute Neutrophils 5.05 1.80 - 7.70 K/uL 11/21/2023 11:53 AM EDT LABORATORY GL Absolute Lymphocytes 3.67 1.00 - 4.80 K/ul 11/21/2023 11:53 AM EDT LABORATORY GL Absolute Monocytes 0.59 0.00 - 1.10 K/uL 11/21/2023 11:53 AM EDT LABORATORY GL Absolute Eosinophils 0.26 0.00 - 0.70 K/uL 11/21/2023 11:53 AM EDT LABORATORY GL Absolute Basophils 0.08 0.00 - 0.20 K/uL 11/21/2023 11:53 AM EDT LABORATORY GL Absolute Immature Granulocytes 0.02 0.00 - 0.20 K/uL 11/21/2023 11:53 AM EDT LABORATORY GL Blood Venous blood specimen / Unknown Venipuncture / Unknown 11/21/2023 11:44 AM EDT 11/21/2023 11:48 AM EDT Efe Henderson MD LAB BLOOD ORDERA BLES LABORATORY [address] [address] * CBC (11/21/2023 11:44 AM EDT) WBC 9.67 4.00 - 10.80 K/uL 11/21/2023 11:53 AM EDT LABORATORY GL RBC 4.57 3.85 - 5.15 M/uL 11/21/2023 11:53 AM EDT LABORATORY GL HGB 13.7 12.0 - 15.3 g/dL 11/21/2023 11:53 AM EDT LABORATORY GL HCT 38.1 36.0 - 45.2 % 11/21/2023 11:53 AM EDT LABORATORY GL MCV 83.4 81.5 - 97.5 fL 11/21/2023 11:53 AM EDT [facility] MCH 30.0 27.0 - 34.0 pg 11/21/2023 11:53 AM EDT LAB[facility] MCHC 36.0 32.0 - 36.0 g/dL 11/21/2023 11:53 AM EDT LAB[facility] RDW 12.2 11.5 - 15.5 % 11/21/2023 11:53 AM EDT LAB[facility] PLT 327 140 - 400 K/uL 11/21/2023 11:53 AM EDT LAB[facility] MPV 10.4 6.6 - 11.1 fL 11/21/2023 11:53 AM EDT [facility] nRBCs 0 <=0 /100 WBCs 11/21/2023 11:53 AM EDT [facility] Blood Venous blood specimen / Unknown Venipuncture / Unknown 11/21/2023 11:44 AM EDT 11/21/2023 11:48 AM EDT Efe Henderson MD LAB BLOOD ORDERA BLES LABORATORY [address] [phone] * TYPE AND SCREEN (11/21/2023 11:44 AM EDT) ABO A 11/21/2023 12:33 PM EDT [facility] BLOOD BANK Rh Positive 11/21/2023 12:33 PM EDT [facility] BLOOD BANK Red Blood Cell Antibody Screen Negative 11/21/2023 12:33 PM EDT [facility] BLOOD BANK Specimen Expiration Date 11/24/2023 23:59 11/21/2023 12:33 PM EDT [facility] BLOOD BANK Blood Venous blood specimen / Unknown Venipuncture / Unknown 11/21/2023 11:44 AM EDT 11/21/2023 11:48 AM EDT Efe Henderson MD LAB BLOOD BANK T EST ORDERABLES Performing Organization Address City/[facility]/ZIP Co de Phone Number LABORATORY [facility] BLOOD BANK [address] [place] [phone] * PT INR (11/21/2023 11:44 AM EDT) Prothrombin Time 13.4 11.6 - 15.2 seconds 11/21/2023 12:11 PM EDT [facility] INR 1.0 0.8 - 1.2 11/21/2023 12:11 PM EDT [facility] Blood Venous blood specimen / Unknown Venipuncture / Unknown 11/21/2023 11:44 AM EDT 11/21/2023 11:48 AM EDT Narrative [facility] - 11/21/2023 12:11 PM EDT Warfarin Therapy INR: 2.0-3.0 conventional anticoagulation INR: 2.5-3.5 high intensity anticoagulation Efe Henderson MD LAB BLOOD ORDERA BLES Performing Organization Address City/[facility]/ZIP Co de Phone Number LABORATORY [address] [phone] * LIPASE (11/21/2023 11:44 AM EDT) Pathologist [facility] Lipase 30 13 - 60 U/L 11/21/2023 12:10 PM EDT [facility] Blood Venous blood specimen / Unknown Venipuncture / Unknown 11/21/2023 11:44 AM EDT 11/21/2023 11:48 AM EDT Efe Henderson MD LAB BLOOD ORDERA BLES LABORATORY [address] [address] * COMPREHENSIVE METABOLIC PANEL (11/21/2023 11:44 AM EDT) BUN 9 6 - 20 mg/dL 11/21/2023 12:10 PM EDT [facility] CREATININE 0.8 0.5 - 1.0 mg/dL 11/21/2023 12:10 PM EDT [facility] EGFR >90 >=60 mL/min 11/21/2023 12:10 PM EDT [facility] Comment:eGFR is calculated b ased on the CKD-EPI 2020 equation. SODIUM 142 135 - 146 mmol/L 11/21/2023 12:10 PM EDT [facility] POTASSIUM 3.8 3.5 - 5.1 mmol/L 11/21/2023 12:10 PM EDT [facility] CHLORIDE 106 98 - 107 mmol/L 11/21/2023 12:10 PM EDT [facility] CO2 22 22 - 32 mmol/L 11/21/2023 12:10 PM EDT [facility] ANION GAP 14 7 - 15 mmol/L 11/21/2023 12:10 PM EDT [facility] GLUCOSE 89 70 - 120 mg/dL 11/21/2023 12:10 PM EDT [facility] Albumin 4.1 3.8 - 5.0 g/dL 11/21/2023 12:10 PM EDT [facility] AST 18 10 - 35 U/L 11/21/2023 12:10 PM EDT [facility] Alkaline Phosphatase 78 35 - 130 U/L 11/21/2023 12:10 PM EDT [facility] Bilirubin, Total 0.4 <=1.2 mg/dL 11/21/2023 12:10 PM EDT [facility] CALCIUM 9.2 8.4 - 10.2 mg/dL 11/21/2023 12:10 PM EDT [facility] Protein 6.6 6.0 - 8.3 g/dL 11/21/2023 12:10 PM EDT [facility] ALT 11 10 - 35 U/L 11/21/2023 12:10 PM EDT [facility] Blood Venous blood specimen / Unknown Venipuncture / Unknown 11/21/2023 11:44 AM EDT 11/21/2023 11:48 AM EDT Efe Henderson MD LAB BLOOD ORDERA BLES LABORATORY [address] [address] * EKG (11/21/2023 11:35 AM EDT) 11/21/2023 11:3 5 AM EDT Narrative Procedure Note Kosta Esparza DO - 11/21/2023 11:35 AM EDT REASON FOR STUDY: ABDOMINAL PAIN CONCLUSIONS: Sinus bradycardia Low voltage QRS, consider pulmonary disease, pericardial effusion, ornormal variant Nonspecific T wave abnormality Abnormal ECG When compared with ECG of 06-Sep-2023 04:16, T wave inversion no longer evident in Inferior leads Ventricular Rate: 55 Atrial Rate: 55 KS Interval: 140 QRS Duration: 72 QT/QTc: 462/441 ms P-R-T Wayne: 60 : 49 : 57 degrees Efe Henderson MD [facility] documented in this encounter Visit Diagnoses Diagnosis Abdominal pain Abdominal pain, unspecified site documented in this encounter Administered Medications Inactive Administered Medications - up to 3 most recent administrations Medication Order MAR Action Action Date Dose Rate Site Acetaminophen (Ofirmev) inj 1,000 mg 1,000 mg, Intravenous, ONCE, 1 dose, On Michelle 11/21/23 at 1215, Administer over 15 Minutes, Administer undiluted over 15 minutes! NOTE: Maximum of 4000 mg per 24 hours of acetaminophen from all acetaminophen containing products., Indication: Patient is strictly NPO New Bag 11/21/2023 12:42 PM EDT 1,000 mg 400 mL/hr diphenhydrAMINE (Benadryl) inj 50 mg 50 mg, Intravenous, ONCE, On Michelle 11/21/23 at 1215, For 1 dose Given 11/21/2023 12:42 PM EDT 50 mg droPERidol (Inapsine) inj 0.625 mg 0.625 mg, IV Push, ONCE, On Michelle 11/21/23 at 1215, For 1 dose Given 11/21/2023 12:44 PM EDT 0.625 mg Famotidine (Pepcid) inj 20 mg 20 mg, IV Push, ONCE, On Michelle 11/21/23 at 1215, For 1 dose, Give IV push over 2 minutes. Given 11/21/2023 12:35 PM EDT 20 mg Hydrocortisone Sod Suc (PF) (Solu-Cortef) inj 100 mg 100 mg, IV Push, ONCE, On Michelle 11/21/23 at 1215, For 1 dose Given 11/21/2023 12:48 PM EDT 100 mg Iopamidol (Isovue 370) inj 80 mL 80 mL, Intravenous, ONCE, On Michelle 11/21/23 at 1400, For 1 dose, Radiology Medication Routing (Non-IR) Given 11/21/2023 2:00 PM EDT 80 mL NSS 0.9% 1,000 mL bolus infusion Intravenous, at 1,000 mL/hr Administer over 60 Minutes, Administer entire volume within 60 minutes or less., ONCE, 1 dose, On Michelle 11/21/23 at 1245 New Bag 11/21/2023 12:35 PM EDT 1,000 mL 1000 mL/hr documented in this encounter Active and Recently Administered Medications Times are shown in EDT. Scheduled Medication Order 2023 11/20/2023 11/21/2023 Acetaminophen (Ofirmev) inj 1,000 mg (COMPLETED) 1,000 mg, Intravenous, ONCE, 1 dose, On Michelle 11/21/23 at 1215, Administer over 15 Minutes, Administer undiluted over 15 minutes! NOTE: Maximum of 4000 mg per 24 hours of acetaminophen from all acetaminophen containing products., Indication: Patient is strictly NPO 1242 (New Bag - Prov ider: Justice Bassett RN)1341 (Stopped - Provider: Justice Bassett RN) diphenhydrAMINE (Benadryl) inj 50 mg (COMPLETED) 50 mg, Intravenous, ONCE, On Michelle 11/21/23 at 1215, For 1 dose 1242 (Given - Provid er: Justice Bassett RN) droPERidol (Inapsine) inj 0.625 mg (COMPLETED) 0.625 mg, IV Push, ONCE, On Michelle 11/21/23 at 1215, For 1 dose 1244 (Given - Provid er: Justice Bassett, RN) Famotidine (Pepcid) inj 20 mg (COMPLETED) 20 mg, IV Push, ONCE, On Michelle 11/21/23 at 1215, For 1 dose, Give IV push over 2 minutes. 1235 (Given - Provid er: Justice Bassett RN) Hydrocortisone Sod Suc (PF) (Solu-Cortef) inj 100 mg (COMPLETED) 100 mg, IV Push, ONCE, On Michelle 11/21/23 at 1215, For 1 dose 1248 (Given - Provid er: Justice Wilson, RN) Iopamidol (Isovue 370) inj 80 mL (COMPLETED) 80 mL, Intravenous, ONCE, On Michelle 11/21/23 at 1400, For 1 dose, Radiology Medication Routing (Non-IR) 1400 (Given - Provid er: Genevieve Navarro, RT) NSS 0.9% 1,000 mL bolus infusion (COMPLETED) Intravenous, at 1,000 mL/hr Administer over 60 Minutes, Administer entire volume within 60 minutes or less., ONCE, 1 dose, On Michelle 11/21/23 at 1245 1235 (New Bag - Prov ider: Justice Bassett RN)1330 (Stopped - Provider: Jaz Henderson RN) documented in this encounter Advance Directives [...] Advance Directives occurred with: Patient Care Teams General Machine Operator Relationship Specialty Start Date End Date Tavares Peña MD [address] [place] [address] PCP - General Family Medicine 06/11/19 documented as of this encounter
--- OUTSIDE RECORDS SUMMARY | 2024-01-10 05:56 | External Medical Summary | Summary of Care ---
Author Name Unknown Organization [facility] Address [address] [place] [facility] [place] [address] Phone [phone] Care Team Providers Care Electrolog Operator Name Role Phone Tavares Peña MD Primary Care Provid er Reason for Visit * Reason Onset Date Comments Abdominal Pain Other And blood in sto ols Left Without Being Seen 11/21/2023 Encounter Details Date Type Department Care Team (Latest Contact Info) Description 11/21/2023 10:00 AM EDT Convenient Care Visit [facility] [address] [facility] [address] [phone] Efe Elizalde PA-C [address] [facility] [address] [phone] Left without being seen* Allergies Active Allergy Reactions Criticality Noted Date Comments Amoxicillin-Pot Clavulanate Nausea/vomiting 03/01/2015 Cariprazine High 09/14/2022 Other Reaction(s): hallucinations, hallucinations, suicidal thoughts Clavulanic Acid High 05/30/2023 Other Reaction(s): extreme vomiting Iodinated Contrast Media 02/23/2019 Swelling in hands Iodine High 05/30/2023 Other Reaction(s): SWELLING Povidone Iodine 04/02/2008 Mushroom Extract Complex 06/06/2019 Shellfish-Derived Products 06/06/2019 documented as of this encounter (statuses as of 11/21/2023) Medications Medication Sig Dispensed Refills Start Date [...] as of this encounter (statuses as of 11/21/2023) Active Problems Problem Noted Date Diagnosed Date [...] as of this encounter (statuses as of 11/21/2023) Resolved Problems Problem Noted Date Diagnosed Date [...] as of this encounter (statuses as of 11/21/2023) Immunizations Name Administration Dates Next Due COVID-19 mRNA, LNP-s, No Pre serve, 2-Dose Series ([employer]) 07/16/2020,06/25/2020 Seasonal Influenza, PF, 6 M & [...] Taken Comments Blood Pressure - - Pulse 73 11/21/2023 9:53 AM EDT Temperature 36.7 C (98.1 F) 11/21/2023 9:53 AM ED T Respiratory Rate 18 11/21/2023 9:53 AM EDT Oxygen Saturation 100% 11/21/2023 9:53 AM EDT Inhaled Oxygen Concentration - - Weight - - Height - - Body Mass Index - - documented in this encounter Functional Status Functional [...] No 09/02/2023 documented as of this encounter Progress Notes * Fide, Efe Viral, PA-C - 11/21/2023 10:06 AM EDT Pt presented to be seen for 2-3 d of worsening 6-7 abd pain in LLQ w/ blood in stool- has had this pain before but always resolved- never this bad- blood in stool has been for 2-3 d also- pain is making her uncomfortable. Pt was briefly seen in lab- in some discomfort but no distress- normal temp, pulse- relates pain in LLQ. Pt advised it would be hard to safely evaluate this here- likely needs labs- imaging- would be safer to go to ED- pt agrees to go to ER- not feeling faint- feels can drive self- declines transport- will go to ED * Carmen Blunt LPN - 11/21/2023 9:57 AM EDT Patient left without being seen by the provider. Pt having abd pain and blood in stool. Milton Elizalde PA-C talked with pt in lab and advised pt to go to the local ED. documented in this encounter Plan of Treatment Upcoming Encounters Date Type Department Care Team (Late st Contact Info) Description 11/27/2023 10:00 AM EDT [facility] [address] [address] [address], [address] [place] [address] Health Maintenance Due Date Last Done Comments [...] this encounter Medical Devices Implanted Type Area Automated Logistics Specialist Device Identifier Shelf Expiration Date Model / Serial / Lot Patch Lg Vent Hernia [id number] - [id number] Implanted:Qty: 1 on 07/09/2019 by Lexi Bear DO at [facility] N/A: Abdomen CR BARD : DAVOL 05/15/2021 [id number] / / [id number] documented as of this encounter Visit Diagnoses Diagnosis Left without being seen- Primary documented in this encounter Advance Directives * [...] Advance Directives occurred with: Patient Care Teams Electrolog Operator Relationship Specialty Start Date End Date Tavares Peña MD [address] [place] [address] PCP - General Family Medicine 06/11/19 documented as of this encounter
--- OUTSIDE RECORDS SUMMARY | 2024-01-10 05:56 | External Medical Summary | Summary of Care ---
Author Name Unknown Organization [facility] Address [address] [facility] [address] Phone [phone] Care Team Providers Care Receptionist Scheduler Name Role Phone Tavares Peña MD Primary Care Provid er Reason for Visit * Reason Onset Date Comments Abdominal Pain Other And blood in sto ols Left Without Being Seen 11/21/2023 Encounter Details Date Type Department Care Team (Latest Contact Info) Description 11/21/2023 10:00 AM EDT Convenient Care Visit [facility] [address] [facility] [address] [phone] Efe Elizalde PA-C [address] [facility] [address] [phone] Left without [...] mRNA, LNP-s, No Pre serve, 2-Dose Series ([employer]) 07/16/2020,06/25/2020 Seasonal Influenza, PF, 6 M & [...] 11/27/2023 10:00 AM EDT [facility] [address] [address] [address], [address] [place] [address] Health Maintenance Due Date Last Done Comments [...] this encounter Medical Devices Implanted Type Area Fine Arts Packer Device Identifier Shelf Expiration Date Model / Serial / Lot Patch Lg Vent Hernia [id number] - [id number] Implanted:Qty: 1 on 07/09/2019 by Lexi Bear DO at OR [facility] N/A: Abdomen CR BARD : DAVOL 05/15/2021 [id number] / / [id number] documented as of this encounter Visit Diagnoses [...] Advance Directives occurred with: Patient Care Teams Receptionist Scheduler Relationship Specialty Start Date End Date Tavares Peña MD [address] [place] [address] PCP - General Family Medicine 06/11/19 documented as of this encounter
--- OUTSIDE RECORDS SUMMARY | 2024-01-10 05:56 | External Medical Summary ---
Author Name Unknown Address Unknown Organization K1F:LABORATORY [facility] - [address] [address] Laboratory Report Ordering Provider Test Date Status YAIMA RESENDIZ 12/20/2023 20:10:00 Final Observation Date Value Abnormality Reference (Units ) Status WBC, Total 12/20/2023 20:10:00 10.23 4.00-10.80 (K/uL) Final RBC 12/20/2023 20:10:00 4.86 3.85-5.15 (M/uL) Final Hemoglobin 12/20/2023 20:10:00 14.5 12.0-15.3 (g/dL) Final HCT 12/20/2023 20:10:00 40.9 36.0-45.2 (%) Final MCV 12/20/2023 20:10:00 84.2 81.5-97.5 (fL) Final MCH 12/20/2023 20:10:00 29.8 27.0-34.0 (pg) Final MCHC 12/20/2023 20:10:00 35.5 32.0-36.0 (g/dL) Final RDW 12/20/2023 20:10:00 11.9 11.5-15.5 (%) Final Platelets 12/20/2023 20:10:00 289 140-400 (K/uL) Final MPV 12/20/2023 20:10:00 9.9 6.6-11.1 (fL) Final Nucleated erythrocytes/100 leukocytes [Ratio] in Blood by Automated count 12/20/2023 20:10:00 0 <=0 (/100 WBCs) Final Performing Location LABORATORY [facility] - [address] [place] [address]
--- OUTSIDE RECORDS SUMMARY | 2024-01-10 05:56 | External Medical Summary | Continuity of Care Document ---
Author Name Unknown Organization [facility] [address] [place] [address] [place] [phone] Care Team Providers Care Hose Coupling Joiner Name Role Phone Tavares Peña Primary Care Physician [phone] Encounter [facility] [id number] Date(s): 12/10/23 - 12/10/23 [facility] [address] [facility] [address] [address] [phone] Encounter Diagnosis Urinary urgency(Discharge Diagnosis) - 12/10/23 Chronic abdominal pain(Discharge Diagnosis) - 12/10/23 Nausea & vomiting(Discharge Diagnosis) - 12/10/23 Discharge Disposition: Home or Self Care Attending Physician: DO Bailey Franklin J Allergies, Adverse Reactions, Alerts Substance Criticality Severity Reaction Reaction Severity Status iodine topical Activ e Augmentin 1 Active IVP dye Active Vraylar hallucinations, suicidal thoughts Active shellfish Active mushrooms Active 1severe stomach pain & constant emesis Assessment and Plan Extracted from: Title:Office Visit Note Author:DO Hernandez Nicho las Date:12/10/23 1.Urinary urgency Acute, uncomplicated illness/injury Goal: resolution Data:UA inoffice Plan: UA negative, will send for culture 2.Chronic abdominal pain Chronic condition not at goal/exacerbated/progressive/side effects of treatment Goal: decrease pain Plan: Refill oxycodone, Toradol in office today 3.Nausea & vomiting Chronic condition not at goal/exacerbated/progressive/side effects of treatment Goal: decrease nausea Plan: Refill promethazine Immunizations Given and Recorded Vaccine Date Status [...] qAM, Disp# 30 cap, Refills: 3, Pharmacy: [facility]/pharmacy #[id number] Start Date: 09/10/23 Status: Ordered Caplyta 42 [...] 1 PATCH TOPICALLY EVERY 7 DAYS, Pharmacy: [id number] Start Date: 07/10/22 Status: Ordered fluconazole 100 mg oral tablet Start: 09/24/23 1:39:00 PM EDT, 3 tab, PO, q7days, Disp# 6 tab, [id number] Start Date: 09/24/23 Stop Date: 10/08/23 Status: Ordered hydrOXYzine pamoate 25 mg oral capsule Start: 08/23/23 3:14:00 PM EDT, 1 cap Start Date: 08/23/23 Status: Ordered MiraLax oral powder for reconstitution Start: 08/23/22 8:14:00 AM EDT, 17 g =, PO, Daily, Disp# 30 each, packets, dissolve in water/juice, [id number] Start Date: 08/23/22 Stop Date: 09/22/22 Status: Ordered nadolol 20 mg oral tablet Start: 12/03/23 6:08:00 PM EDT, 1 tab, PO, bid, Disp# 60 tab, Refills: 11, Pharmacy: [facility]/pharmacy #[id number] Start Date: 12/03/23 Stop Date: 11/27/24 Status: Ordered nitrofurantoin macrocrystals-monohydrate 100 mg oral capsule Start: 09/10/23 2:30:00 PM EDT, 1 cap, PO, bid Start Date: 09/10/23 Status: Ordered oxyCODONE 5 mg oral tablet Start: 12/10/23 4:38:00 PM EDT, 5 mg =, PO, q8h, Disp# 20 tab, Refills: 0, Note to Pharmacy: PDMP checked., PRN: pain - severe (7-10), [id number] Start Date: 12/10/23 Stop Date: 12/20/23 Status: Ordered Potassium Chloride (Eqv-K-Tab) 20 mEq oral tablet, extended release Start: 12/20/22 10:21:00 AM EDT, 1 tab, PO, Daily, Disp# 90 tab, Refills: 3, Pharmacy: [facility]/pharmacy #[id number] Start Date: 12/20/22 Status: Ordered promethazine 25 mg oral tablet Start: 12/10/23 3:53:00 PM EDT, 1 tab, PO, q6h, Disp# 60 tab, Refills: 0, PRN: as needed for nausea/vomiting, [id number] Start Date: 12/10/23 Status: Ordered traZODone 50 mg oral tablet TAKE 1 TABLET BY MOUTH EVERYDAY AT BEDTIME Start Date: 03/25/23 Status: Ordered Mental Status 12/10/23 Barriers to Learning one year None evide nt Mandatory Health Literacy Documentation Yes Health Literacy Communication Barriers N ever Primary Language Estonian Problem List Condition Confirmation Course Effective Dates [...] Dates Health Status Cl inical Service Informant Urinary urgency Discharge Diagnosis 12/10/23 Chronic abdominal pain Discharge Diagnosis 12/10/23 Nausea & vomiting Discharge Diagnosis 12/10/23 Procedures Procedure Date Related Diagnosis Body Site [...] BSO - Bilateral salpingo-oophorectomy Completed Cholecystectomy Completed Enochs teeth extraction C ompleted 1The rectum, sigmoid [...] No specimens collected 12normal 13Dr. Greg Louie Results Laboratory List Name Date Urine Chemstick POC Outpt. (UA Chemstick POC Outpt.) 12/10/23 Most recent to oldest [Reference Range]: 1 Glucose Urine Dipstick Ref Range [negati ve] (12/10/23 4:19 PM) Bilirubin Urine Dipstick Ref Range [nega tive] (12/10/23 4:19 PM) Specific [place] Urine Ref Range [No Nor mal Defined] (12/10/23 4:19 PM) Protein Urine Dipstick Ref Range [negati ve] (12/10/23 4:19 PM) pH Urine Dipstick Ref Range [4.5 - 8.0] (12/10/23 4:19 PM) Ketones Urine Dipstick Ref Range [negati ve] (12/10/23 4:19 PM) Blood Urine Dipstick Ref Range [negative ] (12/10/23 4:19 PM) Urobilinogen Urine Dipstick Ref Range [0 .2 - 1.0 mg/dL] (12/10/23 4:19 PM) Nitrites Urine Dipstick Ref Range [negat lenora] (12/10/23 4:19 PM) Leukocytes Urine Dipstick Ref Range [neg ative] (12/10/23 4:19 PM) U Leuk Est Negative (12/10/23 4:19 PM) U Nitrite Negative (12/10/23 4:19 PM) U Urobilinogen 0.2 mg/dl (12/10/23 4:19 PM) U Protein 30 mg/dl (12/10/23 4:19 PM) U pH 5.5 (12/10/23 4:19 PM) U Blood Negative (12/10/23 4:19 PM) U Spec Grav 1.030 1 (12/10/23 4:19 PM) U Ketones Trace (5 mg/dl) (12/10/23 4:19 PM) U Bili Moderate (12/10/23 4:19 PM) U Gluc Negative (12/10/23 4:19 PM) U Appear Slightly cloudy (12/10/23 4:19 PM) Urine color urine dipstick Pale yellow (12/10/23 4:19 PM) 1Result Comment: Performed at: [facility], [address], [place] [address] Vital Signs Most recent to oldest [Reference Range]: 1 Patient Weight 88.9 kg (12/10/23 3:45 PM) Temperature [36.5-37.9 DegC] 36.7 DegC (12/10/23 3:45 PM) Blood Pressure 124/72mmHg (12/10/23 3:45 PM) BP Location # 1 Left Arm (12/10/23 3:45 PM) Social History Social History Type Response Smoking Status Never smoked cigaret issa Sex Female Sex Representation Female (finding) FCM Outpt Note * DO Stewart Gretchen Elizabeth: MODIFY DO Stewart Gretchen Elizabeth: MODIFY Event Display: FCM Outpt Note Authored Date: [id number] Chief Complaint Here for abd pain. Started 2wks ago. History of Present Illness 33 yo female here for evaluation of pain. Has chronic abdominal pain of unknown origin.Multiple hospitalizations without clear diagnosis. Requesting refill of pain medication. Requesting refill of anti-nausea. Urinary symptoms: x 3 days. Urinary urgency. No dysuria. Physical Exam Vitals & Measurements T:36.7C BP:124/72 SpO2:98% WT:88.900kg(Dosing) WT:88.9kg PHQ2 Data(Data Documented on:12/10/2023 15:43) Emotional health assessment NEGATIVE Gen: well appearing female in NAD HEENT: AT NC CV: clinically well perfused Resp: no increased work of breathing Abd: non-distended MSK: no obvious deformities Skin: no bruising or rashes noted Psych: appropriate mood and affect Neuro: alert and oriented Assessment/Plan 1.Urinary urgency Acute, uncomplicated illness/injury Goal: resolution Data:UA inoffice Plan: UA negative, will send for culture 2.Chronic abdominal pain Chronic condition not at goal/exacerbated/progressive/side effects of treatment Goal: decrease pain Plan: Refill oxycodone, Toradol in office today 3.Nausea & vomiting Chronic condition not at goal/exacerbated/progressive/side effects of treatment Goal: decrease nausea Plan: Refill promethazine Attestation Patient seen and examined in concert with Dr. Hernandez, agree with history and physical documented above. Continue to limit opioids as able. Agree with toradol injection as this has helped her in the past. PDMPchecked. Plan reviewed in detail and patient understanding. 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 History of kidney stones ICD (implantable cardioverter-defibrillator) in place Migraine Nausea & vomiting Seizure Resolved Bacterial pneumonia Contusion of left foot DIARRHEA Difficulty sleeping Dizziness and Giddiness Gastroenteritis Nausea and vomiting Rash ROUTINE GENERAL MEDICAL EXAMINATION AT A HEALTH CARE FACILITY Vomiting Procedure/Surgical History EGD - Esophagogastroduodenoscopy| Service Date: 3Colonoscopy| Service Date: 09/14/2022olonoscopy| Service Date: 09/14/2022Upper GI (gastrointestinal) endoscopy| Service Date: 01/10/2022EGD US EXAM DUODENUM/JEJUNUM| Service Date: 2CT of abdomen and pelvis| Service Date: 10/21/2021T of abdomen and pelvis| Service Date: 08/18/2020iagnostic colonoscopy| Service Date: 08/03/2020Upper GI endoscopy| Service Date: 08/03/2020Upper GI endoscopy| Service Date: 09/03/2019Colonoscopy| Service Date: 01/30/2018Hysterectomy| Service Date: 07/24/2017Colonoscopy| Service Date: 10/2013Laparoscopy| Service Date: 10/08/2013Root canal procedure| Service Date: 08/2013Colonoscopy| Service Date: 07/11/2012ppendectomy| Service Date: 09/21/2011Upper GI endoscopy| Service Date: 03/18/2011Sigmoidoscopy| Service Date: 06/2010Wisdom teeth extractionCholecystectomyBSO - Bilateral salpingo-oophorectomy Medications acetaminophen(acetaminophen 500 mg oral tablet), 1000 mg= 2 tab, PO, q8h aprepitant(aprepitant 80 mg oral capsule), 80 mg= 1 cap, PO, qAM, 3 refills DULoxetine(DULoxetine 30 mg oral delayed release capsule), 30 mg= 1 cap, PO, Daily DULoxetine(DULoxetine 60 mg oral delayed release capsule), 60 mg= 1 cap, PO, Daily estradiol(Estradiol Patch 0.025 mg/24 hours weekly transdermal film, extended release), See Instructions fluconazole(fluconazole 100 mg oral tablet), 300 mg= 3 tab, PO, q7days hydrOXYzine(hydrOXYzine pamoate 25 mg oral capsule), 25 mg= 1 cap lumateperone(Caplyta 42 mg oral capsule) lumateperone(Caplyta 42 mg oral capsule), 42 mg= 1 cap, PO, Daily nadolol(nadolol 20 mg oral tablet), 20 mg= 1 tab, PO, bid, 11 refills nitrofurantoin(nitrofurantoin macrocrystals-monohydrate 100 mg oral capsule), 100 mg= 1 cap, PO, bid oxyCODONE(oxyCODONE 5 mg oral tablet), 5 mg, PO, q8h, PRN polyethylene glycol 3350(MiraLax oral powder for reconstitution), 17 g, PO, Daily potassium chloride(Potassium Chloride (Eqv-K-Tab) 20 mEq oral tablet, extended release), 20 mEq= 1 tab, PO, Daily, 3 refills promethazine(promethazine 25 mg oral tablet), 25 mg= 1 tab, PO, q6h, PRN traZODone(traZODone 50 mg oral tablet) Allergies Augmentin IVP dye Vraylarhallucinations, suicidal thoughts iodine topical mushrooms shellfish Social History Smoking Status Never smoked cigarettes Alcohol - Low Risk Use:Current Frequency:1-2 times per month Employment/School - No Risk Status:Employed Description:[employer] 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 HTN (hypertension): Father. High Blood Pressure: Father. Hyperlipidemia..: Father. Melanoma: MGM. Health Status Family Member(s) Immunizations Vaccine Date Status SARS-CoV-2 (COVID-19) mRNA BNT-162b2 vax 07/16/2020 Recorded Comments : 2020-10-07: Historical information-source unspecified SARS-CoV-2 (COVID-19) mRNA BNT-162b2 vax 06/25/2020 Recorded Comments : 2020-10-07: Historical information-source unspecified tetanus/diphtheria/pertuss, acel (Tdap) 03/20/2017 Recorded Comments : 2020-04-04: Historical information-source unspecified influenza virus vaccine, inactivated 10/25/2015 Given tetanus/diphtheria/pertuss, acel (Tdap) 06/27/2015 Given varicella virus vaccine 11/04/2013 Given measles/mumps/rubella virus vaccine 11/04/2013 Given influenza virus vaccine, inactivated 11/04/2013 Given influenza virus vaccine, inactivated 12/12/2012 Given influenza virus vaccine, inactivated 12/04/2011 Given varicella virus vaccine 07/28/2009 Recorded Comments : 2020-10-07: Historical information-source unspecified poliovirus vaccine, inactivated 07/28/2009 Recorded Comments : 2020-10-07: Historical information-source unspecified meningococcal conjugate vaccine 07/28/2009 Recorded Comments : 2020-10-07: Historical information-source unspecified measles/mumps/rubella virus vaccine 07/28/2009 Recorded Comments : 2020-10-07: Historical information-source unspecified measles/mumps/rubella virus vaccine 03/14/1999 Recorded hepatitis B pediatric vaccine 01/24/1995 Recorded poliovirus vaccine, inactivated 01/24/1995 Recorded diphtheria/tetanus/pertuss, acel (DTaP) 01/24/1995 Recorded hepatitis B pediatric vaccine 07/20/1994 Recorded hepatitis B pediatric vaccine 06/19/1994 Recorded poliovirus vaccine, inactivated 07/01/1991 Recorded diphtheria/tetanus/pertuss, acel (DTaP) 07/01/1991 Recorded Recommendations Health Maintenance Pending(in the next year) OverDue Adult Folic Acid Supplementation due10/12/19and every 3year Adult Influenza Vaccine due08/18/23and every 1year Due Adult COVID-19 Vaccination due12/10/23Unknown Frequency Adult Social Determinants of Health Screening due12/10/23Unknown Frequency Hepatitis C Screening due12/10/23One-time only Satisfied(in the past 1 year) Satisfied Body Mass Index on11/05/23.Satisfied by DEVANTE [place] Electronic Signature on File Electronically Reviewed/Signed by: Edgar Hernandez DO Author Signature Dt/Tm:12/10/2023 04:35 PM Resident Department of Family Medicine Electronically Reviewed/Signed by: Candy Crowignpema Signature Dt/Tm: 12/12/2023 07:58 AM Department of Family Medicine [place] Patient Care team information Care Team Personnel Name: MD Carlos, Leonard Phoenix Position: Physician - Family Med Member Role: Lifetime Relationship Address: [address] [place] [address] [place] Name: MD Casey, Tavares Position: Physician - Family Med Member Role: Lifetime Relationship Address: [address] [place] [address] [place] Name: Reese Mora MD, [facility] Position: Resident Member Role: Lifetime Relationship Address: [address] [place] [address] [place] Name: DO Thompson Sameer Position: Resident Member Role: Lifetime Relationship Address: [address] [place] [address] [place] Care Team Related Persons Name: STEFFEN ROSAS Name: STACIE HOPE Name: STACIE HOPE Name: STACIE HOPE"
--- OUTSIDE RECORDS SUMMARY | 2024-01-10 05:56 | External Medical Summary ---
Author Name Unknown Address Unknown Organization K1F:LAB[facility]ATORY [facility] - [address] [address] Laboratory Report Ordering Provider Test Date Status IMANI RODGERS 12/20/2023 20:10:00 Final Observation Date Value Abnormality Reference (Units ) Status Magnesium 12/20/2023 20:10:00 1.9 1.5-2.6 (m g/dL) Final Performing Location LAB[facility]ATORY [facility] - [address] [address]
--- OUTSIDE RECORDS SUMMARY | 2024-01-10 05:56 | External Medical Summary ---
Author Name Unknown Address Unknown Organization K1F:LABORATORY [facility] - [address] [place] [address] Laboratory Report Ordering Provider Test Date Status YAIMA RESENDIZ 12/20/2023 20:10:00 Final hCG can serve as a screening assay for . However, early may not give a positive hCG test result. In addition, some non- women may have a hCG result slightly higher than the reference limit. Careful interpretation of the hCG with clinical history is required to determine whether the patient may be . Observation Date Value Abnormality Reference (Units ) Status Choriogonadotropin.int act+Beta subunit [Units/volume] in Serum or Plasma 12/20/2023 20:10:00 1.8 Above high normal <=1.0 (mIU/mL) Final Performing Location LABORATORY [facility] - [address] [place] [address]
--- OUTSIDE RECORDS SUMMARY | 2024-01-10 05:57 | External Medical Summary ---
Author Name Unknown Address Unknown Organization K1F:LABORATORY [facility] - [address] [place] [address] Laboratory Report Ordering Provider Test Date Status PRICILA JULIAN 11/21/2023 11:44:35 Final Observation Date Value Abnormality Reference (Units ) Status Lipase 11/21/2023 11:44:35 30 13-60 (U/L ) Final Performing Location LABORATORY [facility] - [address] [place] [address]
--- OUTSIDE RECORDS SUMMARY | 2024-01-10 05:57 | External Medical Summary ---
Author Name Unknown Address Unknown Organization K1F:LABORATORY [facility] B LOOD BANK - [address] [place] [address] Laboratory Report Ordering Provider Test Date Status PRICILA JULIAN 11/21/2023 11:44:35 Final Observation Date Value Abnormality Reference (Units ) Status ABO 11/21/2023 11:44:35 A Final RH 11/21/2023 11:44:35 Positive Final RED BLOOD CELL ANTIBODY SCREEN 11/21/2023 11:44:35 Negative Final SPECIMEN EXPIRATION DATE 11/21/2023 11:44:35 11/24/2023 23:59 Final Performing Location LABORATORY [facility] BLOOD BANK - [address] [place] [address]
--- OUTSIDE RECORDS SUMMARY | 2024-01-10 05:57 | External Medical Summary ---
Author Name Unknown Address Unknown Organization K1F:LABORATORY [facility] - [address] [facility] [place] [address] Laboratory Report Ordering Provider Test Date Status PRICILA JULIAN 11/21/2023 11:44:35 Final Observation Date Value Abnormality Reference (Units ) Status SYNC LEUKOCYTES IN BLOOD BY AUTOMATED COUNT 11/21/2023 11:44:35 9.67 4.00-10.80 (K/uL) Final Segs 11/21/2023 11:44:35 52.2 40.0-75.0 (%) Final Lymphs % 11/21/2023 11:44:35 38.0 18.0-42.0 (%) Final Monos 11/21/2023 11:44:35 6.1 1.0-11.0 (%) Final Eosinophils 11/21/2023 11:44:35 2.7 0.0-6.0 (%) Final Basos 11/21/2023 11:44:35 0.8 0.0-2.0 (%) Final Immature Granulocyte, Percent 11/21/2023 11:44:35 0.2 0.0-2.0 (%) Final Absolute Segs 11/21/2023 11:44:35 5.05 1.80-7.70 (K/uL) Final Lymphs, absolute 11/21/2023 11:44:35 3.67 1.00-4.80 (K/ul) Final Monos, Abs 11/21/2023 11:44:35 0.59 0.00-1.10 (K/uL) Final Eos, Abs 11/21/2023 11:44:35 0.26 0.00-0.70 (K/uL) Final Basos, Abs 11/21/2023 11:44:35 0.08 0.00-0.20 (K/uL) Final Immature Granulocytes, Number 11/21/2023 11:44:35 0.02 0.00-0.20 (K/uL) Final Performing Location LABORATORY [facility] - [address] [place] [address]
--- OUTSIDE RECORDS SUMMARY | 2024-01-10 05:57 | External Medical Summary ---
Author Name Unknown Address Unknown Organization K1F:LABORATORY [facility] - [address] [facility] [place] [address] Laboratory Report Ordering Provider Test Date Status PRICILA JULIAN 11/21/2023 11:44:35 Final Observation Date Value Abnormality Reference (Units ) Status BUN 11/21/2023 11:44:35 9 6-20 (mg/dL) Final Creatinine 11/21/2023 11:44:35 0.8 0.5-1.0 (mg/dL) Final Glomerular filtration rate/1.73 sq M.predicted [Volume Rate/Area] in Serum, Plasma or Blood by Creatinine-based formula (CKD-EPI) 11/21/2023 11:44:35 >90 >=60 (mL/min) Final eGFR is calculated based on the CKD-EPI 2020 equation. Sodium 11/21/2023 11:44:35 142 135-146 (m mol/L) Final Potassium 11/21/2023 11:44:35 3.8 3.5-5.1 (m mol/L) Final Cl 11/21/2023 11:44:35 106 98-107 (mm ol/L) Final CO2 11/21/2023 11:44:35 22 22-32 (mmo l/L) Final Anion gap 11/21/2023 11:44:35 14 7-15 (mmol /L) Final Glucose 11/21/2023 11:44:35 89 70-120 (mg /dL) Final Albumin 11/21/2023 11:44:35 4.1 3.8-5.0 (g /dL) Final AST (Aspartate aminotransferase) 11/21/2023 11:44:35 18 10-35 (U/L) Final Alk Phos 11/21/2023 11:44:35 78 35-130 (U/ L) Final Bilirubin, Total 11/21/2023 11:44:35 0.4 <=1 .2 (mg/dL) Final Calcium 11/21/2023 11:44:35 9.2 8.4-10.2 ( mg/dL) Final Protein 11/21/2023 11:44:35 6.6 6.0-8.3 (g /dL) Final ALT (Alanine aminotransferase) 11/21/2023 11:44:35 11 10-35 (U/L) Final Performing Location LABORATORY [facility] - [facility] [address] [place] [address]
--- OUTSIDE RECORDS SUMMARY | 2024-01-10 05:57 | External Medical Summary ---
Author Name Unknown Address Unknown Organization K1F:LABORATORY [facility] - [address] [place] [address] Laboratory Report Ordering Provider Test Date Status PRICILA JULIAN 11/21/2023 11:44:35 Final Observation Date Value Abnormality Reference (Units ) Status WBC, Total 11/21/2023 11:44:35 9.67 4.00-10.80 (K/uL) Final RBC 11/21/2023 11:44:35 4.57 3.85-5.15 (M/uL) Final Hemoglobin 11/21/2023 11:44:35 13.7 12.0-15.3 (g/dL) Final HCT 11/21/2023 11:44:35 38.1 36.0-45.2 (%) Final MCV 11/21/2023 11:44:35 83.4 81.5-97.5 (fL) Final MCH 11/21/2023 11:44:35 30.0 27.0-34.0 (pg) Final MCHC 11/21/2023 11:44:35 36.0 32.0-36.0 (g/dL) Final RDW 11/21/2023 11:44:35 12.2 11.5-15.5 (%) Final Platelets 11/21/2023 11:44:35 327 140-400 (K/uL) Final MPV 11/21/2023 11:44:35 10.4 6.6-11.1 (fL) Final Nucleated erythrocytes/100 leukocytes [Ratio] in Blood by Automated count 11/21/2023 11:44:35 0 <=0 (/100 WBCs) Final Performing Location [facility] [address] [facility] [place] [address]
--- OUTSIDE RECORDS SUMMARY | 2024-01-10 05:57 | External Medical Summary | Continuity of Care Document ---
Author Name Unknown Organization [place] [address] [place] [id number] Care Team Providers Care Dental Internship Name Role Phone Tavares Peña Primary Care Physician [phone] [id number] Date(s): 11/05/23 - 11/05/23 [facility] [address] Medical [facility] [address] [address] [phone] Encounter Diagnosis Body mass index [BMI] 33.0-33.9, adult(Discharge Diagnosis) - 11/05/23 Abdominal pain(Discharge Diagnosis) - 11/05/23 Discharge Disposition: Home or Self Care Attending Physician: DO Stewart Gretchen Elizabeth Allergies, Adverse Reactions, Alerts Substance Criticality Severity Reaction Reaction Severity Status iodine topical Activ e Augmentin 1 Active Vraylar hallucinations, suicidal thoughts Active shellfish Active IVP dye Active mushrooms Active 1severe stomach pain & [...] qAM, Disp# 30 cap, Refills: 3, Pharmacy: [facility]/pharmacy #[id number] Start Date: 09/10/23 Status: Ordered Caplyta 42 [...] 1 PATCH TOPICALLY EVERY 7 DAYS, Pharmacy: [facility] STORE [id number] Start Date: 07/10/22 Status: Ordered fluconazole 100 mg oral tablet Start: 09/24/23 1:39:00 PM EDT, 3 tab, PO, q7days, Disp# 6 tab, Pharmacy: [facility]/pharmacy #[id number] Start Date: 09/24/23 Stop Date: 10/08/23 Status: Ordered hydrOXYzine pamoate 25 mg oral capsule Start: 08/23/23 3:14:00 PM EDT, 1 cap Start Date: 08/23/23 Status: Ordered MiraLax oral powder for reconstitution Start: 08/23/22 8:14:00 AM EDT, 17 g =, PO, Daily, Disp# 30 each, packets, dissolve in water/juice, Pharmacy: [facility]/pharmacy #[id number] Start Date: 08/23/22 Stop Date: 09/22/22 Status: Ordered nadolol 20 mg oral tablet Start: 12/20/22 10:20:00 AM EDT, 1 tab, PO, bid, Disp# 60 tab, Refills: 9, Pharmacy: [facility]/pharmacy #[id number] Start Date: 12/20/22 Status: Ordered nitrofurantoin macrocrystals-monohydrate 100 mg oral capsule Start: 09/10/23 2:30:00 PM EDT, 1 cap, PO, bid Start Date: 09/10/23 Status: Ordered oxyCODONE 5 mg oral tablet Start: 10/29/23 10:25:00 AM EDT, 5 mg =, PO, q8h, Disp# 20 tab, Refills: 0, Note to Pharmacy: PDMP checked., PRN: pain - severe (7-10), Pharmacy: [facility]/pharmacy #[id number] Start Date: 10/29/23 Stop Date: 11/08/23 Status: Ordered Potassium Chloride (Eqv-K-Tab) 20 mEq oral tablet, extended release Start: 12/20/22 10:21:00 AM EDT, 1 tab, PO, Daily, Disp# 90 tab, Refills: 3, [id number] Start Date: 12/20/22 Status: Ordered promethazine 25 mg oral tablet Start: 09/10/23 3:16:00 PM EDT, 1 tab, PO, q6h, Disp# 60 tab, Refills: 0, PRN: as needed for nausea/vomiting, [facility]: [id number] Start Date: 09/10/23 Status: Ordered traZODone 50 mg oral tablet TAKE 1 TABLET BY MOUTH EVERYDAY AT BEDTIME Start Date: 03/25/23 Status: Ordered Mental Status 11/05/23 Barriers to Learning one year None evide nt Mandatory Health Literacy Documentation Yes Health Literacy Communication Barriers N ever Primary Language Arabic Problem List Condition Confirmation Course Effective Dates [...] Dates Health Status Cl inical Service Informant Body mass index [BMI] 33.0-33.9, adult Discharge Diagnosis 11/05/23 Non-Specified Abdominal pain Discharge Diagnosis 11/05/23 Non-Specified Procedures Procedure Date Related Diagnosis Body [...] BSO - Bilateral salpingo-oophorectomy Completed Cholecystectomy Completed [place] teeth extraction C ompleted 1The rectum, sigmoid [...] Most recent to oldest [Reference Range]: 1 Height 162.7 cm (11/05/23 1:07 PM) Patient Weight 88.8 kg (11/05/23 1:07 PM) Body Mass Index 33.55 kg/m2 (11/05/23 1:07 PM) Temperature [36.5-37.9 DegC] 36.8 DegC (11/05/23 1:07 PM) Heart Rate 49 bpm (11/05/23 1:07 PM) Respiratory Rate 18 br/min (11/05/23 1:07 PM) Blood Pressure 122/86mmHg (11/05/23 1:07 PM) Cuff Pulse Pressure 36 mmHg (11/05/23 1:07 PM) Social History Social History Type Response Smoking Status Never smoked cigaret issa Sex Female Sex Representation Female (finding) Patient Care team information Care Team Personnel Name: MD Carlos, Leonard Phoenix Position: Physician - Family Med Member Role: Lifetime Relationship Address: [address] [place] [address] [place] Name: MD Casey, Tavares Position: Physician - Family Med Member Role: Lifetime Relationship Address: [address] [place] [address] [place] Name: Reese Mora MD, [facility] Position: Resident Member Role: Lifetime Relationship Address: [address] [place] [address] [place] Name: DO Thompson Sameer Position: Resident Member Role: Lifetime Relationship Address: [address] [place] [address] [place] Care Team Related Persons Name: STEFFEN ROSAS Name: STACIE HOPE Name: STACIE HOPE Name: STACIE HOPE
--- OUTSIDE RECORDS SUMMARY | 2024-01-10 05:57 | External Medical Summary ---
Author Name Unknown Address Unknown Organization K01:LABORATORY [facility] - [facility] [address] [facility] [address] Laboratory Report Ordering Provider Test Date Status PRICILA JULIAN 11/21/2023 13:11:10 Final Observation Date Value Abnormality Reference (Units ) Status Chlamydia trachomatis rRNA [Presence] in Specimen by ASHLEY with probe detection 11/21/2023 13:11:10 Negative Negative Final No Chlamydia trachomatis det ected by treating inspector-mediated nucleic acid amplification. Neisseria gonorrhoeae rRNA [ Presence] in Specimen by ASHLEY with probe detection 11/21/2023 13:11:10 Negative Negative Final No Neisseria gonorrhoeae det ected by treating inspector-mediated nucleic acid amplification. Performing Location LABORATORY [facility] - [address] [facility] [address]
--- OUTSIDE RECORDS SUMMARY | 2024-01-10 05:57 | External Medical Summary ---
Author Name Unknown Address Unknown Organization K1F:LABORATORY [facility] - [address] [facility] [place] [address] Laboratory Report Ordering Provider Test Date Status BRIE JULIANUBALDO 11/21/2023 13:11:10 Final Observation Date Value Abnormality Reference (Units ) Status Color of Urine by Auto 11/21/2023 13:11:10 Yellow Light Yellow, Yellow, Dark Yellow Final Clarity, Urine 11/21/2023 13:11:10 Clear Clear Final Glucose [Mass/volume] in Urine by Automated test strip 11/21/2023 13:11:10 Negative Negative (mg/dL) Final Bilirubin.total [Presence] in Urine by Automated test strip 11/21/2023 13:11:10 Negative Negative Final Ketones [Mass/volume] in Urine by Automated test strip 11/21/2023 13:11:10 Negative Negative (mg/dL) Final Specific gravity, Urine 11/21/2023 13:11:10 1.006 1.003-1.030 Final Hemoglobin [Presence] in Urine by Automated test strip 11/21/2023 13:11:10 Negative Negative Final pH, Urine 11/21/2023 13:11:10 6.0 5.0-7.5 (Units) Final Protein [Mass/volume] in Urine by Automated test strip 11/21/2023 13:11:10 Negative Negative (mg/dL) Final Urobilinogen [Mass/volume] in Urine by Automated test strip 11/21/2023 13:11:10 0.2 0.2, 1.0 (mg/dL) Final Nitrite [Presence] in Urine by Automated test strip 11/21/2023 13:11:10 Negative Negative Final Leukocyte esterase [Presence] in Urine by Automated test strip 11/21/2023 13:11:10 Negative Negative Final RBC, Urine 11/21/2023 13:11:10 0-2 0-2 (/HPF) Final WBC, Urine 11/21/2023 13:11:10 0-2 0-2 (/HPF) Final Bacteria [#/area] in Urine sediment by Microscopy high power field 11/21/2023 13:11:10 0-25 0-25 (/HPF) Final CULTURE, URINE - [facility] 11/21/2023 13:11:10 Final Culture not indicated by uri nalysis results\[id number]\ Performing Location LABORATORY [address] [place] [address]
--- NOTE | 2024-01-10 07:11 | Hospitalist Progress Note ---
Date of Service January 10, 2024 Assessment & Plan (1) Intractable nausea and vomiting: (2) Bipolar 2 disorder: (3) Muscle spasm: Plan Pt is a 33 yo female with a past medical hx of endometriosis with hysterectomy and previous adhesion lysis procedure, PCOS, cyclical vomiting, and partial seizures presented to the hospital on 01/08 for acute nausea with copious nonbloody vomiting. Intractable vomiting - admitted with worsening LLQ abdominal pain and intractable nausea and vomiting that began on Wednesday 01/03, but became much worse on 01/06 - H/o cyclic vomiting syndrome, hx of cannabinoid hyperemesis syndrome (admission 10/2021) but not using marijuana constantly prior to admission this time, last use several days prior to admission - LLQ pain started before vomiting - hCG negative - holding zofran as QTc 447 on arrival - IV pepcid and protonix - morphine 2mg q4h seems to help most - capsaicin TID prn for cannabinoid hyperemesis although doubt this is the cause of vomiting this time - differential includes; high adhesion burden, gastroparesis, cannabinoid hyperemesis, UTI, acute viral illness - if syndrome continues into Saturday, consider consulting gen surg for adhesion burden as she had previously surgery for adhesions that resolved her N/V syndrome UTI - although pt is asymptomatic and CT scan is not suggestive of pyelonephritis, will continue IV CTX for now for possible infection Acute back pain - exquisite muscle tenderness on exam - continue IV pain medication and heating pad - defer OMT due to patient intolerance - will give IV mag today for acute muscle spasm Bipolar 2 disorder - Will temporarily hold Lumateperone as it is non-formulary and interacts with aprepitant - Note: while on aprepitant, it is recommended to reduce lumaterperone to 21mg p.o. daily - Patient takes lumateperone 42mg p.o. BID capsules, which can not be split - If continuing aprepitant over hospital course, hold for 24 hours prior to discharge prior to discharge VTE PPx: SCDs Admission and Anticipated Discharge Date Admission Date: January 09, 2024 Supervising Physician Co-Signing Physician Notes I personally examined the patient and verified all grubbs points of history and exam, discussed case, and agree with decision making with Dr Stafford still lots of nausea/vomiting. ntoes that the LLQ pain came first then pain was so severe it caused the nausea. while she endorsed dysuria to other members of the team, she denies to me vitals noted appearing uncomfortable, exquisite LLQ tender no guarding/rebound mild abd tenderness elsewhere; L sided paraspinal hypertonicity labs/diagnostics noted intractable nausea/vomiting with subsequent dehydration and associated metabolic acidosis as evidenced by elevated anion gap and serum lactate treated with isotonic IV fluids due possibly to pyelonephritis with sepsis POA (UTI) treated with ceftriaxone vs exacerbation of cyclic vomiting syndrome (but doubt marijuana playing a role) or adhesional LLQ pain with vomting subsequent to intense pain -for now continue ceftriaxone for possible UTI/pyelonephritis - leukocytosis improving but with equivocal findings not entirely clear this is infectious (but also with equivocal findings not entirely clear it is not) -most likely bad exacerbation of cyclic vomiting - and currently managing as such - supportive care/IV fluids, time (but marijuana use intermittent/sporadic - doubt this is cannabis hyperemesis) -LLQ pain/etc somewhat reminiscent of stay in october 2018 that culminated with lysis of adhesions - if doesn't improve with supportive care/time over a few days may consider general surgery eval (this particular case i'm recalling was october 2018 stay, dr vaughan performed lysis) otherwise as above Subjective Today, pt seen at bedside sitting in chair, restless. She states this has been a problem for the last 3 years with every few months she gets episodes of absolutely intractable vomiting for a few days. She states opioids seem to help more than all else for her symptoms. Also noting some diffuse abdominal pain worse in LLL and into back as well. She continues to have nausea and vomiting this morning. No dysuria, no urinary frequency. Review of Systems Review of Systems: Per HPI. Physical Exam Physical Exam: General:Alert and oriented, uncomfortable appear, occasionally vomiting HEENT: Normocephalic, moist oral mucosa, Cardio: Regular rate and rhythm, no murmur, Resp:Lungs clear to auscultation b/l, no wheezes or rhonchi, GI: Soft, bowel sounds active, LLL exquisitely tender, MSK: Paraspinal mid/lower thoracic musculature exquisitely tender with spasms Skin: Warm, pink, dry, Results & Data Results & Data Vital Signs (Past 12 Hours) Vital Signs Temp Pulse Pulse Resp BP Pulse Ox O2 Del Method 11/22/24 03:24 37.3 C 72 18 140/81 100 Room Air 01/10/24 00:00 76 01/09/24 23:00 37.2 C 62 18 135/84 100 Room Air Resident Activity Tracking Resident Involvement: Resident Care Provided Care Provided: Adult Hospital Medicine
[2024-01-10] MEDS: APREPITANT 80 MG CAP PO SCH (08:55)
[2024-01-10] MEDS: PANTOprazole 40 MG/10 ML SYR IV SCH (08:56)
[2024-01-10] MEDS: MoRPHine SULFATE 2 MG/ML CARP IV STA (09:00)
[2024-01-10] MEDS ORDERED: POLYETHYLENE (MIRALAX) 17 GM PACK PO PRN (12:07)
[2024-01-10] MEDS: POTASSIUM CHLORIDE / WTR 10 MEQ/100 ML PLCT IV SCH (12:30)
[2024-01-10] MEDS: MoRPHine SULFATE 2 MG/ML CARP IV PRN (12:34)
[2024-01-10] MEDS: MAGNESIUM SULFATE / D5W 1 GM/100 ML BAG IV SCH (12:51)
--- NOTE | 2024-01-10 18:58 | Billing Data ---
Date of Service January 10, 2024 Coding Level of Care Code 99883 SUB INP/OBS CARE
[2024-01-10] MEDS ORDERED: LUMATEPERONE TOSYLATE 42 MG PO SCH (21:00)
[2024-01-11 07:01] LABS: Basophils # (auto) 0.07 K/uL (0.00-0.20); Basophils % (auto) 0.7 %; Eosinophils # (auto) 0.07 K/uL (0.00-0.50); Eosinophils % (auto) 0.7 %; Hematocrit (blood only) 36.6 % (37.0-47.0); Hemoglobin 12.9 g/dl (12.0-16.0); Immature Granulocytes # (auto) 0.03 K/uL (0.01-0.20); Immature Granulocytes % (auto) 0.3 %; Lymphocytes # (auto) 4.13 K/uL (1.20-3.40); Lymphocytes % (auto) 38.5 %; Mean Corpuscular Hemoglobin 29.7 pg (25.0-34.0); Mean Corpuscular Hgb Conc 35.2 g/dL (32.0-36.0); Mean Corpuscular Volume 84.3 fL (80.0-100.0); Mean Platelet Volume 10.8 fL (9.4-12.4); Monocytes # (auto) 0.73 K/uL (0.11-0.59); Monocytes % (auto) 6.8 %; Neutrophils # (auto) 5.69 K/uL (1.40-6.50); Platelet Count 227 K/uL (130-400); RDW Coefficient of Variation 12.3 % (11.5-14.5); RDW Standard Deviation 37.4 fL (36.4-46.3); Red Blood Count 4.34 M/uL (4.20-5.40); White Blood Count 10.72 K/ul (4.8-10.8)
--- NOTE | 2024-01-11 07:11 | Hospitalist Progress Note ---
Date of Service January 11, 2024 Assessment & Plan (1) Intractable nausea and vomiting: (2) Bipolar 2 disorder: (3) Muscle spasm: Plan Pt is a 33 yo female with a past medical hx of endometriosis with hysterectomy and previous adhesion lysis procedure, PCOS, cyclical vomiting, and partial seizures presented to the hospital on 01/08 for acute nausea with copious nonbloody vomiting. Intractable vomiting Pt admitted with worsening LLQ abdominal pain that began before intractable nausea and vomiting which started on Wednesday 01/03, but became much worse on 01/06. Pt has hx of cyclic vomiting syndrome, hx of cannabinoid hyperemesis syndrome (admission 10/2021) but not using marijuana constantly prior to admission this time, last use several days prior to admission. Pt is feeling better today with last vomiting episode on 01/10/24. Pt willing to try upgrade in diet and some PO meds. - IV Compazine 5 mg changed to PO today to trial PO meds - Continue IV pepcid and protonix, consider changing to PO - Continue morphine 2mg q4h, consider changing to PO - capsaicin TID prn for cannabinoid hyperemesis although doubt this is the cause of vomiting this time- consider DC if pt is not using - Upgraded diet to full liquids - If symptoms continue, can order KUB to reassess - if syndrome continues into Saturday, consider consulting gen surg for adhesion burden (previously surgery for adhesions that resolved her N/V syndrome) UTI Pt remains asymptomatic for UTI reporting frequent urination without discomfort and CT scan is not suggestive of pyelonephritis. Urine culture negative at this time. -DC IV Ceftriaxone Acute back pain - Continued muscle tenderness, but no acute c/o back pain today. - continue IV tylenol, morphine and oxycodone and heating pad - defer OMT due to patient intolerance Bipolar 2 disorder - Continue temporarily hold Lumateperone as it is non-formulary and interacts with aprepitant (pt's last aprepitant was 0900 on 01/10/24) - Upon DC plan to educate while on aprepitant, it is recommended to reduce lumaterperone to 21mg p.o. daily. Patient takes lumateperone 42mg p.o. BID capsules, which can not be split VTE PPx: SCDs Diet- full liquid Code: Full Dispo: Admission and Anticipated Discharge Date Admission Date: January 09, 2024 Supervising Physician Co-Signing Physician Notes Patient seen and examined, chart reviewed, case discussed with Dr. Reid and I agree with the assessment and plan as above except as otherwise noted Labs and images reviewed Adjustment seen at the bedside. Extensive discussion regarding her recent symptoms. She reports that she does feel that she is getting better and that her pain is now well-controlled with nearly gone, but does still have some intermittent pain throughout the day but is vastly better than yesterday. She is worried that she could have recurrent adhesional disease as she had a similar presentation previously that eventually needed a lysis of adhesions but which did greatly improve her symptoms. She had this done with Dr. Connolly in the past. Ideally she would like to avoid procedure if at all possible and expressed an understanding that if this is the case that recurrent surgeries increase the risk of future adhesions and complications, and that she is currently progressing pain-free with a nonacute abdomen and does not show evidence of a obstruction on her CT scan then conservative management is both reasonable and preferred at this time. Do not suspect that this represents marijuana hyperemesis syndrome as she has not progressed consistent with this. Urine culture is multiple verena and she does not have dysuria do not suspect contributing UTI will discontinue antibiotics. Will continue to treat symptomatically, caution with QT prolongation. Hopefully patient will progress and remain off narcotics, and then have diet advanced to regular. If she progresses or is unable to tolerate diet/worsening abdominal pain despite conservative management then will discuss with general surgery for reevaluation of possible adhesion disease. Agree with above Subjective Pt is a 33 yo female with history of endometriosis, pelvic adhesions with lysis and hysterectomy who presents with intractable vomiting. This morning, she continues with nausea and left lower abdominal pain. She has been trying to stay hydrated with fluids, but may have "over done it" and she vomited late last night. No episodes of vomiting since then. Pt has BM this morning and reports she is urinating often and urine is a pale yellow color. Pt feels as though she would like to try taking her anti-nausea meds by mouth vs IV. She would also be agreeable to progressing diet to full liquids today. Pt denies CP, SOB, diarrhea, fever or chills, joint pain, changes in sensation or dizziness. She does endorse a mild ALEXANDER. Review of Systems Review of Systems: Per HPI. Physical Exam Physical Exam: General:Alert and oriented, appears comfortable, no acute distress HEENT: PERRLA, Normocephalic, moist oral mucosa, conjunctiva is clear Cardio: Regular rate and rhythm, no murmur, no Le edema Resp:Lungs clear to auscultation b/l, no wheezes or rhonchi, GI: Soft, bowel sounds active, LLQ moderately tender Skin: Warm, pink, dry, no rashes noted Results & Data Results & Data Vital Signs (Past 12 Hours) Vital Signs Temp Pulse Pulse Resp BP Pulse Ox O2 Del Method 01/11/24 04:14 36.4 C L 60 20 114/77 99 Room Air 01/11/24 00:19 36.7 C 53 L 20 125/79 99 Room Air 01/11/24 00:00 47 L 01/10/24 20:03 36.9 C 50 L 20 110/72 97 Room Air Resident Activity Tracking Resident Involvement: Resident Care Provided Care Provided: Adult Hospital Medicine
[2024-01-11 07:38] LABS: BUN Creatinine Ratio 11.7 (10-20); Calcium 8.4 mg/dl (8.6-10.3); Potassium 3.7 mmol/L (3.5-5.1)
[2024-01-11] MEDS: PROCHLORPERAZINE MALEATE 5 MG TAB PO ONE (10:30)
[2024-01-11] MEDS: LUMATEPERONE TOSYLATE 42 MG PO SCH ×2 (11:19→21:57)
--- NOTE | 2024-01-11 16:44 | Billing Data ---
Date of Service January 11, 2024 Coding Level of Care Code 61391 SUB INP/OBS CARE
[2024-01-11] MEDS: PROMETHAZINE HCL 12.5 MG/10 ML UDP PO PRN (18:47)
[2024-01-11] MEDS: Nursing to Pharmacy Communication SCH (21:57)
--- NOTE | 2024-01-12 06:38 | Hospitalist Progress Note ---
Date of Service January 12, 2024 Assessment & Plan (1) Intractable nausea and vomiting: (2) Bipolar 2 disorder: (3) Muscle spasm: Plan Pt is a 33 yo female with a past medical hx of endometriosis with hysterectomy and previous adhesion lysis procedure, PCOS, cyclical vomiting, and partial seizures presented to the hospital on 01/08 for acute nausea with copious nonbloody vomiting. Intractable vomiting Pt admitted with worsening LLQ abdominal pain that began before intractable nausea and vomiting which started on Wednesday 01/03, but became much worse on 01/06. Pt has hx of cyclic vomiting syndrome, hx of cannabinoid hyperemesis syndrome (admission 10/2021) but not using marijuana constantly prior to admission this time, last use several days prior to admission. Pt is more left sided abdominal pain and nausea today with last vomiting episode on 01/10/24. Pt is having daily BMs and passing gas. Pt willing to continue to progress to PO meds. - Continue promethazine PO q6h PRN for nausea - Continue IV pepcid and protonix, consider changing to PO - Last dose of morphine 2mg at 0920, changed to PO oxycodone 5mg q8h PRN - capsaicin TID prn for cannabinoid hyperemesis although doubt this is the cause of vomiting this time- consider DC if pt is not using - Continue full liquids diet - Ordered KUB to reassess for kidney stones - if syndrome continues into Saturday, consider consulting gen surg for adhesion burden (previously surgery for adhesions that resolved her N/V syndrome) UTI Pt remains asymptomatic for UTI reporting frequent urination without discomfort and CT scan is not suggestive of pyelonephritis. Urine culture negative at this time. -Will continue to monitor Acute back pain - Continued muscle tenderness, but no acute c/o back pain today. - continue PO tylenol, oxycodone and heating pad - defer OMT due to patient intolerance Bipolar 2 disorder - Continue temporarily hold Lumateperone as it is non-formulary and interacts with aprepitant (pt's last aprepitant was 0900 on 01/10/24) - Upon DC plan to educate while on aprepitant, it is recommended to reduce lumaterperone to 21mg p.o. daily. Patient takes lumateperone 42mg p.o. BID c apsules, which can not be split VTE PPx: SCDs Diet- full liquid Code: Full Dispo: Admission and Anticipated Discharge Date Admission Date: January 09, 2024 Supervising Physician Co-Signing Physician Notes Patient seen and examined, chart reviewed, case discussed with Dr. Reid and I agree with the assessment and plan as above except as otherwise noted Labs and images reviewed She has been seen at the bedside this morning. She reports that she does still feel better than when she came in, but some aggression and difficulty with p.o. meds overnight. Does not wish to be on IV pain medicines if possible, trialing orals temporarily. KUB obtained does not show evidence of kidney stones or obstruction. Continues to have slow progression, but high concern that she may have recurrent adhesional disease however no current emergent indication for progression to surgery, no signs of obstruction, and is progressing with pain control and oral slowly so we will continue supportive care as noted above at this time. Abdomen is soft, focally with slight tenderness in the left lower quadrant on exam but otherwise without tenderness and has no rebound/guarding/rigidity. Subjective Pt is a 33 yo female with history of endometriosis, pelvic adhesions with lysis and hysterectomy who presents with intractable vomiting. This morning, she reports she had increase in left sided belly pain and nausea. She wants to continue to try to progress PO medications. Plan to continue with full liquid diet. Pt denies CP, SOB, diarrhea, fever or chills, joint pain, changes in sensation or dizziness. She does endorse a BM this morning and flatulence. Review of Systems Review of Systems: Per HPI. Physical Exam Physical Exam: General:Alert and oriented, appears comfortable, no acute distress HEENT: PERRLA, Normocephalic, moist oral mucosa, conjunctiva is clear Cardio: Regular rate and rhythm, no murmur, no LE edema Resp:Lungs clear to auscultation b/l, no wheezes or rhonchi, GI: Soft, bowel sounds active, LLQ moderately tender Skin: Warm, pink, dry, no rashes noted Results & Data Results & Data Vital Signs (Past 12 Hours) Vital Signs Temp Pulse Pulse Resp BP Pulse Ox O2 Del Method 01/12/24 03:39 36.8 C 64 20 112/76 96 Room Air 01/12/24 00:00 47 L 01/11/24 23:21 36.7 C 50 L 20 95/59 L 98 Room Air 01/11/24 20:10 36.9 C 50 L 20 117/78 96 Room Air Resident Activity Tracking Resident Involvement: Resident Care Provided Care Provided: Adult Hospital Medicine
[2024-01-12 07:23] LABS: Basophils # (auto) 0.05 K/uL (0.00-0.20); Basophils % (auto) 0.7 %; Eosinophils # (auto) 0.13 K/uL (0.00-0.50); Eosinophils % (auto) 1.9 %; Hematocrit (blood only) 40.8 % (37.0-47.0); Hemoglobin 14.6 g/dl (12.0-16.0); Immature Granulocytes # (auto) 0.02 K/uL (0.01-0.20); Immature Granulocytes % (auto) 0.3 %; Lymphocytes # (auto) 3.28 K/uL (1.20-3.40); Lymphocytes % (auto) 48.2 %; Mean Corpuscular Hemoglobin 29.6 pg (25.0-34.0); Mean Corpuscular Hgb Conc 35.8 g/dL (32.0-36.0); Mean Corpuscular Volume 82.6 fL (80.0-100.0); Mean Platelet Volume 10.6 fL (9.4-12.4); Monocytes # (auto) 0.58 K/uL (0.11-0.59); Monocytes % (auto) 8.5 %; Neutrophils # (auto) 2.75 K/uL (1.40-6.50); Neutrophils % (auto) 40.4 %; Platelet Count 240 K/uL (130-400); RDW Coefficient of Variation 11.7 % (11.5-14.5); RDW Standard Deviation 35.2 fL (36.4-46.3); Red Blood Count 4.94 M/uL (4.20-5.40); White Blood Count 6.81 K/ul (4.8-10.8)
[2024-01-12 07:40] LABS: BUN Creatinine Ratio 9.4 (10-20); Calcium 9.1 mg/dl (8.6-10.3); Creatinine Clr Calc Pharmacy 100.8 ml/min; Potassium 3.8 mmol/L (3.5-5.1)
--- NOTE | 2024-01-12 11:57 | XRay Report ---
KUB CLINICAL HISTORY: Evaluate for obstruction. COMPARISON STUDY: CT of the abdomen and pelvis January 09, 2024. FINDINGS: The bowel gas pattern is normal. The amount of stool is within normal limits. There are cho lecystectomy clips. Pelvic calcification represents a phlebolith. IMPRESSION: No evidence for a bowel obstruction. ACT 112: Negative or not required by law. Electronically signed by: Adalberto Angulo M.D. 01/12/2024 11:56 AM
--- NOTE | 2024-01-12 12:27 | Billing Data ---
Date of Service January 12, 2024 Coding Level of Care Code 33792 SUB INP/OBS CARE
[2024-01-12 15:57] LABS: Codeine Urine NEGATIVE ng/mL (<50); Hydrocodone Urine NEGATIVE ng/mL (<50); Hydromor Urine NEGATIVE ng/mL (<50); Marijuana Quant, GCMS Urine 613 ng/mL (<5); Morphine Urine 813 ng/mL (<50); Norhydrocodone Conf Ur NEGATIVE ng/mL (<50); Noroxycodone Urine 242 ng/mL (<50); Oxycodone Urine 93 ng/mL (<50); Oxymorph Urine 51 ng/mL (<50)
--- NOTE | 2024-01-13 07:17 | Hospitalist Progress Note ---
Date of Service January 13, 2024 Assessment & Plan (1) Abdominal pain: Plan: CT abdomen/pelvis from 01/09/24 and KUB from 01/12/24 unremarkable - likely secondary to extensive abdominal adhesions from hysterectomy and endometriosis lesions - improving, continue morphine 2mg IV q4h as needed for pain - follows with Dr. Connolly in general surgery, he is not recommending further abdominal surgery at this time as they could worsen current complications (2) Intractable nausea and vomiting: Plan: acute episode of chronic problem - may be secondary to abdominal adhesions or chronic cannabis use, patient feels that cannabis improves her nausea - no vomiting in the last 24+ hrs - has been tolerating full liquid diet, advancing to regular diet today 01/13/24 starting at lunch - changed IV famotidine and pantoprazole to PO as needed per improving tolerance, can continue promethazine for nausea as needed - consider discharge on aprepitant for long-term control of symptoms (3) Bipolar 2 disorder: Plan: Continue to temporarily hold Lumateperone as it interacts with Aprepitant for nausea/vomiting - last aprepitant at 9am on 01/10/24 - upon discharge, educate while on aprepitant: recommended to reduce lumateperone to 21mg PO daily, currently takes 42mg PO BID capsules which cannot be split (4) Muscle spasm: Plan: currently resolved, continue tylenol as needed if returns Plan Pt is a 33 yo female with a past medical hx of endometriosis with hysterectomy and previous adhesion lysis procedure, PCOS, cyclical vomiting, and partial seizures presented to the hospital on 01/09/24 for acute nausea with copious nonbloody vomiting. VTE PPx: SCDs Diet: regular Code: Full Dispo: home Admission and Anticipated Discharge Date Admission Date: January 09, 2024 Supervising Physician Co-Signing Physician Notes ATTESTATION I also saw the patient and confirmed grubbs portions of the history and exam. I agree with the impression and plan in the resident documentation, and as summarized below. Feeling slightly better and is hungry late this morning. EXAM 117/75, 60, 20, 99% on room air Alert and oriented. NAD CV RRR Respirations non labored (+) BS, no r/g DATA Labs Sodium 145, potassium 3.8, BUN 6, creatinine 0.7 Imaging KUB from yesterday shows no evidence for obstruction IMPRESSION & PLAN Intractable vomiting Will slowly advance diet today Continue current mediations for symptom management Additional per resident documentation Subjective Patient was seen and evaluated at bedside this AM, resting in no acute distress. States she did not sleep well overnight due to different environment than what she's used to, but doesn't feel too tired today. Today she is feeling better than in days prior, having 5/10 central-left lower abdominal pain. Denies any vomiting in the last 24hrs, has been tolerating full liquid diet without issue. Endorses getting up to walk around and use bathroom, no issues with urination or bowel movements. States her appetite is coming back and is interested in trying regular diet. Endorses minor headache and minor nausea. Denies visual changes, chest pain, dizziness, SOB, neck pain, back pain, diarrhea, constipation, numbness/tingling in LE. Review of Systems Review of Systems: per HPI Physical Exam Physical Exam: Constitutional: A&Ox3, appears stated age, in mild distress HEENT: anicteric sclerae, EOM intact, throat mildly erythematous without exudate Cardiovascular: RRR, +s1/s2, no m/r/g Respiratory: clear to auscultation b/l, good equal air entry b/l, no wheeze/rales/rhonchi GI: abdomen soft, normo-hyperactive bowel sounds, tenderness to palpation of central- and left lower abdomen, no swelling or guarding Neuro: no facial droop, speech intact, no sensory deficits MSK: 5/5 strength all extremities Results & Data Results & Data Vital Signs (Past 12 Hours) Vital Signs Temp Pulse Pulse Resp BP Pulse Ox O2 Del Method 01/13/24 12:02 36.6 C 60 20 117/75 99 Room Air 01/13/24 11:08 47 L 01/13/24 07:29 36.8 C 81 18 110/79 98 Room Air 01/13/24 04:05 36.6 C 65 20 113/76 99 Room Air 01/12/24 23:59 36.4 C L 53 L 20 125/85 99 Room Air 01/12/24 22:25 40 L 01/12/24 20:34 36.8 C 56 L 20 108/73 98 Room Air 01/12/24 15:53 46 L 01/12/24 15:46 36.8 C 43 L 18 115/75 97 Room Air Intake and Output 11/24/24 11/25/24 11/25/24 22:59 06:59 14:59 Intake Total 350 / 1030 200 / 1030 Balance 350 / 1030 200 / 1030 Intake: Oral 350 / 1030 200 / 1030 Other: Weight 89.4 kg Weight Measurement Method Built [facility] Laboratory Results Abnormal lab results 01/09/24 01/13/24 Range/Units 23:37 08:02 Chloride 111 H (98-107) mmol/L BUN/Creatinine Ratio 6.9 L (10-20) Ur Morphine (GC/MS) 813 H (<50) ng/mL Ur Noroxycodone 242 H (<50) ng/mL Urine Oxycodone (GC/MS) 93 H (<50) ng/mL U Oxymorphone GC/MS 51 H (<50) ng/mL U Marijuana THC Carboxy 613 H (<5) ng/mL Resident Activity Tracking Resident Involvement: Resident Care Provided Care Provided: Adult Hospital Medicine (1) Abdominal pain Abdominal location: left lower quadrant Qualified Code(s): R10.32 - Left lower quadrant pain
[2024-01-13 08:50] LABS: BUN Creatinine Ratio 6.9 (10-20); Calcium 9.2 mg/dl (8.6-10.3); Creatinine Clr Calc Pharmacy 98.6 ml/min; Potassium 3.8 mmol/L (3.5-5.1)
[2024-01-13] MEDS: ACETAMINOPHEN 325 MG TAB PO PRN (12:21)
[2024-01-13] MEDS ORDERED: PANTOprazole 40 MG TAB PO PRN (14:21)
[2024-01-13] MEDS ORDERED: FAMOTIDINE 20 MG TAB PO PRN (14:21)
--- NOTE | 2024-01-14 06:56 | Hospitalist Progress Note ---
Date of Service January 14, 2024 Assessment & Plan (1) Abdominal pain: Plan: CT abdomen/pelvis from 01/09/24 and KUB from 01/12/24 unremarkable - likely secondary to extensive abdominal adhesions from hysterectomy and endometriosis lesions - ordered IV toradol 15mg q6h as needed for primary pain control per patient desire not to rely on opioids - consider oral NSAID per patient improvement on IV toradol and continued PO tolerance - for backup pain control: continue oxycodone 5mg q8h as needed, morphine 2mg IV q4h as needed for pain if toradol insufficient - follows with Dr. Connolly in general surgery, he is not recommending further abdominal surgery at this time as they could worsen current complications (2) Intractable nausea and vomiting: Plan: acute episode of chronic problem - may be secondary to abdominal adhesions or chronic cannabis use, patient feels that cannabis improves her nausea - no vomiting in the last 24+ hrs - has been tolerating regular diet since advancing to regular diet 01/13/24 starting at lunch - consider smaller more frequent meals compared to larger and fewer meals - famotidine and pantoprazole to PO as needed per improving tolerance, can continue promethazine for nausea as needed - consider discharge on aprepitant for long-term control of symptoms (3) Bipolar 2 disorder: Plan: Continue to temporarily hold Lumateperone as it interacts with Aprepitant for nausea/vomiting - last aprepitant at 9am on 01/10/24 - upon discharge, educate while on aprepitant: recommended to reduce lumateperone to 21mg PO daily, currently takes 42mg PO BID capsules which cannot be split (4) Muscle spasm: Plan: currently resolved, continue tylenol as needed if returns Plan Pt is a 33 yo female with a past medical hx of endometriosis with hysterectomy and previous adhesion lysis procedure, PCOS, cyclical vomiting, and partial seizures presented to the hospital on 01/09/24 for acute nausea with copious nonbloody vomiting. VTE PPx: SCDs Diet: regular Code: Full Dispo: home Admission and Anticipated Discharge Date Admission Date: January 09, 2024 Supervising Physician Co-Signing Physician Notes ATTESTATION I also saw the patient along with Dr. Simmons and confirmed grubbs portions of the history and exam. I agree with the impression and plan in the resident documentation, and as summarized below. A slight step backwards since yesterday with some nausea this morning. EXAM VS as noted Alert and oriented. NAD CV RRR Respirations non labored (+) BS, no r/g DATA Labs CBC unremarkable Sodium 142, potassium 3.9, BUN 6, creatinine 0.78 IMPRESSION & PLAN Intractable vomiting Abdominal pain, acute on chronic (adhesional disease) Trial of Toradol; she has had success with NSAIDs before, and now with some improved PO may be able to transition to ibuprofen as adjuvent Try to favor PO oxycodone over IV morphine to test home regimen; discussed side effects Encourage "grazing" diet Additional per resident documentation Subjective Patient was seen and evaluated at bedside this AM, appearing uncomfortable and in mild distress. Endorses she was able to tolerate eating about 25% of both lunch and dinner yesterday 01/13/24, regular diet. States she did not sleep well again overnight due to different environment than home and noise in hallway, had 5/10 abdominal pain, no vomiting. States oxycodone pills didn't improve pain much. Today 01/14/24 she endorses feeling slightly better than day prior, having 4/10 central-left lower abdominal pain and mild nausea. Endorses little appetite this morning, does not feel like having breakfast. Endorses getting up to walk around and use bathroom, no issues with urination or bowel movements. Expresses desire to not have to rely on opioids for pain management, requesting NSAID for pain management at this time, amenable to toradol IV and perhaps later switching to PO ibuprofen in coming days. Denies visual changes, chest pain, dizziness, SOB, neck pain, back pain, diarrhea, constipation, numbness/tingling in LE. Review of Systems Review of Systems: per HPI Physical Exam Physical Exam: Constitutional: A&Ox3, appears stated age, in mild distress HEENT: anicteric sclerae, EOM intact, throat mildly erythematous without exudate Cardiovascular: RRR, +s1/s2, no m/r/g Respiratory: clear to auscultation b/l, good equal air entry b/l, no wheeze/rales/rhonchi GI: abdomen soft, normo-hyperactive bowel sounds, tenderness to palpation of central- and left lower abdomen, no swelling or guarding Neuro: no facial droop, speech intact, no sensory deficits MSK: 5/5 strength all extremities Results & Data Results & Data Vital Signs (Past 12 Hours) Vital Signs Temp Pulse Pulse Resp BP Pulse Ox O2 Del Method 01/14/24 03:31 36.8 C 59 L 12 122/87 99 Room Air 01/13/24 23:22 36.9 C 50 L 12 124/77 99 Room Air 01/13/24 21:44 50 L 01/13/24 19:49 36.5 C 52 L 16 143/79 H 98 Room Air Laboratory Results Abnormal lab results 01/14/24 Range/Units 07:19 RDW Std Deviation 34.2 L (36.4-46.3) fL Chloride 111 H (98-107) mmol/L BUN/Creatinine Ratio 7.7 L (10-20) Resident Activity Tracking Resident Involvement: Resident Care Provided Care Provided: Adult Hospital Medicine (1) Abdominal pain Abdominal location: left lower quadrant Qualified Code(s): R10.32 - Left lower quadrant pain
[2024-01-14 08:00] LABS: Basophils # (auto) 0.03 K/uL (0.00-0.20); Basophils % (auto) 0.5 %; Eosinophils # (auto) 0.24 K/uL (0.00-0.50); Eosinophils % (auto) 3.8 %; Hematocrit (blood only) 40.8 % (37.0-47.0); Hemoglobin 14.7 g/dl (12.0-16.0); Immature Granulocytes # (auto) 0.01 K/uL (0.01-0.20); Immature Granulocytes % (auto) 0.2 %; Lymphocytes # (auto) 2.42 K/uL (1.20-3.40); Lymphocytes % (auto) 38.2 %; Mean Corpuscular Hemoglobin 29.3 pg (25.0-34.0); Mean Corpuscular Volume 81.3 fL (80.0-100.0); Mean Platelet Volume 11.1 fL (9.4-12.4); Monocytes # (auto) 0.56 K/uL (0.11-0.59); Monocytes % (auto) 8.8 %; Neutrophils # (auto) 3.07 K/uL (1.40-6.50); Neutrophils % (auto) 48.5 %; Platelet Count 246 K/uL (130-400); RDW Coefficient of Variation 11.9 % (11.5-14.5); RDW Standard Deviation 34.2 fL (36.4-46.3); Red Blood Count 5.02 M/uL (4.20-5.40); White Blood Count 6.33 K/ul (4.8-10.8)
[2024-01-14] MEDS: PROCHLORPERAZINE MALEATE 5 MG TAB PO PRN (08:28)
[2024-01-14 08:33] LABS: BUN Creatinine Ratio 7.7 (10-20); Calcium 9.2 mg/dl (8.6-10.3); Creatinine Clr Calc Pharmacy 109.1 ml/min; Potassium 3.9 mmol/L (3.5-5.1)
[2024-01-14] MEDS: KETOROLAC TROMETHAMINE 15 MG/ML VIAL IV PRN (12:50)
[2024-01-14] MEDS: MELATONIN 3 MG TAB PO PRN (22:10)
[2024-01-15 06:20] LABS: Basophils # (auto) 0.05 K/uL (0.00-0.20); Basophils % (auto) 0.7 %; Eosinophils # (auto) 0.25 K/uL (0.00-0.50); Eosinophils % (auto) 3.5 %; Hematocrit (blood only) 40.8 % (37.0-47.0); Hemoglobin 14.9 g/dl (12.0-16.0); Immature Granulocytes # (auto) 0.04 K/uL (0.01-0.20); Immature Granulocytes % (auto) 0.6 %; Lymphocytes % (auto) 45.4 %; Mean Corpuscular Hemoglobin 29.7 pg (25.0-34.0); Mean Corpuscular Hgb Conc 36.5 g/dL (32.0-36.0); Mean Corpuscular Volume 81.4 fL (80.0-100.0); Mean Platelet Volume 10.6 fL (9.4-12.4); Monocytes # (auto) 0.67 K/uL (0.11-0.59); Monocytes % (auto) 9.5 %; Neutrophils # (auto) 2.84 K/uL (1.40-6.50); Neutrophils % (auto) 40.3 %; Platelet Count 269 K/uL (130-400); RDW Coefficient of Variation 11.8 % (11.5-14.5); RDW Standard Deviation 34.1 fL (36.4-46.3); Red Blood Count 5.01 M/uL (4.20-5.40); White Blood Count 7.05 K/ul (4.8-10.8)
[2024-01-15 06:33] LABS: Calcium 9.5 mg/dl (8.6-10.3); Potassium 3.9 mmol/L (3.5-5.1)
[2024-01-15 06:39] LABS: BUN Creatinine Ratio 9.1 (10-20); Creatinine Clr Calc Pharmacy 110.2 ml/min
--- NOTE | 2024-01-15 06:48 | Hospitalist Progress Note ---
Date of Service January 15, 2024 Assessment & Plan (1) Abdominal pain: Plan: CT abdomen/pelvis from 01/09/24 and KUB from 01/12/24 unremarkable - likely secondary to extensive abdominal adhesions from hysterectomy and endometriosis lesions - ordered IV toradol 15mg q6h as needed for primary pain control per patient desire not to rely on opioids - consider oral NSAID per patient improvement on IV toradol and continued PO tolerance - for backup pain control: continue oxycodone 5mg q8h as needed, morphine 2mg IV q4h as needed for pain if toradol insufficient - follows with Dr. Connolly in general surgery, he is not recommending further abdominal surgery at this time as they could worsen current complications (2) Intractable nausea and vomiting: Plan: acute episode of chronic problem - may be secondary to abdominal adhesions or chronic cannabis use, patient feels that cannabis improves her nausea - no vomiting in the last 24+ hrs - has been tolerating regular diet since advancing to regular diet 01/13/24 starting at lunch - consider smaller more frequent meals compared to larger and fewer meals - famotidine and pantoprazole to PO as needed per improving tolerance, can continue promethazine for nausea as needed - consider discharge on aprepitant for long-term control of symptoms (3) Bipolar 2 disorder: Plan: Continue to temporarily hold Lumateperone as it interacts with Aprepitant for nausea/vomiting - last aprepitant at 9am on 01/10/24 - upon discharge, educate while on aprepitant: recommended to reduce lumateperone to 21mg PO daily, currently takes 42mg PO BID capsules which cannot be split (4) Muscle spasm: Plan: currently resolved, continue tylenol as needed if returns Plan Pt is a 33 yo female with a past medical hx of endometriosis with hysterectomy and previous adhesion lysis procedure, PCOS, cyclical vomiting, and partial seizures presented to the hospital on 01/09/24 for acute nausea with copious nonbloody vomiting. VTE PPx: SCDs Diet: regular Code: Full Dispo: home Admission and Anticipated Discharge Date Admission Date: January 09, 2024 Subjective To be updated: [[Patient was seen and evaluated at bedside this AM, appearing uncomfortable and in mild distress. Endorses she was able to tolerate eating about 25% of both lunch and dinner yesterday 01/13/24, regular diet. States she did not sleep well again overnight due to different environment than home and noise in hallway, had 5/10 abdominal pain, no vomiting. States oxycodone pills didn't improve pain much. Today 01/14/24 she endorses feeling slightly better than day prior, having 4/10 central-left lower abdominal pain and mild nausea. Endorses little appetite this morning, does not feel like having breakfast. Endorses getting up to walk around and use bathroom, no issues with urination or bowel movements. Expresses desire to not have to rely on opioids for pain management, requesting NSAID for pain management at this time, amenable to toradol IV and perhaps later switching to PO ibuprofen in coming days. Denies visual changes, chest pain, dizziness, SOB, neck pain, back pain, diarrhea, constipation, numbness/tingling in LE.]] Review of Systems Review of Systems: per HPI Physical Exam Physical Exam: To be updated: [[Constitutional: A&Ox3, appears stated age, in mild distress HEENT: anicteric sclerae, EOM intact, throat mildly erythematous without exudate Cardiovascular: RRR, +s1/s2, no m/r/g Respiratory: clear to auscultation b/l, good equal air entry b/l, no wheeze/rales/rhonchi GI: abdomen soft, normo-hyperactive bowel sounds, tenderness to palpation of central- and left lower abdomen, no swelling or guarding Neuro: no facial droop, speech intact, no sensory deficits MSK: 5/5 strength all extremities]] Results & Data Results & Data Vital Signs (Past 12 Hours) Vital Signs Temp Pulse Pulse Resp BP BP Pulse Ox 01/15/24 03:25 55 L 01/15/24 03:24 36.6 C 93 H 20 110/68 95 01/15/24 00:18 37.0 C 54 L 18 114/79 98 01/14/24 22:51 01/14/24 21:50 47 L 01/14/24 20:03 36.8 C 66 18 134/84 97 O2 Del Method 01/15/24 03:25 01/15/24 03:24 Room Air 01/15/24 00:18 Room Air 01/14/24 22:51 Room Air 01/14/24 21:50 01/14/24 20:03 Room Air (1) Abdominal pain Abdominal location: left lower quadrant Qualified Code(s): R10.32 - Left lower quadrant pain
[2024-01-15 08:18] VITALS: RESP 18
[2024-01-15 15:35] VITALS: BP 112/76; TEMP 98.8; O2SAT 98
[2024-01-15 15:51] VITALS: PULSE 52
--- NOTE | 2024-01-15 17:32 | Discharge Summary ---
Date of Service January 15, 2024 Admission HPI Per Admitting Provider Kelsey is a 33-year-old female with PMH of PCOS, partial seizures, anxiety, depression, endometriosis, migraines, and hyperemesis syndrome. She presented on 01/08 for intractable vomiting and left upper/lower quadrant abdominal pain. She reports that the pain began gradually on Saturday, and she was to able to tolerate solids and fluids. However over the past 2 days, the pain and vomiting have become unbearable. She is unable to tolerate solids and fluids. She has been dry heaving regularly and producing bowel meant with bile. No blood in her vomit to her knowledge. She does have a history of abdominal surgeries and reports that her gallbladder and appendix were both removed. No history of bowel obstruction, diverticulitis, IBS, Crohn's, or UC. Patient did not take her regular morning medicine, last took medications last night. She did take Phenergan this morning, but reports it did not help with her vomiting. While she does have a history of cyclic vomiting syndrome, she reports that this feels different and that she does not usually have this much pain, or if she does it usually subsides fairly quickly. She reports the pain is in her left upper and lower quadrants, mainly in the LLQ. She rates the pain 8/10 at worst, and 6/10 at present. She says it is constant, but there are waves of cramping. Patient reports that she has been taking oxycodone for the pain at home up until yesterday. She takes oxycodone regularly for chronic pain in her lower abdomen/pelvis. No sick contacts to her knowledge. Patient does endorse using marijuana 3 days ago. She denies any recent alcohol use over the course of her current illness. She denies tobacco use and any illicit drug use. Additionally, patient reports that she has an ICD in place due to history of cardiac arrest in November 2022 and May 2023 (note: was unable to find this information in her chart). Patient also reported to the ED she has a history of torsades (this was the reason Haldol was not given). Additionally, patient reports she does have a mild allergy to IV contrast; she reports that her finger started to swell last time she received IV contrast; she reports she is amenable to having a CT A/P if she is premedicated before hand. Patient's vitals are stable at time of admission. ED course: Dextrose/sodium chloride 1000 mL IV Famotidine 20 mg IV Benadryl 25 mg IV Metoclopramide 10 mg IV Lorazepam 0.5 mg IV Phenergan 25 mg IM Bentyl 20 mg IM ROS: Patient endorses sweating, abdominal pain, loose stool, Patient denies fever, chills, dizziness, lightheadedness, chest pain, chest palpitations, SOB, coughing, hematemesis, blood in the urine/stool, changes in urinary/bowel habits (besides loose stool). Admission Exam Per Admitting Provider General: Patient appears to be in acute physical distress secondary to her abdominal pain; dry heaving in the room with some bile production into emesis bag; diaphoretic; toxic-appearing HEENT: normocephalic, atraumatic; no scleral icterus; PERRLA; vision and hearing intact Neck: supple; trachea midline Skin: warm, dry without signs of tenting; no cyanosis; no rashes, bruising, lesions, or erythema noted CV: chest wall NTP; RRR; S1/S2 normal; no murmurs/rubs/gallops; pulses intact and symmetric at radial, DP, and PT Lungs: no acute respiratory distress; symmetrical chest wall expansion; clear breath sounds across all lung mckeon w/o adventitious sounds; no wheezing ABD: Soft; focal tenderness to palpation in the LLQ; mildly TTP in the LUQ; right upper and lower quadrants are NTP; no rashes or bruises noted on the abdomen or flanks bilaterally; BS present; no rebound/guarding MSK: no tics or fasciculations; no edema noted in the LEs b/l, nonerythematous Neuro: A&Ox3; normal mood and affect; fluent speech; patient reports sensation is intact and symmetric in the lower extremities bilaterally Principal Diagnosis intractable vomiting, LLQ abdominal pain Discharge Exam Constitutional: A&Ox3, appears stated age, in no apparent distress HEENT: anicteric sclerae, EOM intact, throat mildly erythematous without exudate Cardiovascular: RRR, +s1/s2, no m/r/g Respiratory: clear to auscultation b/l, good equal air entry b/l, no wheeze/rales/rhonchi GI: abdomen soft, normo-hyperactive bowel sounds, tenderness to palpation of central- and left lower abdomen, no swelling or guarding Neuro: no facial droop, speech intact, no sensory deficits MSK: 5/5 strength all extremities Discharge Data Allergies Allergy/AdvReac Type Severity Reaction Status Date / Time clavulanic acid Allergy Severe extreme Verified 05/30/23 14:52 vomiting Iodinated Contrast Media Allergy Intermediate RASH,SWELLING Verified 05/30/23 14:52 in hands iodine Allergy Intermediate SWELLING Verified 05/30/23 14:52 mushroom Allergy Intermediate hives Verified 05/30/23 14:52 shellfish derived Allergy Intermediate Hives Verified 05/30/23 14:52 cariprazine [From Vraylar] AdvReac Intermediate hallucinati Verified 05/30/23 14:52 ons Consultations 01/09/24 12:28 ED Decision to Admit Stat Ordered Studies 01/09/24 13:04 CT Abd and Pelvis [CT abd pelvis IV con only] Stat Hospital Course (1) Abdominal pain: CT abdomen/pelvis from 01/09/24 and KUB from 01/12/24 unremarkable - likely secondary to extensive abdominal adhesions from hysterectomy and endometriosis lesions - ordered IV toradol 15mg q6h as needed for primary pain control per patient desire not to rely on opioids - consider oral NSAID per patient improvement on IV toradol and continued PO tolerance - for backup pain control: continue oxycodone 5mg q8h as needed, morphine 2mg IV q4h as needed for pain if toradol insufficient - follows with Dr. Connolly in general surgery, he is not recommending further abdominal surgery at this time as they could worsen current complications D/c home on oxycodone 5mg PO q6h as needed for pain management (2) Intractable nausea and vomiting: acute episode of chronic problem - may be secondary to abdominal adhesions or chronic cannabis use, patient feels that cannabis improves her nausea - no vomiting in the last 24+ hrs - has been tolerating regular diet since advancing to regular diet 01/13/24 starting at lunch - consider smaller more frequent meals compared to larger and fewer meals - famotidine and pantoprazole to PO as needed per improving tolerance, can continue promethazine for nausea as needed - Compazine 5mg q6h prn for nausea/vomiting as needed D/c home on Compazine 5mg q6h prn (3) Bipolar 2 disorder: Continue to temporarily hold Lumateperone as it interacts with Aprepitant for nausea/vomiting - last aprepitant at 9am on 01/10/24 - upon discharge, educate while on aprepitant: recommended to reduce lumatep erone to 21mg PO daily, currently takes 42mg PO BID capsules which cannot be split (4) Muscle spasm: currently resolved, continue tylenol as needed if returns Plan Pt is a 33 yo female with a past medical hx of endometriosis with hysterectomy and previous adhesion lysis procedure, PCOS, cyclical vomiting, and partial seiz ures presented to the hospital on 01/09/24 for acute nausea with copious nonbloody vomiting. VTE PPx: SCDs Diet: regular Code: Full Dispo: home Total Time Total Time Spent Total Time Spent (In Minutes): I spent 25 mins seeing the patient, reviewing chart, and documentation. Discharge Plan Discharge Items Patient Disposition: Home - Self-Care Reason For Visit: INTRACTABLE VOMITING, LLQ PAIN Discharge Diagnosis: intractable vomiting, LLQ abdominal pain Activity: Per Instructions section Non-emergency contact: Primary Care Provider Call non-emergency contact if: your symptoms worsen and your pain is not controlled Follow-up/Referrals: Tavares Peña MD [Primary Care Provider] - (PLEASE CALL YOUR PRIMARY CARE PROVIDER TO SCHEDULE A HOSPITAL DISCHARGE FOLLOW-UP APPOINTMENT WITHIN 7-10 DAYS) Diet: Regular Addtl Attending Provider Instructions: You were evaluated and treated for intractable vomiting, lack of appetite, and left lower quadrant abdominal pain at [facility] prior to being admitted to the inpatient team. Your appetite has significantly improved over the last few days and though you still have some nausea you have not had any bouts of vomiting in the last few days. You continue having abdominal pain, which is most likely related to your history of intra-abdominal adhesions from your prior abdominal surgeries. Dr. Connolly, your general surgeon, is not in favor of surgical intervention at this time as it is more likely to result in additional pain and complications in the future. To manage the pain, you have received IV toradol (ketorolac, an NSAID), oral oxycodone and IV morphine (both opioids). You have not required the IV morphine and have felt like your pain is sufficiently managed with the oxycodone, which we are comfortable sending you home with as you have previously been discharged on this medication. Additionally we will order compazine on discharge so your nausea can be managed at home. Please follow up soon with your PCP, Dr. Peña, so that we can continue to monitor, evaluate, and treat your condition after discharge. Pending Studies at Discharge: No Stand-Alone Forms: My [facility], Smoking Cessation Medications and DC Order Prescriptions: New prochlorperazine maleate 5 mg Tablet 5 mg PO Q6 PRN (Reason: nausea and vomiting) 30 Days Qty: 120 0RF oxycodone 5 mg tablet 5 mg PO Q6H Qty: 20 0RF Continued trazodone 50 mg tablet 50 mg PO UD Rx Instructions: 50 mg po daily. fill history 12/24 has 75 mg po hs nadolol 20 mg tablet 20 mg PO UD Rx Instructions: original: 20 mg po daily. Fill history 01/04 has 20 mg po bid promethazine 25 mg tablet 25 mg PO Q6H PRN (Reason: n/v) Rx Instructions: filled 12/09 15 day supply estradiol 0.025 mg/24 hr patch weekly 1 patch transdermal UD Rx Instructions: filled 03/28 for 84 day supply. 1 patch transdermal weekly hydroxyzine HCl 10 mg tablet 5 - 10 mg PO UD PRN (Reason: Anxiety) Rx Instructions: 5-10 mg po bid prn. No fill history available aprepitant [Emend] 80 mg Capsule 80 mg PO UD Rx Instructions: filled 10/11 3 day supply. 80 mg po qam duloxetine 30 mg Capsule,Delayed Release(Dr/Ec) 30 mg PO HS Rx Instructions: filled 12/24 30 day supply 30 mg po qam duloxetine 60 mg Capsule,Delayed Release(Dr/Ec) 60 mg PO UD Patient Comments: takes with 30mg to equal 90mg Rx Instructions: 60 mg po hs. fill history of 07/10/ for 30 day supply Caplyta 42 mg Capsule 42 mg PO HS tizanidine 2 mg tablet 2 mg PO UD PRN (Reason: Other) Rx Instructions: filled 12/22 8 day supply oxycodone 5 mg tablet 5 mg PO Q8H PRN (Reason: Pain, Severe) Rx Instructions: filled 12/24 for 7 day supply Discharge Orders: Discharge Order (Routine); Ordered 01/15/24 Ordered By: Hans Grimes/Other Patient Handouts: Abdominal Pain, Self-Care for Vomiting and Diarrhea Admission Data Admit Date/Time: 01/09/24 13:12 Attending Provider: Jorge Bailey Admit Provider: Joon Regalado Primary Care Provider: Tavares Peña Other Providers: Joon Regalado Other Interventions: Discharge Summary Assessment (RN) Last Done: 01/15/24 15:49 Supervising Physician Co-Signing Physician Notes ATTESTATION I also saw the patient along with Dr. Simmons and confirmed grubbs portions of the history and exam. I agree with the impression and plan in the resident documentation, and as summarized below. Feeling better. Symptoms managed with PO medications and she would like to go home. EXAM VS as noted Alert and oriented. NAD CV RRR Respirations non labored (+) BS, no r/g IMPRESSION & PLAN Intractable vomiting, improved Abdominal pain, acute on chronic (adhesional disease) Symptoms controlled with prochlorperazine and oxycodone, both if which she utilizes at home to manage PRN Discussed slow titration of diet over the next several days Outpatient follow up in our office Additional per resident documentation Resident Activity Tracking Resident Involvement: Resident Care Provided Care Provided: Adult Hospital Medicine
== END 2024-01-15 16:28 | disposition home or self-care (01) | DRG 394 ==
LOC: ED 08:52 → SUATTDRO 13:12 → EDINP 13:12 → 2W 16:51
DX: E86.0 Dehydration; N80.9 Endometriosis, unspecified; E28.2 Polycystic ovarian syndrome; M54.9 Dorsalgia, unspecified; R11.15 Cyclical vomiting syndrome unrelated to migraine; G89.29 Other chronic pain; F41.9 Anxiety disorder, unspecified; Z91.013 Allergy to seafood; M62.838 Other muscle spasm; N39.0 Urinary tract infection, site not specified; Z91.018 Allergy to other foods; K66.0 Peritoneal adhesions (postprocedural) (postinfection); R10.32 Left lower quadrant pain; Z79.899 Other long term (current) drug therapy; T40.715A Adverse effect of cannabis, initial encounter; F32.A Depression, unspecified; Z90.710 Acquired absence of both cervix and uterus; E87.20 Acidosis, unspecified; Z88.8 Allergy status to other drugs, medicaments and biological substances; F31.81 Bipolar II disorder; Z91.041 Radiographic dye allergy status